=== PATIENT | male | born 1960 | race Caucasian/White ===

== ENCOUNTER 2024-07-25 03:51 | Emergency (ER) | payer OTHER, SELFPAY ==
[2024-07-25] VITALS (8 sets, daily range): BP systolic 106–125; BP diastolic 80–95; BMI 28.5
[2024-07-25 04:33] LABS: % Basophils 0.6 % (0-2); % Eosinophils 2.3 % (0-6); % Immature Granulocytes 0.6 % (0-0.5); % Lymphocytes 21.4 % (20.5-51.1); % Monocytes 8.5 % (1.7-9.3); % Neutrophils 66.6 % (42.2-75.2); Absolute Basophils 0.1 10^3/uL (0-0.2); Absolute Eosinophils 0.3 10^3/uL (0-0.7); Absolute Immature Granulocytes 0.1 10^3/uL (0-0.05); Absolute Lymphocytes 2.5 10^3/uL (1.2-3.4); Absolute Neutrophils 7.8 10^3/uL (1.4-6.5); Hemoglobin 16.7 g/dL (13.0-18.0); Mean Corp Hgb Conc. 34.1 g/dL (33.0-37.0); Mean Corpuscular Hgb 28.9 pg (27.0-31.0); Mean Corpuscular Volume 84.8 fL (80.0-94.0); Mean Platelet Volume 9.4 fL (7.4-10.4); Nucleated Red Blood Cells % 0 % (-); Platelet Count 330 10^3/uL (130-400); Red Blood Cell Count 5.78 10^6/uL (4.70-6.10); Red Cell Dist. Width 13.5 % (11.5-14.5); White Blood Cell Count 11.7 10^3/uL (4.8-10.8)
[2024-07-25 04:55] LABS: ALT (SGPT) 21 U/L (0-50); AST (SGOT) 17 U/L (17-59); Albumin 4.4 g/dl (3.5-5.0); Alkaline Phosphatase 94 U/L (38-126); Blood Urea Nitrogen 28 mg/dl (9-20); Calcium 9.7 mg/dl (8.4-10.2); Carbon Dioxide 22 mmol/L (22-30); Chloride 98 mmol/L (98-107); Glucose 244 mg/dl (70-99); Potassium 4.3 mmol/L (3.5-5.1); Sodium 133 mmol/L (135-145); Total Bilirubin 0.3 mg/dl (0.2-1.3); Total Protein 7.2 g/dl (6.3-8.2); eGFR > 60.00
--- NOTE | 2024-07-25 07:49 | ED.GENMED ---
History of Present Illness
General
Chief Complaint: Breathing Problem
Source: patient and spouse
Exam Limitations: none
Time Seen by Provider: 07/25/24 07:48
Nursing documentation reviewed up to this point in time: agreed with
History of Present Illness
History of Present Illness:
Patient is a 63-year-old male who presents to the ER for evaluation. Patient reports he has had a lump to his left neck for about 2 years. He has been diagnosed with a left parotid mass along with left knee lateral vocal fold paralysis dysphagia
and GERD
this has been evaluated by his family doctor. It has not grown. He however started with a hoarse voice in May and was seen by his family doctor and had 2 rounds of antibiotics which did not improve his symptoms. He was therefore seen by ENT
Dr. Hollis Yeh. He is scheduled for CAT scan this Wednesday several days from now however reports because of this swelling to his left lateral neck he is having difficulty breathing at night. He admits to feeling very anxious about symptoms And
reports he has been anxious since seeing his ENT.
he is able to eat and swallows and secretions. He reports he believes feels about 5 pounds over the past 2 weeks. He denies any fever chills the cast. The CAT scans he is scheduled for include CT neck with IV contrast and CT chest with IV
contrast.
Patient reports he is a smoker but quit 3 weeks ago.
Past History
Past History
ED Past Medical History: HTN, Hypercholesterolemia and NIDDM
Social History
Tobacco: Smoker
Personal:
Living: with family
Employment: Employed ([employer])
Family History
Family History: Negative Diabetes, Hypertension or CAD
Review of Systems
Review of Systems
Allergies reviewed?: Yes
All Other Systems: ROS reviewed and negative except as documented in HPI and ROS
Constitutional: Reports no symptoms; Denies fever
EENT: Reports other (Lump to left lateral neck)
Respiratory: Reports trouble breathing (Patient feels that he is having trouble breathing from the lump to the left lateral)
Cardiac: Reports no symptoms
ABD/GI: Reports no symptoms
Musculoskeletal: Reports no symptoms
Skin: Reports no symptoms
Neurological: Reports no symptoms
Psychiatric: Reports no symptoms
Phy Exam
General Physical Exam
General Presentation: no apparent distress
General age: appears stated age
General Skin: warm and dry
General Habitus: normal
General Mental: alert
General Hydration: appears well hydrated
ENT Exam
ENT Exam: EOMI, neck supple and other (No drooling tongue secretions well palpable mass to left lateral neck just below mandible)
Cardiovascular Exam
Cardiovascular Exam: regular rate/rhythm, no murmur and normal peripheral pulses
Pulmonary Exam
Pulmonary Exam: lungs clear and no respiratory distress
Neurological Exam
Neurological Exam: alert and oriented x3
Musculoskeletal Exam
Musculoskeletal Exam: full ROM
Skin Exam
Skin Exam: normal color and warm/dry
Psychiatric Exam
Psychiatric Exam: normal mood/affect
Scores
Heart Failure Risk
Heart Failure Risk Score: Not Applicable
Course
Orders/Labs/Results
Orders:
Orders
07/25/24
CR Soft Tissue Neck Urgent
07/25/24 04:10
CR Chest - 2 Views Urgent
Comment:
Reason For Exam: DIFFICULTY BREATHING, SOFT TISSUE SWELLING LT NECK
07/25/24 04:18
CMP [Comprehensive Metabolic Panel] Urgent
Complete Blood Count/With Diff Urgent
07/25/24 07:59
CT Neck With Iv Contrast Urgent
Comment:
Reason For Exam: lump to left lateral neck/hoarse voice
07/25/24 08:00
CT Chest With Iv Contrast Urgent
Comment:
Reason For Exam: sob
0.9% Sodium Chloride 1000 ml [Nss] 1,000 ml IV BOLUS
07/25/24 08:52
Lorazepam [Ativan] 0.5 mg IV NOW STA
Abnormal Lab Results
07/25/24
04:18
WBC 11.7 H 10^3/uL
(4.8-10.8)
Abs Immat Gran (auto) 0.1 H 10^3/uL
(0-0.05)
Absolute Neuts (auto) 7.8 H 10^3/uL
(1.4-6.5)
Absolute Monos (auto) 1.0 H 10^3/uL
(0.1-0.6)
Immature Gran % 0.6 H %
(0-0.5)
Sodium 133 L mmol/L
(135-145)
BUN 28 H mg/dl
(9-20)
Glucose 244 H mg/dl
(70-99)
07/25/24 04:18
07/25/24 04:18
Vital Signs
Initial and Last Documented VS:
Initial Vital Signs
Temp Pulse Resp BP Pulse Ox
97.7 F 92 22 106/80 95
07/25/24 04:06 07/25/24 04:06 07/25/24 04:06 07/25/24 04:06 07/25/24 04:06
Last Documented Vital Signs
Temp Pulse Resp BP Pulse Ox
98.1 F 80 20 125/95 91
07/25/24 09:37 07/25/24 11:48 07/25/24 11:48 07/25/24 11:48 07/25/24 12:15
MDM/Problems Addressed
Differential Diagnosis Includes:
Not limited to mass/malignancy
MDM/Problems Addressed:
Patient is a 63-year-old male who has known left neck mass however has had shortness of breath which is what brought him to the ER. He admits that he was very anxious while sleeping last night and since being worried about malignancy he was unable
to sleep. He does feel that this mass/swelling of the left lateral neck is interfering with his breathing. He was scheduled to have a CAT scan this Wednesday which was ordered by ENT. Patient presents with obvious mass to left lateral neck show
tolerating secretions well. He is not hypoxic and his lungs are clear. He is a smoker and quit 3 weeks ago.
CAT scan shows a 3.6 cm left parotid mass which may be benign or malignant there is mediastinal and left supraclavicular adenopathy worrisome for malignancy. There is a nodular area of soft tissue prominence on the lateral aspect of the
hypopharynx. Chest x-ray shows mediastinal and bilateral hilar and left supraclavicular lymphadenopathy.
Patient has initially seen an ENT Dr Yeh however is requesting a new ENT.
Patient is in no acute distress though he has an obvious mass he is in no respiratory distress lungs are clear he has time secretions well he is not short of breath. He is admittedly anxious but feels comfortable going home and there is no
admission warranted at this time. He will indeed need outpatient close prompt follow-up.
I reviewed case with ENT Dr. Cleveland who will be able to see patient in his office this week to further evaluate his parotid mass and evaluate/biopsy
Case also reviewed with destination specialist Dr. Lawrence who will ensure follow-up this week as well for further evaluation of CT findings
I reviewed all instructions with and patient discussed the importance of close follow-up.
*Radiology
Radiology exam reviewed: radiology read reviewed
*Pulse Oximetry
Patient hypoxic: no
*Critical Care Note
Total Time (30-74mins, 75-104mins- exclusive of procedures): Not Applicable
ED Attending Note
-
Portions of this chart may have been created with voice recognition software.� Occasional wrong word or��sound alike� substitutions may have occurred due to the inherent limitations of voice recognition software.
Discharge Plan
Departure
Patient Disposition: Home (Routine Discharge)
Date of Disposition: 07/25/24
Time of Disposition: 12:23
Patient with high blood pressure during this ER visit?: Yes
Condition: Fair
Covid-19: Not Applicable
Discharge Problem:
Parotid mass
Instructions: BLOOD PRESSURE
Prescriptions:
No Action
atorvastatin 40 MG tablet
40 mg PO DAILY
metformin 500 MG tablet
500 mg PO BID
aspirin 325 MG tablet
325 mg PO DAILY
quinapril [Accupril] 20 MG tablet
20 mg PO DAILY
Fish Oil 1,000 MG capsule
1 cap PO DAILY
cholecalciferol (vitamin D3) 2,000 UNIT tablet
2,000 unit PO DAILY
Vitamins B Complex 1 EACH tablet
1 ea PO DAILY
Mens 50+ Daily Formula(gingko) 1 EACH tablet
1 ea PO DAILY
Referrals:
John Lawrence MD [Active] -
Ankur Cleveland MD [Active] -
Brennen Villalobos MD [Family Provider] -
Activity Restrictions/Additional Instructions:
As discussed you need prompt follow-up for further evaluation of your left parotid mass and swollen lymph nodes in your chest region.
Please call ENT early on morning.
Pulmonology office should reach out to you to schedule an appointment. if you do not hear please call the office today to schedule an appointment as soon as possible. If office is closed today please call morning
As discussed it is important to have prompt follow-up with both ENT and pulmonology for further evaluation of CT findings today.
Return if any worsening of symptoms including shortness of breath difficulty breathing swallowing or any further concerns.
Interventions
Interventions:
*Risk Screen - Suicide Last Done: 07/25/24 04:06
*General Assessment Last Done: 07/25/24 07:51
*Neglect/Abuse Screening Last Done: 07/25/24 04:06
ED- Fall Risk Assessment Last Done: 07/25/24 07:51
*ED COVID-19 Vaccine History Last Done: 07/25/24 07:51
*Nursing Disposition Last Done: 07/25/24 12:29
ED- Cardiac Assessment Last Done: 07/25/24 07:51
ED- Pulmonary Assessment Last Done: 07/25/24 07:51
Discharge Date and Time
Discharge Date/Time: 07/25/24 12:53
Print Language: [id number]
--- NOTE | 2024-07-25 07:51 | EDRN ---
Milana Kerns ACID WASH OPERATOR currently at the pts bedside
--- NOTE | 2024-07-25 07:59 | EDRN ---
the pt is resting in stretcher in the lowest position, side rails up x1, HOB elevated, no s/s of distress, the pt states to this RN, 'I am just nervous, i just recently quit smoking, my throat is hoarse and i feel like one of my vocal cords is being
paralyzed, i feel at times like i can't breathe and i feel short of breath', this RN assured the pt that his VS were WNL, this RN also assured the pt that his Sp02 was 96%, this RN was able to calm the pt down with deep breathing exercises, the pts
is at the pts bedside for support, awaiting for orders from provider, will continue to monitor the pt closely
[2024-07-25] MEDS: NSS 1000 IV (08:19)
[2024-07-25] MEDS: ATIVAN 0.5 MG IV (09:00)
--- NOTE | 2024-07-25 10:30 | EDRN ---
the pt is resting in stretcher in the lowest position, side rails up x1, HOB elevated, no s/s of distress, the pt appears anxious and the pt and the pts have come behind the nurses station twice to ask this RN, 'What is going on? when will we
know the results of the CT scan? We shouldn't have to wait this long, i am anxious, that should count for something!', this RN assured the pt that the provider Milana Kerns NP would be in to speak with him regarding his CT results once the
radiologist reads the CT scan, the pt was asked to go back into his room, the pt is laying in stretcher, the pt does not want to be placed back on [facility], BP cuff, Sp02 monitor, no s/s of distress, no c/o SOB, no c/o chest pain, will
continue to monitor the pt closely
--- NOTE | 2024-07-25 11:45 | EDRN ---
the pt came out of the room and approached this RN at the nurses station and stated that he wanted to speak to a provider regarding his results, this RN notified the pt that Milana Kerns NP was just recently at the pts bedside speaking to him
regarding his results and the pt stated that he wanted to hear the results again, this RN notified the pt that this RN would notify the provider and this RN asked the pt to go back into his room, this RN notified Milana Kerns NP and is currently
at the pts bedside speaking with the pt, the pt is resting in stretcher in the lowest position, side rails up x1, HOB elevated, no s/s of distress, VS WNL, will continue to monitor the pt closely
== END 2024-07-25 12:53 | disposition home or self-care (01) ==
LOC: EMR 03:51
PROVIDERS: Emergency Medicine; EMERGENCY PHYSICIAN Emergency Medicine; FAMILY PHYSICIAN Family Medicine
DX: R22.1 Localized swelling, mass and lump, neck (principal); I10 Essential (primary) hypertension; E78.00 Pure hypercholesterolemia, unspecified; E11.9 Type 2 diabetes mellitus without complications; F17.200 Nicotine dependence, unspecified, uncomplicated
CPT/HCPCS: 96374; 96361; 99284; 70360; 70491; 71046; 71260; 80053; 85025; Q9967

== ENCOUNTER 2024-07-31 09:15 | Day surgery (SDC) | payer OTHER, SELFPAY ==
[2024-07-31] VITALS (12 sets, daily range): BP systolic 100–130; BP diastolic 65–83; BMI 28.3
[2024-07-31 10:55] LABS: Glucose - Point of Care 236 mg/dl (70-99)
[2024-07-31 14:28] LABS: Glucose - Point of Care 234 mg/dl (70-99)
== END 2024-07-31 15:49 | disposition home or self-care (01) ==
LOC: SDS 09:15
PROVIDERS: ATTENDING PHYSICIAN Internal Medicine Critical Care Medicine
DX: R93.89 Abnormal findings on diagnostic imaging of other specified body structures (principal); R59.0 Localized enlarged lymph nodes; R49.0 Dysphonia; R06.02 Shortness of breath; J39.8 Other specified diseases of upper respiratory tract; Z87.891 Personal history of nicotine dependence
CPT/HCPCS: 31653; 88172; 88173; 88305; 71045; 82962; 88177

== ENCOUNTER → 2024-09-04 07:35 | Outpatient (REF) | payer OTHER, SELFPAY ==
[2024-09-04 07:56] VITALS: BP 126/85; BP_SYST 117
== END ==
LOC: RADI 07:35
PROVIDERS: ATTENDING PHYSICIAN Internal Medicine Critical Care Medicine; FAMILY PHYSICIAN Family Medicine
DX: C77.0 Secondary and unspecified malignant neoplasm of lymph nodes of head, face and neck (principal)
CPT/HCPCS: 88305; 38505; 76942; 88333; 88334; 88342

== ENCOUNTER 2024-09-27 09:40 | Inpatient (IN) | payer OTHER, SELFPAY ==
[2024-09-27] VITALS (15 sets, daily range): BP systolic 99–131; BP diastolic 64–91; PULSE 2; BMI 25.5; BMI 25.3
[2024-09-27 06:24] LABS: % Basophils 0.7 % (0-2); % Eosinophils 1.9 % (0-6); % Immature Granulocytes 0.6 % (0-0.5); % Lymphocytes 17.9 % (20.5-51.1); % Monocytes 6.7 % (1.7-9.3); % Neutrophils 72.2 % (42.2-75.2); Absolute Basophils 0.1 10^3/uL (0-0.2); Absolute Eosinophils 0.3 10^3/uL (0-0.7); Absolute Immature Granulocytes 0.1 10^3/uL (0-0.05); Absolute Lymphocytes 2.7 10^3/uL (1.2-3.4); Absolute Neutrophils 10.8 10^3/uL (1.4-6.5); Hematocrit 46.6 % (39.0-52.0); Mean Corp Hgb Conc. 34.3 g/dL (33.0-37.0); Mean Corpuscular Hgb 28.7 pg (27.0-31.0); Mean Corpuscular Volume 83.7 fL (80.0-94.0); Mean Platelet Volume 8.9 fL (7.4-10.4); Nucleated Red Blood Cells % 0 % (-); Platelet Count 413 10^3/uL (130-400); Red Blood Cell Count 5.57 10^6/uL (4.70-6.10); Red Cell Dist. Width 13.2 % (11.5-14.5)
--- NOTE | 2024-09-27 06:33 | ED.GENMED ---
History of Present Illness
General
Chief Complaint: Breathing Problem
Source: patient and spouse
Exam Limitations: none
Time Seen by Provider: 09/27/24 06:31
Nursing documentation reviewed up to this point in time: agreed with
History of Present Illness
History of Present Illness:
The patient is a pleasant 64-year-old man with a past medical history of a recently diagnosed parotid gland mass and chest lymphadenopathy, as well as emphysema and diabetes who comes in with complaints of severe shortness of breath. Patient
reports that the symptoms started about 2 to 3 days ago and are associated with cough. He denies fever. His reports that he seemed to be worse this morning, prompting her to bring him to the ED today. Patient denies a specific history of
congestive heart failure. Patient denies specific chest pain. describes gurgling that she hears in his chest. Patient reports he recently quit smoking 5 months ago.
Past History
Past History
ED Past Medical History: COPD, HTN, Hypercholesterolemia and NIDDM
ED Past Surgical History: Orthopedic
Social History
Tobacco: Smoker
Alcohol: Other
Drug: None
Personal:
Living: with family
Employment: Employed ([employer])
Family History
Family History: Negative Diabetes, Hypertension or CAD
Review of Systems
Review of Systems
Allergies reviewed?: Yes
All Other Systems: ROS reviewed and negative except as documented in HPI and ROS
Constitutional: Reports no symptoms
EENT: Reports other (Nasal congestion)
Respiratory: Reports cough and trouble breathing
Cardiac: Reports no symptoms
ABD/GI: Reports no symptoms
: Reports no symptoms
Musculoskeletal: Reports no symptoms
Skin: Reports no symptoms
Neurological: Reports no symptoms
Endocrine: Reports no symptoms
Hematologic/Lymphatic: Reports no symptoms
Psychiatric: Reports no symptoms
Phy Exam
Physical Exam
Physical Exam:
Physical Exam
General: Patient is visibly tachypneic but speaking in full sentences. Audible gurgling sound
Neck: supple.
Heart: s1/s2 regular rate and rhythm, no murmur. equal radial pulses.
Lungs: Tachypneic. Rhonchi, turbulent airflow
Abdomen: Soft
Neuro: alert and oriented. no focal neurological deficits
Skin: no rash
Psychiatric: well kept. interactive and cooperative
Extremities: no edema. no calf tenderness. negative homans. good distal pulses
Scores
Heart Failure Risk
Heart Failure Risk Score: Not Applicable
Course
Orders/Labs/Results
Orders:
Orders
09/27/24 Breakfast
1800 calorie (15 carb) Diabetic
At Your Request: Full Participation
09/27/24 06:16
Electrocardiogram (*1) Urgent
Reason for Study: Shortness of Breath
Portable Chest Xray [CR Chest Portable - 1 View] Urgent
Comment:
Reason For Exam: trouble breathing
Reason Study Needs to be Portable: Patient Unstable
09/27/24 06:17
EKG- Treatment ONCE
09/27/24 06:18
Complete Blood Count/With Diff Urgent
Comprehensive Metabolic Panel Urgent
NT-proBNP Urgent
Troponin I Urgent
09/27/24 06:31
Albuterol Sulfate [Ventolin Nebules] 15 mg INH R NOW STA
09/27/24 06:32
Dexamethasone Sod Phosphate [Decadron] 10 mg IV NOW STA
09/27/24 06:39
COVID-19 Antigen Urgent
Source: Nasal Swab
Influenza A+B Rapid Molecular Urgent
GIFTY Source: Nasal Swab
Specimen Description:
09/27/24 07:47
Azithromycin 500 mg/250 ml [Zithromax Infusion] 500 mg in 250 ml IV NOW
CefTRIAXone [Rocephin] 1,000 mg IV NOW STA
09/27/24 07:48
Bipap [RESP] Urgent
Patient to use own unit?: No
Inspiratory Pressure (cm H2O): 10
Expiratory Pressure (cm H2O): 5
09/27/24 08:13
Sterile Water [Sterile Water For Injection] 10 ml .ROUTE .STK-MED ONE
09/27/24 08:[address] Non Medication Order As Directed
Physician Order: wean off bipap before resuming diet
Above order entered?: Yes
09/27/24 08:56
0.9% Sodium Chloride 500 ml [Nss] 500 ml IV BOLUS
09/27/24 09:02
CT Chest PE Study Urgent
Comment:
Reason For Exam: acute hypoxia resp distress required bipap Cancer
09/27/24 09:16
Dextrose 50%-Water [Dextrose 50% Syringe] 12.5 grams IV [id number] PRN
Glucagon [GlucaGen] 1 mg IM PRN PRN
Bedside Glucose Monitoring As Directed
Frequency: AC&HS
Additional Instructions:: Change to q6h if pt on TPN, tube feeding or not eating
09/27/24 09:19
Admit/Transfer Patient As Directed
Co-Sign Provider:
Level of Care: Inpatient admission
Assign to:: Telemetry
Physician / Group: Julito Hunter
Diagnosis: Acute Hypoxic Resp Failure COPD exacerbation
Reason for Telemetry: Arrhythmia
Date to Stop Telemetry: 09/30/24
Time to Stop Telemetry: 11:00
Reason for Hospitalization: Acute Hypoxic Resp Failure COPD exacerbation
Expected length of stay greater than two midnights?: Yes
ELOS- Estimated Length of Stay in days: 2
I certify the patient meets the requirements for IP care: Yes
PRN Pain Medication Management As Directed
May give lesser potent ordered pain med per pt: Yes
preference::
Protocol:: Medication orders for pain may be administered in a
manner that supports deferring to patient preference
when the pt is:
- Requesting an ordered lesser potent pain medication.
Least to most potent pain medications are defined
as: acetaminophen < NSAID < tramadol < opioids
(morphine, oxycodone, hydromorphone).
- Requesting a lesser dose of the same medication IF
ORDERED.
- Requesting a less intrusive route of administration
if both routes are prescribed by the provider (PO <
IV).
09/27/24 09:25
Code Status As Directed
Resuscitation Status: Full Code
09/27/24 10:03
Venous Blood Gas Routine
%Oxygen/Room Air: 92
09/27/24 11:30
Insulin Aspart Corrective Low [Novolog Flexpen-Low Resistance] See Protocol SC AC
09/28/24 06:00
Glycohemoglobin (HgbA1c) IN AM
09/30/24 11:00
DC Protocol for Telemetry ONCE
Abnormal Lab Results
09/27/24
06:18
WBC 15.0 H 10^3/uL
(4.8-10.8)
Plt Count 413 H 10^3/uL
(130-400)
Abs Immat Gran (auto) 0.1 H 10^3/uL
(0-0.05)
Absolute Neuts (auto) 10.8 H 10^3/uL
(1.4-6.5)
Absolute Monos (auto) 1.0 H 10^3/uL
(0.1-0.6)
Immature Gran % 0.6 H %
(0-0.5)
Lymphocytes % 17.9 L %
(20.5-51.1)
Sodium 134 L mmol/L
(135-145)
BUN 24 H mg/dl
(9-20)
Glucose 213 H mg/dl
(70-99)
Calcium 11.0 H mg/dl
(8.4-10.2)
09/27/24 06:18
09/27/24 06:18
Vital Signs
Initial and Last Documented VS:
Initial Vital Signs
Temp Pulse Resp Pulse Ox
98.4 F 102 30 90
09/27/24 06:12 09/27/24 06:12 09/27/24 06:12 09/27/24 06:12
Last Documented Vital Signs
Temp Pulse Resp BP Pulse Ox
98.4 F 106 20 99/66 96
09/27/24 06:12 09/27/24 10:09 09/27/24 10:09 09/27/24 10:09 09/27/24 10:09
MDM/Problems Addressed
Differential Diagnosis Includes:
Acute on chronic COPD, pneumonia, acute CHF, acute coronary syndrome, pericardial effusion, pleural effusion, PE
MDM/Problems Addressed:
Patient presents with acute shortness of breath
Chronic conditions affecting care:
Given patient has a history of chronic COPD, he could have an acute exacerbation
Acute Exacerbation and/or Progression of Chronic Illness: COPD
*Radiology
Radiology exam reviewed: preliminary read by ED provider (Chest x-ray reviewed by me. Possible mild CHF. No obvious infiltrate)
*Pulse Oximetry
Patient hypoxic: yes
*EKG
Interpreted by ED Provider?: Yes
Interpretation: abnormal
Comparison EKG: no comparison EKG present
Rate: normal
Rhythm: sinus
[place]: left axis deviation
Interval: normal interval
QRS Pattern: normal QRS
Ischemia: non-specific ST changes
*General Operations Agent Interpretation
Rate: normal
Interpretation: normal
Rhythm: sinus
*Critical Care Note
Total Time (30-74mins, 75-104mins- exclusive of procedures): 45 minutes of critical ca
comment:
45 minutes of critical care given to the patient including frequent reassessments of his respiratory effort, reviewing his lab work, chest x-ray, counseling the patient and his
Data Reviewed
Review of Other/Old Records Reveals: Progress Notes (Office H&P reviewed from Dr. Lawrence from last pulmonology visit)
Source: patient and spouse
ED Attending Note
-
Portions of this chart may have been created with voice recognition software.� Occasional wrong word or��sound alike� substitutions may have occurred due to the inherent limitations of voice recognition software.
Discharge Plan
Departure
Patient Disposition: Admit
Date of Disposition: 09/27/24
Time of Disposition: 07:50
Admit to: Telemetry
Presentation/result/management discussed w/ accepting MD/DO: Hospitalist
Patient with high blood pressure during this ER visit?: No
Condition: Fair
Covid-19: Negative COVID-19
Discharge Problem:
Acute hypoxic respiratory failure, Acute bronchitis
Interventions
Interventions:
*Risk Screen - Suicide Last Done: 09/27/24 06:28
*General Assessment Last Done: 09/27/24 06:21
*Neglect/Abuse Screening Last Done: 09/27/24 06:53
*ED- Fall Risk Assessment Last Done: 09/27/24 06:21
*ED COVID-19 Vaccine History Last Done: 09/27/24 06:21
ED- Cardiac Assessment Last Done: 09/27/24 08:00
ED- Pulmonary Assessment Last Done: 09/27/24 08:00
[2024-09-27] MEDS: VENTOLIN NEBULES 15 MG INH (06:36)
[2024-09-27] MEDS: DECADRON 10 MG IV (06:36)
[2024-09-27 06:47] LABS: ALT (SGPT) 21 U/L (0-50); Albumin 4.4 g/dl (3.5-5.0); Blood Urea Nitrogen 24 mg/dl (9-20); Carbon Dioxide 24 mmol/L (22-30); Chloride 98 mmol/L (98-107); Estimated Creatinine Clearance 115 ml/min; Glucose 213 mg/dl (70-99); Sodium 134 mmol/L (135-145); Total Protein 7.4 g/dl (6.3-8.2); eGFR > 60.00
[2024-09-27 06:52] LABS: NT-proBNP 67.5 pg/ml; Troponin I < 0.012 ng/ml
[2024-09-27 07:01] LABS: AST (SGOT) 27 U/L (17-59); Alkaline Phosphatase 111 U/L (38-126); Potassium 4.5 mmol/L (3.5-5.1)
[2024-09-27 07:21] LABS: COVID-19 Antigen Negative (Negative)
--- NOTE | 2024-09-27 07:52 | HPS.HSE ---
Family Physician
-
Family Physician: Brennen Villalobos
Chief Complaint
-
shortness of breath
History of Present Illness
64 male former smoker COPD hypertension hyperlipidemia [id number] diabetes recent diagnosis metastatic squamous cell carcinoma with associate mediastinal lymphadenopathy (follows Oncology Dr Camila Bean and pulm Dr Lawrence outpt)
p/w progressive dyspnea coughing for the past weeks, acutely worsening in last 24 hours prompting ED evaluation. Never required oxygen before, patient noted hypoxic in respiratory distress, improved with oxygen supplementation 4L, Bipap, steroids
and empiric abx. Mildly sinus tachy but VSS afebrile. Labs notable for mild leukocytosis possibly stress reactive, mild hyperglycemia, and mild hypercalcemia. CXR noted no acute disease. Lungs clear to auscultation.
Medical History
Past Medical History
Past Medical History: Reports Other (as above)
Past Surgical History: Reports Other (as above)
Social History
Tobacco: Former Smoker
Alcohol: None
Drug: None
Personal:
Living: With Family
Employment: Employed
Family History
Family History: Not pertinent (reviewed)
Allergies / Home Medications
Allergies reflects when Allergies were last updated in [facility].
Home Medications with original date entered in [facility]
Allergy/Medication List:
Allergies
Allergy/AdvReac Type Severity Reaction Status Date / Time
levofloxacin [From Levaquin] Allergy Unknown Verified 09/27/24 06:16
Home Medications
cholecalciferol (vitamin D3) 50 mcg (2,000 unit) tablet 2,000 unit PO DAILY 11/06/13
metformin 500 mg tablet 1,000 mg PO BID 11/06/13
aspirin 81 mg tablet,delayed release 81 mg PO DAILY 07/31/24
dapagliflozin propanediol 10 mg tablet 10 mg PO DAILY 07/31/24
glimepiride 4 mg tablet 4 mg PO DAILY 07/31/24
lisinopril 20 mg tablet 20 mg PO DAILY 07/31/24
pioglitazone 30 mg tablet 30 mg PO DAILY 07/31/24
alprazolam 0.25 mg tablet (Xanax) 0.25 mg PO DAILYPRN PRN anxiety 09/27/24
atorvastatin 20 mg tablet (Lipitor) 20 mg PO QPM 09/27/24
benzonatate 100 mg capsule 200 mg PO TIDPRN PRN cough 09/27/24
escitalopram oxalate 10 mg tablet 10 mg PO DAILY 09/27/24
omega-3 fatty acids-fish oil 684 mg-1,200 mg capsule,delayed release 1 cap PO DAILY 09/27/24
therapeutic multivitamin 1 tab PO DAILY 09/27/24
vitamin B complex 1 tab PO DAILY 09/27/24
Review of Systems
-
A 12 point ROS was completed and negative except as noted: Yes
Constitutional: Reports Other (as below)
Physical Exam
Vital Signs
Vital Signs
Temp Pulse Resp BP Pulse Ox
98.4 F 94 15 121/91 95
09/27/24 06:12 09/27/24 06:45 09/27/24 06:45 09/27/24 06:18 09/27/24 06:45
Physical Exam
General: Other (as below)
Laboratory Results
-
09/27/24 06:18
09/27/24 06:18
Laboratory Results
Total Bilirubin 1.0 mg/dl (0.2-1.3) 09/27/24 06:18
AST 27 U/L (17-59) 09/27/24 06:18
ALT 21 U/L (0-50) 09/27/24 06:18
Alkaline Phosphatase 111 U/L (38-126) 09/27/24 06:18
Troponin I < 0.012 ng/ml 09/27/24 06:18
Impression/Plan
-
ROS
General: Denies fever chills night sweats unexpected weight loss
Neuro: Denies seizure shaking loss of consciousness dizziness vertigo
Psych: denies depression hallucinations confusion manic episodes
Endocrine: Denies polyuria polydipsia polyphagia heat/cold intolerance
HEENT: Denies blindness visual disturbances epistaxis
Pulmonary: reports progressive couging sob
Cardiovascular: denies chest pain palpitations leg swelling
Hematology: denies signs symptoms of anemia easy bruising/bleeding
Gastrointestinal: denies nausea vomiting diarrhea constipation hematemesis hematochezia melena
Genito-Urinary: denies retention incontinence dysuria
Musculoskeletal: denies joint pain weakness
Dermatology: denies rash laceration bruising
Physical Exam
General: No pallor, cyanosis, or jaundice.
HEENT: Throat clear. PERRLA Normocephalic atraumatic
NECK: Supple. No JVD Carotid Bruits
RESPIRATORY: Lungs clear to auscultation. No crackles wheezes stridor. Respiratory status appears stable at this time on BIPAP and 4L oxygen supplementation. Able to speak full sentences.
CVS: S1, S2 sinus tachy. No murmur, rub or gallop.
ABDOMEN: Soft, non-tender. No distension. BS+/normal.
EXTREMITIES: No peripheral cyanosis or edema.
BLOCK CUBER: AOx3. Conversant coherent
IMPRESSION:
64 male former smoker COPD hypertension hyperlipidemia [id number] diabetes recent diagnosis metastatic squamous cell carcinoma with associate mediastinal lymphadenopathy (follows Oncology Dr Camila Bean and pulm Dr Lawrence outpt)
p/w progressive dyspnea coughing for the past weeks, acutely worsening in last 24 hours prompting ED evaluation. Never required oxygen before, patient noted hypoxic in respiratory distress, improved with oxygen supplementation 4L, Bipap, steroids
and empiric abx. Mildly sinus tachy but VSS afebrile. Labs notable for mild leukocytosis possibly stress reactive, mild hyperglycemia, and mild hypercalcemia. CXR noted no acute disease. Lungs clear to auscultation.
PLAN:
#Acute Hypoxic Respiratory Failure possibly COPD exacerbation
#Recent Dx Metastatic SQC w/ mediastinal Lymphadenopathy due to start treatment
Tele admit
never required oxygen before
Cont O2 supplementation as necessary goal sat 92
Wean off BIPAP
Follow up VBG
check CT Chest r/o PE
cont empiric ceftriaxone and azithromycin for now, suspicion pna low
received IV decadron 10 mg once in ED, no wheezing at this time, will cont with Prednisone 40 mg daily for now, anticipate short taper
Duoneb PRN
Pulm Oncology Eval requested
#Mild Hypercalcemia
possible dehydration vs malignancy related
once IVF bolus
monitor
#HTN
cont home Lisinopril with holding parameters
#DM
cont home metformin pioglitazone farxiga (or equivalent) hold if NPO/not eating
check A1c
low dose sliding scale
Carb Controlled Diet
dvt ppx Lovenox
Gi ppx protonix
Full Code
Discussed with patient and patient's
I spent a total of 80 minutes with the patient or on the floor. More than 50% of this time involved counseling and coordination of care.
[2024-09-27] MEDS: ZITHROMAX INFUSION 250 IV (08:27)
[2024-09-27] MEDS: ROCEPHIN 1000 MG IV (08:27)
[2024-09-27 10:15] LABS: Venous Blood Gas B.E. 2.2 mmol/L (-4 to +4); Venous Blood Gas HCO3 25.5 mmol/L (22-27); Venous Blood Gas O2 Sat % 99.5 %; Venous Blood Gas pCO2 35 mmHg (35-48); Venous Blood Gas pH 7.47 (7.32-7.43); Venous Blood Gas pO2 135 mmHg (30-50)
--- NOTE | 2024-09-27 11:05 | CM ---
Met patient and his in ER room. Patient's known to this software writer as she works at [facility] pharmacy, and volunteers at . Patient is independent in home and community. He has a car he shows at car shows.
They live in split level with 5 steps to enter all living areas and bathroom and bedroom.
He does not use any DME.
NO history of VNA or SNF.
PCP Chandler Villalobos
PHarmacy [facility]
HE is admitted with Hypoxia. HE does not have oxygen at home.
Plan: home no needs.
[2024-09-27] MEDS: NSS (PRESERVATIVE FREE) 10 ML IV (11:08)
[2024-09-27] MEDS: PROTONIX IV 40 MG IV (11:08)
[2024-09-27] MEDS: NSS 500 IV (11:08)
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
[2024-09-27 13:27] LABS: Glucose - Point of Care 239 mg/dl (70-99)
[2024-09-27] MEDS: NOVOLOG FLEXPEN-LOW RESISTANCE 2 UNITS SC (13:51)
--- NOTE | 2024-09-27 14:15 | EDRN ---
Patient taken to 404-1 on stretcher on O2 4LNC.
[2024-09-27] MEDS: DECADRON 4 MG IV ×2 (15:14→23:05)
[2024-09-27 17:15] LABS: Glucose - Point of Care 281 mg/dl (70-99)
[2024-09-27] MEDS: LOVENOX 40 MG SC (17:38)
[2024-09-27] MEDS: LIPITOR 20 MG PO (17:38)
[2024-09-27] MEDS: NOVOLOG FLEXPEN-LOW RESISTANCE 3 UNITS SC (17:39)
--- NOTE | 2024-09-27 17:52 | PTCARENOTE ---
Arrived to unit and ambulated to bed from stretcher. o2 sat 83% on 4L. No complaints at this time. Oriented to room. Call naik within reach.
[2024-09-27] MEDS: XANAX 0.25 MG PO (20:49)
[2024-09-27] MEDS: GLUCOPHAGE 1000 MG PO (20:49)
[2024-09-27 21:30] LABS: Glucose - Point of Care 248 mg/dl (70-99)
[2024-09-28] VITALS (7 sets, daily range): BP systolic 103–135; BP diastolic 63–86; PULSE 90; O2SAT 98; BMI 25.3
--- NOTE | 2024-09-28 07:16 | W.PN.HOSP.TC ---
Today's Communication/Plan
-
Duoneb R QID
cont steroids
glycemic control
IVF
wean O2 as tolerated
discontinue abx
Assessment / Plan
Assessment / Plan
Physical Exam
General: No pallor, cyanosis, or jaundice.
HEENT: Throat clear. PERRLA Normocephalic atraumatic
NECK: Supple. No JVD Carotid Bruits
RESPIRATORY: Rhonchi. Non-labored respiration on 4L
CVS: S1, S2 sinus tachy. No murmur, rub or gallop.
ABDOMEN: Soft, non-tender. No distension. BS+/normal.
EXTREMITIES: No peripheral cyanosis or edema.
CYTOLOGY TECHNOLOGIST: AOx3. Conversant coherent
IMPRESSION:
64 male former smoker COPD hypertension hyperlipidemia [id number] diabetes recent diagnosis metastatic squamous cell carcinoma with associate mediastinal lymphadenopathy (follows Oncology Dr Camila Bean and pulm Dr Lawrence outpt)
p/w progressive dyspnea coughing for the past weeks, acutely worsening in last 24 hours prompting ED evaluation. Never required oxygen before, patient noted hypoxic in respiratory distress, improved with oxygen supplementation 4L, Bipap, steroids
and empiric abx. Mildly sinus tachy but VSS afebrile. Labs notable for mild leukocytosis possibly stress reactive, mild hyperglycemia, and mild hypercalcemia. CXR noted no acute disease. Lungs clear to auscultation.
PLAN:
#Acute Hypoxic Respiratory Failure possibly COPD exacerbation
#Recent Dx Metastatic SQC w/ mediastinal Lymphadenopathy due to start treatment
Tele admit
never required oxygen before
Cont O2 supplementation as necessary goal sat 92
Weaned off BIPAP
Wean O2 as tolerated
VBG appreciated
CT Chest appreciated no PE
neg procalcitonin, empiric abx ceftriaxone azithromycin discontinued
Duoneb R QID and PRN
Pulm Eval appreciated cont IV steroids
PET scan noted possible Vocal Cord Lesion, left sided vocal cord paralysis, ENT eval requested
#Mild Hypercalcemia
possible dehydration vs malignancy related
IVF
Vit D lvl wnl
hold home Vit D supplementation
check PTH, PTH-related peptide
#HTN
cont home Lisinopril with holding parameters
#DM
cont home metformin pioglitazone farxiga (or equivalent) hold if NPO/not eating
A1c appreciated 9.0
low dose sliding scale
Carb Controlled Diet
PT eval appreciated
dvt ppx Lovenox
Gi ppx protonix
Full Code
Discussed with patient and patient's
I spent a total of 50 minutes with the patient or on the floor. More than 50% of this time involved counseling and coordination of care.
Anticipated Discharge: 24 - 48 hours
Subjective/Interval History
-
Date of Service: September 28, 2024
No acute distress, remains oxygen dependent, stable respiratory status on 4L. Overall reports feeling well. Denies new acute issues at this time. Tolerating diet.
Objective Data
-
Labs:
Laboratory Results
09/28/24
06:37
WBC Pending
Hgb Pending
Hct Pending
Plt Count Pending
Sodium Pending
Potassium Pending
Chloride Pending
Carbon Dioxide Pending
BUN Pending
Creatinine Pending
Glucose Pending
Calcium Pending
Vital Signs:
Vital Signs
Temp Pulse Resp BP Pulse Ox
98.6 F 84 20 135/86 91
09/28/24 03:58 09/28/24 03:58 09/28/24 03:58 09/28/24 03:58 09/28/24 03:58
I&O
09/27/24 09/28/24 09/29/24
06:59 06:59 06:59
Intake Total 480 / 480
Output Total 1675 / 1675
Balance -1195 / -1195
[2024-09-28 07:18] LABS: Hematocrit 45.2 % (39.0-52.0); Hemoglobin 15.1 g/dL (13.0-18.0); Mean Corp Hgb Conc. 33.4 g/dL (33.0-37.0); Mean Corpuscular Hgb 28.3 pg (27.0-31.0); Mean Corpuscular Volume 84.8 fL (80.0-94.0); Mean Platelet Volume 9.5 fL (7.4-10.4); Platelet Count 430 10^3/uL (130-400); Red Blood Cell Count 5.33 10^6/uL (4.70-6.10); Red Cell Dist. Width 13.2 % (11.5-14.5); White Blood Cell Count 20.2 10^3/uL (4.8-10.8)
[2024-09-28 07:45] LABS: Glucose - Point of Care 198 mg/dl (70-99)
[2024-09-28 08:05] LABS: Blood Urea Nitrogen 23 mg/dl (9-20); Calcium 11.3 mg/dl (8.4-10.2); Carbon Dioxide 26 mmol/L (22-30); Chloride 94 mmol/L (98-107); Estimated Creatinine Clearance 101 ml/min; Glucose 213 mg/dl (70-99); Magnesium 1.7 mg/dl (1.6-2.3); Phosphorus 4.1 mg/dl (2.5-4.5); Potassium 4.7 mmol/L (3.5-5.1); Sodium 133 mmol/L (135-145); eGFR > 60.00
[2024-09-28] MEDS: ZITHROMAX 500 MG PO (08:09)
[2024-09-28] MEDS: ACTOS 30 MG PO (08:09)
[2024-09-28] MEDS: FARXIGA 10 MG PO (08:09)
[2024-09-28] MEDS: VITAMIN D3 (cholecalciferol) 50 MCG PO (08:10)
[2024-09-28] MEDS: GLUCOPHAGE 1000 MG PO ×2 (08:10→22:10)
[2024-09-28] MEDS: NSS (PRESERVATIVE FREE) 10 ML IV (08:11)
[2024-09-28] MEDS: ASPIR LOW (ENTERIC COATED) 81 MG PO (08:11)
[2024-09-28] MEDS: PROTONIX IV 40 MG IV (08:11)
[2024-09-28] MEDS: AMARYL 4 MG PO (08:11)
[2024-09-28] MEDS: THERAGRAN 1 TABLET PO (08:11)
[2024-09-28] MEDS: LEXAPRO 10 MG PO (08:12)
[2024-09-28] MEDS: DECADRON 4 MG IV ×2 (08:16→17:58)
[2024-09-28] MEDS: STERILE WATER FOR INJECTION 10 ML IV (08:16)
[2024-09-28] MEDS: ROCEPHIN 1000 MG IV (08:16)
[2024-09-28] MEDS: NOVOLOG FLEXPEN-LOW RESISTANCE 1 UNITS SC (08:17)
[2024-09-28] MEDS: ROBITUSSIN DM 5 ML PO ×2 (08:42→23:36)
[2024-09-28] MEDS: ZESTRIL 20 MG PO (08:42)
[2024-09-28] MEDS: DUONEB 3 ML INH ×4 (09:25→19:23)
[2024-09-28] MEDS: NSS 1000 IV (12:05)
[2024-09-28] MEDS: MAGNESIUM SULFATE 50 IV (12:05)
[2024-09-28 12:15] LABS: Glucose - Point of Care 281 mg/dl (70-99)
[2024-09-28 12:20] LABS: Procalcitonin < 0.05 ng/ml (0.0-0.25)
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
[2024-09-28] MEDS: NOVOLOG FLEXPEN-LOW RESISTANCE 3 UNITS SC (13:19)
[2024-09-28 13:50] LABS: Vitamin D, 25-OH*** 48.1 ng/mL (30-80)
--- NOTE | 2024-09-28 15:56 | CM ---
Spoke with pt in room . He said oxygen is new.
Will need home oxygen test.
Oxygen 4 liters with Pox 91%.
IV sterids maintained.
Offered Vn he declined need.
PLAN Home no anticipated need Watch for oxygen
[2024-09-28 17:26] LABS: Glucose - Point of Care 228 mg/dl (70-99)
[2024-09-28] MEDS: LIPITOR 20 MG PO (17:56)
[2024-09-28] MEDS: LOVENOX 40 MG SC (17:56)
[2024-09-28] MEDS: NOVOLOG FLEXPEN-LOW RESISTANCE 2 UNITS SC (17:57)
[2024-09-28 21:53] LABS: Glucose - Point of Care 261 mg/dl (70-99)
[2024-09-28] MEDS: XANAX 0.5 MG PO (22:10)
[2024-09-29] VITALS (8 sets, daily range): BP systolic 105–128; BP diastolic 65–81; PULSE 90; O2SAT 92
[2024-09-29] MEDS: NSS 1000 IV ×2 (01:51→17:18)
[2024-09-29] MEDS: DECADRON 4 MG IV ×2 (01:51→08:41)
[2024-09-29] MEDS: DUONEB 3 ML INH ×3 (07:20→15:24)
--- NOTE | 2024-09-29 07:24 | W.PN.HOSP.TC ---
Today's Communication/Plan
-
Wean O2 as tolerated
cough medications prn
out of bed to chair
encourage ambulation
steroids as per Pulm
Glimepiride increased to 5 mg daily
Assessment / Plan
Assessment / Plan
Physical Exam
General: No pallor, cyanosis, or jaundice.
HEENT: Throat clear. PERRLA Normocephalic atraumatic
NECK: Supple. No JVD Carotid Bruits
RESPIRATORY: Rhonchi. Non-labored respiration on 2L
CVS: S1, S2 sinus tachy. No murmur, rub or gallop.
ABDOMEN: Soft, non-tender. No distension. BS+/normal.
EXTREMITIES: No peripheral cyanosis or edema.
SODA FOUNTAIN MANAGER: AOx3. Conversant coherent
IMPRESSION:
64 male former smoker COPD hypertension hyperlipidemia [id number] diabetes recent diagnosis metastatic squamous cell carcinoma with associate mediastinal lymphadenopathy (follows Oncology Dr Camila Bean and pulm Dr Lawrence outpt)
p/w progressive dyspnea coughing for the past weeks, acutely worsening in last 24 hours prompting ED evaluation. Never required oxygen before, patient noted hypoxic in respiratory distress, improved with oxygen supplementation 4L, Bipap, steroids
and empiric abx. Mildly sinus tachy but VSS afebrile. Labs notable for mild leukocytosis possibly stress reactive, mild hyperglycemia, and mild hypercalcemia. CXR noted no acute disease. Lungs clear to auscultation.
PLAN:
#Acute Hypoxic Respiratory Failure possibly COPD exacerbation
#Recent Dx Metastatic SQC w/ mediastinal Lymphadenopathy due to start treatment
Tele admit
never required oxygen before
Cont O2 supplementation as necessary goal sat 92
Weaned off BIPAP
Home O2 assessment 09/29/24 appreciated no need
Wean O2 as tolerated
VBG appreciated
CT Chest appreciated no PE
neg procalcitonin, empiric abx ceftriaxone azithromycin discontinued
Duoneb R QID and PRN discontinued, Ventolin Inhaler prn
Pulm Eval appreciated cont steroids transitioned to PO
PET scan noted possible Vocal Cord Lesion, left sided vocal cord paralysis, ENT eval appreciated
#Mild Hypercalcemia
possible dehydration vs malignancy related
IVF
Vit D lvl wnl
hold home Vit D supplementation
check PTH, PTH-related peptide
#HTN
cont home Lisinopril with holding parameters
#DM
#Steroid induced hyperglycemia
cont home metformin pioglitazone glimeperide farxiga (or equivalent) hold if NPO/not eating
A1c appreciated 9.0
low dose sliding scale
Carb Controlled Diet
Glimepiride increased to 5 mg
Moderate protein calorie malnutrition
PT eval appreciated
dvt ppx Lovenox
Gi ppx protonix
Full Code
Discussed with patient and patient's
I spent a total of 45 minutes with the patient or on the floor. More than 50% of this time involved counseling and coordination of care.
Anticipated Discharge: Within 24 hours
Subjective/Interval History
-
Date of Service: September 29, 2024
seen and examined at bedside in no acute distress sitting up comfortably chair. reports feeling well, night time coughing persists.
Objective Data
-
Labs:
Laboratory Results
09/29/24
06:00
WBC Pending
Hgb Pending
Hct Pending
Plt Count Pending
Sodium Pending
Potassium Pending
Chloride Pending
Carbon Dioxide Pending
BUN Pending
Creatinine Pending
Glucose Pending
Calcium Pending
Vital Signs:
Vital Signs
Temp Pulse Resp BP Pulse Ox
97.6 F 88 18 128/65 96
09/29/24 03:45 09/29/24 07:23 09/29/24 07:23 09/29/24 03:45 09/29/24 07:23
I&O
09/28/24 09/29/24 09/30/24
06:59 06:59 06:59
Intake Total 480 / 480
Output Total 1675 / 1675 1775 / 1775
Balance -1195 / -1195 -1775 / -1775
[2024-09-29 07:26] LABS: Glucose - Point of Care 190 mg/dl (70-99)
[2024-09-29 07:57] LABS: Hematocrit 42.6 % (39.0-52.0); Hemoglobin 14.6 g/dL (13.0-18.0); Mean Corp Hgb Conc. 34.3 g/dL (33.0-37.0); Mean Corpuscular Hgb 28.9 pg (27.0-31.0); Mean Corpuscular Volume 84.2 fL (80.0-94.0); Mean Platelet Volume 9.7 fL (7.4-10.4); Platelet Count 436 10^3/uL (130-400); Red Blood Cell Count 5.06 10^6/uL (4.70-6.10)
[2024-09-29 08:20] LABS: Blood Urea Nitrogen 32 mg/dl (9-20); Calcium 11.1 mg/dl (8.4-10.2); Carbon Dioxide 23 mmol/L (22-30); Chloride 99 mmol/L (98-107); Estimated Creatinine Clearance 90 ml/min; Glucose 220 mg/dl (70-99); Magnesium 1.8 mg/dl (1.6-2.3); Phosphorus 3.7 mg/dl (2.5-4.5); Potassium 4.9 mmol/L (3.5-5.1); Sodium 133 mmol/L (135-145); eGFR > 60.00
[2024-09-29] MEDS: THERAGRAN 1 TABLET PO (08:39)
[2024-09-29] MEDS: FARXIGA 10 MG PO (08:39)
[2024-09-29] MEDS: ACTOS 30 MG PO (08:39)
[2024-09-29] MEDS: AMARYL 4 MG PO (08:40)
[2024-09-29] MEDS: ZESTRIL 20 MG PO (08:40)
[2024-09-29] MEDS: ASPIR LOW (ENTERIC COATED) 81 MG PO (08:40)
[2024-09-29] MEDS: LEXAPRO 10 MG PO (08:40)
[2024-09-29] MEDS: NSS (PRESERVATIVE FREE) 10 ML IV (08:41)
[2024-09-29] MEDS: PROTONIX IV 40 MG IV (08:41)
[2024-09-29] MEDS: GLUCOPHAGE 1000 MG PO ×2 (08:56→21:57)
[2024-09-29] MEDS: NOVOLOG FLEXPEN-LOW RESISTANCE 1 UNITS SC ×2 (09:00→17:19)
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
[2024-09-29 11:51] LABS: Glucose - Point of Care 278 mg/dl (70-99)
[2024-09-29] MEDS: NOVOLOG FLEXPEN-LOW RESISTANCE 3 UNITS SC (12:18)
--- NOTE | 2024-09-29 12:26 | PN.CDI ---
CDI
- -
CDI:
Physician Documentation Request
Admit Date: 09/27/24 09:40
Dear Doctor Elsa,
Patient admitted for possible COPD exacerbation.
09/28 Vice President Of Finance Assessment: 'Pt's weight previous admission 210 lbs 07/25 reflective of a 24 lb, (11%) weight loss in 4 months significant...With weight loss of > 10% in 6 months and < 75% estimated needs > 1 month pt meets AND/ASPEN
criteria for moderate protein calorie malnutrition of chronic illness.'
Based on the above information and your assessment, which of the following most accurately represents the patient's nutritional status?
Moderate protein calorie malnutrition
Other
[place] Criteria ([facility] Hospitalist 2017)
2 or more criteria must be present for either
non severe or severe malnutrition
Note that the criteria differs related to the
presence of an acute or chronic illness
Acute Illness Chronic Illness
Energy Intake Non Severe: <75% for >7 days Non Severe: <75% for >1 month
Severe: <50% for >5 days Severe: <75% for >1 month
Weight Loss Non Severe: 1-2% over 1 week Non Severe: 5% over 1 month
5% over 1 month 7.5% over 3 months
7.5% over 3 months 10% over 6 months
1 year N/A 20% over 1 year
Severe: >2% over 1 week Severe: >5% over 1 month
>5% over 1 month >7.5% over 3 months
>7.5% over 3 months >10% over 6 months
1 year N/A >20% over 1 year
Body Fat Non Severe: Mild Decrease Non Severe: Mild Loss
Severe: Moderate Decrease Severe: Severe Loss
Muscle Mass Non Severe: Mild Decrease Non Severe: Mild Loss
Severe: Moderate Decrease Severe: Severe Loss
Fluid Accumulation Non Severe: Mild Accumulation Non Severe: Mild Accumulation
Severe: Moderate to severe Severe: Moderate to severe
accumulation accumulation
Reduced Iron Melter Strength Non Severe: N/A Non Severe: N/A
Severe: Measurably reduced Severe: Measurably reduced
Additional criteria that can be used to Determine if Mild or Moderate Malnutrition ([employer] Manual 2018)
Mild Moderate Severe
Albumin gm/dl <3.0 gm/dl <2.5 gm/dl <2.0 gm/dl
Pre Albumin mg/dl <15 gm/dl <10 mg/dl <5.0 mg/dl
BMI <18.5 <17 <16
Use of terms such as suspected, likely, concern for, or probable (associated with a specific diagnosis that is being evaluated, monitored, or treated as if it exists) are acceptable and can be coded in the inpatient setting, when documented at the
time of discharge.
Thank you,
Dee Dailey RN, BSN
CDI Specialist
Available via [employer] text
Please use your independent medical judgment in providing your response.
--- NOTE | 2024-09-29 14:51 | CON.MD ---
Consultation - Medical
-
Chief complaint: 64-year-old gentleman with metastatic squamous cell carcinoma, hoarseness, and questionable area noted during CT PET scan and vocal cord area/larynx
History of present illness: This is a 64-year-old gentleman who has been diagnosed with metastatic squamous cell carcinoma with an unknown primary. He has been followed by an ENT doctor by the name of Ruba and has been seen by my associate,
Villa Roblero, in our office recently for this problem. The patient has been hoarse for several months and had a CT PET scan which showed a possible lesion in the area of the right vocal cord as well as the piriform sinus. Other lesions were noted
as well. Dr. Roblero took a look at his larynx and hypopharynx in the office with a flexible laryngoscope. The patient was noted to have vocal cord paralysis but no evidence of tumor or mass. The patient also has a left parotid mass which was
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
Past medical history:
Allergies: Levofloxacin
Home medications: Alprazolam 0.25 mg p.o. daily, aspirin 81 mg p.o. daily, atorvastatin 20 mg p.o. every afternoon, benzonatate 200 mg p.o. 3 times daily as needed, cholecalciferol 2000 units p.o. daily, dapagliflozin 10 mg p.o. daily, escitalopram
10 mg p.o. daily, glimepiride 4 mg p.o. daily, lisinopril 20 mg p.o. daily, metformin 1000 mg p.o. twice daily, omega-3 fatty acids 1 capsule p.o. daily, pioglitazone 30 mg p.o. daily, Theragen 1 tablet p.o. daily, vitamin B complex 1 tablet p.o.
daily
Medical problems: Metastatic squamous cell carcinoma, benign left parotid tumor, acute bronchitis, acute hypoxic respiratory failure, qev-pdvkoeb-libidvkpw diabetes mellitus, depression, hypercholesterolemia, anxiety, cough
Hospitalizations: The patient has been hospitalized for respiratory failure and metastatic squamous cell carcinoma
Past surgical history: Noncontributory
Social history: The patient is a former cigarette smoker.
Review of systems: Positive for shortness of breath, negative for chest pain, negative for respiratory distress, positive for dysphagia and hoarseness
Physical examination:
Head: Atraumatic and normocephalic
Eyes: Extraocular movements are intact and pupils are equal and reactive to light
nose: Normal to examination
Ears: Normal
Lungs: Wheezing noted
Cranial nerves II through XII are grossly intact
Salivary glands: Left parotid tumor soft and consistent with a Warthin's tumor, about 3.5 cm in diameter
Thyroid gland: Normal to examination
Hypopharynx/larynx: The patient underwent recent examination by Dr. Roblero with a flexible laryngoscope in the office and was noted to have vocal cord paralysis without evidence of tumor. This was done about a month ago and since his CT scan PET scan
which showed a lesion. The patient did not want to have the procedure repeated today. Impression/:
Impression/plan: This 64-year-old gentleman has hoarseness and mild dysphagia. He has metastatic squamous cell carcinoma with an unknown primary. He has been seen by oncology already. He has vocal cord paralysis but no evidence of laryngeal
tumor. No other lesions were noted. He has a benign left parotid tumor. I will plan on seeing the patient back as needed.
--- NOTE | 2024-09-29 14:52 | PTOTSP ---
pt currently requires supervision to no assistance to complete simple ADLs, functional transfers, ambulation. pt continues to require 2L O2 with activity. pt adamant that he will not wear O2 at time of d/c. no acute OT needs identified at this time,
will sign off.
[2024-09-29 16:41] LABS: Glucose - Point of Care 184 mg/dl (70-99)
[2024-09-29] MEDS: AMARYL 1 MG PO (17:18)
[2024-09-29] MEDS: LIPITOR 20 MG PO (17:19)
[2024-09-29] MEDS: LOVENOX 40 MG SC (18:28)
[2024-09-29 21:33] LABS: Glucose - Point of Care 179 mg/dl (70-99)
[2024-09-30] MEDS: NSS 1000 IV (02:13)
[2024-09-30 03:19] VITALS: BP 118/60
[2024-09-30] MEDS: ProAIR HFA INHALER 2 PUFF INH ×3 (04:56→15:35)
[2024-09-30 06:38] LABS: Blood Urea Nitrogen 29 mg/dl (9-20); Calcium 10.8 mg/dl (8.4-10.2); Carbon Dioxide 24 mmol/L (22-30); Chloride 98 mmol/L (98-107); Estimated Creatinine Clearance 90 ml/min; Glucose 83 mg/dl (70-99); Magnesium 1.5 mg/dl (1.6-2.3); Phosphorus 2.8 mg/dl (2.5-4.5); Potassium 4.2 mmol/L (3.5-5.1); Sodium 134 mmol/L (135-145); eGFR > 60.00
[2024-09-30 06:39] LABS: Hematocrit 41.7 % (39.0-52.0); Hemoglobin 14.2 g/dL (13.0-18.0); Mean Corp Hgb Conc. 34.1 g/dL (33.0-37.0); Mean Corpuscular Volume 85.1 fL (80.0-94.0); Mean Platelet Volume 9.7 fL (7.4-10.4); Platelet Count 417 10^3/uL (130-400); Red Cell Dist. Width 13.2 % (11.5-14.5); White Blood Cell Count 17.7 10^3/uL (4.8-10.8)
--- NOTE | 2024-09-30 07:05 | W.PN.HOSP.TC ---
Today's Communication/Plan
-
discharge
Assessment / Plan
Assessment / Plan
Physical Exam
General: No pallor, cyanosis, or jaundice.
HEENT: Throat clear. PERRLA Normocephalic atraumatic
NECK: Supple. No JVD Carotid Bruits
RESPIRATORY: Stable respiratory status on room air
CVS: S1, S2 sinus tachy. No murmur, rub or gallop.
ABDOMEN: Soft, non-tender. No distension. BS+/normal.
EXTREMITIES: No peripheral cyanosis or edema.
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 Conversant coherent
IMPRESSION:
64 male former smoker COPD hypertension hyperlipidemia lzb-exommiv-efawrezci diabetes recent diagnosis metastatic squamous cell carcinoma with associate mediastinal lymphadenopathy (follows Oncology Dr Camila Bean and pulm Dr Lawrence outpt)
p/w progressive dyspnea coughing for the past weeks, acutely worsening in last 24 hours prompting ED evaluation. Never required oxygen before, patient noted hypoxic in respiratory distress, improved with oxygen supplementation 4L, Bipap, steroids
and empiric abx. Mildly sinus tachy but VSS afebrile. Labs notable for mild leukocytosis possibly stress reactive, mild hyperglycemia, and mild hypercalcemia. CXR noted no acute disease. Lungs clear to auscultation.
PLAN:
#Acute Hypoxic Respiratory Failure possibly COPD exacerbation
#Recent Dx Metastatic SQC w/ mediastinal Lymphadenopathy due to start treatment
Tele admit
Weaned off BIPAP
Home O2 assessment 09/29/24 appreciated no need
Weaned off oxygen supplementation stable respiratory status room air.
VBG appreciated
CT Chest appreciated no PE
neg procalcitonin, empiric abx ceftriaxone azithromycin discontinued
Duoneb R QID and PRN discontinued, Ventolin Inhaler prn
Pulm Eval appreciated cont steroids transitioned to PO Prednisone
PET scan noted possible Vocal Cord Lesion, left sided vocal cord paralysis, ENT eval appreciated
#Mild Hypercalcemia
possible dehydration vs malignancy related
Vit D lvl wnl
hold home Vit D supplementation
PTH suppressed expected with hypercalcemia
PTH-related peptide result pending
Hypercalcemia since improved, IVF completed, low dose Lasix 20 mg daily started
#HTN
cont home Lisinopril with holding parameters
#DM
#Steroid induced hyperglycemia
cont home metformin pioglitazone glimeperide farxiga (or equivalent) hold if NPO/not eating
A1c appreciated 9.0
low dose sliding scale
Carb Controlled Diet
Glimepiride increased to 5 mg
Patient endorses he's obtained a fingerstick monitor to monitor his sugars at home.
outpt endocrine follow up recommended
Hypomagnesemia
-Repleted
Moderate protein calorie malnutrition
PT eval appreciated
dvt ppx Lovenox
Gi ppx protonix
Full Code
Medically stable for discharge home with outpatient follow up recommendations.
Discussed with patient and patient's Claudette
Total Time Preparing Discharge ___40____ minutes including examination of the patient, summary of the hospital stay, instructions for continuing care to all relevant caregivers; and preparation of discharge records, prescriptions, and referral
forms if necessary.
Anticipated Discharge: Today
Subjective/Interval History
-
Date of Service: September 30, 2024
Weaned off oxygen supplementation. stable respiratory status on room air. Cough at night persists, intermittent sob improved with inhaler prn. Patient overall reports feeling well, eager to go home. Denies new acute issues at this time.
Objective Data
-
Labs:
Laboratory Results
09/30/24
05:19
WBC 17.7 H
Hgb 14.2
Hct 41.7
Plt Count 417 H
Sodium 134 L
Potassium 4.2
Chloride 98
Carbon Dioxide 24
BUN 29 H
Creatinine 0.9
Glucose 83
Calcium 10.8 H
Vital Signs:
Vital Signs
Temp Pulse Resp BP Pulse Ox
98.0 F 84 20 118/60 94
09/30/24 03:19 09/30/24 04:58 09/30/24 04:58 09/30/24 03:19 09/30/24 04:58
I&O
09/29/24 09/30/24 10/01/24
06:59 06:59 07:59
Intake Total 1380 / 1380
Output Total 1775 / 1775 3200 / 3200
Balance -1775 / -1775 -1820 / -1820
[2024-09-30 07:25] VITALS: BP 136/81
[2024-09-30 07:34] LABS: Glucose - Point of Care 96 mg/dl (70-99)
[2024-09-30] MEDS: NSS (PRESERVATIVE FREE) 10 ML IV (08:19)
[2024-09-30] MEDS: PROTONIX IV 40 MG IV (08:19)
[2024-09-30] MEDS: NOVOLOG FLEXPEN-LOW RESISTANCE SC (08:19)
[2024-09-30] MEDS: LEXAPRO 10 MG PO (08:20)
[2024-09-30] MEDS: ASPIR LOW (ENTERIC COATED) 81 MG PO (08:20)
[2024-09-30] MEDS: DELTASONE 50 MG PO (08:20)
[2024-09-30] MEDS: ZESTRIL 20 MG PO (08:20)
[2024-09-30] MEDS: ACTOS 30 MG PO (08:20)
[2024-09-30] MEDS: GLUCOPHAGE 1000 MG PO (08:20)
[2024-09-30] MEDS: FARXIGA 10 MG PO (08:20)
[2024-09-30] MEDS: THERAGRAN 1 TABLET PO (08:21)
[2024-09-30] MEDS: AMARYL 1 MG PO (08:21)
[2024-09-30] MEDS: AMARYL 4 MG PO (08:21)
[2024-09-30] MEDS: LASIX 20 MG PO (09:41)
[2024-09-30] MEDS: MAGNESIUM SULFATE 100 IV (09:42)
[2024-09-30] MEDS: NSS IV (09:59)
[2024-09-30 10:51] LABS: Intact PTH 7.9 pg/ml (13.6-85.8)
[2024-09-30 11:25] VITALS: BP 130/71
[2024-09-30 12:49] LABS: Glucose - Point of Care 262 mg/dl (70-99)
[2024-09-30] MEDS: NOVOLOG FLEXPEN-LOW RESISTANCE 3 UNITS SC (13:01)
[2024-09-30 15:00] VITALS: BP 103/68
--- NOTE | 2024-09-30 15:01 | W.DCSUMMARY ---
Discharge Summary
Discharge Data
Date of Admission: 09/27/24
Date of Discharge: 09/30/24
-
Pending Results: Yes
Additional Pending Results:
Parathyroid-related peptide
Discharge Plan
-
Patient Disposition: Home (Routine Discharge)
Discharge Diagnosis/Procedures: Acute Hypoxic Respiratory Failure due to COPD exacerbation possibly related to Malignancy
Mild Hypercalcemia also possibly malignancy related
Hypertension
Diabetes
Steroid Induced Hyperglycemia
Hypomagnesemia
Moderate protein calorie malnutrition
Condition: Fair
Diet: Diabetic, Carb Controlled
Activity: As tolerated
Driving Restrictions: As prior to admission
Bathing Restrictions: None
Blood Work: Please repeat CBC BMP and Magnesium level with primary care provider in 1 week of discharge.
Activity Restrictions/Additional Instructions:
Please keep your appointments with Oncology and associate specialties, follow up with primary care provider in 1 week of discharge, and follow up with Warehouse Specialist and Research Biologist in 2-4 weeks of discharge.
Ventolin Inhaler has been prescribed as needed for shortness of breath/wheezing.
Robitussin DM has been prescribed as needed for cough.
Gabapentin has also been prescribed for persistent cough at night. Ok to discontinue if no benefit is noted.
Lasix has been prescribed for hypercalcemia.
Home Glimepiride dose has been increased to 5 mg daily for Diabetes and likely steroid induced hyperglycemia.
A prednisone taper has been prescribed for COPD exacerbation:
50 mg daily x3 days, then 40 mg daily x3 days,
then 30 mg daily x3 days, then 20 mg daily x3 days,
then 10 mg daily x3 days, then stop
Protonix has been prescribed for GI prophylaxis while on steroids. Ok to discontinue when off steroids.
Vitamin D supplement has been discontinued due to Hypercalcemia. Your Vit D level was checked and noted within normal limits at 48.1.
Please take medications as prescribed/recommended and follow up with primary care provider and/or other healthcare provider involved in your care for refills and/or further adjustment to your medication regimen as necessary.
Please monitor your sugars at home with fingerstick monitors before meals, three times a day, and at bedtime. Keep a log of your sugars at home to review with primary care provider and/or Warehouse Specialist in follow up for further
evaluation/treatment diabetes.
Instructions: Diabetes and diet, COPD exacerbation - Discharge instructions
Referrals:
John Lawrence MD [Active] - in two to four weeks
Tracy Merchant MD [Consulting Staff] - in two to four weeks
Brennen Villalobos MD [Family Provider] - in one week
Prescriptions:
New
glimepiride 1 mg Tablet
1 mg PO DAILY Qty: 30 0RF
Rx Instructions:
take with 4 mg tablet for total 5 mg daily.
furosemide 20 mg Tablet
20 mg PO DAILY Qty: 30 0RF
gabapentin 100 mg Capsule
100 mg PO HS Qty: 14 0RF
albuterol sulfate 90 mcg/actuation Hfa Aerosol Inhaler
2 puff inhalation R Q4HPRN PRN (Reason: sob/wheezing) Qty: 8.5 0RF
pantoprazole [Protonix] 40 mg tablet,delayed release (DR/EC)
40 mg PO DAILY 15 Days Qty: 15 0RF
Rx Instructions:
For GI prophylaxis while on steroids. Discontinue when off steroids (prednisone)
dextromethorphan-guaifenesin 10-100 mg/5 mL Syrup
5 ml PO Q4HPRN PRN (Reason: cough) Qty: 500 0RF
prednisone 10 mg Tablet
See Rx Instructions .ROUTE .COMPLEX Qty: 45 0RF
Rx Instructions:
Take By Mouth:
50 mg daily x3 days, 40 mg daily x3 days,
30 mg daily x3 days, 20 mg daily x3 days,
10 mg daily x3 days
Continued
metformin 500 MG tablet
1,000 mg PO BID
aspirin 81 mg Tablet,Delayed Release (Dr/Ec)
81 mg PO DAILY
lisinopril 20 mg Tablet
20 mg PO DAILY
pioglitazone 30 mg Tablet
30 mg PO DAILY
dapagliflozin propanediol 10 mg Tablet
10 mg PO DAILY
benzonatate 100 mg Capsule
200 mg PO TIDPRN PRN (Reason: cough)
alprazolam [Xanax] 0.25 mg Tablet
0.25 mg PO DAILYPRN PRN (Reason: anxiety)
escitalopram oxalate 10 mg Tablet
10 mg PO DAILY
atorvastatin [Lipitor] 20 mg Tablet
20 mg PO QPM
therapeutic multivitamin Tablet
1 tab PO DAILY
vitamin B complex Tablet
1 tab PO DAILY
omega-3 fatty acids-fish oil 684-1,200 mg Capsule,Delayed Release(Dr/Ec)
1 cap PO DAILY
glimepiride 4 mg Tablet
4 mg PO DAILY Qty: 0 0RF
Rx Instructions:
take with 1 mg tab for total 5 mg daily
Discontinued
cholecalciferol (vitamin D3) 2,000 UNIT tablet
2,000 unit PO DAILY
Discharge Orders:
Discharge Patient (As Directed); Ordered 09/30/24
Ordered By: Julito Hunter
Discharge Date and Time
Print Language: KHMER
== END 2024-09-30 15:56 | disposition home or self-care (01) | DRG 190 ==
LOC: 4 EAST ACU 09:40
PROVIDERS: ADMITTING PHYSICIAN Internal Medicine; CONSULT PHYSICIAN Internal Medicine; CONSULT PHYSICIAN Otolaryngology; EMERGENCY PHYSICIAN Emergency Medicine; FAMILY PHYSICIAN Family Medicine
DX: J44.1 Chronic obstructive pulmonary disease with (acute) exacerbation (principal); J96.01 Acute respiratory failure with hypoxia; E44.0 Moderate protein-calorie malnutrition; E83.42 Hypomagnesemia; E11.65 Type 2 diabetes mellitus with hyperglycemia; T38.0X5A Adverse effect of glucocorticoids and synthetic analogues, initial encounter; I10 Essential (primary) hypertension; E83.52 Hypercalcemia; F17.200 Nicotine dependence, unspecified, uncomplicated; R59.0 Localized enlarged lymph nodes; J38.00 Paralysis of vocal cords and larynx, unspecified; Z79.84 Long term (current) use of oral hypoglycemic drugs; Z79.899 Other long term (current) drug therapy
CPT/HCPCS: 71045; 71275; 80048; 80053; 82306; 82805; 82962; 83036; 83519; 83735; 83880; 83970; 84100; 84145; 84484; 85025; 85027; 87502; 87811; 93005; 93306; 94060; 94640; 96361; 96365; 96375; 97116; 97162; 97165; 99291; Q9967

== ENCOUNTER → 2024-10-03 16:40 | Outpatient (REF) | payer OTHER, SELFPAY | LOC: MRI 3T 16:40 | PROVIDERS: ATTENDING PHYSICIAN Radiology Radiation Oncology; FAMILY PHYSICIAN Family Medicine | DX: C34.02 Malignant neoplasm of left main bronchus (principal) | CPT/HCPCS: 70553; A9575 ==

== ENCOUNTER 2024-10-08 06:42 | Inpatient (IN) | payer OTHER, SELFPAY ==
[2024-10-08] VITALS (11 sets, daily range): BP systolic 108–141; BP diastolic 70–99; BMI 23.9; BMI 24.1
[2024-10-08 02:07] LABS: Hematocrit 49.7 % (39.0-52.0); Hemoglobin 17.2 g/dL (13.0-18.0); Mean Corp Hgb Conc. 34.6 g/dL (33.0-37.0); Mean Corpuscular Hgb 28.8 pg (27.0-31.0); Mean Corpuscular Volume 83.2 fL (80.0-94.0); Mean Platelet Volume 9.6 fL (7.4-10.4); Platelet Count 426 10^3/uL (130-400); Red Blood Cell Count 5.97 10^6/uL (4.70-6.10); Red Cell Dist. Width 13.1 % (11.5-14.5); White Blood Cell Count 23.9 10^3/uL (4.8-10.8)
[2024-10-08 02:26] LABS: ALT (SGPT) 22 U/L (0-50); AST (SGOT) 20 U/L (17-59); Alkaline Phosphatase 120 U/L (38-126); Blood Urea Nitrogen 40 mg/dl (9-20); Calcium 12.4 mg/dl (8.4-10.2); Carbon Dioxide 24 mmol/L (22-30); Chloride 97 mmol/L (98-107); Estimated Creatinine Clearance 81 ml/min; Glucose 160 mg/dl (70-99); Potassium 4.3 mmol/L (3.5-5.1); Sodium 135 mmol/L (135-145); Total Bilirubin 0.5 mg/dl (0.2-1.3); Total Protein 6.9 g/dl (6.3-8.2); eGFR > 60.00
[2024-10-08] MEDS: DUONEB 3 ML INH ×5 (02:32→19:18)
[2024-10-08] MEDS: DECADRON 10 MG IV (02:34)
--- NOTE | 2024-10-08 02:48 | ED.GENMED ---
History of Present Illness
General
Chief Complaint: Breathing Problem
Source: patient, spouse, ambulance crew and previous hospital records (Recent hospitalization September 27 to September 30 for similar complaint.)
Exam Limitations: none
Time Seen by Provider: 10/08/24 02:13
Nursing documentation reviewed up to this point in time: agreed with
History of Present Illness
History of Present Illness:
This is a 64-year-old gentleman who resides at home with his . He has history of COPD, former smoker, hypertension, hyperlipidemia, vjl-sotlbbr-bizzkclhd diabetes and recently diagnosed with metastatic squamous cell carcinoma with associated
mediastinal lymphadenopathy. He is scheduled to start radiation therapy to his chest tomorrow and is scheduled to start chemotherapy the following day, Wednesday.
Recently hospitalized September 27 to September 30 for acute hypoxic respiratory failure thought to be COPD related. Treated with nebulizer treatments, steroids, brief course of antibiotics. Initially required BiPAP, transition to supplemental nasal cannula
oxygen but then oxygen discontinued prior to discharge. He was discharged on the with a lengthy tapering course of prednisone. He has remained quite active but does admit to frequent cough, shortness of breath that has gotten worse over the
past 2 to 3 days and awoke tonight with moderate shortness of breath prompting his to call 911. Home pulse ox reportedly 87%.
He has not had a fever, he denies chest pain, appetite has been good.
No leg pain or swelling.
Past History
Past History
ED Past Medical History: Cancer, COPD, HTN, Hypercholesterolemia and NIDDM
ED Past Surgical History: Orthopedic
Social History
Tobacco: Former smoker
Alcohol: Other
Drug: None
Personal:
Living: with family
Employment: Employed ([employer])
Family History
Family History: Negative Diabetes, Hypertension or CAD
Phy Exam
Physical Exam
Physical Exam:
GENERAL: 64-year-old somewhat robust gentleman appears his stated age, awake and alert, mildly agitated, mostly at his , disgruntled that he is back in the hospital. Mild/moderate resting tachypnea. Pulse ox 95% on nonrebreather mask. He is
able to speak in full sentences.
EYE: pupils equal and reactive. anicteric
NECK: Supple, nontender, no meningismus, no significant adenopathy.
ENT: posterior pharynx is clear, oral mucosa is minimally dry. TM clear b/l, nares patent.
CARDIAC: Regular rate and rhythm. no murmur.
LUNGS: Mild resting tachypnea, mildly decreased breath sounds throughout with scattered end expiratory wheezing. No rales nor rhonchi.
ABDOMEN: Soft, nondistended, without focal tenderness, no r/g, no cvat. normoactive BS.
NEUROLOGICAL: Alert and oriented x3, no focal neuro deficits.
SKIN: Warm and dry, normal color, skin intact. No rash.
MUSCULOSKELETAL: No C/C/E. peripheral pulses are full and equal b/l. No palpable tenderness.
PSYCH: Normal and appropriate interaction.
Scores
Heart Failure Risk
Heart Failure Risk Score: Not Applicable
Course
Orders/Labs/Results
Orders:
Orders
10/08/24 01:58
EKG [Electrocardiogram (*1)] Urgent
Reason for Study: Shortness of Breath
10/08/24 01:59
EKG- Treatment ONCE
10/08/24 02:01
CMP [Comprehensive Metabolic Panel] Urgent
Complete Blood Count/No Diff Urgent
10/08/24 02:10
Portable Chest Xray [CR Chest Portable - 1 View] Stat
Comment:
Reason For Exam: SOB
Reason Study Needs to be Portable: Patient Unstable
10/08/24 02:20
Dexamethasone Sod Phosphate [Decadron] 10 mg IV NOW STA
Ipratropium/Albuterol Sulfate [Duoneb] 3 ml INH R NOW STA
10/08/24 Breakfast
1800 calorie (15 carb) Diabetic
At Your Request: Full Participation
10/08/24 06:25
Admit/Transfer Patient As Directed
Co-Sign Provider:
Level of Care: Inpatient admission
Assign to:: Medical/Surgical
Physician / Group: hospitalist
Diagnosis: COPD exacerbation
Reason for Hospitalization: hypoxia
Expected length of stay greater than two midnights?: Yes
ELOS- Estimated Length of Stay in days: 2
I certify the patient meets the requirements for IP care: Yes
PRN Pain Medication Management As Directed
May give lesser potent ordered pain med per pt: Yes
preference::
Protocol:: Medication orders for pain may be administered in a
manner that supports deferring to patient preference
when the pt is:
- Requesting an ordered lesser potent pain medication.
Least to most potent pain medications are defined
as: acetaminophen < NSAID < tramadol < opioids
(morphine, oxycodone, hydromorphone).
- Requesting a lesser dose of the same medication IF
ORDERED.
- Requesting a less intrusive route of administration
if both routes are prescribed by the provider (PO <
IV).
10/08/24 06:27
Code Status As Directed
Resuscitation Status: Full Code
10/08/24 07:00
Flush (0.9% Sodium Chloride) [Flush (Nss)] See Dose Instructions IV PER PROTOCOL
10/08/24 07:02
COVID-19 Antigen Stat
Source: Nasal Swab
Influenza A+B Rapid Molecular Stat
GIFTY Source: Nasal Swab
Specimen Description:
Abnormal Lab Results
10/08/24
02:01
WBC 23.9 H 10^3/uL
(4.8-10.8)
Plt Count 426 H 10^3/uL
(130-400)
Chloride 97 L mmol/L
(98-107)
BUN 40 H mg/dl
(9-20)
Glucose 160 H mg/dl
(70-99)
Calcium 12.4 H mg/dl
(8.4-10.2)
10/08/24 02:01
10/08/24 02:01
Vital Signs
Initial and Last Documented VS:
Initial Vital Signs
Temp Pulse Resp BP Pulse Ox
98.7 F 106 32 108/80 91
10/08/24 01:37 10/08/24 01:37 10/08/24 01:37 10/08/24 01:37 10/08/24 01:37
Last Documented Vital Signs
Temp Pulse Resp BP Pulse Ox
97.5 F 86 20 141/99 95
10/08/24 07:04 10/08/24 06:58 10/08/24 06:58 10/08/24 06:58 10/08/24 06:58
MDM/Problems Addressed
Differential Diagnosis Includes:
Concern for exacerbation of COPD, progression of lung cancer, pneumothorax, pneumonia is also a possibility. Less likely CHF. Less likely CHF. No prior history of CHF.
Labs are pending. Will check portable chest x-ray. Will trial DuoNeb nebulizer and given IV dose of Decadron.
Chronic conditions affecting care: DM, HTN, COPD and Cancer
*Radiology
Radiology exam reviewed: preliminary read by ED provider (Chest x-ray shows hyperinflation. No infiltrate.)
*Pulse Oximetry
Patient hypoxic: yes
*Death Claim Clerk Interpretation
Rate: normal
Interpretation: normal
Rhythm: sinus
*Critical Care Note
Total Time (30-74mins, 75-104mins- exclusive of procedures): Not Applicable
Update Note
Update Note:
04:50
Patient feeling markedly improved after nebulizer treatment, IV Decadron and has been transition from nonrebreather mask to down nasal cannula oxygen at 6 L.
Chest x-ray shows hyperinflation otherwise no evidence of infiltrate nor CHF.
Labs remarkable for elevated white blood cell count likely related to oral steroids. Glucose similarly mildly elevated at 160.
Continues to require significant supplemental oxygen thus will admit to hospitalist service, continue IV steroids.
pt admits that he is afraid to go home d/t significant SOB this am.
currently comfortable.
ED Attending Note
-
Portions of this chart may have been created with voice recognition software.� Occasional wrong word or��sound alike� substitutions may have occurred due to the inherent limitations of voice recognition software.
Discharge Plan
Departure
Patient Disposition: Admit
Date of Disposition: 10/08/24
Time of Disposition: 04:50
Admit to: Med/Surg
Admit to doctor: aMtt
Presentation/result/management discussed w/ accepting MD/DO: Hospitalist
Condition: Fair
Discharge Problem:
Acute hypoxic respiratory failure, Acute exacerbation of chronic obstructive pulmonary disease
Interventions
Interventions:
*Risk Screen - Suicide Last Done: 10/08/24 01:47
*General Assessment Last Done: 10/08/24 01:47
*Neglect/Abuse Screening Last Done: 10/08/24 01:47
*ED- Fall Risk Assessment Last Done: 10/08/24 01:47
*ED COVID-19 Vaccine History Last Done: 10/08/24 01:47
ED- Cardiac Assessment Last Done: 10/08/24 03:04
ED- Pulmonary Assessment Last Done: 10/08/24 01:57
--- NOTE | 2024-10-08 05:47 | HPS.HSE ---
Family Physician
-
Family Physician: Brennen Villalobos
Chief Complaint
-
Shortness of breath
History of Present Illness
This is a 64-year-old history of COPD, recent diagnosis of metastatic squamous cell carcinoma with associated mediastinal lymphadenopathy, presenting with shortness of breath.
Recent hospital presentation for progressive dyspnea and coughing actively worsening and admitted for hypoxic respiratory distress about 10 days ago was requiring supplemental oxygen up to 4 L, BiPAP steroids and empiric antibiotics. He was
ultimately weaned and discharged off of oxygen to complete a prolonged steroid taper.
Presenting again to the emergency department with approximately 2 days of worsening cough and shortness of breath. According to spouse patient started having more productive cough 1 year ago. Reports cough is productive of cummings-colored sputum.
Today she was trying to sleep. She notices that was having more trouble breathing and he was gasping. He denied having any chest pain. He denies any lightheadedness or dizziness. He checked his pulse ox and it was 87%. They were told to come to
the emergency department when the pulse ox drops below 90. He denied any fevers over the last few days. He reports compliance with a steroid taper and is currently on 30 mg p.o. daily. He denies any ankle swelling. He is pending fitting for
radiation treatment on Wednesday. He is also is pending oncology evaluation for chemotherapy on Wednesday.
He improved very accurately with nebs and IV Decadron in the emergency department. He was weaned to nasal cannula from [facility].
His temp was 98.2, blood pressure 127/89, with a pulse of 81. Currently oxygen saturation is 94% on 6 L. Chest x-ray shows no acute infiltrate. No pneumothorax. ECG shows normal sinus rhythm at a rate of 92. Labs notable for leukocytosis to 24
hemoglobin of 17 but otherwise unremarkable. Electrolytes were normal and BUN slightly elevated at 40 with normal creatinine. Calcium is elevated at 12.4.
Medical History
Past Medical History
Past Medical History: Reports Other (as above)
Past Surgical History: Reports Other (as above)
Social History
Tobacco: Former Smoker
Alcohol: None
Drug: None
Personal:
Living: With Family
Employment: Employed
Family History
Family History: Not pertinent (reviewed)
Allergies / Home Medications
Allergies reflects when Allergies were last updated in [facility].
Home Medications with original date entered in [facility]
Allergy/Medication List:
Allergies
Allergy/AdvReac Type Severity Reaction Status Date / Time
levofloxacin [From Levaquin] Allergy Unknown Verified 10/08/24 01:40
Home Medications
metformin 500 mg tablet 1,000 mg PO BID Diabetes 11/06/13
aspirin 81 mg tablet,delayed release 81 mg PO DAILY Blood Clot Prevention/Tx 07/31/24
dapagliflozin propanediol 10 mg tablet 10 mg PO DAILY Diabetes 07/31/24
lisinopril 20 mg tablet 20 mg PO DAILY Blood Pressure 07/31/24
pioglitazone 30 mg tablet 30 mg PO DAILY Diabetes 07/31/24
alprazolam 0.25 mg tablet (Xanax) 0.25 mg PO DAILYPRN PRN anxiety 09/27/24
atorvastatin 20 mg tablet (Lipitor) 20 mg PO QPM High Cholesterol 09/27/24
benzonatate 100 mg capsule 200 mg PO TIDPRN PRN cough 09/27/24
escitalopram oxalate 10 mg tablet 10 mg PO DAILY Depression 09/27/24
omega-3 fatty acids-fish oil 684 mg-1,200 mg capsule,delayed release 1 cap PO DAILY Supplement 09/27/24
therapeutic multivitamin 1 tab PO DAILY Supplement 09/27/24
vitamin B complex 1 tab PO DAILY Supplement 09/27/24
albuterol sulfate 90 mcg/actuation aerosol inhaler 2 puff inhalation R Q4HPRN PRN sob/wheezing #8.5 grams 09/30/24
dextromethorphan-guaifenesin 10 mg-100 mg/5 mL oral syrup 5 ml PO Q4HPRN PRN cough #500 mL 09/30/24
furosemide 20 mg tablet 20 mg PO DAILY #30 tabs 09/30/24
gabapentin 100 mg capsule 100 mg PO HS #14 caps 09/30/24
glimepiride 1 mg tablet 1 mg PO DAILY #30 tabs 09/30/24
glimepiride 4 mg tablet 4 mg PO DAILY Diabetes #0 tabs 09/30/24
pantoprazole 40 mg tablet,delayed release (Protonix) 40 mg PO DAILY 15 days #15 tabs 09/30/24
prednisone 10 mg tablet See Rx Instructions .Route .COMPLEX #45 tabs 09/30/24
Review of Systems
-
History Source: Patient and Family
Constitutional: Reports No Symptoms
EENT: Reports No Symptoms
Respiratory: Reports Cough and Trouble Breathing
Cardiac: Reports No Symptoms
Abdomen/GI: Reports No Symptoms
: Reports No Symptoms
Musculoskeletal: Reports No Symptoms
Skin: Reports No Symptoms
Neurological: Reports No Symptoms
Endocrine: Reports No Symptoms
Hematologic/Lymphatic: Reports No Symptoms
Psych: Reports No Symptoms
Physical Exam
Vital Signs
Vital Signs
Temp Pulse Resp BP Pulse Ox
98.7 F 81 18 127/89 95
10/08/24 01:37 10/08/24 05:00 10/08/24 05:00 10/08/24 05:00 10/08/24 05:00
Physical Exam
General: Well Developed, Respiratory Distress and Poor Appetite
HEENT: NormoCephalic, Anicteric, Moist mucous membranes and Atraumatic
Respiratory: Clear
Cardiac: S1/S2 and Regular Rhythm
Breast: Deferred by me
GI: Soft
Rectal: Deferred by Provider
Genito-urinary: Deferred by me
Musculoskeletal: No Clubbing, No Cyanosis and No Edema
Skin: Warm
Neuro: AO x 3 and Nonfocal/grossly intact
Hematologic/Lymphatic: No Lymphadenopathy
Psych: Calm
Laboratory Results
-
10/08/24 02:01
10/08/24 02:01
Laboratory Results
Total Bilirubin 0.5 mg/dl (0.2-1.3) 10/08/24 02:01
AST 20 U/L (17-59) 10/08/24 02:01
ALT 22 U/L (0-50) 10/08/24 02:01
Alkaline Phosphatase 120 U/L (38-126) 10/08/24 02:01
Data Reviewed
-
Diagnostic Radiology: Image Personally Visualized and interpreted and Report Reviewed by me
Medical Tests (Nuc Med, Echo, EKG etc): Image Personally Visualized and interpreted
Lab Data: Labs Reviewed by me
Old Records: Reviewed
Impression/Plan
-
IMPRESSION:
64-year-old with history of COPD and progressive dyspnea, recent diagnosis of metastatic squamous cell cancer with severe mediastinal lymphadenopathy who is currently pending XRT and chemo presents to the emergency department again for shortness of
breath. He was recently admitted 10 days ago for progressive dyspnea and shortness of breath. Was found to have COPD exacerbation at that time and likely to require home O2. Workup was negative for PE at that time. Patient was treated with
steroids, empiric antibiotics and nebs. Was discharged off oxygen. Patient reports ongoing cough and was found to be hypoxic to 87% on room air at home. Hypoxic to 88% here in the ED and is currently on 6 L. His lungs are clear to auscultation
anteriorly but cannot evaluate tightness at the bases given emphysema. He has no evidence of pulmonary edema. He has no consolidation. Prior CT PE was negative for PE. No wheezing on exam and occasional cough for me.
Prior findings:
09/28: FEV1 0.87L 24%, FVC 3.26L 68%, ratio 27. Post FEV1 0.8L 22%--severe obstruction
09/27: Echo-> Normal left ventricular size, wall thickness and systolic function. No regional
wall motion abnormalities are seen. LV ejection fraction is 55-60% by Angulo's
method of discs. Normal diastolic function.
3: Chest CT PE -> No CTA evidence for an acute pulmonary thromboembolism. Redemonstration of mediastinal, bilateral hilar, and left supraclavicular lymphadenopathy. Mediastinal lymphadenopathy appears increased compared to the chest CT from
07/25/2024 with new extrinsic compression and narrowing of the left main pulmonary artery.
PLAN:
1. Hypoxia - SOB with hypoxia. Possibly from emphysema and persistent COPD flare. No fluid, consolidation or PTX. Prior study negative for CT PE. Improved with nebs in ED. Recently finished empiric abx
- admit to med/surg for now
- increase steroids again to solumedrol 40mg q 12
- duonebs RTC and prn
- hold off on abx
- wean oxygen as tolerated
- likely will need home O2
- pulmonary consult
2. Hypercalcemia - Ca 12.4. BUN 40. Mild dehydration. However PTH-rP is high
- gentle hydration
- hold lasix, no evidence of chf
- likely will improve with XRT and chemo
- avoid vit d/calciuim supplementation
3. DM II
- continue metformin, glimepiride and pioglitazone
- continue farxega
- sliding scale insulin
DVT PPX - lovenox sq
Code status - full code
[2024-10-08 07:37] LABS: COVID-19 Antigen Negative (Negative)
--- NOTE | 2024-10-08 09:13 | CM ---
Patient seen at bedside in ED. Patient states that he livves with his in a split level home. Patient stated that he has no DME at home and no past needs for VN or SNF. Patient stated that he is independent at home, in ADL's and IADL's. Patient
PCP is Dr. Barboza and he uses the [facility] in [place] [facility] [facility]. Patient plan is for discharge home with no needs. CM will continue to follow for discharge planning needs.
Plan; home with no needs anticipated; watch for O2 needs
[2024-10-08] MEDS: AMARYL 1 MG PO (11:31)
[2024-10-08] MEDS: FARXIGA 10 MG PO (11:31)
[2024-10-08] MEDS: LEXAPRO 10 MG PO (11:34)
[2024-10-08] MEDS: GLUCOPHAGE 1000 MG PO ×2 (11:34→17:22)
[2024-10-08] MEDS: PROTONIX 40 MG PO (11:34)
[2024-10-08] MEDS: ZESTRIL 20 MG PO (11:35)
[2024-10-08] MEDS: SOLU-MEDROL PF 40 MG IV ×2 (11:35→21:41)
[2024-10-08] MEDS: NOVOLOG FLEXPEN-LOW RESISTANCE SC (11:35)
[2024-10-08] MEDS: ASPIR LOW (ENTERIC COATED) 81 MG PO (11:36)
[2024-10-08] MEDS: ACTOS 30 MG PO (12:01)
[2024-10-08 12:03] LABS: Glucose - Point of Care 324 mg/dl (70-99)
[2024-10-08] MEDS: AMARYL 4 MG PO (12:03)
[2024-10-08] MEDS: NOVOLOG FLEXPEN-LOW RESISTANCE 4 UNITS SC ×2 (12:49→17:22)
--- NOTE | 2024-10-08 13:24 | W.PN.UPDATE ---
Update Note
Progress Note Update
Seen and examined independent of pulmonary physician. Nonbillable note
Patient remains on oxygen. Requiring 6 L of oxygen. States feeling shortness of breath but has mildly improved. Denies any productive cough.
General: Well Developed, Respiratory Distress and Poor Appetite
HEENT: NormoCephalic, Anicteric, Moist mucous membranes and Atraumatic
Respiratory: Clear
Cardiac: S1/S2 and Regular Rhythm
Breast: Deferred by me
GI: Soft
Rectal: Deferred by Provider
Genito-urinary: Deferred by me
Musculoskeletal: No Clubbing, No Cyanosis and No Edema
Skin: Warm
Neuro: AO x 3 and Nonfocal/grossly intact
Hematologic/Lymphatic: No Lymphadenopathy
Psych: Calm
IMPRESSION:
64-year-old with history of COPD and progressive dyspnea, recent diagnosis of metastatic squamous cell cancer with severe mediastinal lymphadenopathy who is currently pending XRT and chemo presents to the emergency department again for shortness of
breath. He was recently admitted 10 days ago for progressive dyspnea and shortness of breath. Was found to have COPD exacerbation at that time and likely to require home O2. Workup was negative for PE at that time. Patient was treated with
steroids, empiric antibiotics and nebs. Was discharged off oxygen. Patient reports ongoing cough and was found to be hypoxic to 87% on room air at home. Hypoxic to 88% here in the ED and is currently on 6 L. His lungs are clear to auscultation
anteriorly but cannot evaluate tightness at the bases given emphysema. He has no evidence of pulmonary edema. He has no consolidation. Prior CT PE was negative for PE. No wheezing on exam and occasional cough for me.
PLAN:
Acute hypoxic respiratory failure
possibly from emphysema and persistent COPD flare. No fluid, consolidation or PTX. Prior study negative for CT PE. Improved with nebs in ED. Recently finished empiric abx
- increase steroids again to solumedrol 40mg q 12
- duonebs RTC and prn
- hold off on abx
- wean oxygen as tolerated
- likely will need home O2
- pulmonary consult
Hypercalcemia - Ca 12.4. BUN 40. Mild dehydration. However PTH-rP is high
-Start normal saline x 2 L
- hold lasix, no evidence of chf
- likely will improve with XRT and chemo
- avoid vit d/calciuim supplementation
DM II
- continue metformin, glimepiride and pioglitazone
- continue farxega
- sliding scale insulin
-Expect hyperglycemia with steroids
Hyperlipidemia
Continue statin
Mood disorder
Continue SSRIs
DVT PPX - lovenox sq
Code status - full code
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
[2024-10-08 13:57] LABS: Magnesium 1.6 mg/dl (1.6-2.3); Phosphorus 3.6 mg/dl (2.5-4.5)
[2024-10-08] MEDS: NSS 1000 IV (14:49)
[2024-10-08 16:48] LABS: Glucose - Point of Care 309 mg/dl (70-99)
[2024-10-08] MEDS: LIPITOR 20 MG PO (17:22)
[2024-10-08] MEDS: LOVENOX 40 MG SC (17:24)
[2024-10-08] MEDS: NEURONTIN 100 MG PO (21:42)
[2024-10-08] MEDS: MUCINEX 1200 MG PO (21:42)
[2024-10-08] MEDS: VIBRAMYCIN 260 MG IV (21:44)
[2024-10-08 21:52] LABS: Glucose - Point of Care 209 mg/dl (70-99)
[2024-10-09] MEDS: NSS 1000 IV ×2 (02:06→12:56)
[2024-10-09] MEDS: SODIUM CHLORIDE 3% FOR INHALATION 1 VIAL INH ×2 (07:24→11:32)
[2024-10-09] MEDS: DUONEB 3 ML INH ×2 (07:24→11:32)
[2024-10-09 07:29] VITALS: BP 117/72
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
[2024-10-09 08:55] LABS: Glucose - Point of Care 239 mg/dl (70-99)
[2024-10-09] MEDS: MUCINEX 1200 MG PO (09:46)
[2024-10-09] MEDS: FARXIGA 10 MG PO (09:46)
[2024-10-09] MEDS: VIBRAMYCIN 100 MG PO (09:46)
[2024-10-09] MEDS: PROTONIX 40 MG PO (09:47)
[2024-10-09] MEDS: SOLU-MEDROL PF 40 MG IV (09:48)
[2024-10-09] MEDS: ZESTRIL 20 MG PO (09:48)
[2024-10-09] MEDS: ASPIR LOW (ENTERIC COATED) 81 MG PO (09:48)
[2024-10-09] MEDS: LEXAPRO 10 MG PO (09:48)
[2024-10-09] MEDS: GLUCOPHAGE 1000 MG PO (09:48)
[2024-10-09] MEDS: NOVOLOG FLEXPEN-LOW RESISTANCE 2 UNITS SC (09:53)
[2024-10-09 10:22] LABS: Hematocrit 44.8 % (39.0-52.0); Hemoglobin 15.3 g/dL (13.0-18.0); Mean Corp Hgb Conc. 34.2 g/dL (33.0-37.0); Mean Corpuscular Hgb 28.8 pg (27.0-31.0); Mean Corpuscular Volume 84.2 fL (80.0-94.0); Mean Platelet Volume 9.8 fL (7.4-10.4); Platelet Count 377 10^3/uL (130-400); Red Blood Cell Count 5.32 10^6/uL (4.70-6.10); Red Cell Dist. Width 13.1 % (11.5-14.5); White Blood Cell Count 24.4 10^3/uL (4.8-10.8)
--- NOTE | 2024-10-09 10:29 | W.PN.HOSP.TC ---
Addendum entered and electronically signed by Omari Mata MD 10/09/24 14:31:
Time of discharge 39 minutes
Addendum entered and electronically signed by Omari Mata MD 10/09/24 13:18:
Hypomagnesemia
Replete
Addendum entered and electronically signed by Omari Mata MD 10/09/24 11:02:
Hilar/supraclavicular lymphadenopathy with recently diagnosed metastatic squamous carcinoma not yet started on treatment
History tobacco smoker with 82-qdsw-nkny history
Anxiety
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
Original Note:
Today's Communication/Plan
-
Monitor vitals
See plan
Continue IV steroid
Continue with oxygenation
patient is accepted by oncology at [facility] (Dr. Kerri Mittal)
transfer to [facility]
cw IVF
monitor calcium
Assessment / Plan
Assessment / Plan
General: Well Developed, Respiratory Distress and Poor Appetite
HEENT: NormoCephalic, Anicteric, Moist mucous membranes and Atraumatic
Respiratory: Clear
Cardiac: S1/S2 and Regular Rhythm
GI: Soft
Musculoskeletal: No Edema
Neuro: AO x 3 and Nonfocal/grossly intact
Hematologic/Lymphatic: No Lymphadenopathy
Psych: Calm
Acute hypoxic respiratory failure
Multifactorial secondary to recent malignancy with mediastinal nodes compressing airway. possibly from emphysema and persistent COPD flare. No fluid, consolidation or PTX. Prior study negative for CT PE. Improved with nebs in ED. Recently
finished empiric abx
Discussed with pulmonary, patient will likely need Radiation +/- stent; Dr. Ralph spoke with [place] [facility] and patient is accepted by oncology at [facility] (Dr. Kerri Mittal)
- increase steroids again to solumedrol 40mg q 12
- duonebs RTC and prn
- hold off on abx
- wean oxygen as tolerated
- likely will need home O2
- pulmonary following
cw doxy started by pulmonary
Hypercalcemia - Ca 12.4. BUN 40. Mild dehydration. However PTH-rP is high
-Continue with normal saline, labs pending this morning
- hold lasix, no evidence of chf
- likely will improve with XRT and chemo
- avoid vit d/calciuim supplementation
DM II
- continue metformin, glimepiride and pioglitazone
- continue farxega
- sliding scale insulin
-Expect hyperglycemia with steroids
Hyperlipidemia
Continue statin
Mood disorder
Continue SSRIs
DVT PPX - lovenox sq
Code status - full code
I spent a total of 52 minutes with the patient or on the floor. More than 50% of this time involved counseling and coordination of care.
Anticipated Discharge: Today
Subjective/Interval History
-
Date of Service: October 09, 2024
Denies pain
Objective Data
-
Labs:
Laboratory Results
10/09/24
09:30
WBC 24.4 H
Hgb 15.3
Hct 44.8
Plt Count 377
Sodium Pending
Potassium Pending
Chloride Pending
Carbon Dioxide Pending
BUN Pending
Creatinine Pending
Glucose Pending
Calcium Pending
Vital Signs:
Vital Signs
Temp Pulse Resp BP Pulse Ox
97.6 F 77 26 117/72 96
10/09/24 07:29 10/09/24 07:29 10/09/24 07:29 10/09/24 07:29 10/09/24 07:29
I&O
10/08/24 10/09/24 10/10/24
06:59 06:59 06:59
Intake Total 2170 / 2170
Output Total 1900 / 1900 800 / 800
Balance 270 / 270 -800 / -800
--- NOTE | 2024-10-09 10:35 | CM ---
CM was updated that patient is being transferred to [place] for higher level of care. CM is awaiting confirmation of bed.
[2024-10-09 10:41] LABS: Blood Urea Nitrogen 36 mg/dl (9-20); Calcium 11.4 mg/dl (8.4-10.2); Carbon Dioxide 25 mmol/L (22-30); Chloride 95 mmol/L (98-107); Estimated Creatinine Clearance 101 ml/min; Glucose 140 mg/dl (70-99); Magnesium 1.5 mg/dl (1.6-2.3); Phosphorus 3.2 mg/dl (2.5-4.5); Potassium 4.4 mmol/L (3.5-5.1); Sodium 131 mmol/L (135-145); eGFR > 60.00
[2024-10-09 11:01] LABS: % Basophils 0.1 % (0-2); % Eosinophils 0.1 % (0-6); % Immature Granulocytes 0.9 % (0-0.5); % Lymphocytes 8.5 % (20.5-51.1); % Monocytes 4.6 % (1.7-9.3); % Neutrophils 85.8 % (42.2-75.2); Absolute Immature Granulocytes 0.2 10^3/uL (0-0.05); Absolute Lymphocytes 2.1 10^3/uL (1.2-3.4); Absolute Monocytes 1.1 10^3/uL (0.1-0.6); Absolute Neutrophils 20.9 10^3/uL (1.4-6.5); Nucleated Red Blood Cells % 0 % (-)
--- NOTE | 2024-10-09 11:12 | W.DCSUMMARY ---
Discharge Summary
Discharge Data
Date of Admission: 10/08/24
Date of Discharge: 10/09/24
-
Pending Results: Yes
Hospital Course
Discharge Diagnosis:
Acute hypoxic respiratory failure multifactorial secondary to recent malignancy with mediastinal nodes compressing airway
COPD exacerbation/Emphysema
Hypercalcemia
Hilar/supraclavicular lymphadenopathy with recently diagnosed metastatic squamous carcinoma
Anxiety
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
Hospital Course:
64-year-old male with past medical history of hilar/supraclavicular lymphadenopathy with recently diagnosed metastatic squamous cell carcinoma, hyperlipidemia, hypertension, left parotid gland mass, diabetes mellitus, GERD, anxiety came to the ""hospital with shortness of breath and hypoxic respiratory failure. Patient required oxygenation along with IV steroids on this hospitalization. Patient was seen by pulmonary throughout hospitalization. Oncology was also involved. It was
determined that patient symptoms could likely be secondary to compression from mediastinal lymph nodes and patient would likely need radiation soon along with possible pulmonary stent placement. Patient was then accepted at [facility] under Dr. Kerri Mittal and was transferred to [facility] for further management.While patient was in the hospital he also had hypercalcemia which continue to improve over time with fluid resuscitation which was continued.
Discharge Plan
-
Patient Disposition: Acute Care Hospital
Discharge Orders:
Discharge Patient (As Directed); Ordered 10/09/24
Ordered By: Omari Mata
Discharge Date and Time
Discharge Date/Time: 10/09/24 14:23
Print Language: SLOVAK
--- NOTE | 2024-10-09 12:13 | CON.ONC ---
Impression
Impression
Locally advances NSCLC -squamous subtype
SOB
mild hypercalcemia of malignancy
Plan
Plan
Acute hypoxic respiratory failure multifactorial secondary to recent malignancy with mediastinal nodes compressing airway -transfer to [place] recommended for treatment and aggressive airway management discussed with pt and by Dr. Alvarenga.
Patient History
History of Present Illness
64yo M presented with SOB. He was hospitalized 09/27-09/30 for hypoxic respiratory failure thought to be multifactorial including new squmous cell ca, COPD exacerbation treated with steroids, empiric abx, and BIPAP. Hospital course c/b steroid induced
hyperglycemia and mild hypercalcemia of malignancy. He has been readmitted for further mangement of hypoxia and SOB. His initial evaluation is notable for WBC 23.9 primarily neutrophils, platelet count 426,000, Na 131, calcium 11.4
In brief, Mega presented in May 2024 with hoarseness treated with abx and steroids by ENT. His symptoms progressed to SOB for which CT showed 3.5cm left parotid mass with 1cm nodular area of soft tissue prominence and mediastinal, bilateral
hilar/left supraclavicular adenopathy. He underwent bronchoscopy 07/31/[address] sampling was non-diagnostic for malignancy. 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
the differential. He then underwent a image guided core needle biopsy of the left supraclavicular lymph node that was diagnostic for invasive squamous cell carcinoma. PET/CT showed hypermetabolic activity in left parotic gland, L supraclavicular LN,
and soft tissue mass within the superior mediastinum. His MRI brain showed not mets.
Clinically, he reports early satiety with 28lb unintentional weight loss. He reports mild sob at rest that becomes severe with ambulation to the bathroom.
Past-Medical/Surgical History
PMH HTN, HLD, DM2, left parotid mass, anxiety, depression, COPD
PSH knee
Social former smoker. denies ETOH or recreational drugs.
Family father lung cancer. sister with larynx/lung cancer. sister mesothelioma. brother prostate ca
Patient Medication
�Medication �Instructions �Recorded �Confirmed �Last Taken �Type
aspirin 81 mg tablet,delayed 81 mg PO DAILY Blood Clot 07/31/24 10/08/24 09/26/24 History
release Prevention/Tx
dapagliflozin propanediol 10 mg 10 mg PO DAILY Diabetes 07/31/24 10/08/24 09/26/24 History
tablet
pioglitazone 30 mg tablet 30 mg PO DAILY Diabetes 07/31/24 10/08/24 09/26/24 History
alprazolam 0.25 mg tablet (Xanax) 0.25 mg PO DAILYPRN PRN anxiety 09/27/24 10/08/24 Unknown History
atorvastatin 20 mg tablet (Lipitor) 20 mg PO QPM High Cholesterol 09/27/24 10/08/24 09/26/24 History
escitalopram oxalate 10 mg tablet 10 mg PO DAILY Depression 09/27/24 10/08/24 09/26/24 History
omega-3 fatty acids-fish oil 684 1 cap PO DAILY Supplement 09/27/24 10/08/24 09/26/24 History
mg-1,200 mg capsule,delayed release
therapeutic multivitamin 1 tab PO DAILY Supplement 09/27/24 10/08/24 09/26/24 History
vitamin B complex 1 tab PO DAILY Supplement 09/27/24 10/08/24 09/26/24 History
albuterol sulfate 90 mcg/actuation 2 puff inhalation R Q4HPRN PRN 09/30/24 10/08/24 Unknown Rx
aerosol inhaler sob/wheezing #8.5 grams
dextromethorphan-guaifenesin 10 5 ml PO Q4HPRN PRN cough #500 mL 09/30/24 10/08/24 Unknown Rx
mg-100 mg/5 mL oral syrup
furosemide 20 mg tablet 20 mg PO DAILY #30 tabs 09/30/24 10/08/24 Unknown Rx
gabapentin 100 mg capsule 100 mg PO HS #14 caps 09/30/24 10/08/24 Unknown Rx
benzonatate 200 mg capsule 200 mg PO TIDPRN PRN cough 10/08/24 10/08/24 Unknown History
glimepiride 1 mg tablet 1 mg PO DAILY 10/08/24 10/08/24 Unknown History
glimepiride 4 mg tablet 4 mg PO DAILY Diabetes 10/08/24 10/08/24 Unknown History
metformin 1,000 mg tablet 1,000 mg PO BID 10/08/24 10/08/24 Unknown History
prednisone 10 mg tablet 30 mg PO .TAPER 10/08/24 10/08/24 Unknown History
Active Medications
Generic Name Dose Route Start Last Admin
Trade Name Freq PRN Reason Stop Dose Admin
Acetaminophen 650 mg 10/08/24 10:46
Acetaminophen 325 Mg Tablet PO 11/05/24 10:45
Q4HPRN PRN
mild pain or temp >/= 100.4 F
Albuterol/Ipratropium 3 ml 10/08/24 08:05 10/09/24 11:32
Ipratropium 0.5/Albuterol 3 Mg (3 Ml Ampul) INH 3 ml
R QID ARIANNA Administration
Protocol
Albuterol/Ipratropium 3 ml 10/08/24 10:46
Ipratropium 0.5/Albuterol 3 Mg (3 Ml Ampul) INH
R Q3HPRN PRN
SOB
Protocol
Alprazolam 0.25 mg 10/08/24 10:46
Alprazolam 0.25 Mg Tablet PO 11/05/24 10:45
DAILYPRN PRN
anxiety
Aspirin 81 mg 10/08/24 10:46 10/09/24 09:48
Aspirin 81 Mg (Enteric Coated) Tablet PO 11/05/24 10:45 81 mg
DAILY ARIANNA Administration
Atorvastatin Calcium 20 mg 10/08/24 18:00 10/08/24 17:22
Atorvastatin (Lipitor) 20 Mg Tablet PO 11/05/24 17:59 20 mg
QPM ARIANNA Administration
Dapagliflozin 10 mg 10/08/24 10:46 10/09/24 09:46
Dapagliflozin (Farxiga) 10 Mg Tablet PO 11/05/24 10:45 10 mg
DAILY ARIANNA Administration
Dextrose 12.5 grams 10/08/24 22:00
Dextrose 50% (0.5 Grams/Ml) 50 Ml Syringe IV 11/05/24 21:59
[id number] PRN
hypoglycemia
Protocol
Doxycycline Hyclate 100 mg 10/09/24 08:00 10/09/24 09:46
Doxycycline 100 Mg Capsule PO 10/13/24 08:01 100 mg
Q12 ARIANNA Administration
Enoxaparin Sodium 40 mg 10/08/24 18:00 10/08/24 17:24
Enoxaparin Sodium 40 Mg/0.4 Ml Syringe SC 11/05/24 17:59 40 mg
QPM ARIANNA Administration
Escitalopram Oxalate 10 mg 10/08/24 10:46 10/09/24 09:48
Escitalopram 10 Mg Tablet PO 11/05/24 10:45 10 mg
DAILY ARIANNA Administration
Gabapentin 100 mg 10/08/24 22:00 10/08/24 21:42
Gabapentin 100 Mg Capsule PO 11/05/24 21:59 100 mg
HS ARIANNA Administration
Glimepiride 4 mg/ Glimepiride 5 mg 10/08/24 12:00 10/08/24 11:31
1 mg PO 11/05/24 11:59 1 mg
DAILY ARIANNA Administration
Glucagon 1 mg 10/08/24 22:00
Glucagon 1 Mg Vial IM 11/05/24 21:59
PRN PRN
hypoglycemia - no IV access
Protocol
Guaifenesin 1,200 mg 10/09/24 08:00 10/09/24 09:46
Guaifenesin 600 Mg Extended Release Tablet PO 10/13/24 20:01 1,200 mg
Q12 ARIANNA Administration
Guaifenesin/Dextromethorphan 5 ml 10/08/24 10:46
Guaifenesin/Dextromethorphan 200 Mg/10 Ml Cup PO 11/05/24 10:45
Q4HPRN PRN
cough
Sodium Chloride 1,000 mls @ 100 mls/hr 10/09/24 11:15
Nss IV
.Q10H ARIANNA
Insulin Aspart 0 units 10/08/24 10:46 10/09/24 09:53
Insulin Aspart Low Resistance 300 Units/3 Ml Pen.Injctr SC 11/05/24 10:45 2 units
AC ARIANNA Administration
Protocol
Lisinopril 20 mg 10/08/24 10:46 10/09/24 09:48
Lisinopril 20 Mg Tablet PO 11/05/24 10:45 20 mg
DAILY ARIANNA Administration
Metformin HCl 1,000 mg 10/08/24 10:46 10/09/24 09:48
Metformin 500 Mg Regular Release Tablet PO 11/05/24 10:45 1,000 mg
BID@0800,1700 ARIANNA Administration
Methylprednisolone Sodium Succinate 40 mg 10/08/24 10:46 10/09/24 09:48
Methylprednisolone Pf 40 Mg/Ml Vial IV 11/05/24 10:45 40 mg
BID ARIANNA Administration
Pantoprazole Sodium 40 mg 10/08/24 10:46 10/09/24 09:47
Pantoprazole 40 Mg Delayed Release Tablet PO 11/05/24 10:45 40 mg
DAILY ARIANNA Administration
Pioglitazone HCl 30 mg 10/08/24 10:46 10/08/24 12:01
Pioglitazone Hcl 30 Mg Tablet PO 11/05/24 10:45 30 mg
DAILY ARIANNA Administration
Sodium Chloride 0 flush 10/08/24 07:00
Sodium Chloride 0.9% (Flush) Syringe IV 11/05/24 06:59
PER PROTOCOL ARIANNA
Sodium Chloride 1 vial 10/08/24 21:15
Sodium Chloride 3% For Inhalation 4 Ml Vial INH
R Q4HPRN PRN
Difficulty expectorating
Sodium Chloride 1 vial 10/09/24 08:00 10/09/24 11:32
Sodium Chloride 3% For Inhalation 4 Ml Vial INH 10/11/24 20:01 1 vial
R TID ARIANNA Administration
Physical Exam
-
General: No Apparent Distress and Appears Chronically Ill
HEENT: Moist Mucous Membranes; Negative Jaundice
Cardiology: Normal Sinus Rhythm
Pulmonary: Clear
GI: Soft
Extremities: Pulses Present; Negative Edema
Neurology: Non Focal
Skin: Warm
Hematologic / Lymphatic: Lymphadenopathy (Left neck mass 3cm)
Psych: Calm
Labs
Lab Results
WBC 24.4 10^3/uL (4.8-10.8) H 10/09/24 09:30
RBC 5.32 10^6/uL (4.70-6.10) 10/09/24 09:30
Hgb 15.3 g/dL (13.0-18.0) 10/09/24 09:30
Hct 44.8 % (39.0-52.0) 10/09/24 09:30
MCV 84.2 fL (80.0-94.0) 10/09/24 09:30
MCH 28.8 pg (27.0-31.0) 10/09/24 09:30
MCHC 34.2 g/dL (33.0-37.0) 10/09/24 09:30
RDW 13.1 % (11.5-14.5) 10/09/24 09:30
Plt Count 377 10^3/uL (130-400) 10/09/24 09:30
MPV 9.8 fL (7.4-10.4) 10/09/24 09:30
Abs Immat Gran (auto) 0.2 10^3/uL (0-0.05) H 10/09/24 09:30
Absolute Neuts (auto) 20.9 10^3/uL (1.4-6.5) H 10/09/24 09:30
Absolute Lymphs (auto) 2.1 10^3/uL (1.2-3.4) 10/09/24 09:30
Absolute Monos (auto) 1.1 10^3/uL (0.1-0.6) H 10/09/24 09:30
Absolute Eos (auto) 0.0 10^3/uL (0-0.7) 10/09/24 09:30
Absolute Basos (auto) 0.0 10^3/uL (0-0.2) 10/09/24 09:30
Immature Gran % 0.9 % (0-0.5) H 10/09/24 09:30
Neutrophils % 85.8 % (42.2-75.2) H 10/09/24 09:30
Lymphocytes % 8.5 % (20.5-51.1) L 10/09/24 09:30
Monocytes % 4.6 % (1.7-9.3) 10/09/24 09:30
Eosinophils % 0.1 % (0-6) 10/09/24 09:30
Basophils % 0.1 % (0-2) 10/09/24 09:30
Creatinine 0.8 mg/dL (0.7-1.3) 10/09/24 09:30
Vital Signs
Vital Signs
Temp Pulse Resp BP Pulse Ox
97.6 F 84 16 117/72 96
10/09/24 07:29 10/09/24 11:42 10/09/24 11:42 10/09/24 07:29 10/09/24 07:29
--- NOTE | 2024-10-09 12:47 | W.PN.UPDATE ---
Update Note
Progress Note Update
Had extensive discussion with and patient at bedside. prefers transfer to [facility] due to local presence. Unfortunately, after discussing with oncology, unable to confirm availability of interventional pulmonary at [facility] if needed emergently.
I explained at length with and patient reasoning and recommendation for transfer to tertiary care center.
and patient both understand and are agreeable to transfer. In fact, according to patient had told her that he prefers transfer to [facility] during our conversation.
Also discussed with that once patient is confirmed to have positive response to treatment with less risk for airway compromise, she may pursue further therapy locally if available. She will need to discuss this with the oncology team at [facility].
All questions answered
Reviewed above at length with multiple providers
Plan for transfer to [facility] this afternoon
[2024-10-09 12:53] LABS: Glucose - Point of Care 287 mg/dl (70-99)
[2024-10-09] MEDS: ACTOS 30 MG PO (12:55)
[2024-10-09] MEDS: AMARYL 5 MG PO (12:55)
[2024-10-09] MEDS: NOVOLOG FLEXPEN-LOW RESISTANCE 3 UNITS SC (12:57)
[2024-10-09 13:32] VITALS: BMI 24.1
[2024-10-09 14:16] VITALS: BP 112/70
== END 2024-10-09 14:23 | disposition short-term general hospital (02) | DRG 180 ==
LOC: 1 ACUTE 06:42
PROVIDERS: Emergency Medicine; Hospitalist; ADMITTING PHYSICIAN Internal Medicine; ATTENDING PHYSICIAN Internal Medicine; CONSULT PHYSICIAN Internal Medicine Critical Care Medicine; CONSULT PHYSICIAN Internal Medicine Hematology & Oncology; EMERGENCY PHYSICIAN Emergency Medicine; FAMILY PHYSICIAN Family Medicine
DX: C34.90 Malignant neoplasm of unspecified part of unspecified bronchus or lung (principal); J96.01 Acute respiratory failure with hypoxia; J44.1 Chronic obstructive pulmonary disease with (acute) exacerbation; J43.9 Emphysema, unspecified; E83.52 Hypercalcemia; F41.9 Anxiety disorder, unspecified; R59.0 Localized enlarged lymph nodes; E11.65 Type 2 diabetes mellitus with hyperglycemia; E83.42 Hypomagnesemia; E86.0 Dehydration; E78.00 Pure hypercholesterolemia, unspecified; Z79.82 Long term (current) use of aspirin; Z79.84 Long term (current) use of oral hypoglycemic drugs; Z79.52 Long term (current) use of systemic steroids; Z87.891 Personal history of nicotine dependence
CPT/HCPCS: 71045; 80048; 80053; 82962; 83735; 84100; 85025; 85027; 87502; 87811; 93005; 94640; 96374; 99285; 99406

== ENCOUNTER → 2024-10-24 15:17 | Outpatient (REF) | payer OTHER, SELFPAY ==
[2024-10-24 15:36] LABS: % Basophils 0.5 % (0-2); % Eosinophils 1.9 % (0-6); % Immature Granulocytes 0.7 % (0-0.5); % Lymphocytes 10.8 % (20.5-51.1); % Monocytes 7.9 % (1.7-9.3); % Neutrophils 78.2 % (42.2-75.2); Absolute Basophils 0.1 10^3/uL (0-0.2); Absolute Eosinophils 0.3 10^3/uL (0-0.7); Absolute Immature Granulocytes 0.1 10^3/uL (0-0.05); Absolute Lymphocytes 1.4 10^3/uL (1.2-3.4); Absolute Neutrophils 10.4 10^3/uL (1.4-6.5); Hematocrit 40.1 % (39.0-52.0); Hemoglobin 13.7 g/dL (13.0-18.0); Mean Corp Hgb Conc. 34.2 g/dL (33.0-37.0); Mean Corpuscular Hgb 28.7 pg (27.0-31.0); Mean Corpuscular Volume 84.1 fL (80.0-94.0); Mean Platelet Volume 8.6 fL (7.4-10.4); Platelet Count 534 10^3/uL (130-400); Red Blood Cell Count 4.77 10^6/uL (4.70-6.10); Red Cell Dist. Width 12.5 % (11.5-14.5); White Blood Cell Count 13.2 10^3/uL (4.8-10.8)
[2024-10-24 16:23] LABS: ALT (SGPT) 38 U/L (0-50); AST (SGOT) 20 U/L (17-59); Albumin 3.4 g/dl (3.5-5.0); Alkaline Phosphatase 125 U/L (38-126); Blood Urea Nitrogen 20 mg/dl (9-20); Calcium 10.2 mg/dl (8.4-10.2); Carbon Dioxide 29 mmol/L (22-30); Chloride 94 mmol/L (98-107); Glucose 392 mg/dl (70-99); Sodium 131 mmol/L (135-145); Total Bilirubin 0.6 mg/dl (0.2-1.3); Total Protein 6.2 g/dl (6.3-8.2); eGFR > 60.00
== END ==
LOC: OIDL 15:17
PROVIDERS: ATTENDING PHYSICIAN Internal Medicine Hematology & Oncology
DX: C34.02 Malignant neoplasm of left main bronchus (principal)
CPT/HCPCS: 80053; 85025

== ENCOUNTER 2024-10-30 17:24 | Inpatient (IN) | payer OTHER, SELFPAY ==
[2024-10-30] VITALS (23 sets, daily range): BP systolic 85–134; BP diastolic 63–97; PULSE 83–85; BMI 24.4; BMI 25.6
--- NOTE | 2024-10-30 08:21 | ED.GENMED ---
History of Present Illness
General
Chief Complaint: Fainting Sensation
Source: patient and ambulance crew
Exam Limitations: none
Time Seen by Provider: 10/30/24 08:08
Nursing documentation reviewed up to this point in time: agreed with
History of Present Illness
History of Present Illness:
64-year-old male past medical history of lung cancer with metastatic spread, diabetes, hypertension hyperlipidemia presenting to the emergency department today after he had a presyncopal episode while he was at the hospital for radiation treatment.
Patient did have an episode of chest discomfort just prior to the presyncopal episode. Chest discomfort described as sharp worse with deep breaths. Patient had his first chemo 1 week ago as well. Has had ongoing nausea and some mild symptoms
since the chemo treatment.
Past History
Past History
ED Past Medical History: Cancer, COPD, HTN, Hypercholesterolemia and NIDDM
ED Past Surgical History: Orthopedic
Social History
Tobacco: Former smoker
Alcohol: Other
Drug: None
Personal:
Living: with family
Employment: Employed ([employer])
Family History
Family History: Negative Diabetes, Hypertension or CAD
Review of Systems
Review of Systems
Allergies reviewed?: Yes
All Other Systems: ROS reviewed and negative except as documented in HPI and ROS
Phy Exam
Physical Exam
Physical Exam:
GENERAL: Alert , in no apparent distress
EYE: pupils equal and reactive
NECK: Supple, no significant adenopathy.
ENT: o/p clr, mmm.
CARDIAC: Regular rate and rhythm .
LUNGS: Clear breath sounds bilaterally, no acute respiratory distress, no wheezes/rales/rhonchi
ABDOMEN: Soft, without focal tenderness, no r/g, no cvat
NEUROLOGICAL: Alert and oriented, no focal neuro deficits
SKIN: Warm and dry, skin intact.
MUSCULOSKELETAL: No edema, well perfused.
PSYCH: Normal and appropriate interaction.
Course
Orders/Labs/Results
Orders:
Orders
10/30/24 08:10
EKG [Electrocardiogram (*1)] Urgent
Reason for Study: Syncope
EKG- Treatment ONCE
10/30/24 08:20
CMP [Comprehensive Metabolic Panel] Urgent
Complete Blood Count/With Diff Urgent
Pro-BNP [NT-proBNP] Urgent
Troponin I Urgent
10/30/24 08:30
CT Chest PE Study Urgent
Comment:
Reason For Exam: CP/SOB, cancer on chemo/radiation
10/30/24 08:31
Ondansetron Injectable [Zofran] 4 mg IV NOW STA
10/30/24 08:52
0.9% Sodium Chloride 500 ml [Nss] 500 ml IV BOLUS
10/30/24 11:05
Bedside Glucose- Treatment ONCE
10/30/24 12:02
Insulin Regular, Human Pen [NovoLIN R Flexpen] 10 units SC NOW STA
10/30/24 12:04
Insulin Human Regular [Novolin R] 10 units SC NOW STA
10/30/24 12:50
Bedside Glucose- Treatment ONCE
10/30/24 14:10
Bedside Glucose- Treatment ONCE
Orthostatic VS- Treatment ONCE
10/30/24 15:29
0.9% Sodium Chloride 500 ml [Nss] 500 ml IV BOLUS
10/30/24 15:30
Urinalysis Reflex To Culture Urgent
Blood Culture Q30M
GIFTY Source: Blood/Venous
Specimen Description:
10/30/24 15:34
Electrocardiogram (*1) Urgent
Reason for Study: Chest Pain
EKG- Treatment ONCE
Troponin I Urgent
10/30/24 16:00
Blood Culture Q30M
GIFTY Source: Blood/Venous
Specimen Description:
Abnormal Lab Results
10/30/24 10/30/24 10/30/24
08:20 11:19 13:08
WBC 14.3 H 10^3/uL
(4.8-10.8)
Plt Count 569 H 10^3/uL
(130-400)
Abs Immat Gran (auto) 0.2 H 10^3/uL
(0-0.05)
Absolute Neuts (auto) 12.3 H 10^3/uL
(1.4-6.5)
Absolute Lymphs (auto) 0.8 L 10^3/uL
(1.2-3.4)
Absolute Monos (auto) 0.9 H 10^3/uL
(0.1-0.6)
Immature Gran % 1.1 H %
(0-0.5)
Neutrophils % 85.9 H %
(42.2-75.2)
Lymphocytes % 5.5 L %
(20.5-51.1)
Sodium 128 L mmol/L
(135-145)
Chloride 88 L mmol/L
(98-107)
BUN 22 H mg/dl
(9-20)
Glucose 457 H* mg/dl
(70-99)
Calcium 10.4 H mg/dl
(8.4-10.2)
AST 16 L U/L
(17-59)
Total Protein 5.8 L g/dl
(6.3-8.2)
Albumin 3.2 L g/dl
(3.5-5.0)
POC Glucose 382 H mg/dl 354 H mg/dl
(70-99) (70-99)
10/30/24
14:18
WBC
Plt Count
Abs Immat Gran (auto)
Absolute Neuts (auto)
Absolute Lymphs (auto)
Absolute Monos (auto)
Immature Gran %
Neutrophils %
Lymphocytes %
Sodium
Chloride
BUN
Glucose
Calcium
AST
Total Protein
Albumin
POC Glucose 295 H mg/dl
(70-99)
10/30/24 08:20
10/30/24 08:20
Vital Signs
Initial and Last Documented VS:
Initial Vital Signs
Temp Pulse Resp BP Pulse Ox
97.8 F 100 22 103/92 91
10/30/24 08:10 10/30/24 08:10 10/30/24 08:10 10/30/24 08:10 10/30/24 08:10
Last Documented Vital Signs
Temp Pulse Resp BP Pulse Ox
97.8 F 90 20 91/63 93
10/30/24 08:10 10/30/24 12:15 10/30/24 12:15 10/30/24 12:15 10/30/24 12:15
MDM/Problems Addressed
MDM/Problems Addressed:
64-year-old male presenting to the emergency department today with concerns of presyncopal episode while he was at the hospital for radiation treatment for metastatic lung cancer. On arrival mildly tachycardic pulse ox in the low 90s. Here patient
no distress in bed white count of 14.3 has been elevated in the past. Glucose elevated to 400s corrected sodium in normal range. No significant anion gap. Normal bicarb. Patient was given fluids glucose level improving additionally given dose of
insulin with further improvement at the 200s. CT scan of the chest was performed to rule out PE regard to patient's syncopal episode in setting of cancer treatment. No evidence of PE on this. There is an incidental finding of potential new
pulmonary nodule. Patient given a liter and a half of fluid here patient was stood up felt very lightheaded again while sitting up his blood pressure dropped into the 80s systolic. Considering this plan to admit for further monitoring and
treatment.
*Critical Care Note
Total Time (30-74mins, 75-104mins- exclusive of procedures): Not Applicable
ED Attending Note
-
Portions of this chart may have been created with voice recognition software.� Occasional wrong word or��sound alike� substitutions may have occurred due to the inherent limitations of voice recognition software.
Discharge Plan
Departure
Patient Disposition: Admit
Date of Disposition: 10/30/24
Time of Disposition: 15:54
Admit to: Med/Surg
Admit to doctor: Lilibeth
Presentation/result/management discussed w/ accepting MD/DO: Hospitalist
Patient with high blood pressure during this ER visit?: No
Condition: Good
Covid-19: Not Applicable
Discharge Problem:
Lightheadedness, Hyperglycemia
Prescriptions:
No Action
aspirin 81 mg Tablet,Delayed Release (Dr/Ec)
81 mg PO DAILY
pioglitazone 30 mg Tablet
30 mg PO DAILY
dapagliflozin propanediol 10 mg Tablet
10 mg PO DAILY
alprazolam [Xanax] 0.25 mg Tablet
0.25 mg PO DAILYPRN PRN (Reason: anxiety)
escitalopram oxalate 10 mg Tablet
10 mg PO DAILY
atorvastatin [Lipitor] 20 mg Tablet
20 mg PO QPM
therapeutic multivitamin Tablet
1 tab PO DAILY
vitamin B complex Tablet
1 tab PO DAILY
omega-3 fatty acids-fish oil 684-1,200 mg Capsule,Delayed Release(Dr/Ec)
1 cap PO DAILY
furosemide 20 mg Tablet
20 mg PO DAILY Qty: 30 0RF
gabapentin 100 mg Capsule
100 mg PO HS Qty: 14 0RF
albuterol sulfate 90 mcg/actuation Hfa Aerosol Inhaler
2 puff inhalation R Q4HPRN PRN (Reason: sob/wheezing) Qty: 8.5 0RF
dextromethorphan-guaifenesin 10-100 mg/5 mL Syrup
5 ml PO Q4HPRN PRN (Reason: cough) Qty: 500 0RF
glimepiride 4 mg tablet
4 mg PO DAILY
Rx Instructions:
take with 1 mg tab for total 5 mg daily
prednisone 10 mg Tablet
30 mg PO .TAPER
Patient Comments:
10/08/24: 30mg QD for 1 day, 20mg QD for 3 days, 10mg QD for 3 days
benzonatate 200 mg Capsule
200 mg PO TIDPRN PRN (Reason: cough)
glimepiride 1 mg Tablet
1 mg PO DAILY
Rx Instructions:
take with 4mg tab for total of 5mg
metformin 1,000 mg Tablet
1,000 mg PO BID
Referrals:
Brennen Villalobos MD [Family Provider] -
Interventions
Interventions:
*Risk Screen - Suicide Last Done: 10/30/24 08:10
*General Assessment Last Done: 10/30/24 08:10
*Neglect/Abuse Screening Last Done: 10/30/24 08:10
*ED COVID-19 Vaccine History Last Done: 10/30/24 08:10
ED- Cardiac Assessment Last Done: 10/30/24 08:21
ED- Neurological Assessment Last Done: 10/30/24 08:21
Discharge Date and Time
Print Language: WELSH
[2024-10-30 08:35] LABS: % Basophils 0.3 % (0-2); % Eosinophils 0.6 % (0-6); % Immature Granulocytes 1.1 % (0-0.5); % Lymphocytes 5.5 % (20.5-51.1); % Monocytes 6.6 % (1.7-9.3); % Neutrophils 85.9 % (42.2-75.2); Absolute Basophils 0.1 10^3/uL (0-0.2); Absolute Eosinophils 0.1 10^3/uL (0-0.7); Absolute Immature Granulocytes 0.2 10^3/uL (0-0.05); Absolute Lymphocytes 0.8 10^3/uL (1.2-3.4); Absolute Monocytes 0.9 10^3/uL (0.1-0.6); Absolute Neutrophils 12.3 10^3/uL (1.4-6.5); Hematocrit 39.5 % (39.0-52.0); Hemoglobin 13.6 g/dL (13.0-18.0); Mean Corp Hgb Conc. 34.4 g/dL (33.0-37.0); Mean Corpuscular Hgb 28.8 pg (27.0-31.0); Mean Corpuscular Volume 83.7 fL (80.0-94.0); Mean Platelet Volume 9.5 fL (7.4-10.4); Nucleated Red Blood Cells % 0.1 % (-); Platelet Count 569 10^3/uL (130-400); Red Blood Cell Count 4.72 10^6/uL (4.70-6.10); Red Cell Dist. Width 12.2 % (11.5-14.5); White Blood Cell Count 14.3 10^3/uL (4.8-10.8)
[2024-10-30] MEDS: ZOFRAN 4 MG IV (08:41)
[2024-10-30 08:48] LABS: ALT (SGPT) 20 U/L (0-50); AST (SGOT) 16 U/L (17-59); Albumin 3.2 g/dl (3.5-5.0); Alkaline Phosphatase 122 U/L (38-126); Blood Urea Nitrogen 22 mg/dl (9-20); Calcium 10.4 mg/dl (8.4-10.2); Carbon Dioxide 28 mmol/L (22-30); Chloride 88 mmol/L (98-107); Estimated Creatinine Clearance 87 ml/min; Glucose 457 mg/dl (70-99); Potassium 4.6 mmol/L (3.5-5.1); Sodium 128 mmol/L (135-145); Total Bilirubin 0.9 mg/dl (0.2-1.3); Total Protein 5.8 g/dl (6.3-8.2); eGFR > 60.00
[2024-10-30] MEDS: NSS 500 IV ×2 (08:55→16:14)
[2024-10-30 08:57] LABS: NT-proBNP 241 pg/ml; Troponin I < 0.012 ng/ml
[2024-10-30 11:21] LABS: Glucose - Point of Care 382 mg/dl (70-99)
[2024-10-30] MEDS: NOVOLIN R 10 UNITS SC (12:11)
[2024-10-30 13:11] LABS: Glucose - Point of Care 354 mg/dl (70-99)
[2024-10-30 14:20] LABS: Glucose - Point of Care 295 mg/dl (70-99)
--- NOTE | 2024-10-30 16:06 | HPS.HSE ---
Addendum entered and electronically signed by Nixon Wilkerson MD 10/31/24 15:38:
64-year-old male with a past medical history of metastatic squamous cell lung cancer status post endotracheal stent placement 2 weeks ago, COPD, and diabetes who presents with presyncope while waiting for his radiation treatment. He had his first
chemo treatment 1 week ago. He reports decreased oral intake. He had lightheadedness, dizziness, during this presyncope event. He was noted to have orthostatic hypotension. Labs were remarkable for sodium of 128, blood sugar of 457, and mild
leukocytosis. He is no longer on any diabetes medications, unclear why.
Treat with Lantus 20 units at bedtime, NovoLog 5 units AC 3 times daily, resistant sliding scale insulin, check hemoglobin A1c, consult diabetes nurse practitioner.
For his orthostatic hypotension, continue IV fluids. Check daily orthostatic vital signs, he may need midodrine if he does not improve.
For his metastatic squamous cell cancer with recent stent placement in his trachea 2 weeks ago, consult pulmonology. Continue bronchodilators. Will also consult oncology.
I have personally seen and examined the patient on 10/30/2024, and agree with the plan of care as documented by BRYNN Schneider.
Advance care planning discussed, patient is a DNR.
All other issues as outlined by the advanced care practitioner.
Updated at bedside.
Total time spent to see the patient on the floor, examine the patient, review data and lab results, discuss treatment plan with patient, nursing staff around 79 minutes.
Original Note:
Family Physician
-
Family Physician: Brennen Villalobos
Chief Complaint
-
near syncope
History of Present Illness
Patient is a 64-year-old male with past medical history significant for metastatic lung cancer, hypertension, hyperlipidemia, NIDDM and COPD who presented to [facility] ED for evaluation of a near syncopal episode following radiation today. Patient with
recent diagnosis of metastatic lung cancer being treated with [facility], receiving radiation daily (started last Wednesday and is scheduled for 35 sessions) and chemo weekly on for 5 sessions. Patient reports this morning when
he completed he radiation session and he went to get up he became dizzy, diaphoretic, had some chest pain and shortness of breath. Patient reports that he has had nausea, decreased appetite and weakness since his chemo last week. He denies any
fever, chills, vomiting, constipation, diarrhea or urinary symptoms.
Medical History
Past Medical History
Past Medical History: Reports Other
Additional Past Medical History:
metastatic lung cancer
hypertension
hyperlipidemia
NIDDM
COPD
Past Surgical History: Reports Other
Additional Past Surgical History:
left elbow tendon repair
pulmonary stent
Social History
Tobacco: Former Smoker
Alcohol: None
Drug: None
Personal:
Living: With Family
Employment: Employed
Family History
Family History: Not pertinent
Allergies / Home Medications
Allergies reflects when Allergies were last updated in [facility].
Home Medications with original date entered in [facility]
Allergy/Medication List:
Allergies
Allergy/AdvReac Type Severity Reaction Status Date / Time
levofloxacin [From Levaquin] Allergy Unknown Verified 10/30/24 08:19
Home Medications
atorvastatin 20 mg tablet (Lipitor) 20 mg PO DAILY High Cholesterol 09/27/24
escitalopram oxalate 10 mg tablet 15 mg PO DAILY Depression 09/27/24
omega-3 fatty acids-fish oil 684 mg-1,200 mg capsule,delayed release 1 cap PO DAILY Supplement 09/27/24
therapeutic multivitamin 1 tab PO DAILY Supplement 09/27/24
vitamin B complex 1 tab PO DAILY Supplement 09/27/24
furosemide 20 mg tablet 20 mg PO DAILY #30 tabs 09/30/24
benzonatate 200 mg capsule 200 mg PO TIDPRN PRN cough 10/08/24
Aredia 1 dose IV TH Cancer 10/30/24
gabapentin 100 mg capsule 100 mg PO DAILY Pain 10/30/24
lorazepam 0.5 mg tablet 0.5 mg PO DAILYPRN PRN before radiation 10/30/24
magnesium oxide 400 mg PO DAILY Electrolyte Repletion 10/30/24
mirtazapine 7.5 mg tablet 7.5 mg PO DAILY depression/insomnia 10/30/24
ondansetron 8 mg disintegrating tablet 8 mg PO Q8HPRN PRN nausea 10/30/24
oxycodone 5 mg tablet 5 mg PO HS Pain 10/30/24
prochlorperazine maleate 10 mg tablet 10 mg PO Q6HPRN PRN nausea 10/30/24
sodium di- and monophosphate-potassium phos monobasic 250 mg tablet (Phospha Neutral) 2 tab PO DAILY 10/30/24
Review of Systems
-
Constitutional: Reports Fatigue
EENT: Reports No Symptoms
Respiratory: Reports No Symptoms
Cardiac: Reports Chest Pain, Diaphoresis and Syncope (near syncope )
Abdomen/GI: Reports Nausea and Anorexia
: Reports No Symptoms
Musculoskeletal: Reports No Symptoms
Skin: Reports No Symptoms
Neurological: Reports Weakness
Endocrine: Reports No Symptoms
Hematologic/Lymphatic: Reports No Symptoms
Psych: Reports No Symptoms
Physical Exam
Vital Signs
Vital Signs
Temp Pulse Resp BP Pulse Ox
97.8 F 82 18 128/94 94
10/30/24 08:10 10/30/24 16:00 10/30/24 16:00 10/30/24 15:00 10/30/24 16:00
Physical Exam
General: Well Developed, Well Nourished, No Apparent Distress and Conversant
HEENT: NormoCephalic, Moist mucous membranes, Atraumatic, Dix Conjunctivae, Nose Appears Normal and Ears Appear Normal
Respiratory: Rhonchi
Cardiac: S1/S2 and Regular Rhythm; No Murmur or Rub
Breast: Deferred by me
GI: Soft, Non Tender, Non Distended and Normal Bowel Sounds; No Organomegaly
Rectal: Deferred by Provider
Genito-urinary: Deferred by me
Musculoskeletal: No Clubbing, No Cyanosis and No Edema
Skin: IV/Catheter Site
Neuro: Awake, Alert, AO x 3 and Nonfocal/grossly intact
Psych: Calm and Intact Judgment/Insight
Laboratory Results
-
10/30/24 08:20
10/30/24 08:20
Laboratory Results
Total Bilirubin 0.9 mg/dl (0.2-1.3) 10/30/24 08:20
AST 16 U/L (17-59) L 10/30/24 08:20
ALT 20 U/L (0-50) 10/30/24 08:20
Alkaline Phosphatase 122 U/L (38-126) 10/30/24 08:20
Troponin I < 0.012 ng/ml 10/30/24 08:20
Data Reviewed
-
CT Scan: Report Reviewed by me (Chest CT: 1. There is no CT evidence of pulmonary embolism 2. There is extensive mediastinal and hilar adenopathy similar to the prior study. There is compression of the left main pulmonary artery, unchanged from
prior study. 3. There is a new 7 mm pulmonary nodule in the right lower lobe. New met)
Medical Tests (Nuc Med, Echo, EKG etc): Report Reviewed by me (EKG: NORMAL SINUS RHYTHM POSSIBLE LEFT ATRIAL ENLARGEMENT LEFT ANTERIOR FASCICULAR BLOCK CANNOT RULE OUT INFERIOR INFARCT (CITED ON OR BEFORE 08-OCT-2024))
Lab Data: Labs Reviewed by me (WBC 14.3, Plt 569, Neut 85.9, Na 128, )
Impression/Plan
-
IMPRESSION/PLAN:
#near syncope like 2/2 positive orthostatic BP
EKG: NORMAL SINUS RHYTHM
POSSIBLE LEFT ATRIAL ENLARGEMENT
LEFT ANTERIOR FASCICULAR BLOCK
CANNOT RULE OUT INFERIOR INFARCT (CITED ON OR BEFORE 08-OCT-2024)
Chest CT/PE: 1. There is no CT evidence of pulmonary embolism
2. There is extensive mediastinal and hilar adenopathy similar to the prior study. There is compression of the left main pulmonary artery, unchanged from prior study.
3. There is a new 7 mm pulmonary nodule in the right lower lobe. New metastatic disease cannot be excluded
Orthostatic VS: Supine: BP 105/68 Sitting BP 85/66 Standing BP 100/67
HR 84 HR 83 HR 85
- Admit to telemetry
- Orthostatic VS daily
- IVF
- Consult pulmonary
#hyponatremia likely 2/2 hyperglycemia
Na+ 128
- IVF
- monitor BMP
#metastatic lung cancer
follows with [facility]
- Consult Oncology
- continue benzonatate
#hyperlipidemia
- continue atorvastatin
#NIDDM
was on oral hyperglycemic agents d/c when at [place]
- AccuCheck AC & HS
- SSI
- Consult Diabetic SPECIAL POLICE
#depression/anxiety
- continue escitalopram, lorazepam and mirtazapine
#hypertension
- hold furosemide in setting of hypotension
#COPD
Code status: DNR
DVT prophylaxis: Lovenox Sq
[2024-10-30 16:44] LABS: Troponin I 0.016 ng/ml
[2024-10-30 18:35] LABS: Glucose - Point of Care 290 mg/dl (70-99)
[2024-10-30] MEDS: NOVOLOG FLEXPEN 5 UNITS SC (19:35)
--- NOTE | 2024-10-30 20:15 | PTCARENOTE ---
Patient arrived from ED via stretcher. Patient walked into room with standby assist. Patient AAOx3, able to make needs known. IV flushed and patent.
[2024-10-30] MEDS: LOVENOX 40 MG SC (20:25)
[2024-10-30] MEDS: NSS 1000 IV (20:25)
[2024-10-30 20:42] LABS: Glucose - Point of Care 344 mg/dl (70-99)
[2024-10-30] MEDS: LANTUS 0.2 UNITS SC (21:42)
[2024-10-30] MEDS: ATIVAN 0.5 MG PO (21:46)
[2024-10-31] VITALS (7 sets, daily range): BP systolic 106–129; BP diastolic 64–83; PULSE 91–98; O2SAT 94; BMI 25.4
[2024-10-31] MEDS: NSS 1000 IV ×2 (05:38→18:27)
[2024-10-31 06:59] LABS: Hematocrit 35.9 % (39.0-52.0); Hemoglobin 12.1 g/dL (13.0-18.0); Mean Corp Hgb Conc. 33.7 g/dL (33.0-37.0); Mean Corpuscular Hgb 28.1 pg (27.0-31.0); Mean Corpuscular Volume 83.5 fL (80.0-94.0); Mean Platelet Volume 9.3 fL (7.4-10.4); Platelet Count 580 10^3/uL (130-400); Red Cell Dist. Width 12.4 % (11.5-14.5); White Blood Cell Count 10.5 10^3/uL (4.8-10.8)
[2024-10-31 07:17] LABS: Blood Urea Nitrogen 17 mg/dl (9-20); Calcium 10.3 mg/dl (8.4-10.2); Carbon Dioxide 29 mmol/L (22-30); Chloride 95 mmol/L (98-107); Estimated Creatinine Clearance 123 ml/min; Glucose 245 mg/dl (70-99); Potassium 4.6 mmol/L (3.5-5.1); Sodium 130 mmol/L (135-145); eGFR > 60.00
[2024-10-31] MEDS: MAG-TAB SR 84 MG PO (07:49)
[2024-10-31] MEDS: THERAGRAN 1 TABLET PO (07:49)
[2024-10-31] MEDS: LEXAPRO 15 MG PO (07:49)
[2024-10-31] MEDS: NEURONTIN 100 MG PO (07:49)
[2024-10-31] MEDS: NEUTRA-PHOS POWDER PACKET 500 MG PO (07:49)
[2024-10-31] MEDS: B COMPLEX w/VITAMIN C 1 CAPLET PO (07:50)
[2024-10-31] MEDS: LIPITOR 20 MG PO (07:50)
[2024-10-31 08:05] LABS: Glucose - Point of Care 257 mg/dl (70-99)
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
[2024-10-31] MEDS: NOVOLOG FLEXPEN-HIGH RESISTANCE 7 UNITS SC ×2 (08:34→18:28)
[2024-10-31] MEDS: NOVOLOG FLEXPEN 5 UNITS SC (08:34)
[2024-10-31] MEDS: MUCINEX 1200 MG PO ×2 (09:15→22:02)
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
--- NOTE | 2024-10-31 09:47 | W.PN.HOSP.TC ---
Today's Communication/Plan
-
see bold
Assessment / Plan
Assessment / Plan
64-year-old male with a past medical history of metastatic squamous cell lung cancer status post endotracheal stent placement 2 weeks ago, COPD, and diabetes who presents with near-syncope while waiting for his radiation treatment. He had his first
chemo treatment 1 week ago. He reports decreased oral intake. He had lightheadedness, dizziness, during this presyncope event. He was noted to have orthostatic hypotension. Labs were remarkable for sodium of 128, blood sugar of 457, and mild
leukocytosis. He is no longer on any diabetes medications, unclear why.
#Near-syncope
#Orthostatic hypotension
Due to poor oral intake
Improving on IV fluids
Orthostatic vital signs /8 negative
PT/OT
#Metastatic squamous cell carcinoma with bulky mediastinal and hilar lymphadenopathy with exertional tracheal compression status post Y tracheal stent
#Mild hypercalcemia of malignancy
Appreciate pulmonology input, patient needs to be on albuterol nebs and hypertonic saline nebs every 8 hours to maintain airway clearance and prevention of stent blockage
Patient has not been using his hypertonic saline neb at home�he has been counseled that he needs to use them
Added Mucinex 600 mg every 12 hours
Appreciate oncology input, continue radiation and chemo outpatient
#Uncontrolled type 2 diabetes
Unclear why his oral diabetic medications were stopped
Hemoglobin A1c 10.3
Insulin adjusted, would recommend insulin upon discharge, diabetes nurse practitioner consulted
#Hyponatremia
Suspect due to pulmonary process
Check TSH, a.m. cortisol
Fluid restrict, trend sodium
#Leukocytosis
No signs or symptoms of infection, patient is afebrile
Resolved without antibiotics
#COPD on imaging
Bronchodilators
#Thrombocytosis
DVT prophylaxis�subcu Lovenox
DNR
Total time spent to see the patient on the floor, examine the patient, review data and lab results, discuss treatment plan with patient, nursing staff around 51 minutes.
Physical Exam
General: Appears to not feel well, no acute distress
HEENT: Normocephalic, Atraumatic, EOMI, MMM
Respiratory: Coarse breath sounds
Cardiac: Normal S1/S2, Regular Rate and Rhythm
GI: Soft, Nontender, Nondistended, Normal Bowel Sounds
Extremities: No Clubbing, Cyanosis, or Edema
Neuro: Nonfocal/Grossly Intact
Psych: Calm, Cooperative
Anticipated Discharge: 24 - 48 hours
Subjective/Interval History
-
Date of Service: October 31, 2024
Patient reports feeling better. Lightheadedness and dizziness improved. He is nauseous, denies vomiting. No fever. No chest pain. Has dyspnea with activity, which seems to be chronic.
Objective Data
-
Labs:
Laboratory Results
10/31/24
06:19
WBC 10.5
Hgb 12.1 L
Hct 35.9 L
Plt Count 580 H
Sodium 130 L
Potassium 4.6
Chloride 95 L
Carbon Dioxide 29
BUN 17
Creatinine 0.6 L
Glucose 245 H
Calcium 10.3 H
Vital Signs:
Vital Signs
Temp Pulse Resp BP Pulse Ox
97.6 F 87 18 106/64 93
10/31/24 07:30 10/31/24 07:30 10/31/24 07:30 10/31/24 07:30 10/31/24 07:30
I&O
10/30/24 10/31/24 11/01/24
06:59 06:59 06:59
Intake Total 1380 / 1380
Balance 1380 / 1380
[2024-10-31] MEDS: SODIUM CHLORIDE 3% FOR INHALATION 1 VIAL INH ×3 (09:55→19:20)
[2024-10-31] MEDS: VENTOLIN NEBULES 2.5 MG INH ×3 (09:55→19:20)
[2024-10-31 10:32] LABS: Glycohemoglobin (HgbA1c) 9.7 % (4.0-5.6)
[2024-10-31] MEDS: SODIUM CHLORIDE 3% FOR INHALATION INH (11:33)
[2024-10-31] MEDS: VENTOLIN NEBULES INH (11:33)
[2024-10-31 11:56] LABS: Glucose - Point of Care 331 mg/dl (70-99)
[2024-10-31 12:25] LABS: Urine Albumin Negative (Neg - Trace); Urine Bilirubin Negative (Negative); Urine Character Clear (Clear); Urine Color Yellow; Urine Glucose 4+ (Negative); Urine Ketone Negative (Negative); Urine Leukocyte Negative (Negative); Urine Nitrite Negative (Negative); Urine Occult Blood Negative (Negative); Urine Specific Gravity 1.015 (<1.030); Urine Urobilinogen Negative (Neg - 1+)
[2024-10-31] MEDS: PROTONIX 40 MG PO (12:33)
[2024-10-31] MEDS: NOVOLOG FLEXPEN 8 UNITS SC ×2 (12:34→18:28)
[2024-10-31] MEDS: NOVOLOG FLEXPEN-HIGH RESISTANCE 10 UNITS SC (12:36)
[2024-10-31] MEDS: ZOFRAN 4 MG IV ×2 (12:45→18:48)
--- NOTE | 2024-10-31 14:05 | CM ---
Patient seen at bedside with his brother
IA completed
Lives with in a 2 story home, 5 steps to enter, flight to second floor bedroom, powder room on 1st floor
PLOF: Independent, states no device
DME: Nebulizer
Denies VN/Rehab
Reports that he goes to chemo tx weekly and radiation daily for his lung cancer
States he would drive himself to treatments, but would like alternative transportation if needed
Requested information on transportation - Information/application for [facility] given to patient.
Will fill out application and have his bring stake driver license in to fax to [facility] (T fax [phone])
PT to eval
PLAN: await PT rec, CM to continue to follow for needs
[2024-10-31 16:50] LABS: Glucose - Point of Care 282 mg/dl (70-99)
[2024-10-31] MEDS: LOVENOX 40 MG SC (18:28)
[2024-10-31 22:00] LABS: Glucose - Point of Care 243 mg/dl (70-99)
[2024-10-31] MEDS: REMERON 7.5 MG PO (22:02)
[2024-10-31] MEDS: LANTUS 0.26 UNITS SC (22:03)
[2024-10-31] MEDS: ATIVAN 0.5 MG PO (22:07)
[2024-10-31] MEDS: TYLENOL 650 MG PO (22:10)
[2024-11-01] VITALS (7 sets, daily range): BP systolic 96–125; BP diastolic 60–87; PULSE 98; O2SAT 94
[2024-11-01 04:22] LABS: Hematocrit 36.7 % (39.0-52.0); Hemoglobin 12.5 g/dL (13.0-18.0); Mean Corp Hgb Conc. 34.1 g/dL (33.0-37.0); Mean Corpuscular Hgb 28.3 pg (27.0-31.0); Mean Corpuscular Volume 83.2 fL (80.0-94.0); Mean Platelet Volume 9.2 fL (7.4-10.4); Platelet Count 615 10^3/uL (130-400); Red Blood Cell Count 4.41 10^6/uL (4.70-6.10); Red Cell Dist. Width 12.3 % (11.5-14.5); White Blood Cell Count 10.9 10^3/uL (4.8-10.8)
--- NOTE | 2024-11-01 04:40 | PTCARENOTE ---
Pt's tele monitor alarming HR 150's - 170's. Pt asymptomatic. SHIPPING SPECIALIST notified, new orders added. labs drawn. EKG shows Afib RVR. SHIPPING SPECIALIST ordered stat IV Lopressor. Before med administered pt flipped back into sinus rhythm with HR in the 90's. plan of
care ongoing
[2024-11-01 04:49] LABS: Blood Urea Nitrogen 13 mg/dl (9-20); Calcium 10.6 mg/dl (8.4-10.2); Carbon Dioxide 29 mmol/L (22-30); Chloride 98 mmol/L (98-107); Estimated Creatinine Clearance 123 ml/min; Glucose 159 mg/dl (70-99); Potassium 4.2 mmol/L (3.5-5.1); Sodium 134 mmol/L (135-145); eGFR > 60.00
[2024-11-01 04:50] LABS: Magnesium 1.5 mg/dl (1.6-2.3)
[2024-11-01] MEDS: NSS IV ×2 (04:58→18:51)
[2024-11-01] MEDS: NSS 1000 IV (04:59)
--- NOTE | 2024-11-01 05:09 | W.PN.UPDATE ---
Update Note
Progress Note Update
RN stated patient HR went into 170's, now staying between 110's-130's 125/83. states he feels chest beating other darling denies chest pain, shortness of breath, dizziness or lightheadedness. Denies any history of Afib or sinus tachycardia and is not
on any anticoagulants.
ordered stat labs, EKG. EKG noted. will order Metoprolol 2.5mg IVx1.
HR converted to NSR without any medications. Metoprolol held. mag 1.5, will order magnesium IV x1. pending trop, TSH, cortisol. last trop negative .
likely due to stimulants (neb tx last night) electrolyte imbalances.
[2024-11-01 05:17] LABS: Troponin I < 0.012 ng/ml
[2024-11-01 05:20] LABS: Cortisol, Random 21.1 ug/dl; TSH Reflex To Free T4 0.16 uIU/ml (0.47-4.68)
[2024-11-01 05:49] LABS: Free T4 1.56 ng/dl (0.78-2.19)
[2024-11-01] MEDS: MAGNESIUM SULFATE 102 GRAMS IV (05:56)
[2024-11-01] MEDS: VENTOLIN NEBULES 2.5 MG INH ×3 (07:27→20:02)
[2024-11-01] MEDS: SODIUM CHLORIDE 3% FOR INHALATION 1 VIAL INH ×3 (07:27→20:02)
[2024-11-01] MEDS: MUCINEX 1200 MG PO ×2 (07:53→21:36)
[2024-11-01] MEDS: NEURONTIN 100 MG PO (07:53)
[2024-11-01] MEDS: PROTONIX 40 MG PO (07:53)
[2024-11-01] MEDS: B COMPLEX w/VITAMIN C 1 CAPLET PO (07:53)
[2024-11-01] MEDS: THERAGRAN 1 TABLET PO (07:53)
[2024-11-01] MEDS: NEUTRA-PHOS POWDER PACKET 500 MG PO (07:54)
[2024-11-01] MEDS: LEXAPRO 15 MG PO (07:54)
[2024-11-01] MEDS: LIPITOR 20 MG PO (07:54)
[2024-11-01] MEDS: MAG-TAB SR 84 MG PO (07:54)
[2024-11-01 07:56] LABS: Glucose - Point of Care 242 mg/dl (70-99)
[2024-11-01] MEDS: ZOFRAN 4 MG IV ×2 (07:57→13:58)
[2024-11-01] MEDS: NOVOLOG FLEXPEN-HIGH RESISTANCE 4 UNITS SC ×2 (07:59→12:21)
[2024-11-01] MEDS: NOVOLOG FLEXPEN 8 UNITS SC (08:01)
--- NOTE | 2024-11-01 08:59 | W.PN.HOSP.TC ---
Today's Communication/Plan
-
see bold
Assessment / Plan
Assessment / Plan
64-year-old male with a past medical history of metastatic squamous cell lung cancer status post endotracheal stent placement 2 weeks ago, COPD, and diabetes who presents with near-syncope while waiting for his radiation treatment. He had his first
chemo treatment 1 week ago. He reports decreased oral intake. He had lightheadedness, dizziness, during this presyncope event. He was noted to have orthostatic hypotension. Labs were remarkable for sodium of 128, blood sugar of 457, and mild
leukocytosis. He is no longer on any diabetes medications, unclear why.
#Near-syncope
#Orthostatic hypotension
Due to poor oral intake
Improving on IV fluids, will stop after current bag
Orthostatic vital signs 10/31 negative
PT/OT - rec HH
#Metastatic squamous cell carcinoma with bulky mediastinal and hilar lymphadenopathy with exertional tracheal compression status post Y tracheal stent
#Mild hypercalcemia of malignancy
Appreciate pulmonology input, patient needs to be on albuterol nebs and hypertonic saline nebs every 8 hours to maintain airway clearance and prevention of stent blockage
Patient has not been using his hypertonic saline neb at home�he has been counseled that he needs to use them
Added Mucinex 600 mg every 12 hours
Appreciate oncology input, continue radiation and chemo outpatient
#Mild hemoptysis
Pulmonology recommends staying off of subcu Lovenox
Monitor
#Transient atrial fibrillation with RVR
Noted overnight after receiving albuterol neb
Patient spontaneously converted to normal sinus rhythm
09/27/24 Echo reviewed
Not an anticoagulation candidate due to hemoptysis and pulm artery encasement by tumor
#Subclinical hypothyroidism
TSH low at 0.16, free T4 normal at 1.56
Would monitor for now due to patient's intermittent rapid fib
Can repeat thyroid function test in 4-6 weeks
#Uncontrolled type 2 diabetes
Unclear why his oral diabetic medications were stopped
Hemoglobin A1c 10.3
Insulin adjusted, would recommend insulin upon discharge, diabetes nurse practitioner consulted
#Hyponatremia
Suspect due to pulmonary process
TSH low, cortisol normal
Fluid restrict, trend sodium
#Leukocytosis
No signs or symptoms of infection, patient is afebrile
Resolved without antibiotics
#COPD on imaging
Bronchodilators
#Thrombocytosis
DVT prophylaxis�SCDs
DNR
Called on 11/01 to give her an update, she did not answer
Total time spent to see the patient on the floor, examine the patient, review data and lab results, discuss treatment plan with patient, nursing staff around 52 minutes.
Physical Exam
General: Appears to not feel well, no acute distress
HEENT: Normocephalic, Atraumatic, EOMI, MMM
Respiratory: Coarse breath sounds
Cardiac: Normal S1/S2, Regular Rate and Rhythm
GI: Soft, Nontender, Nondistended, Normal Bowel Sounds
Extremities: No Clubbing, Cyanosis, or Edema
Neuro: Nonfocal/Grossly Intact
Psych: Calm, Cooperative
Anticipated Discharge: 24 - 48 hours
Subjective/Interval History
-
Date of Service: November 01, 2024
Patient reports lightheadedness and dizziness improved. He is having mild hemoptysis. Reports nausea in the morning, no vomiting. Cough improved. No fever.
Objective Data
-
Labs:
Laboratory Results
11/01/24
04:03
WBC 10.9 H
Hgb 12.5 L
Hct 36.7 L
Plt Count 615 H
Sodium 134 L
Potassium 4.2
Chloride 98
Carbon Dioxide 29
BUN 13
Creatinine 0.5 L
Glucose 159 H
Calcium 10.6 H
Vital Signs:
Vital Signs
Temp Pulse Resp BP Pulse Ox
98.0 F 94 18 102/70 95
11/01/24 07:24 11/01/24 07:30 11/01/24 07:30 11/01/24 07:24 11/01/24 07:30
I&O
10/31/24 11/01/24 11/02/24
06:59 06:59 06:59
Intake Total 1380 / 1380 1380 / 1380
Output Total 1100 / 1100
Balance 1380 / 1380 280 / 280
--- NOTE | 2024-11-01 10:54 | W.PN.PUL3 ---
Today's Communication / Plan
-
-D/c s.c Lovenox
-Continue Airway clearance with Albuterol and 3% NS
-Monitor H/H
-If worsening hemoptysis, will need transfer to [facility]
Assessment
-
Patient is a 64-year-old gentleman with recent diagnosis of metastatic squamous cell lung cancer, diabetes, hypertension and hyperlipidemia who presented to the emergency department after a presyncopal episode during radiation treatment. Patient is
s/p chemotherapy about a week ago. He had a CT chest performed in the emergency room as part of workup which showed a patent tracheal Y stent, ruled out for pulmonary embolism and a new 7 mm nodule in the right lower lobe. Pulmonary consultation
was requested for further input.
Patient has about [id number] smoking history and earlier this year was noted to have bulky hilar, mediastinal and supraclavicular lymphadenopathy. Patient subsequently had bronchoscopy with EBUS TBNA in July 2024 which was nondiagnostic. This
was followed by an IR guided left supraclavicular lymph node biopsy which showed metastatic squamous cell carcinoma, moderately differentiated. Patient subsequently had office visit in September with normal PFTs without evidence of obstruction.
Patient was noted to have extension compression of trachea from bulky lymphadenopathy along with encasement of left main pulmonary artery. Patient subsequently was seen at [facility] and had a Y stent placed in the trachea and was recently started on
chemotherapy and radiation therapy.
#1. Metastatic squamous cell carcinoma with bulky mediastinal and hilar lymphadenopathy with external tracheal compression. S/p Y stent in place.
-On review of imaging, Y stent seems to be in appropriate place, patent without airway compromise, no lung volume loss noted on imaging. Left pulmonary artery encased in tumor, unchanged
-Resumed albuterol every 8 hours along with hypertonic saline every 8 hours to maintain airway clearance and prevents stent blockage. Patient apparently has not been using it at home due to GI upset. Counseled him regarding need for continued
airway clearance to prevent clogging of stent.
-Continue Mucinex 600 mg every 12
-Patient is afebrile, normal WBC count and without any definitive infiltrate on imaging. Hold off antibiotics for now
-If patient develops any sign of airway compromise, he will need to be transferred to a tertiary center with interventional pulmonary support
-Continue radiation therapy and follow-up with oncology service as currently planned
-New 7 mm right lower lobe nodule could be metastatic however could be inflammatory also. Continue current treatment as patient's tumor stage stays unchanged
#1a. Trace hemoptysis. small volume, episodic.
-D/c s.c. Lovenox
-Called Dr. Puga at [facility](Interventional [facility] [employer]), considering hemoptysis is trace and CT is reassuring, will continue to monitor here at [place] [facility] for now
#2. History of emphysema on imaging. Patient overall has had a fairly normal pulmonary function test in July 2024. Symptom load is fairly minimal.
-Continue Albuterol TID
-No wheezing on exam, no indication for steroids
#3. Near syncope. Patient reports GI upset lately, and has not been eating drinking much. Even during my exam he seems to have somewhat dry mucous membranes.
-Encouraged p.o. intake
-IV fluid resuscitation
#4. Paroxysmal A Fib overnight. NS this AM
-In view of trace episodic hemoptysis, and the fact that his left pulmonary artery is ebcased by tumor, patient is not a good candidate for Anticoagulation at present. He is at risk of catastrophic bleeding from left Pulm Artery
Whenever medically stable, patient can be discharged with resumption of chemotherapy and radiation therapy as outpatient. He should resume follow-up with interventional pulmonary service at [facility] for post stent care. He will also resume
follow-up with Dr. Lawrence at [facility].
Total time spent on this consultation/encounter _48___ minutes which includes review of history, physical exam, medications, laboratory data, personal review of imaging, extensive review of outpatient records, discussion with care team and
respiratory therapy. Time also includes phone call with Dr. Gonzalez at [facility].
Data:
CT Chest 10/2024: 1. There is no CT evidence of pulmonary embolism
2. There is extensive mediastinal and hilar adenopathy similar to the prior study. There is compression of the left main pulmonary artery, unchanged from prior study. Tracheal stent (Y) in place.
3. There is a new 7 mm pulmonary nodule in the right lower lobe. New metastatic disease cannot be excluded
ECHO 09/2024: Normal left ventricular size, wall thickness and systolic function. No regional
wall motion abnormalities are seen. LV ejection fraction is 55-60% by Angulo's
method of discs. Normal diastolic function.
Thickened mitral valve leaflets. Mitral annular calcification. Mitral valve
opens normally. Trace mitral regurgitation.
Trileaflet aortic valve. Thickened aortic valve with normal leaflet excursion.
Dense calcification seen on the right coronary cusp. Aortic sclerosis without
stenosis. Trace aortic regurgitation is seen.
Structurally normal tricuspid valve. Tricuspid valve opens normally. Trace
tricuspid regurgitation. Estimated pulmonary artery pressure of 24 mmHg,
assuming a right atrial pressure of 3 mmHg
Spirometry 09/2024: FEV1 24% predicted, FVC 68% predicted. FEV1/FVC 27. Severe Obstructive airway disease
PET-CT 08/2024: There is a 3.0 cm hypermetabolic lesion within the left parotid gland which may represent a metastatic lymph node although primary parotid squamous cell carcinoma is possible.
There are 2 hypermetabolic left supraclavicular lymph nodes consistent with known metastatic lymph nodes.
There is a large, heterogeneous soft tissue lesion within the superior mediastinum extending to the left hilum, possibly a large malignant lymph node conglomerate or mass.
There is asymmetric mild hypermetabolic activity along the left glossotonsillar sulcus and right vocal fold although no discrete lesion is identified. Recommend direct visualization for further evaluation. There are findings suggestive of left vocal
cord paralysis.
PFT 08/24/2024: Normal PFT with no restrictive or obstructive lung defect, and normal gas exchange capacity.� Data: FEV1/FVC: 73/97%; FEV1: 3.55 L / 100%; FVC: 4.89 L / 103%; T%; VC: 109%; RV: 89%; DLco: 78%; DLco/VA: 84%.
Subjective Data
-
Date of Service:
Date of Service: November 01, 2024
Objective Data
Data Reviewed
Vital Signs / I&O / Oxygen:
Vital Signs
Temp Pulse Resp BP Pulse Ox
98.0 F 94 18 102/70 95
11/01/24 07:24 11/01/24 07:30 11/01/24 07:30 11/01/24 07:24 11/01/24 07:30
Intake and Output
10/31/24 11/01/24 11/02/24
06:59 06:59 06:59
Intake Total 1380 / 1380 1380 / 1380
Output Total 1100 / 1100
Balance 1380 / 1380 280 / 280
SaO2 95
Nasal Cannula flow liters per 2
minute
Labs/Micro/Reports
Lab Data
11/01/24 04:03
11/01/24 04:03
Microbiology
10/30/24 16:09 Blood/Venous Blood Culture - Preliminary
No Growth in 24 hours- Final report to follow
10/30/24 16:09 Blood/Venous Blood Culture - Preliminary
No Growth in 24 hours- Final report to follow
[2024-11-01 11:34] LABS: Glucose - Point of Care 212 mg/dl (70-99)
[2024-11-01] MEDS: NOVOLOG FLEXPEN 11 UNITS SC ×2 (12:22→18:45)
--- NOTE | 2024-11-01 13:28 | CM ---
Patient seen at bedside.
took [facility] Transport application, CM explained that I can fax to T once I have a copy of drivers license.
to bring in license
PT rec HH - options discussed - He would like to speak with his first
PLAN: home with home health - CM to follow up after he speaks with his today
--- NOTE | 2024-11-01 14:23 | PN.CDI ---
CDI
- -
CDI:
Physician Documentation Request
Admit Date: 10/30/24 17:24
Dear Doctor Do,
Please review the following and provide your response in the progress notes.
Clinical Indicators:
- 11/01 Update note 'mag 1.5, will order magnesium IV x1'
- 1 gram IV magnesium sulfate
Laboratory Tests
11/01/24
04:03
Magnesium 1.5 L
Please provide a diagnosis for the above lab values that were monitored and treatment rendered:
Hypomagnesemia
Clinically insignificant abnormal lab value
Other (please specify)
Use of terms such as suspected, likely, concern for, or probable (associated with a specific diagnosis that is being evaluated, monitored, or treated as if it exists) are acceptable and can be coded in the inpatient setting, when documented at the
time of discharge.
Thank you,
Georgia Sousa RN
CDI Specialist
Please use your independent medical judgment in providing your response.
--- NOTE | 2024-11-01 15:01 | PN.DE.MGMTRT ---
Insulin Management
- -
11/01/2024: Diabetes Management Consult
64-year-old male with PMH: Metastatic lung cancer, HTN, HLD, NIDDM and COPD who presented to [facility] ED for evaluation of a near syncopal episode following radiation Txt. Pt was taking oral diabetes agents including Metformin, Glimepiride and
Pioglitazone SAMPLER TESTER. A1C 9%, Cr 0.8, eGFR >60
Glucose on admission was 457 V, pt was started on basal bolus insulin with corrective at meals times.
10/31 premeal glucose range was 257 to 331, requiring 4-10 units of additional corrective insulin with meals.
His meal time insulin dose has been adjusted from 8 units to [address] Wilkerson.
FBG 159 V this AM, pt received Lantus 26 units @ , Dr. Wilkerson has increased his dose to 30 units for tonight, will reduce dose back to 26 units since FBG was in acceptable range.
Would caution stringent glucose levels in patients undergoing aggressive oncology txt given risk of hypoglycemia, especially in setting of poor oral intake.
Will closely monitor preprandial glucose levels and adjust AC dose if necessary.
Diabetes History
- -
Type of Diabetes: 2 requiring insulin
Pre-Admission Diabetes Regimen
11/01/24
04:03
Creatinine 0.5 L
Lab Results
Hemoglobin A1c 9.7 % (4.0-5.6) H 10/31/24 06:19
Insulin Pump Settings
IP Diabetes Regimen
10/31/24 10/31/24 11/01/24
16:49 21:57 04:03
Glucose 159 H
POC Glucose 282 H 243 H
11/01/24 11/01/24
07:54 11:32
Glucose
POC Glucose 242 H 212 H
Patient Education
[2024-11-01 16:57] LABS: Glucose - Point of Care 250 mg/dl (70-99)
[2024-11-01] MEDS: TYLENOL 650 MG PO (18:44)
[2024-11-01] MEDS: NOVOLOG FLEXPEN-HIGH RESISTANCE 7 UNITS SC (18:44)
[2024-11-01 21:21] LABS: Glucose - Point of Care 296 mg/dl (70-99)
[2024-11-01] MEDS: ATIVAN 0.5 MG PO (21:36)
[2024-11-01] MEDS: REMERON 7.5 MG PO (21:36)
[2024-11-01] MEDS: LANTUS 0.26 UNITS SC (21:36)
[2024-11-02] VITALS (7 sets, daily range): BP systolic 102–138; BP diastolic 52–76; PULSE 98–101; O2SAT 94; BMI 25.4
[2024-11-02 06:39] LABS: Hematocrit 31.7 % (39.0-52.0); Hemoglobin 10.9 g/dL (13.0-18.0); Mean Corp Hgb Conc. 34.4 g/dL (33.0-37.0); Mean Corpuscular Hgb 28.8 pg (27.0-31.0); Mean Corpuscular Volume 83.9 fL (80.0-94.0); Mean Platelet Volume 9.4 fL (7.4-10.4); Platelet Count 574 10^3/uL (130-400); Red Blood Cell Count 3.78 10^6/uL (4.70-6.10); Red Cell Dist. Width 12.5 % (11.5-14.5); White Blood Cell Count 10.3 10^3/uL (4.8-10.8)
[2024-11-02 06:57] LABS: Blood Urea Nitrogen 9 mg/dl (9-20); Calcium 10.4 mg/dl (8.4-10.2); Carbon Dioxide 27 mmol/L (22-30); Chloride 98 mmol/L (98-107); Estimated Creatinine Clearance 123 ml/min; Glucose 169 mg/dl (70-99); Potassium 4.7 mmol/L (3.5-5.1); Sodium 133 mmol/L (135-145); eGFR > 60.00
[2024-11-02] MEDS: SODIUM CHLORIDE 3% FOR INHALATION 1 VIAL INH (07:46)
[2024-11-02] MEDS: VENTOLIN NEBULES 2.5 MG INH ×3 (07:46→19:30)
[2024-11-02 08:15] LABS: Glucose - Point of Care 136 mg/dl (70-99)
--- NOTE | 2024-11-02 08:48 | W.PN.HOSP.TC ---
Today's Communication/Plan
-
see bold
Assessment / Plan
Assessment / Plan
64-year-old male with a past medical history of metastatic squamous cell lung cancer status post endotracheal stent placement 2 weeks ago, COPD, and diabetes who presents with near-syncope while waiting for his radiation treatment. He had his first
chemo treatment 1 week ago. He reports decreased oral intake. He had lightheadedness, dizziness, during this presyncope event. He was noted to have orthostatic hypotension. Labs were remarkable for sodium of 128, blood sugar of 457, and mild
leukocytosis. He is no longer on any diabetes medications, unclear why.
#Near-syncope
#Orthostatic hypotension
Due to poor oral intake
Improved s/p IVFs
Orthostatic vital signs 10/31 negative
PT/OT - rec HH
#Metastatic squamous cell carcinoma with bulky mediastinal and hilar lymphadenopathy with exertional tracheal compression status post Y tracheal stent
#Mild hypercalcemia of malignancy
Appreciate pulmonology input, patient needs to be on albuterol nebs and hypertonic saline nebs every 8 hours to maintain airway clearance and prevention of stent blockage
However, patient is not tolerating the hypertonic saline�states it makes his nausea worse
Hypertonic saline changed to Mucomyst. Continue Mucinex 600 mg every 12 hours
Appreciate oncology input, continue radiation and chemo outpatient
#Mild hemoptysis
#Acute blood loss anemia
Pulmonology recommends staying off of subcu Lovenox
Started on tranexamic acid nebulized twice a day for hemoptysis by pulm
Monitor Hgb
#Transient atrial fibrillation with RVR
Noted overnight after receiving albuterol neb
Patient spontaneously converted to normal sinus rhythm
09/27/24 Echo reviewed
Not an anticoagulation candidate due to hemoptysis and pulm artery encasement by tumor
#Subclinical hypothyroidism
TSH low at 0.16, free T4 normal at 1.56
Would monitor for now due to patient's intermittent rapid fib
Can repeat thyroid function test in 4-6 weeks
#Uncontrolled type 2 diabetes
Unclear why his oral diabetic medications were stopped
Hemoglobin A1c 10.3
Insulin adjusted, would recommend insulin upon discharge, diabetes nurse practitioner consulted
#Hypomagnesemia
Replete prn
#Hyponatremia
Suspect due to pulmonary process
TSH low, cortisol normal
Na improved, fluid restrict, trend sodium
#Leukocytosis
No signs or symptoms of infection, patient is afebrile
Resolved without antibiotics
#COPD on imaging
Bronchodilators
#Thrombocytosis
DVT prophylaxis�SCDs
DNR
Called on 11/01 to give her an update, she did not answer
Total time spent to see the patient on the floor, examine the patient, review data and lab results, discuss treatment plan with patient, nursing staff around 51 minutes.
Physical Exam
General: Appears to not feel well, no acute distress
HEENT: Normocephalic, Atraumatic, EOMI, MMM
Respiratory: Coarse breath sounds
Cardiac: Normal S1/S2, Regular Rate and Rhythm
GI: Soft, Nontender, Nondistended, Normal Bowel Sounds
Extremities: No Clubbing, Cyanosis, or Edema
Neuro: Nonfocal/Grossly Intact
Psych: Calm, Cooperative
Anticipated Discharge: Within 24 hours
Subjective/Interval History
-
Date of Service: November 02, 2024
Patient continues to have hemoptysis. Lightheadedness only mild with standing, then resolves. Continues to have labored breathing. He is nauseous, but tolerating his diet. No fever. No vomiting.
Objective Data
-
Labs:
Laboratory Results
11/02/24
06:00
WBC 10.3
Hgb 10.9 L
Hct 31.7 L
Plt Count 574 H
Sodium 133 L
Potassium 4.7
Chloride 98
Carbon Dioxide 27
BUN 9
Creatinine 0.5 L
Glucose 169 H
Calcium 10.4 H
Vital Signs:
Vital Signs
Temp Pulse Resp BP Pulse Ox
98.1 F 89 18 102/70 97
11/02/24 07:33 11/02/24 07:49 11/02/24 07:49 11/02/24 07:33 11/02/24 07:49
I&O
11/01/24 11/02/24 11/03/24
06:59 06:59 06:59
Intake Total 1380 / 1380 720 / 720
Output Total 1100 / 1100 700 / 700
Balance 280 / 280 20 / 20
--- NOTE | 2024-11-02 08:56 | PN.DE.MGMTRT ---
Insulin Management
- -
11/02/2024: Diabetes Management Follow up
64-year-old male with PMH: Metastatic lung cancer, HTN, HLD, NIDDM and COPD who presented to [facility] ED for evaluation of a near syncopal episode following radiation Txt. Pt was taking oral diabetes agents including Metformin, Glimepiride and
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 A1C 9%, Cr 0.8, eGFR >60
Glucose on admission was 457 V, pt was started on basal bolus insulin with corrective at meals times. Pt states he has a glucose monitor at home but does not consistently test his blood sugars. also states he is familiar with insulin pen use, though
he denies ever taking insulin.
Pt awake, alert, oriented, sitting up in chair, able to discuss diabetes care plan.
Glucose remains elevated, HS blood sugar was 296, pt received Lantus 26 units, FBG 169 V, 136 POC, Will cont same dose of Lantus 26 units @ HS.
11/01 premeal glucose range was 212 to 250, requiring 1-7 units of additional corrective insulin with meals.
Will increase AC NovoLog from 11 units to 14 units.
Will closely monitor glucose trend and make further insulin dose adjustment if necessary.
Consider less stringent glucose goal given reduced oral intake while undergoing aggressive oncology txt.
HOLD all oral diabetes medications at this time.
Will ask Diabetes Nurse Educator to see pt for insulin instructions.
Diabetes History
- -
Type of Diabetes: 2 requiring insulin
Pre-Admission Diabetes Regimen
11/02/24
06:00
Creatinine 0.5 L
Lab Results
Hemoglobin A1c 9.7 % (4.0-5.6) H 10/31/24 06:19
Insulin Pump Settings
IP Diabetes Regimen
11/01/24 11/01/24 11/01/24
11:32 16:55 21:20
Glucose
POC Glucose 212 H 250 H 296 H
11/02/24 11/02/24
06:00 08:13
Glucose 169 H
POC Glucose 136 H
Meal type: Lunch
Meal type: Breakfast
Amount consumed: 100%
Amount consumed: 95%
Patient Education
[2024-11-02 09:31] LABS: Magnesium 1.4 mg/dl (1.6-2.3)
[2024-11-02] MEDS: NOVOLOG FLEXPEN-HIGH RESISTANCE 1 UNITS SC ×2 (09:39→17:27)
[2024-11-02] MEDS: LEXAPRO 15 MG PO (09:40)
[2024-11-02] MEDS: B COMPLEX w/VITAMIN C 1 CAPLET PO (09:40)
[2024-11-02] MEDS: MUCINEX 1200 MG PO ×2 (09:41→21:32)
[2024-11-02] MEDS: NEURONTIN 100 MG PO (09:41)
[2024-11-02] MEDS: LIPITOR 20 MG PO (09:41)
[2024-11-02] MEDS: MAG-TAB SR 84 MG PO (09:41)
[2024-11-02] MEDS: NEUTRA-PHOS POWDER PACKET 500 MG PO (09:41)
[2024-11-02] MEDS: PROTONIX 40 MG PO (09:42)
[2024-11-02] MEDS: THERAGRAN 1 TABLET PO (09:42)
[2024-11-02] MEDS: NOVOLOG FLEXPEN 14 UNITS SC ×3 (09:48→17:27)
--- NOTE | 2024-11-02 10:24 | VNURNOTE ---
Chart reviewed. Home Health Liaison met with patient at bedside to discuss [facility] nurse/therapy, visits, schedule and homebound status. Patient has not spoken to yet about VN. He will see her tonight after she is done work. Reviewed homebound
criteria w/patient. He stated he would still like to return to work upon DC but not sure if/when he will be cleared to do so. [facility] for [facility]. No referral placed yet in [facility].
[2024-11-02] MEDS: NOVOLOG FLEXPEN SC (10:57)
[2024-11-02 11:28] LABS: Glucose - Point of Care 206 mg/dl (70-99)
[2024-11-02] MEDS: MUCOMYST 10% 2 ML INH ×2 (11:30→19:30)
[2024-11-02] MEDS: NOVOLOG FLEXPEN-HIGH RESISTANCE 4 UNITS SC (12:01)
--- NOTE | 2024-11-02 12:03 | W.PN.PUL3 ---
Today's Communication / Plan
-
-Discontinue hypertonic saline nebulized due to GI intolerance
-Trial of Mucomyst nebulized twice a day with albuterol
-Start tranexamic acid nebulized twice a day for hemoptysis
-Anticipate discharge in a.m. if stays stable
Assessment
-
Patient is a 64-year-old gentleman with recent diagnosis of metastatic squamous cell lung cancer, diabetes, hypertension and hyperlipidemia who presented to the emergency department after a presyncopal episode during radiation treatment. Patient is
s/p chemotherapy about a week ago. He had a CT chest performed in the emergency room as part of workup which showed a patent tracheal Y stent, ruled out for pulmonary embolism and a new 7 mm nodule in the right lower lobe. Pulmonary consultation
was requested for further input.
Patient has about [id number] smoking history and earlier this year was noted to have bulky hilar, mediastinal and supraclavicular lymphadenopathy. Patient subsequently had bronchoscopy with [facility] in July 2024 which was nondiagnostic. This
was followed by an IR guided left supraclavicular lymph node biopsy which showed metastatic squamous cell carcinoma, moderately differentiated. Patient subsequently had office visit in September with normal PFTs without evidence of obstruction.
Patient was noted to have extension compression of trachea from bulky lymphadenopathy along with encasement of left main pulmonary artery. Patient subsequently was seen at [facility] and had a Y stent placed in the trachea and was recently started on
chemotherapy and radiation therapy.
#1. Metastatic squamous cell carcinoma with bulky mediastinal and hilar lymphadenopathy with external tracheal compression. S/p Y stent in place.
-On review of imaging, Y stent seems to be in appropriate place, patent without airway compromise, no lung volume loss noted on imaging. Left pulmonary artery encased in tumor, unchanged
-Resumed albuterol every 8 hours along with hypertonic saline every 8 hours to maintain airway clearance and prevents stent blockage. Patient apparently has not been using it at home due to GI upset. Counseled him regarding need for continued
airway clearance to prevent clogging of stent. Patient reports significant GI upset with hypertonic saline, switch to Mucomyst along with albuterol.
-Continue Mucinex 600 mg every 12
-Patient is afebrile, normal WBC count and without any definitive infiltrate on imaging. Hold off antibiotics for now
-If patient develops any sign of airway compromise, he will need to be transferred to a tertiary center with interventional pulmonary support
-Continue radiation therapy and follow-up with oncology service as currently planned
-New 7 mm right lower lobe nodule could be metastatic however could be inflammatory also. Continue current treatment as patient's tumor stage stays unchanged
#1a. Trace hemoptysis. small volume, episodic.
-Off s.c. Lovenox
-on 11/01, I called Dr. 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
-Start nebulized Schaeffer's Alfredo acid twice daily
-Switch hypertonic saline to Mucomyst, lower frequency to twice daily in view of trace hemoptysis
#2. History of emphysema on imaging. Patient overall has had a fairly normal pulmonary function test in July 2024. Symptom load is fairly minimal.
-Continue Albuterol TID
-No wheezing on exam, no indication for steroids
#3. Near syncope. Patient reports GI upset lately, and has not been eating drinking much. Even during my exam he seems to have somewhat dry mucous membranes.
-Encouraged p.o. intake
-IV fluid resuscitation
#4. Paroxysmal A Fib overnight. NS this AM
-In view of trace episodic hemoptysis, and the fact that his left pulmonary artery is ebcased by tumor, patient is not a good candidate for Anticoagulation at present. He is at risk of catastrophic bleeding from left Pulmonary Artery
Whenever medically stable, patient can be discharged with resumption of chemotherapy and radiation therapy as outpatient. He should resume follow-up with interventional pulmonary service at [facility] for post stent care. He will also resume
follow-up with Dr. Lawrence at [facility].
Called patient's and updated about today's plan of care.
Total time spent on this consultation/encounter _45___ minutes which includes review of history, physical exam, medications, laboratory data, personal review of imaging, extensive review of outpatient records, discussion with care team and
respiratory therapy. Time also includes phone call with Dr. Gonzalez at [facility].
Data:
CT Chest 10/2024: 1. There is no CT evidence of pulmonary embolism
2. There is extensive mediastinal and hilar adenopathy similar to the prior study. There is compression of the left main pulmonary artery, unchanged from prior study. Tracheal stent (Y) in place.
3. There is a new 7 mm pulmonary nodule in the right lower lobe. New metastatic disease cannot be excluded
ECHO 09/2024: Normal left ventricular size, wall thickness and systolic function. No regional
wall motion abnormalities are seen. LV ejection fraction is 55-60% by Angulo's
method of discs. Normal diastolic function.
Thickened mitral valve leaflets. Mitral annular calcification. Mitral valve
opens normally. Trace mitral regurgitation.
Trileaflet aortic valve. Thickened aortic valve with normal leaflet excursion.
Dense calcification seen on the right coronary cusp. Aortic sclerosis without
stenosis. Trace aortic regurgitation is seen.
Structurally normal tricuspid valve. Tricuspid valve opens normally. Trace
tricuspid regurgitation. Estimated pulmonary artery pressure of 24 mmHg,
assuming a right atrial pressure of 3 mmHg
Spirometry 09/2024: FEV1 24% predicted, FVC 68% predicted. FEV1/FVC 27. Severe Obstructive airway disease
PET-CT 08/2024: There is a 3.0 cm hypermetabolic lesion within the left parotid gland which may represent a metastatic lymph node although primary parotid squamous cell carcinoma is possible.
There are 2 hypermetabolic left supraclavicular lymph nodes consistent with known metastatic lymph nodes.
There is a large, heterogeneous soft tissue lesion within the superior mediastinum extending to the left hilum, possibly a large malignant lymph node conglomerate or mass.
There is asymmetric mild hypermetabolic activity along the left glossotonsillar sulcus and right vocal fold although no discrete lesion is identified. Recommend direct visualization for further evaluation. There are findings suggestive of left vocal
cord paralysis.
PFT 08/24/2024: Normal PFT with no restrictive or obstructive lung defect, and normal gas exchange capacity.� Data: FEV1/FVC: 73/97%; FEV1: 3.55 L / 100%; FVC: 4.89 L / 103%; T%; VC: 109%; RV: 89%; DLco: 78%; DLco/VA: 84%.
Subjective Data
-
Date of Service:
Date of Service: November 02, 2024
Subjective:
Comfortably sitting in bed eating breakfast. Continues to report nausea with hypertonic saline and trace intermittent hemoptysis.
Review of Systems
Genitourinary: Other (All 14 systems reviewed and negative except as stated above in the history of present illness.)
Objective Data
Data Reviewed
Vital Signs / I&O / Oxygen:
Vital Signs
Temp Pulse Resp BP Pulse Ox
98.2 F 86 18 102/66 95
11/02/24 10:59 11/02/24 11:31 11/02/24 11:31 11/02/24 10:59 11/02/24 11:31
Intake and Output
11/01/24 11/02/24 11/03/24
06:59 06:59 06:59
Intake Total 1380 / 1380 720 / 720
Output Total 1100 / 1100 700 / 700
Balance 280 / 280 20 / 20
SaO2 95
Nasal Cannula flow liters per 2
minute
Physical Exam
General: Comfortable
HEENT: Normocephalic
Cardiovascular: S1-S2
Respiratory: Clear
GI: Soft and Non Distended
Neurology: Awake and Alert
Skin: Warm
Labs/Micro/Reports
Lab Data
11/02/24 06:00
11/02/24 06:00
Microbiology
10/30/24 16:09 Blood/Venous Blood Culture - Preliminary
No Growth in 48 hours- Final report to follow
10/30/24 16:09 Blood/Venous Blood Culture - Preliminary
No Growth in 48 hours- Final report to follow
--- NOTE | 2024-11-02 12:06 | W.PN.ONC2 ---
Today's Communication / Plan
-
.
Impression
Impression
stage III NSCLC, on chemo/RT, started early October
mild hypercalcemia of malignancy
Near syncope in rad onc
Plan
Plan
ondansetron increased from 4mg to 8mg prn, on mirtazapine HS, will add compazine for 2nd line prn
plan to hold chemo this week to allow for improved recovery, subsequent doses with 20% carbo reduction, will add IVF OP to ensure adequate hydration while receiving chemo
XENIA
Subjective/Objective
Subjective
no new complaints
Vital Signs:
Vital Signs
Temp Pulse Resp BP Pulse Ox
98.2 F 86 18 102/66 95
11/02/24 10:59 11/02/24 11:31 11/02/24 11:31 11/02/24 10:59 11/02/24 11:31
Lab Results:
Laboratory Data
WBC 10.3 10^3/uL (4.8-10.8) 11/02/24 06:00
Hgb 10.9 g/dL (13.0-18.0) L 11/02/24 06:00
Plt Count 574 10^3/uL (130-400) H 11/02/24 06:00
eGFR > 60.00 11/02/24 06:00
--- NOTE | 2024-11-02 13:21 | PTCARENOTE ---
11/02/2024 DIABETES EDUCATION
I met with Mr. Ignacio, attempted to discuss insulin administration. Patient states that he has been injecting insulin with the RN, knows how to do this. States he is wants to know how many carbs to eat, then states 'no one can tell me anything'.
I educated him that he is on long acting insulin that is injected once a day. I educated him that short acting insulin is to be taken 2-15 minutes before meals to keep mealtime glucose lower. He states 'this doesn't make sense because you don't
know how many carbs I'm going to eat'. I attempted to explain how mealtime insulin works, he states 'I'm not interested in learning'. I was able to tell him to store unopened insulin pens in the refrigerator and once he begins using a pen, he can
store at room temperature. He agreed to follow up visit tomorrow morning. Discussed with RN, provided pen needles he will use once home and asked that she also attempt to educate him when he is self administering insulin injections.
[2024-11-02 16:47] LABS: Glucose - Point of Care 137 mg/dl (70-99)
--- NOTE | 2024-11-02 16:51 | CM ---
CM attempted to see patient but he and his stated he was on a conference call and did not want to talk to CM.
Plan: home with VN pending family choice
[2024-11-02] MEDS: MAGNESIUM SULFATE 50 IV (17:25)
[2024-11-02] MEDS: CARAFATE 1 GRAM PO ×2 (17:25→21:32)
[2024-11-02 21:31] LABS: Glucose - Point of Care 181 mg/dl (70-99)
[2024-11-02] MEDS: REMERON 7.5 MG PO (21:33)
[2024-11-02] MEDS: LANTUS 0.26 UNITS SC (21:34)
[2024-11-02] MEDS: ATIVAN 0.5 MG PO (21:37)
[2024-11-03 03:46] VITALS: BP 110/60
[2024-11-03 06:21] LABS: Hematocrit 31.4 % (39.0-52.0); Hemoglobin 10.8 g/dL (13.0-18.0); Mean Corp Hgb Conc. 34.4 g/dL (33.0-37.0); Mean Corpuscular Hgb 28.7 pg (27.0-31.0); Mean Corpuscular Volume 83.5 fL (80.0-94.0); Platelet Count 571 10^3/uL (130-400); Red Blood Cell Count 3.76 10^6/uL (4.70-6.10); Red Cell Dist. Width 12.6 % (11.5-14.5); White Blood Cell Count 11.4 10^3/uL (4.8-10.8)
[2024-11-03 06:41] LABS: Blood Urea Nitrogen 9 mg/dl (9-20); Calcium 10.4 mg/dl (8.4-10.2); Carbon Dioxide 27 mmol/L (22-30); Chloride 98 mmol/L (98-107); Estimated Creatinine Clearance 123 ml/min; Glucose 107 mg/dl (70-99); Magnesium 1.6 mg/dl (1.6-2.3); Potassium 4.3 mmol/L (3.5-5.1); Sodium 132 mmol/L (135-145); eGFR > 60.00
[2024-11-03 07:45] VITALS: BP 118/63
[2024-11-03] MEDS: MUCOMYST 10% 2 ML INH (07:49)
[2024-11-03] MEDS: VENTOLIN NEBULES 2.5 MG INH (07:50)
[2024-11-03 08:00] LABS: Glucose - Point of Care 109 mg/dl (70-99)
[2024-11-03] MEDS: B COMPLEX w/VITAMIN C 1 CAPLET PO (08:03)
[2024-11-03] MEDS: MUCINEX 1200 MG PO (08:03)
[2024-11-03] MEDS: PROTONIX 40 MG PO (08:04)
[2024-11-03] MEDS: LEXAPRO 15 MG PO (08:04)
[2024-11-03] MEDS: NEURONTIN 100 MG PO (08:05)
[2024-11-03] MEDS: THERAGRAN 1 TABLET PO (08:05)
[2024-11-03] MEDS: NEUTRA-PHOS POWDER PACKET 500 MG PO (08:05)
[2024-11-03] MEDS: MAG-TAB SR 84 MG PO (08:06)
[2024-11-03] MEDS: NOVOLOG FLEXPEN-HIGH RESISTANCE 1 UNITS SC (08:11)
[2024-11-03] MEDS: NOVOLOG FLEXPEN 14 UNITS SC ×2 (08:11→13:04)
[2024-11-03] MEDS: CARAFATE 1 GRAM PO ×2 (08:17→12:54)
[2024-11-03] MEDS: LIPITOR 20 MG PO (08:17)
--- NOTE | 2024-11-03 08:39 | W.PN.HOSP.TC ---
Today's Communication/Plan
-
Cleared by pulmonology for discharge today
Assessment / Plan
Assessment / Plan
64-year-old male with a past medical history of metastatic squamous cell lung cancer status post endotracheal stent placement 2 weeks ago, COPD, and diabetes who presents with near-syncope while waiting for his radiation treatment. He had his first
chemo treatment 1 week ago. He reports decreased oral intake. He had lightheadedness, dizziness, during this presyncope event. He was noted to have orthostatic hypotension. Labs were remarkable for sodium of 128, blood sugar of 457, and mild
leukocytosis. He is no longer on any diabetes medications, unclear why.
#Near-syncope
#Orthostatic hypotension
Due to poor oral intake
Improved s/p IVFs
Orthostatic vital signs 8 negative
PT/OT - rec HH
#Metastatic squamous cell carcinoma with bulky mediastinal and hilar lymphadenopathy with exertional tracheal compression status post Y tracheal stent
#Mild hypercalcemia of malignancy
Appreciate pulmonology input, patient needs to be on albuterol nebs and hypertonic saline nebs at least BID to maintain airway clearance and prevention of stent blockage
Appreciate oncology input, continue radiation and chemo outpatient
Cleared by pulmonology for discharge today
#Mild hemoptysis
#Acute blood loss anemia
Pulmonology recommends staying off of subcu Lovenox
Status post tranexamic acid nebulized twice a day for hemoptysis by pulm
Hemoglobin stable today 10.8, was 10.9 yesterday. Hemoglobin upon admission 12.1
#Transient atrial fibrillation with RVR
Noted overnight after receiving albuterol neb
Patient spontaneously converted to normal sinus rhythm
09/27/24 Echo reviewed
Not an anticoagulation candidate due to hemoptysis and pulm artery encasement by tumor
#Uncontrolled type 2 diabetes
Unclear why his oral diabetic medications were stopped
Hemoglobin A1c 10.3
Insulin adjusted, would recommend insulin upon discharge, diabetes nurse practitioner consulted
#Hypomagnesemia
Repleted and resolved
#Hyponatremia
Suspect due to pulmonary process
TSH low, cortisol normal
Na improved, fluid restrict, trend sodium
#Leukocytosis
No signs or symptoms of infection, patient is afebrile
Resolved without antibiotics
#Moderate protein calorie malnutrition
Encourge oral intake
#COPD on imaging
Bronchodilators
#Thrombocytosis
DVT prophylaxis�SCDs
DNR
Physical Exam
General: No acute distress
HEENT: Normocephalic, Atraumatic, EOMI, MMM
Respiratory: Coarse breath sounds
Cardiac: Normal S1/S2, Regular Rate and Rhythm
GI: Soft, Nontender, Nondistended, Normal Bowel Sounds
Extremities: No Clubbing, Cyanosis, or Edema
Neuro: Nonfocal/Grossly Intact
Anticipated Discharge: Today
Subjective/Interval History
-
Date of Service: November 03, 2024
Patient reports his breathing is labored. He has baseline nausea. No vomiting. No shortness of breath. Low-grade fever Tmax 100.3 overnight.
Objective Data
-
Labs:
Laboratory Results
11/03/24
06:00
WBC 11.4 H
Hgb 10.8 L
Hct 31.4 L
Plt Count 571 H
Sodium 132 L
Potassium 4.3
Chloride 98
Carbon Dioxide 27
BUN 9
Creatinine 0.6 L
Glucose 107 H
Calcium 10.4 H
Vital Signs:
Vital Signs
Temp Pulse Resp BP Pulse Ox
98.1 F 86 18 118/63 96
11/03/24 07:45 11/03/24 07:53 11/03/24 07:53 11/03/24 07:45 11/03/24 07:53
I&O
11/02/24 11/03/24 11/04/24
06:59 06:59 06:59
Intake Total 720 / 720 900 / 900
Output Total 700 / 700 400 / 400
Balance 20 / 20 500 / 500
--- NOTE | 2024-11-03 08:58 | W.PN.PUL3 ---
Today's Communication / Plan
-
-Continue 3% Saline and Albuterol minimum BID, preferably tid
-Out patient follow up with Dr. Lawrence and Interventional Pulmonary, Dr. Puga at [facility].
-Stable for discharge from Pulmonary stand point
Assessment
-
Patient is a 64-year-old gentleman with recent diagnosis of metastatic squamous cell lung cancer, diabetes, hypertension and hyperlipidemia who presented to the emergency department after a presyncopal episode during radiation treatment. Patient is
s/p chemotherapy about a week ago. He had a CT chest performed in the emergency room as part of workup which showed a patent tracheal Y stent, ruled out for pulmonary embolism and a new 7 mm nodule in the right lower lobe. Pulmonary consultation
was requested for further input.
Patient has about [id number] smoking history and earlier this year was noted to have bulky hilar, mediastinal and supraclavicular lymphadenopathy. Patient subsequently had bronchoscopy with [facility] in July 2024 which was nondiagnostic. This
was followed by an IR guided left supraclavicular lymph node biopsy which showed metastatic squamous cell carcinoma, moderately differentiated. Patient subsequently had office visit in September with normal PFTs without evidence of obstruction.
Patient was noted to have extension compression of trachea from bulky lymphadenopathy along with encasement of left main pulmonary artery. Patient subsequently was seen at [facility] and had a Y stent placed in the trachea and was recently started on
chemotherapy and radiation therapy.
#1. Metastatic squamous cell carcinoma with bulky mediastinal and hilar lymphadenopathy with external tracheal compression. S/p Y stent in place.
-On review of imaging, Y stent seems to be in appropriate place, patent without airway compromise, no lung volume loss noted on imaging. Left pulmonary artery encased in tumor, unchanged
-Resumed albuterol every 8 hours along with hypertonic saline every 8 hours to maintain airway clearance and prevents stent blockage. Patient apparently has not been using it at home due to GI upset. Counseled him regarding need for continued
airway clearance to prevent clogging of stent. Tried Mucomyst, no difference in GI tolerance compared to 3% saline. Antinausea medications increased per oncology service. I counseled patient extensively regarding need for airway clearance, he is
agreeable to use hypertonic saline, I suggested a minimum of twice a day and preferably 3 times a day if he is able to tolerate.
-Continue Mucinex 600 mg every 12
-Patient is afebrile, normal WBC count and without any definitive infiltrate on imaging. Hold off antibiotics for now
-If patient develops any sign of airway compromise, he will need to be transferred to a tertiary center with interventional pulmonary support
-Continue radiation therapy and follow-up with oncology service as currently planned
-New 7 mm right lower lobe nodule could be metastatic however could be inflammatory also. Continue current treatment as patient's tumor stage stays unchanged
#1a. Trace hemoptysis. small volume, episodic.
-No further episode overnight, hemoglobin has been stable.
-Off s.c. Lovenox
-on 11/01, I called Dr. Puga at [facility](Interventional Roll Operator), considering hemoptysis is trace and CT is reassuring, will continue to monitor here at [place] for now
#2. History of emphysema on imaging. Patient overall has had a fairly normal pulmonary function test in July 2024. Symptom load is fairly minimal.
-Continue Albuterol with 3% Saline
-No wheezing on exam, no indication for steroids
#3. Near syncope. Patient reports GI upset lately, and has not been eating drinking much. Even during my exam he seems to have somewhat dry mucous membranes.
-Encouraged p.o. intake
-IV fluid resuscitation
#4. Paroxysmal A Fib overnight. NS this AM
-In view of trace episodic hemoptysis, and the fact that his left pulmonary artery is ebcased by tumor, patient is not a good candidate for Anticoagulation at present. He is at risk of catastrophic bleeding from left Pulmonary Artery
Whenever medically stable, patient can be discharged with resumption of chemotherapy and radiation therapy as outpatient. He should resume follow-up with interventional pulmonary service at [facility] for post stent care. He will also resume
follow-up with Dr. Lawrence at [facility].
Total time spent on this consultation/encounter _45___ minutes which includes review of history, physical exam, medications, laboratory data, personal review of imaging, extensive review of outpatient records, discussion with care team and
respiratory therapy. Time also includes phone call with Dr. Gonzalez at [facility].
Data:
CT Chest 10/2024: 1. There is no CT evidence of pulmonary embolism
2. There is extensive mediastinal and hilar adenopathy similar to the prior study. There is compression of the left main pulmonary artery, unchanged from prior study. Tracheal stent (Y) in place.
3. There is a new 7 mm pulmonary nodule in the right lower lobe. New metastatic disease cannot be excluded
ECHO 09/2024: Normal left ventricular size, wall thickness and systolic function. No regional
wall motion abnormalities are seen. LV ejection fraction is 55-60% by Angulo's
method of discs. Normal diastolic function.
Thickened mitral valve leaflets. Mitral annular calcification. Mitral valve
opens normally. Trace mitral regurgitation.
Trileaflet aortic valve. Thickened aortic valve with normal leaflet excursion.
Dense calcification seen on the right coronary cusp. Aortic sclerosis without
stenosis. Trace aortic regurgitation is seen.
Structurally normal tricuspid valve. Tricuspid valve opens normally. Trace
tricuspid regurgitation. Estimated pulmonary artery pressure of 24 mmHg,
assuming a right atrial pressure of 3 mmHg
Spirometry 09/2024: FEV1 24% predicted, FVC 68% predicted. FEV1/FVC 27. Severe Obstructive airway disease
PET-CT 08/2024: There is a 3.0 cm hypermetabolic lesion within the left parotid gland which may represent a metastatic lymph node although primary parotid squamous cell carcinoma is possible.
There are 2 hypermetabolic left supraclavicular lymph nodes consistent with known metastatic lymph nodes.
There is a large, heterogeneous soft tissue lesion within the superior mediastinum extending to the left hilum, possibly a large malignant lymph node conglomerate or mass.
There is asymmetric mild hypermetabolic activity along the left glossotonsillar sulcus and right vocal fold although no discrete lesion is identified. Recommend direct visualization for further evaluation. There are findings suggestive of left vocal
cord paralysis.
PFT 08/24/2024: Normal PFT with no restrictive or obstructive lung defect, and normal gas exchange capacity.� Data: FEV1/FVC: 73/97%; FEV1: 3.55 L / 100%; FVC: 4.89 L / 103%; T%; VC: 109%; RV: 89%; DLco: 78%; DLco/VA: 84%.
Subjective Data
-
Date of Service:
Date of Service: November 03, 2024
Subjective:
Patient comfortably sitting in bed, eating breakfast, reports feeling better. No hemoptysis overnight.
Review of Systems
Genitourinary: Other (All 14 systems reviewed and negative except as stated above in the history of present illness.)
Objective Data
Data Reviewed
Vital Signs / I&O / Oxygen:
Vital Signs
Temp Pulse Resp BP Pulse Ox
98.1 F 86 18 118/63 96
11/03/24 07:45 11/03/24 07:53 11/03/24 07:53 11/03/24 07:45 11/03/24 07:53
Intake and Output
11/02/24 11/03/24 11/04/24
06:59 06:59 06:59
Intake Total 720 / 720 900 / 900
Output Total 700 / 700 400 / 400
Balance 20 / 20 500 / 500
SaO2 96
Nasal Cannula flow liters per 2
minute
Physical Exam
General: Comfortable
HEENT: Normocephalic
Cardiovascular: S1-S2
Respiratory: Clear
GI: Soft and Non Distended
Neurology: Awake and Alert
Skin: Warm
Labs/Micro/Reports
Lab Data
11/03/24 06:00
11/03/24 06:00
Microbiology
10/30/24 16:09 Blood/Venous Blood Culture - Preliminary
No Growth in 72 hours- Final report to follow
10/30/24 16:09 Blood/Venous Blood Culture - Preliminary
No Growth in 72 hours- Final report to follow
--- NOTE | 2024-11-03 09:54 | VNURNOTE ---
Home Health Liaison spoke with patient's spouse Claudette to discuss [facility]N nurse/therapy, visits, schedule and homebound status. She was hesitant initially. She stated she works at a pharmacy but didn't understand 'all the medications he was given last
hospitalization.' She stated he is compliant with his glucometer at home. Explained to spouse that [facility] visits at home will be 2-3 x per week to assess and teach medical management. She confirmed that patient has a nebulizer at home. Reminded
spouse to complete transport paperwork (per SONIA Mabry request). Spouse stated she will take patient to radiation and she has spoken to [place] at [place]. Spouse aware that [facility] will contact them for start of care in 1-2 days after
discharge from . [facility] referral completed in [facility].
--- NOTE | 2024-11-03 10:14 | PN.DE.MGMTRT ---
Insulin Management
- -
11/03/2024: Diabetes Management Follow up
64-year-old male with PMH: Metastatic lung cancer, HTN, HLD, NIDDM and COPD who presented to [facility] ED for evaluation of a near syncopal episode following radiation Txt. Pt was taking oral diabetes agents including Metformin, Glimepiride and
Pioglitazone ART CONSULTANT. A1C 9%, Cr 0.8, eGFR >60
Glucose on admission was 457 V, pt was started on basal bolus insulin with corrective at meals times. Pt states he has a glucose monitor at home but does not consistently test his blood sugars. also states he is familiar with insulin pen use, though
he denies ever taking insulin.
Pt awake, alert, oriented, sitting up in chair, able to discuss diabetes care plan.
Glucose has improved, 11/02 premeal was 136 to 206, 181, Will cont AC NovoLog 14 units.
FBG 107 V, 109 POC. Will cont same dose of Lantus 26 units @ HS.
Will closely monitor glucose trend and make further insulin dose adjustment if necessary.
Consider less stringent glucose goal given reduced oral intake while undergoing aggressive oncology txt.
HOLD all oral diabetes medications at this time.
Will ask Diabetes Nurse Educator to see pt for insulin instructions.
Diabetes History
- -
Type of Diabetes: 2 requiring insulin
Pre-Admission Diabetes Regimen
11/03/24
06:00
Creatinine 0.6 L
Lab Results
Hemoglobin A1c 9.7 % (4.0-5.6) H 10/31/24 06:19
Insulin Pump Settings
IP Diabetes Regimen
11/02/24 11/02/24 11/02/24
11:26 16:45 21:30
Glucose
POC Glucose 206 H 137 H 181 H
11/03/24 11/03/24
06:00 07:59
Glucose 107 H
POC Glucose 109 H
Meal type: Lunch
Meal type: Breakfast
Amount consumed: 100%
Amount consumed: 100%
Patient Education
--- NOTE | 2024-11-03 10:58 | PN.DE ---
Diabetes Education
- -
11/03/2024 I visited Mr. Ignacio for diabetes management review, he stated that he knows how to inject insulin and he has been injecting his own insulin with RN supervision. I stated that his glucose numbers have much improved, and reinforced
proper insulin administration technique. He declined additional insulin education. I asked if he would like to review carbohydrate counting as he indicated yesterday and he declined. I left him with written material on proper food portions and
grams of carbohydrates per portion; educated him that if he wants to discuss insulin to carb ratio and carbohydrate counting to discuss this with his MD when discharged. He acknowledged understanding.
[2024-11-03 11:18] VITALS: BP 103/64
--- NOTE | 2024-11-03 12:04 | W.DCSUMMARY ---
Discharge Summary
Discharge Data
Date of Admission: 10/30/24
Date of Discharge: 11/03/24
-
Pending Results: No
Hospital Course
Discharge diagnosis:
Near syncope
Orthostatic hypotension
Metastatic squamous cell carcinoma with bulky mediastinal and hilar lymphadenopathy with exertional tracheal compression status post tracheal stent
Pulmonary nodule
Mild hemoptysis
Acute blood loss anemia
Transient atrial fibrillation with rapid ventricular response
Uncontrolled type 2 diabetes with a hemoglobin A1c of 10.3
Hypomagnesemia
Hyponatremia
Leukocytosis
Moderate protein calorie malnutrition
Chronic obstructive pulmonary disease on imaging
Thrombocytosis
Consults: Pulmonology, oncology
Chest CT:
1. There is no CT evidence of pulmonary embolism
2. There is extensive mediastinal and hilar adenopathy similar to the prior study. There is compression of the left main pulmonary artery, unchanged from prior study.
3. There is a new 7 mm pulmonary nodule in the right lower lobe. New metastatic disease cannot be excluded
Hospital course:
64-year-old male with a past medical history of metastatic squamous cell lung cancer status post tracheal stent placement 2 weeks ago, COPD, and diabetes was admitted for near syncope secondary to orthostatic hypotension while waiting for his
radiation treatment. Patient received IV fluids, his orthostatic hypotension resolved. Orthostatic vital signs were normal on 10/31/24.
Patient was seen in conjunction with pulmonology for his metastatic squamous cell carcinoma. He recently had a Y tracheal stent placed for his tracheal compression with exertion. Pulmonology recommends that he must continue his albuterol and
saline nebulizers at home at least twice a day to maintain patency of his stent. Patient reports understanding.
Patient's hospital course was complicated by mild hemoptysis and acute blood loss anemia. He was treated with tranexamic acid nebulizers. His hemoptysis improved.
Patient also had transient atrial fibrillation with rapid ventricular response. This occurred after receiving his albuterol. He spontaneously converted to normal sinus rhythm. Pulmonology says he is not an anticoagulation candidate secondary to
his hemoptysis and encasement of pulmonary artery by his tumor. His heart rate was controlled. Would not start beta-fabiano at this time secondary to his chronic shortness of breath from his lung cancer.
Patient was seen in conjunction with oncology. Oncology recommends continuation of outpatient chemo and radiation.
Patient had hyponatremia, suspect due to his lung cancer. TSH and cortisol were normal. His sodium improved with fluid restriction.
Patient had hypomagnesemia. This was repleted and resolved.
Patient has uncontrolled type 2 diabetes, his hemoglobin A1c is 10.3. His previous oral diabetes medications have been discontinued prior to admission, unclear for the reason why. He was started on insulin in the hospital. He will be discharged
on Lantus 26 units at bedtime, NovoLog 14 units AC 3 times daily.
Patient's multiple medical conditions have been optimized. He has been cleared by pulmonology for discharge. He needs to follow-up with his primary care doctor in 1 week, oncology as well as pulmonology as directed.
Disposition: Home with home care
Discharge planning: Required 41 minutes
Discharge Plan
-
Patient Disposition: Home with Home Care
Discharge Diagnosis/Procedures: Near syncope, orthostatic hypotension, metastatic squamous cell carcinoma, hemoptysis, transient atrial fibrillation with rapid ventricular response
Condition: Fair
Diet: Diabetic, Carb Controlled
Activity: As tolerated
Driving Restrictions: As prior to admission
Activity Restrictions/Additional Instructions:
Your thyroid hormones were abnormal. Recommend checking TSH with free T4 with your PCP in 4-6 weeks.
Please continue using your albuterol and hypertonic saline nebs at least twice a day to prevent clogging of your stent.
Follow-up with your primary care doctor in 1 week, pulmonology as directed, and oncology as directed.
Referrals:
John Lawrence MD [Active] - (11/28/24 at 414pm)
Brennen Villalobos MD [Family Provider] - in one week
Prescriptions:
New
albuterol sulfate 2.5 mg /3 mL (0.083 %) Solution For Nebulization
2.5 mg inhalation R BID Qty: 60 0RF
ondansetron 8 mg tablet,disintegrating
8 mg PO Q8H PRN (Reason: nausea and vomiting) Qty: 30 0RF
prochlorperazine maleate [Compazine] 10 mg tablet
10 mg PO Q6H PRN (Reason: nausea and vomiting) Qty: 30 0RF
insulin aspart U-100 [Novolog FlexPen U-100 Insulin] 100 unit/mL (3 mL) Insulin Pen
14 unit SC AC Qty: 5 0RF
insulin glargine [Lantus Solostar U-100 Insulin] 100 unit/mL (3 mL) Insulin Pen
26 unit SC HS Qty: 5 0RF
(DME) pen needle, diabetic 31 gauge x 1/3' needle
See Rx Instructions .Route Qty: 100 0RF
Rx Instructions:
As directed
sodium chloride [NebuSal] 3 % solution for nebulization
4 ml inhalation BID Qty: 240 0RF
Continued
escitalopram oxalate 10 mg Tablet
15 mg PO DAILY
atorvastatin [Lipitor] 20 mg Tablet
20 mg PO DAILY
therapeutic multivitamin Tablet
1 tab PO DAILY
vitamin B complex Tablet
1 tab PO DAILY
omega-3 fatty acids-fish oil 684-1,200 mg Capsule,Delayed Release(Dr/Ec)
1 cap PO DAILY
benzonatate 200 mg Capsule
200 mg PO TIDPRN PRN (Reason: cough)
Aredia
1 dose IV TH
Patient Comments:
10/30/24: to take for 5 weeks, had first dose last week
lorazepam 0.5 mg Tablet
0.5 mg PO DAILYPRN PRN (Reason: before radiation)
Phospha 250 Neutral 250 mg Tablet
2 tab PO DAILY
oxycodone 5 mg Tablet
5 mg PO HS
mirtazapine 7.5 mg Tablet
7.5 mg PO DAILY
magnesium oxide 400 mg magnesium Tablet
400 mg PO DAILY
gabapentin 100 mg capsule
100 mg PO DAILY
Discontinued
furosemide 20 mg Tablet
20 mg PO DAILY Qty: 30 0RF
prochlorperazine maleate 10 mg Tablet
10 mg PO Q6HPRN PRN (Reason: nausea)
ondansetron 8 mg Tablet,Disintegrating
8 mg PO Q8HPRN PRN (Reason: nausea)
Discharge Orders:
Discharge Patient (As Directed); Ordered 11/03/24
Ordered By: Nixon Wilkerson
Discharge Date and Time
Discharge Date/Time: 11/03/24 17:02
Print Language: SLOVAK
[2024-11-03 12:11] LABS: Glucose - Point of Care 236 mg/dl (70-99)
--- NOTE | 2024-11-03 12:47 | PN.CDI ---
CDI
- -
CDI:
Physician Documentation Request
Admit Date: 10/30/24 17:24
Dear Doctor Do,
Please review the following and provide your response in the progress notes.
Clinical Indicators:
- Face Painter note indicates moderate protein calorie malnutrition:
- Unintentional weight loss >10% in 6 months
- Nutrient intake </= 75% estimated energy needs, >/= 1 month
Based on the above information and your assessment, which of the following most accurately represents the patient's nutritional status?
Moderate protein calorie malnutrition
Other (please specify)
[place] Criteria ([facility] Hospitalist 2017)
2 or more criteria must be present for either
non severe or severe malnutrition
Note that the criteria differs related to the
presence of an acute or chronic illness
Acute Illness Chronic Illness
Energy Intake Non Severe: <75% for >7 days Non Severe: <75% for >1 month
Severe: <50% for >5 days Severe: <75% for >1 month
Weight Loss Non Severe: 1-2% over 1 week Non Severe: 5% over 1 month
5% over 1 month 7.5% over 3 months
7.5% over 3 months 10% over 6 months
1 year N/A 20% over 1 year
Severe: >2% over 1 week Severe: >5% over 1 month
>5% over 1 month >7.5% over 3 months
>7.5% over 3 months >10% over 6 months
1 year N/A >20% over 1 year
Body Fat Non Severe: Mild Decrease Non Severe: Mild Loss
Severe: Moderate Decrease Severe: Severe Loss
Muscle Mass Non Severe: Mild Decrease Non Severe: Mild Loss
Severe: Moderate Decrease Severe: Severe Loss
Fluid Accumulation Non Severe: Mild Accumulation Non Severe: Mild Accumulation
Severe: Moderate to severe Severe: Moderate to severe
accumulation accumulation
Reduced Cloth Cutting Machine Operator Strength Non Severe: N/A Non Severe: N/A
Severe: Measurably reduced Severe: Measurably reduced
Additional criteria that can be used to Determine if Mild or Moderate Malnutrition ([employer] Manual 2018)
Mild Moderate Severe
Albumin gm/dl <3.0 gm/dl <2.5 gm/dl <2.0 gm/dl
Pre Albumin mg/dl <15 gm/dl <10 mg/dl <5.0 mg/dl
BMI <18.5 <17 <16
Use of terms such as suspected, likely, concern for, or probable (associated with a specific diagnosis that is being evaluated, monitored, or treated as if it exists) are acceptable and can be coded in the inpatient setting, when documented at the
time of discharge.
Thank you,
Georgia Sousa RN
CDI Specialist
Please use your independent medical judgment in providing your response.
[2024-11-03] MEDS: NOVOLOG FLEXPEN-HIGH RESISTANCE 4 UNITS SC (13:04)
[2024-11-03 15:20] VITALS: BP 108/67
--- NOTE | 2024-11-03 16:22 | CM ---
Addendum entered by Negra Vazquez 11/03/24 16:24:
IMM explained to patient. in chart
Original Note:
Referral in [facility]port for [facility] accepted
PLAN: home with [facility]
to transport
== END 2024-11-03 17:02 | disposition home health service (06) | DRG 312 ==
LOC: 3 WEST ACU 17:24
PROVIDERS: Internal Medicine; Nurse Practitioner Family; Nurse Practitioner Gerontology; Physician Assistant; ADMITTING PHYSICIAN Family Medicine; EMERGENCY PHYSICIAN Emergency Medicine; FAMILY PHYSICIAN Family Medicine; OTHER PHYSICIAN Internal Medicine; OTHER PHYSICIAN Internal Medicine Hematology & Oncology
DX: I95.1 Orthostatic hypotension (principal); C34.90 Malignant neoplasm of unspecified part of unspecified bronchus or lung; E87.1 Hypo-osmolality and hyponatremia; C77.9 Secondary and unspecified malignant neoplasm of lymph node, unspecified; R04.2 Hemoptysis; D62 Acute posthemorrhagic anemia; E44.0 Moderate protein-calorie malnutrition; E11.65 Type 2 diabetes mellitus with hyperglycemia; I10 Essential (primary) hypertension; J43.9 Emphysema, unspecified; E78.00 Pure hypercholesterolemia, unspecified; F32.A Depression, unspecified; F41.9 Anxiety disorder, unspecified; E83.52 Hypercalcemia; D75.839 Thrombocytosis, unspecified; D72.829 Elevated white blood cell count, unspecified; I48.0 Paroxysmal atrial fibrillation; J39.8 Other specified diseases of upper respiratory tract; E03.8 Other specified hypothyroidism; E83.42 Hypomagnesemia; K30 Functional dyspepsia; Z66 Do not resuscitate; Z92.21 Personal history of antineoplastic chemotherapy; Z87.891 Personal history of nicotine dependence; Z92.3 Personal history of irradiation; Z79.82 Long term (current) use of aspirin; Z79.84 Long term (current) use of oral hypoglycemic drugs; Z79.52 Long term (current) use of systemic steroids; Z88.1 Allergy status to other antibiotic agents; Z80.0 Family history of malignant neoplasm of digestive organs; Z80.1 Family history of malignant neoplasm of trachea, bronchus and lung; Z82.49 Family history of ischemic heart disease and other diseases of the circulatory system; Z82.3 Family history of stroke; Z91.199 Patient's noncompliance with other medical treatment and regimen due to unspecified reason; Z68.25 Body mass index [BMI] 25.0-25.9, adult; Z80.42 Family history of malignant neoplasm of prostate
CPT/HCPCS: 71275; 80048; 80053; 81003; 82533; 82962; 83036; 83735; 83880; 84439; 84443; 84484; 85025; 85027; 87040; 93005; 94640; 96361; 96372; 96374; 97116; 97163; 97166; 97530; 97535; 99285; Q9967

== ENCOUNTER → 2024-11-07 08:48 | Outpatient (REF) | payer OTHER, SELFPAY ==
[2024-11-07 09:55] LABS: % Basophils 0.5 % (0-2); % Eosinophils 0.3 % (0-6); % Lymphocytes 5.1 % (20.5-51.1); % Monocytes 11.4 % (1.7-9.3); % Neutrophils 81.7 % (42.2-75.2); Absolute Basophils 0.1 10^3/uL (0-0.2); Absolute Immature Granulocytes 0.1 10^3/uL (0-0.05); Absolute Lymphocytes 0.6 10^3/uL (1.2-3.4); Absolute Monocytes 1.3 10^3/uL (0.1-0.6); Absolute Neutrophils 9.5 10^3/uL (1.4-6.5); Hemoglobin 10.8 g/dL (13.0-18.0); Mean Corp Hgb Conc. 33.8 g/dL (33.0-37.0); Mean Corpuscular Hgb 28.3 pg (27.0-31.0); Mean Platelet Volume 8.9 fL (7.4-10.4); Nucleated Red Blood Cells % 0 % (-); Platelet Count 540 10^3/uL (130-400); Red Blood Cell Count 3.81 10^6/uL (4.70-6.10); Red Cell Dist. Width 12.7 % (11.5-14.5); White Blood Cell Count 11.6 10^3/uL (4.8-10.8)
[2024-11-07 13:18] LABS: Blood Urea Nitrogen 16 mg/dl (9-20); Calcium 9.8 mg/dl (8.4-10.2); Carbon Dioxide 25 mmol/L (22-30); Chloride 95 mmol/L (98-107); Glucose 269 mg/dl (70-99); Potassium 4.6 mmol/L (3.5-5.1); Sodium 134 mmol/L (135-145); eGFR > 60.00
[2024-11-08 16:47] LABS: Iron 27 ug/dl (49-181)
[2024-11-08 16:56] LABS: Percent Saturation 13 % (20-50); Total Iron Binding Capacity 200 ug/dl (261-462)
== END ==
LOC: REG 08:48
PROVIDERS: ATTENDING PHYSICIAN Internal Medicine Hematology & Oncology; FAMILY PHYSICIAN Family Medicine
DX: C34.02 Malignant neoplasm of left main bronchus (principal); K11.8 Other diseases of salivary glands; R63.4 Abnormal weight loss
CPT/HCPCS: 36415; 80048; 82728; 83540; 83550; 85025

== ENCOUNTER → 2024-11-08 09:39 | Outpatient (REF) | payer OTHER, SELFPAY | LOC: RAD 09:39 | PROVIDERS: ATTENDING PHYSICIAN Nurse Practitioner Primary Care; FAMILY PHYSICIAN Family Medicine | DX: C34.02 Malignant neoplasm of left main bronchus (principal); K11.8 Other diseases of salivary glands; R63.4 Abnormal weight loss | CPT/HCPCS: 71046 ==

== ENCOUNTER → 2024-11-15 07:57 | Outpatient (REF) | payer OTHER, SELFPAY ==
[2024-11-15 08:36] LABS: % Basophils 0.2 % (0-2); % Eosinophils 0.9 % (0-6); % Immature Granulocytes 0.7 % (0-0.5); % Lymphocytes 2.1 % (20.5-51.1); % Monocytes 7.1 % (1.7-9.3); Absolute Eosinophils 0.1 10^3/uL (0-0.7); Absolute Immature Granulocytes 0.1 10^3/uL (0-0.05); Absolute Lymphocytes 0.2 10^3/uL (1.2-3.4); Absolute Monocytes 0.6 10^3/uL (0.1-0.6); Absolute Neutrophils 7.9 10^3/uL (1.4-6.5); Hematocrit 32.9 % (39.0-52.0); Hemoglobin 11.1 g/dL (13.0-18.0); Mean Corp Hgb Conc. 33.7 g/dL (33.0-37.0); Mean Corpuscular Volume 82.9 fL (80.0-94.0); Platelet Count 336 10^3/uL (130-400); Red Blood Cell Count 3.97 10^6/uL (4.70-6.10); Red Cell Dist. Width 12.9 % (11.5-14.5); White Blood Cell Count 8.9 10^3/uL (4.8-10.8)
[2024-11-15 10:54] LABS: ALT (SGPT) 31 U/L (0-50); AST (SGOT) 21 U/L (17-59); Alkaline Phosphatase 192 U/L (38-126); Blood Urea Nitrogen 16 mg/dl (9-20); Calcium 9.4 mg/dl (8.4-10.2); Carbon Dioxide 25 mmol/L (22-30); Chloride 91 mmol/L (98-107); Glucose 305 mg/dl (70-99); Potassium 4.6 mmol/L (3.5-5.1); Sodium 129 mmol/L (135-145); Total Bilirubin 0.8 mg/dl (0.2-1.3); Total Protein 5.7 g/dl (6.3-8.2); eGFR > 60.00
== END ==
LOC: OIDL 07:57
PROVIDERS: ATTENDING PHYSICIAN Internal Medicine Hematology & Oncology; FAMILY PHYSICIAN Family Medicine
DX: C34.02 Malignant neoplasm of left main bronchus (principal); K11.8 Other diseases of salivary glands; R63.4 Abnormal weight loss
CPT/HCPCS: 36415; 80053; 85025

== ENCOUNTER → 2024-11-22 07:39 | Outpatient (REF) | payer OTHER, SELFPAY ==
[2024-11-22 08:11] LABS: % Basophils 0.6 % (0-2); % Eosinophils 0.6 % (0-6); % Immature Granulocytes 0.8 % (0-0.5); % Lymphocytes 3.2 % (20.5-51.1); % Monocytes 9.1 % (1.7-9.3); % Neutrophils 85.7 % (42.2-75.2); Absolute Lymphocytes 0.2 10^3/uL (1.2-3.4); Absolute Monocytes 0.5 10^3/uL (0.1-0.6); Absolute Neutrophils 4.2 10^3/uL (1.4-6.5); Hematocrit 32.5 % (39.0-52.0); Hemoglobin 10.9 g/dL (13.0-18.0); Mean Corp Hgb Conc. 33.5 g/dL (33.0-37.0); Mean Corpuscular Hgb 28.1 pg (27.0-31.0); Mean Corpuscular Volume 83.8 fL (80.0-94.0); Mean Platelet Volume 9.5 fL (7.4-10.4); Platelet Count 375 10^3/uL (130-400); Red Blood Cell Count 3.88 10^6/uL (4.70-6.10); Red Cell Dist. Width 13.6 % (11.5-14.5)
[2024-11-22 09:09] LABS: ALT (SGPT) 19 U/L (0-50); AST (SGOT) 13 U/L (17-59); Albumin 3.1 g/dl (3.5-5.0); Alkaline Phosphatase 139 U/L (38-126); Blood Urea Nitrogen 9 mg/dl (9-20); Calcium 9.2 mg/dl (8.4-10.2); Carbon Dioxide 29 mmol/L (22-30); Chloride 91 mmol/L (98-107); Glucose 324 mg/dl (70-99); Potassium 4.3 mmol/L (3.5-5.1); Sodium 130 mmol/L (135-145); Total Bilirubin 0.6 mg/dl (0.2-1.3); Total Protein 5.7 g/dl (6.3-8.2); eGFR > 60.00
== END ==
LOC: OIDL 07:39
PROVIDERS: ATTENDING PHYSICIAN Internal Medicine Hematology & Oncology; FAMILY PHYSICIAN Family Medicine
DX: C34.02 Malignant neoplasm of left main bronchus (principal); K11.8 Other diseases of salivary glands; R63.4 Abnormal weight loss
CPT/HCPCS: 36415; 80053; 85025

== ENCOUNTER 2024-12-10 03:40 | Emergency (ER) | payer OTHER, SELFPAY ==
[2024-12-10] VITALS (7 sets, daily range): BP systolic 97–120; BP diastolic 66–84; BMI 22.8
[2024-12-10 04:27] LABS: % Basophils 0.3 % (0-2); % Eosinophils 0.2 % (0-6); % Lymphocytes 1.7 % (20.5-51.1); % Monocytes 14.7 % (1.7-9.3); % Neutrophils 81.1 % (42.2-75.2); Absolute Immature Granulocytes 0.2 10^3/uL (0-0.05); Absolute Lymphocytes 0.2 10^3/uL (1.2-3.4); Absolute Monocytes 1.4 10^3/uL (0.1-0.6); Absolute Neutrophils 7.5 10^3/uL (1.4-6.5); Hematocrit 29.9 % (39.0-52.0); Hemoglobin 10.1 g/dL (13.0-18.0); Mean Corp Hgb Conc. 33.8 g/dL (33.0-37.0); Mean Corpuscular Hgb 27.9 pg (27.0-31.0); Mean Corpuscular Volume 82.6 fL (80.0-94.0); Mean Platelet Volume 8.5 fL (7.4-10.4); Nucleated Red Blood Cells % 0 % (-); Platelet Count 490 10^3/uL (130-400); Red Blood Cell Count 3.62 10^6/uL (4.70-6.10); White Blood Cell Count 9.2 10^3/uL (4.8-10.8)
[2024-12-10 04:45] LABS: ALT (SGPT) 16 U/L (0-50); AST (SGOT) 13 U/L (17-59); Alkaline Phosphatase 118 U/L (38-126); Blood Urea Nitrogen 9 mg/dl (9-20); Carbon Dioxide 29 mmol/L (22-30); Chloride 97 mmol/L (98-107); Glucose 337 mg/dl (70-99); Potassium 4.2 mmol/L (3.5-5.1); Sodium 130 mmol/L (135-145); Total Bilirubin 0.4 mg/dl (0.2-1.3); Total Protein 5.7 g/dl (6.3-8.2); eGFR > 60.00
[2024-12-10 04:53] LABS: NT-proBNP 946 pg/ml
--- NOTE | 2024-12-10 06:25 | ED.GENMED ---
History of Present Illness
General
Chief Complaint: Male Genito-Urinary Symptoms
Source: patient and spouse
Time Seen by Provider: 12/10/24 06:08
History of Present Illness
History of Present Illness:
64-year-old male with past medical history of lung cancer metastatic to the head/neck area, insulin-dependent diabetes, hypertension, hyperlipidemia presenting to the emergency department for evaluation after he was unable to urinate since around 8
PM last night, lower abdominal pressure but without any other symptoms. At time of my exam patient reports that he has since been able to urinate and feels much better than when he initially presented to the ER. Patient did have a bladder scan
done here which showed greater than 350 mL of urine, following him urinating he had around 250 mL of urine. Patient denies any fevers, chills, rigors, back or flank pain, rectal pain, dysuria, urinary frequency/urgency, hematuria, weak stream or
difficulty starting urinary stream, nausea, vomiting. Patient denies any history of similar. notes that patient just finished his last radiation treatment and is scheduled to go a PET scan sometime this week. He is also completing a
chemotherapy cycle. He follows at [facility].
Past History
Past History
ED Past Medical History: Cancer, COPD, HTN, Hypercholesterolemia and NIDDM
ED Past Surgical History: Orthopedic
Social History
Tobacco: Former smoker
Alcohol: Occasional
Drug: None
Personal:
Living: with family
Employment: Employed ([employer])
Family History
Family History: Negative Diabetes, Hypertension or CAD
Review of Systems
Review of Systems
All Other Systems: ROS reviewed and negative except as documented in HPI and ROS
Phy Exam
Physical Exam
Physical Exam:
GENERAL: Alert , in no apparent distress
EYE: clear conjunctiva b/l
HEAD: NCAT
ENT: mmm.
CARDIAC: Regular rate and rhythm .
LUNGS: Clear breath sounds bilaterally, no acute respiratory distress, no wheezes/rales/rhonchi
ABDOMEN: Soft, without focal tenderness specifically no suprapubic tenderness or distention, no r/g, no cvat
NEUROLOGICAL: Alert and oriented
SKIN: Warm and dry, skin intact.
MUSCULOSKELETAL: well perfused. edema to b/l feet extending into the mid lower leg bilaterally
PSYCH: Normal and appropriate interaction.
Scores
Heart Failure Risk
Heart Failure Risk Score: Not Applicable
Heart Score for Chest Pain Patients
STEMI patient?: Not applicable
Withdrawal Assessment of Alcohol
Withdrawal Assessment Completed?: Not applicable
Course
Orders/Labs/Results
Orders:
Orders
12/10/24 04:08
Straight cath- Treatment ONCE
12/10/24 04:13
Complete Blood Count/With Diff Urgent
Comprehensive Metabolic Panel Urgent
NT-proBNP Urgent
12/10/24 06:19
Tamsulosin [Flomax] 0.4 mg PO NOW STA
12/10/24 06:29
Urinalysis Reflex To Culture Urgent
Date Specimen was Collected: 12/10/24
Time Specimen was Collected: 06:23
Abnormal Lab Results
12/10/24 12/10/24
04:13 06:29
RBC 3.62 L 10^6/uL
(4.70-6.10)
Hgb 10.1 L g/dL
(13.0-18.0)
Hct 29.9 L %
(39.0-52.0)
RDW 16.0 H %
(11.5-14.5)
Plt Count 490 H 10^3/uL
(130-400)
Abs Immat Gran (auto) 0.2 H 10^3/uL
(0-0.05)
Absolute Neuts (auto) 7.5 H 10^3/uL
(1.4-6.5)
Absolute Lymphs (auto) 0.2 L 10^3/uL
(1.2-3.4)
Absolute Monos (auto) 1.4 H 10^3/uL
(0.1-0.6)
Immature Gran % 2.0 H %
(0-0.5)
Neutrophils % 81.1 H %
(42.2-75.2)
Lymphocytes % 1.7 L %
(20.5-51.1)
Monocytes % 14.7 H %
(1.7-9.3)
Sodium 130 L mmol/L
(135-145)
Chloride 97 L mmol/L
(98-107)
Creatinine 0.5 L mg/dL
(0.7-1.3)
Glucose 337 H mg/dl
(70-99)
AST 13 L U/L
(17-59)
Total Protein 5.7 L g/dl
(6.3-8.2)
Albumin 3.0 L g/dl
(3.5-5.0)
Urine Glucose 4+ A
(Negative)
12/10/24 04:13
12/10/24 04:13
Vital Signs
Initial and Last Documented VS:
Initial Vital Signs
Temp Pulse Resp BP Pulse Ox
97.8 F 108 22 120/74 95
12/10/24 03:42 12/10/24 03:42 12/10/24 03:42 12/10/24 03:42 12/10/24 03:42
Last Documented Vital Signs
Temp Pulse Resp BP Pulse Ox
97.8 F 90 24 112/84 94
12/10/24 03:42 12/10/24 07:30 12/10/24 07:30 12/10/24 07:00 12/10/24 06:15
MDM/Problems Addressed
Differential Diagnosis Includes:
BPH, urinary tract infection, prostatitis, bladder outlet obstruction, renal dysfunction, worsening malignancy/metastasis, CHF, lymphedema, venous stasis
MDM/Problems Addressed:
64-year-old male presenting to the ER for evaluation of pain and fullness, inability to urinate since 8 PM last night. Bladder scan with almost 400 mL of urine, while awaiting evaluation patient was able to urinate on his own but still has around
250 mL of urine. I did offer a catheter placement for relief of his urinary retention and that he would need to follow-up with urology afterwards however patient is adamant he does not want a Rawls catheter placed. We agreed to start Flomax to try
and help with the urinary retention but did express to the patient that it is possible he could go back into urinary retention and develop pain and/or fever and may need to return to the emergency department for further evaluation, Rawls catheter
placement and possibly admission if indicated. Patient expressed understanding we did review side effects of Flomax. We also discussed patient's edema and that I was hesitant to start him on 2 separate medications at the same time that could both
affect his blood pressure as well as his sodium is already a little bit low. Patient has follow-ups already scheduled with his oncology team for this coming Wednesday, PET scan for this coming . I do think it is reasonable for patient to
continue the rest of this workup as an outpatient and patient and are both in agreement with this.
Chronic conditions affecting care: Cancer
*Pulse Oximetry
Patient hypoxic: no
*[employer] Interpretation
Rate: normal
Rhythm: sinus
*Critical Care Note
Total Time (30-74mins, 75-104mins- exclusive of procedures): Not Applicable
Patient Management
Escalation/DeEscalation of care consider admission/obs:
Patient's urine without any signs of infection. He continues to be able to urinate without any issues. Prescription for Flomax sent to patient's pharmacy. Aware of return precautions to the emergency department.
ED Attending Note
-
Portions of this chart may have been created with voice recognition software.� Occasional wrong word or��sound alike� substitutions may have occurred due to the inherent limitations of voice recognition software.
Discharge Plan
Departure
Patient Disposition: Home (Routine Discharge)
Date of Disposition: 12/10/24
Time of Disposition: 07:35
Patient with high blood pressure during this ER visit?: No
Discharge Problem:
Urinary retention
Instructions: Urinary Retention (DC)
Prescriptions:
New
tamsulosin [Flomax] 0.4 mg capsule
0.4 mg PO DAILY Qty: 30 0RF
No Action
escitalopram oxalate 10 mg Tablet
15 mg PO DAILY
atorvastatin [Lipitor] 20 mg Tablet
20 mg PO DAILY
therapeutic multivitamin Tablet
1 tab PO DAILY
vitamin B complex Tablet
1 tab PO DAILY
omega-3 fatty acids-fish oil 684-1,200 mg Capsule,Delayed Release(Dr/Ec)
1 cap PO DAILY
benzonatate 200 mg Capsule
200 mg PO TIDPRN PRN (Reason: cough)
Aredia
1 dose IV TH
Patient Comments:
10/30/24: to take for 5 weeks, had first dose last week
lorazepam 0.5 mg Tablet
0.5 mg PO DAILYPRN PRN (Reason: before radiation)
Phospha 250 Neutral 250 mg Tablet
2 tab PO DAILY
oxycodone 5 mg Tablet
5 mg PO HS
mirtazapine 7.5 mg Tablet
7.5 mg PO DAILY
magnesium oxide 400 mg magnesium Tablet
400 mg PO DAILY
gabapentin 100 mg capsule
100 mg PO DAILY
albuterol sulfate 2.5 mg /3 mL (0.083 %) Solution For Nebulization
2.5 mg inhalation R BID Qty: 60 0RF
ondansetron 8 mg tablet,disintegrating
8 mg PO Q8H PRN (Reason: nausea and vomiting) Qty: 30 0RF
prochlorperazine maleate [Compazine] 10 mg tablet
10 mg PO Q6H PRN (Reason: nausea and vomiting) Qty: 30 0RF
insulin aspart U-100 [Novolog FlexPen U-100 Insulin] 100 unit/mL (3 mL) Insulin Pen
14 unit SC AC Qty: 5 0RF
insulin glargine [Lantus Solostar U-100 Insulin] 100 unit/mL (3 mL) Insulin Pen
26 unit SC HS Qty: 5 0RF
(DME) pen needle, diabetic 31 gauge x 1/3' needle
See Rx Instructions .Route Qty: 100 0RF
Rx Instructions:
As directed
sodium chloride [NebuSal] 3 % solution for nebulization
4 ml inhalation BID Qty: 240 0RF
Referrals:
Brennen Villalobos MD [Family Provider] -
Jacob Carlin MD [Active] - (Urology)
Interventions
Interventions:
*Risk Screen - Suicide Last Done: 12/10/24 03:42
*Neglect/Abuse Screening Last Done: 12/10/24 03:42
ED-Male Genitourinary Assessment Last Done: 12/10/24 04:28
Discharge Date and Time
Print Language: MAORI
[2024-12-10] MEDS: FLOMAX 0.4 MG PO (06:27)
[2024-12-10 07:44] LABS: Urine Albumin Negative (Neg - Trace); Urine Bilirubin Negative (Negative); Urine Character Clear (Clear); Urine Color Yellow; Urine Glucose 4+ (Negative); Urine Ketone Negative (Negative); Urine Leukocyte Negative (Negative); Urine Nitrite Negative (Negative); Urine Occult Blood Negative (Negative); Urine Urobilinogen Negative (Neg - 1+)
== END 2024-12-10 09:00 | disposition home or self-care (01) ==
LOC: EMR 03:40
PROVIDERS: Emergency Medicine; Physician Assistant Medical; EMERGENCY PHYSICIAN Emergency Medicine; FAMILY PHYSICIAN Family Medicine
DX: R33.9 Retention of urine, unspecified (principal); R60.0 Localized edema; C34.90 Malignant neoplasm of unspecified part of unspecified bronchus or lung; C79.89 Secondary malignant neoplasm of other specified sites; C79.31 Secondary malignant neoplasm of brain; E11.9 Type 2 diabetes mellitus without complications; E78.00 Pure hypercholesterolemia, unspecified; I10 Essential (primary) hypertension; J44.9 Chronic obstructive pulmonary disease, unspecified; Z87.891 Personal history of nicotine dependence; Z92.3 Personal history of irradiation
CPT/HCPCS: 99283; 80053; 81003; 83880; 85025

== ENCOUNTER 2024-12-30 03:56 | Emergency (ER) | payer OTHER, SELFPAY ==
[2024-12-30 04:01] VITALS: BP 140/95
[2024-12-30] MEDS: LIDOCAINE URO-JET 2% 1 SYRINGE TOPICAL (04:29)
[2024-12-30 05:06] LABS: Urine Albumin Negative (Neg - Trace); Urine Bilirubin Negative (Negative); Urine Character Clear (Clear); Urine Color Yellow; Urine Glucose 4+ (Negative); Urine Ketone 2+ (Negative); Urine Leukocyte Negative (Negative); Urine Nitrite Negative (Negative); Urine Occult Blood 2+ (Negative); Urine Urobilinogen Negative (Neg - 1+)
[2024-12-30 05:19] LABS: Urine Bacteria Few (Negative); Urine Red Blood Cell 30-40 /HPF (0-2); Urine Squamous Cell 0-2 /LPF (Few); Urine White Cell 0-2 /HPF (0-5)
[2024-12-30 05:44] VITALS: BP 99/69
--- NOTE | 2024-12-30 06:17 | ED.GENMED ---
History of Present Illness
General
Chief Complaint: Male Genito-Urinary Symptoms
Source: patient and family
Time Seen by Provider: 12/30/24 04:16
History of Present Illness
History of Present Illness:
Note:
CHIEF COMPLAINT(S)
Inability to urinate.
HISTORY OF PRESENT ILLNESS
The patient is a 54-year-old male who presented with the inability to urinate. He reports that he has never experienced this problem before and has no known history of prostate cancer. states the patient recently completed radiation therapy
for lung cancer on the , has an upcoming PET scan on the , and immunotherapy scheduled on the . Additionally, he quit smoking. Upon arrival, a Rawls catheter was placed, and approximately 900 milliliters of urine were drained. He has
been feeling better since the catheter placement. The patient is currently taking Flomax for urinary symptoms.
CHRONIC MEDICAL CONDITIONS SIGNIFICANTLY AFFECTING CARE
History of lung cancer, currently undergoing treatment.
PAST MEDICAL HISTORY
History of lung cancer.
SOCIAL HISTORY
Previously smoked, but has quit.
MEDICATIONS
Flomax.
REVIEW OF SYSTEMS
- Genitourinary: Inability to urinate, improvement post-catheter placement.
- Neurological: Cranial nerves are intact, no focal deficits.
- Respiratory: No respiratory stress, wet cough noted.
- Gastrointestinal: Abdomen is soft and non-tender.
PHYSICAL EXAM
- Abdomen: Soft and non-tender.
- Respiratory: No respiratory stress observed, wet cough present.
- Neurological: Cranial nerves intact, no focal deficits.
- Nursing notes reviewed and vital signs reviewed.
PROBLEM LIST
Acute:
- Acute urinary retention.
Chronic:
- Lung cancer.
PLAN
- Continue Flomax.
- Leave Rawls catheter in place for now; the patient should follow up with a urologist for potential catheter removal and evaluation of voiding ability.
- Consider coverage with antibiotics as a precaution.
- Check urinalysis.
- Provide a leg bag for catheter management.
- Referral to a urologist for further evaluation and management.
DIFFERENTIAL DIAGNOSIS
The Differential Diagnosis includes, in no particular order and is not limited to:
1. Benign prostatic hyperplasia.
2. Urinary tract infection.
3. Bladder outlet obstruction.
4. Neurogenic bladder.
5. Medication side effects.
6. Urethral stricture.
7. Bladder stones.
8. Bladder cancer.
9. Prostate cancer.
10. Acute kidney injury.
Disposition:
SUMMARY OF ENCOUNTER
The patient, a 54-year-old male, presented with an inability to urinate. Upon arrival, a Rawls catheter was placed, resulting in the drainage of approximately 900 milliliters of urine. His symptoms improved significantly after catheter placement.
PLAN
- Continue Flomax for urinary symptoms.
- Rawls catheter to remain in place; follow up with a urologist is planned for potential catheter removal and evaluation of voiding ability.
- Consider coverage with antibiotics as a precaution.
- Referral to urology for further evaluation.
PROCEDURES
- Rawls catheter placement was conducted, resulting in immediate symptom relief.
FOLLOW-UP INSTRUCTIONS
The patient is instructed to follow up with a urologist to assess catheter management and evaluate voiding capabilities.
MEDICATION RECONCILIATION
- Continue taking Flomax as currently prescribed.
- Consideration was given to starting antibiotics as a precaution.
SMOKING CESSATION COUNSELING
The patient, who has a history of smoking, was counseled on the benefits of smoking cessation and encouraged to maintain abstinence following his recent decision to quit.
MEDICAL DECISION MAKING
The encounter involved assessing both acute and chronic medical concerns, particularly focusing on the patients acute urinary retention and management of existing lung cancer. Given the patients prior history, as well as current treatments, the
differential diagnosis was considered, along with appropriate management options. Social determinants of health were noted as the patient previously smoked but has now quit, influencing his long-term respiratory health. Proper follow-up with
specialists was emphasized to manage his condition effectively.
Past History
Past History
ED Past Medical History: Cancer, COPD, HTN, Hypercholesterolemia and NIDDM
ED Past Surgical History: Orthopedic
Social History
Tobacco: Former smoker
Alcohol: Occasional
Drug: None
Personal:
Living: with family
Employment: Employed ([employer])
Family History
Family History: Negative Diabetes, Hypertension or CAD
Phy Exam
Physical Exam
Physical Exam:
.
Course
Orders/Labs/Results
Orders:
Orders
12/30/24 04:21
Lidocaine 2% [Lidocaine Uro-Jet 2%] 1 syringe .ROUTE .[facility]
12/30/24 04:24
Lidocaine 2% [Lidocaine Uro-Jet 2%] 1 syringe TOPICAL NOW STA
12/30/24 04:36
Rawls [Rawls Placement- Treatment] ONCE
Reason for insertion: Acute Retention
12/30/24 04:58
Urinalysis Reflex To Culture Urgent
Date Specimen was Collected: 12/30/24
Time Specimen was Collected: 04:56
Urine Microscopic Reflex Cult Urgent
12/30/24 06:00
Cefuroxime Axetil [Ceftin] 500 mg PO NOW STA
Abnormal Lab Results
12/30/24
04:58
Urine Ketones 2+ A
(Negative)
Ur Occult Blood Reflex 2+ A
(Negative)
Urine RBC 30-40 A /HPF
(0-2)
Urine Bacteria (Reflex) Few A
(Negative)
Urine Glucose 4+ A
(Negative)
Vital Signs
Initial and Last Documented VS:
Initial Vital Signs
Temp Pulse Resp BP Pulse Ox
98.9 F 114 26 140/95 92
12/30/24 04:01 12/30/24 04:01 12/30/24 04:01 12/30/24 04:01 12/30/24 04:01
Last Documented Vital Signs
Temp Pulse Resp BP Pulse Ox
98.9 F 98 20 99/69 92
12/30/24 04:01 12/30/24 05:44 12/30/24 05:44 12/30/24 05:44 12/30/24 05:44
*Pulse Oximetry
Patient hypoxic: yes (Mild)
*Critical Care Note
Total Time (30-74mins, 75-104mins- exclusive of procedures): Not Applicable
ED Attending Note
-
Portions of this chart may have been created with voice recognition software.� Occasional wrong word or��sound alike� substitutions may have occurred due to the inherent limitations of voice recognition software.
Discharge Plan
Departure
Patient Disposition: Home (Routine Discharge)
Date of Disposition: 12/30/24
Time of Disposition: 06:18
Patient with high blood pressure during this ER visit?: No
Discharge Problem:
Acute urinary retention
Instructions: Urinary Retention (DC)
Prescriptions:
New
cefuroxime axetil 500 mg tablet
500 mg PO BID Qty: 14 0RF
No Action
escitalopram oxalate 10 mg Tablet
15 mg PO DAILY
atorvastatin [Lipitor] 20 mg Tablet
20 mg PO DAILY
therapeutic multivitamin Tablet
1 tab PO DAILY
vitamin B complex Tablet
1 tab PO DAILY
omega-3 fatty acids-fish oil 684-1,200 mg Capsule,Delayed Release(Dr/Ec)
1 cap PO DAILY
benzonatate 200 mg Capsule
200 mg PO TIDPRN PRN (Reason: cough)
Aredia
1 dose IV TH
Patient Comments:
10/30/24: to take for 5 weeks, had first dose last week
lorazepam 0.5 mg Tablet
0.5 mg PO DAILYPRN PRN (Reason: before radiation)
Phospha 250 Neutral 250 mg Tablet
2 tab PO DAILY
oxycodone 5 mg Tablet
5 mg PO HS
mirtazapine 7.5 mg Tablet
7.5 mg PO DAILY
magnesium oxide 400 mg magnesium Tablet
400 mg PO DAILY
gabapentin 100 mg capsule
100 mg PO DAILY
albuterol sulfate 2.5 mg /3 mL (0.083 %) Solution For Nebulization
2.5 mg inhalation R BID Qty: 60 0RF
ondansetron 8 mg tablet,disintegrating
8 mg PO Q8H PRN (Reason: nausea and vomiting) Qty: 30 0RF
prochlorperazine maleate [Compazine] 10 mg tablet
10 mg PO Q6H PRN (Reason: nausea and vomiting) Qty: 30 0RF
insulin aspart U-100 [Novolog FlexPen U-100 Insulin] 100 unit/mL (3 mL) Insulin Pen
14 unit SC AC Qty: 5 0RF
insulin glargine [Lantus Solostar U-100 Insulin] 100 unit/mL (3 mL) Insulin Pen
26 unit SC HS Qty: 5 0RF
(DME) pen needle, diabetic 31 gauge x 1/3' needle
See Rx Instructions .Route Qty: 100 0RF
Rx Instructions:
As directed
sodium chloride [NebuSal] 3 % solution for nebulization
4 ml inhalation BID Qty: 240 0RF
tamsulosin [Flomax] 0.4 mg capsule
0.4 mg PO DAILY Qty: 30 0RF
Referrals:
Brennen Villalobos MD [Family Provider, Family Practice]
Jacob Carlin MD [Active, Urology]
Activity Restrictions/Additional Instructions:
Please see urology in the next 3 to 5 days for follow-up and reevaluation. Return immediately for fevers, vomiting, blood in urine or any other concerns.
Interventions
Interventions:
*Risk Screen - Suicide Last Done: 12/30/24 04:01
*General Assessment Last Done: 12/30/24 04:01
*Neglect/Abuse Screening Last Done: 12/30/24 04:01
*ED- Fall Risk Assessment Last Done: 12/30/24 04:01
*ED COVID-19 Vaccine History Last Done: 12/30/24 04:01
*Nursing Disposition Last Done: 12/30/24 06:30
ED-Male Genitourinary Assessment Last Done: 12/30/24 04:13
Discharge Date and Time
Discharge Date/Time: 12/30/24 06:30
Print Language: GIBRALTAR[place]
[2024-12-30] MEDS: CEFTIN 500 MG PO (06:21)
== END 2024-12-30 06:30 | disposition home or self-care (01) ==
LOC: EMR 03:56
PROVIDERS: EMERGENCY PHYSICIAN Emergency Medicine; FAMILY PHYSICIAN Family Medicine
DX: R33.9 Retention of urine, unspecified (principal); C34.90 Malignant neoplasm of unspecified part of unspecified bronchus or lung; E11.9 Type 2 diabetes mellitus without complications; E78.00 Pure hypercholesterolemia, unspecified; J44.9 Chronic obstructive pulmonary disease, unspecified; I10 Essential (primary) hypertension; Z87.891 Personal history of nicotine dependence; Z92.3 Personal history of irradiation
CPT/HCPCS: 51702; 99283; 81003; 81015

== ENCOUNTER 2025-01-05 16:53 | Inpatient (IN) | payer OTHER, SELFPAY ==
[2025-01-05] VITALS (14 sets, daily range): BP systolic 102–134; BP diastolic 63–84; BMI 22.4
--- NOTE | 2025-01-05 08:31 | ED.GENMED ---
History of Present Illness
<Ari Velázquez PA-C - Last Filed: 01/06/25 07:10>
General
Chief Complaint: Breathing Problem
Source: patient, records and spouse
Time Seen by Provider: 01/05/25 08:20
History of Present Illness
History of Present Illness:
Note:
CHIEF COMPLAINT(S)
Shortness of breath, fatigue, and coughing with liu sputum.
HISTORY OF PRESENT ILLNESS
The patient is a 64-year-old male with a recent history of metastatic lung cancer treatment, including chemotherapy completed on December 24 and radiation completed on December 15, presents with new-onset respiratory issues. He reports productive cough
with green-liu sputum, stating he feels tired and experiences shortness of breath when active. He denies experiencing shortness of breath at rest, fever, or chills. The patient has chronic lower extremity edema which is unchanged today. He is not
typically on supplemental oxygen at home but was noted to have low oxygen saturation levels of 74 to 80% upon arrival, now maintaining levels of 90% on 4 liters of supplemental oxygen. The patient has a history of COPD attributed to smoking, which
he quit four months ago. He is scheduled for a PET scan next week.
Oncologist - Dr. Bean
Lan Analyst - Dr. Lawrence
SOCIAL HISTORY
Former smoker, ceased smoking four months ago
REVIEW OF SYSTEMS
- Respiratory: Shortness of breath on exertion, cough with liu sputum, no history of asthma.
- General: Fatigue, no fever or chills reported.
- Cardiovascular: Persistent edema in the feet.
- Genitourinary: History of urinary issues, catheter in place, plans for physical therapy and voiding trial.
Past History
<Ari Velázquez PA-C - Last Filed: 01/06/25 07:10>
Past History
ED Past Medical History: Cancer, COPD, HTN, Hypercholesterolemia and NIDDM
ED Past Surgical History: Orthopedic
Social History
Tobacco: Former smoker
Alcohol: Occasional
Drug: None
Personal:
Living: with family
Employment: Employed ([employer])
Family History
Family History: Negative Diabetes, Hypertension or CAD
Review of Systems
<Ari Velázquez PA-C - Last Filed: 01/06/25 07:10>
Review of Systems
All Other Systems: ROS reviewed and negative except as documented in HPI and ROS
Phy Exam
<Ari Velázquez PA-C - Last Filed: 01/06/25 07:10>
Physical Exam
Physical Exam:
GENERAL: Alert , in no apparent distress, thin, ashen appearing
HEAD: Normocephalic atraumatic
EYE: Clear conjunctiva
NECK: Supple, no JVD
ENT: o/p clr, mmm.
CARDIAC: Tachycardic rate and rhythm, no murmur
LUNGS: Diminished to the left mid lung through the base, intermittently pursed lip breathing but able to speak full sentences, no wheezing or rhonchi
ABDOMEN: Soft, without focal tenderness, no r/g, no cvat
NEUROLOGICAL: Alert and oriented
SKIN: Warm and dry, skin intact.
MUSCULOSKELETAL: Nonpitting bilateral ankle edema, well perfused.
PSYCH: Normal and appropriate interaction.
Scores
<Ari Velázquez PA-C - Last Filed: 01/06/25 07:10>
Heart Failure Risk
Heart Failure Risk Score: Not Applicable
Heart Score for Chest Pain Patients
STEMI patient?: Not applicable
Withdrawal Assessment of Alcohol
Withdrawal Assessment Completed?: Not applicable
Course
<Ari Velázquez PA-C - Last Filed: 01/06/25 07:10>
Orders/Labs/Results
Orders:
Orders
01/05/25 Breakfast
1200 Calorie (10 carb) Diabetic
At Your Request: Full Participation
Does patient need a safe tray?: No
Diabetic Diet: Cholesterol Lowering
Flush Continuous pump feedings with water (mL/hr): 25
Cholesterol Lowering
At Your Request: Full Participation
Cholesterol Lowering: Sodium, 2 Gram
01/05/25 08:15
Electrocardiogram (*1) Urgent
Reason for Study: Shortness of Breath
01/05/25 08:16
EKG- Treatment ONCE
01/05/25 08:30
CT Chest PE Study Urgent
Comment:
Reason For Exam: lung cancner, worsening SOB, pulse ox 78%RA
01/05/25 08:44
Complete Blood Count/With Diff Urgent
Comprehensive Metabolic Panel Urgent
NT-proBNP Urgent
PTT Urgent
Prothrombin Time Urgent
Troponin I Urgent
01/05/25 13:17
PRN Pain Medication Management As Directed
May give lesser potent ordered pain med per pt: Yes
preference::
Protocol:: Medication orders for pain may be administered in a
manner that supports deferring to patient preference
when the pt is:
- Requesting an ordered lesser potent pain medication.
Least to most potent pain medications are defined
as: acetaminophen < NSAID < tramadol < opioids
(morphine, oxycodone, hydromorphone).
- Requesting a lesser dose of the same medication IF
ORDERED.
- Requesting a less intrusive route of administration
if both routes are prescribed by the provider (PO <
IV).
01/05/25 13:18
Code Status As Directed
Resuscitation Status: Full Code
01/05/25 16:43
Admit/Transfer Patient As Directed
Co-Sign Provider:
Level of Care: Inpatient admission
Assign to:: Telemetry
Physician / Group: shyam
Diagnosis: acute hypoxic respiratory failure
Reason for Telemetry: Other
Other Reason for Telemetry: acute hypoxia
Date to Stop Telemetry: 01/07/25
Time to Stop Telemetry: 11:00
Reason for Hospitalization: acute hypoxia
Expected length of stay greater than two midnights?: Yes
ELOS- Estimated Length of Stay in days: 3
I certify the patient meets the requirements for IP care: Yes
PRN Pain Medication Management As Directed
May give lesser potent ordered pain med per pt: Yes
preference::
Protocol:: Medication orders for pain may be administered in a
manner that supports deferring to patient preference
when the pt is:
- Requesting an ordered lesser potent pain medication.
Least to most potent pain medications are defined
as: acetaminophen < NSAID < tramadol < opioids
(morphine, oxycodone, hydromorphone).
- Requesting a lesser dose of the same medication IF
ORDERED.
- Requesting a less intrusive route of administration
if both routes are prescribed by the provider (PO <
IV).
01/05/25 16:47
Echo Follow up Study W Dop Routine
Reason for Study: PFO
01/05/25 17:33
Acetaminophen [Tylenol] 650 mg PO Q4HPRN PRN
Dextrose 50%-Water [Dextrose 50% Syringe] 12.5 grams IV [id number] PRN
Glucagon [GlucaGen] 1 mg IM PRN PRN
Ipratropium/Albuterol Sulfate [Duoneb] 3 ml INH R Q4HPRN PRN
Oxycodone [Roxicodone] 5 mg PO DAILYPRN PRN Pain
01/05/25 17:33
HEMATOLOGY CONSULT Routine
Consulting Provider: Bobby Mccoy
Was physician already notified: Yes
Activity As Directed
Activity Level: As Tolerated
Bedside Glucose Monitoring As Directed
Frequency: AC&HS
Additional Instructions:: Change to q6h if pt on TPN, tube feeding or not eating
Intake/ Output As Directed
Frequency: Per unit guidelines
Pneumatic Compression Sleeves As Directed
Type: Knee high
Vital Signs As Directed
Frequency: Per unit guidelines
Weight As Directed
Frequency: Daily
O2 Therapy [RESP] Routine
Titrate/Wean O2 to maintain O2 sat greater than (%): 92
DX Deep Vein Thrombosis Video Routine
01/05/25 20:00
Guaifenesin [Mucinex] 1,200 mg PO Q12
Sodium Chloride 3% INH [Sodium Chloride 3% For Inhalation] 1 vial INH R BID
01/06/25 06:26
Basic Metabolic Panel IN AM
Complete Blood Count/No Diff IN AM
Glycohemoglobin (HgbA1c) IN AM
01/06/25 07:30
Insulin Aspart Corrective Mod [Novolog Flexpen-Moderate Resistance] See Protocol SC AC
01/06/25 08:00
Atorvastatin [Lipitor] 20 mg PO DAILY
Gabapentin [Neurontin] 100 mg PO DAILY
Mirtazapine [Remeron] 7.5 mg PO DAILY
Tamsulosin [Flomax] 0.4 mg PO DAILY
sod phos di, mono-K phos mono [Phospha 250 Neutral] 2 tablet PO DAILY
01/07/25 06:00
Basic Metabolic Panel IN AM
Complete Blood Count/No Diff IN AM
01/07/25 11:00
DC Protocol for Telemetry ONCE
DC Protocol for Telemetry ONCE
01/08/25 06:00
Basic Metabolic Panel IN AM
Complete Blood Count/No Diff IN AM
01/09/25 06:00
Basic Metabolic Panel IN AM
Complete Blood Count/No Diff IN AM
Abnormal Lab Results
01/05/25
08:44
RBC 3.89 L 10^6/uL
(4.70-6.10)
Hgb 10.8 L g/dL
(13.0-18.0)
Hct 32.5 L %
(39.0-52.0)
RDW 18.1 H %
(11.5-14.5)
Plt Count 605 H 10^3/uL
(130-400)
Abs Immat Gran (auto) 0.1 H 10^3/uL
(0-0.05)
Absolute Neuts (auto) 7.3 H 10^3/uL
(1.4-6.5)
Absolute Lymphs (auto) 0.1 L 10^3/uL
(1.2-3.4)
Absolute Monos (auto) 1.3 H 10^3/uL
(0.1-0.6)
Immature Gran % 0.8 H %
(0-0.5)
Neutrophils % 82.3 H %
(42.2-75.2)
Lymphocytes % 1.5 L %
(20.5-51.1)
Monocytes % 14.7 H %
(1.7-9.3)
PT 15.2 H Sec
(11.4-14.6)
Sodium 129 L mmol/L
(135-145)
Chloride 94 L mmol/L
(98-107)
Creatinine 0.5 L mg/dL
(0.7-1.3)
Glucose 315 H mg/dl
(70-99)
Total Protein 5.7 L g/dl
(6.3-8.2)
Albumin 2.9 L g/dl
(3.5-5.0)
01/05/25 08:44
01/05/25 08:44
Vital Signs
Initial and Last Documented VS:
Initial Vital Signs
Temp Pulse Resp BP Pulse Ox
98.9 F 111 18 128/81 84
01/05/25 08:12 01/05/25 08:12 01/05/25 08:12 01/05/25 08:12 01/05/25 08:12
Last Documented Vital Signs
Temp Pulse Resp BP Pulse Ox
99.6 F 90 18 110/72 95
01/06/25 03:37 01/06/25 03:47 01/06/25 03:47 01/06/25 03:37 01/06/25 03:47
<Mike Fontenot PA-C - Last Filed: 01/05/25 17:34>
Orders/Labs/Results
Orders:
Orders
01/05/25 Breakfast
1200 Calorie (10 carb) Diabetic
At Your Request: Full Participation
Does patient need a safe tray?: No
Diabetic Diet: Cholesterol Lowering
Flush Continuous pump feedings with water (mL/hr): 25
Cholesterol Lowering
At Your Request: Full Participation
Cholesterol Lowering: Sodium, 2 Gram
01/05/25 08:15
Electrocardiogram (*1) Urgent
Reason for Study: Shortness of Breath
01/05/25 08:16
EKG- Treatment ONCE
01/05/25 08:30
CT Chest PE Study Urgent
Comment:
Reason For Exam: lung cancner, worsening SOB, pulse ox 78%RA
01/05/25 08:44
Complete Blood Count/With Diff Urgent
Comprehensive Metabolic Panel Urgent
NT-proBNP Urgent
PTT Urgent
Prothrombin Time Urgent
Troponin I Urgent
01/05/25 13:17
PRN Pain Medication Management As Directed
May give lesser potent ordered pain med per pt: Yes
preference::
Protocol:: Medication orders for pain may be administered in a
manner that supports deferring to patient preference
when the pt is:
- Requesting an ordered lesser potent pain medication.
Least to most potent pain medications are defined
as: acetaminophen < NSAID < tramadol < opioids
(morphine, oxycodone, hydromorphone).
- Requesting a lesser dose of the same medication IF
ORDERED.
- Requesting a less intrusive route of administration
if both routes are prescribed by the provider (PO <
IV).
01/05/25 13:18
Code Status As Directed
Resuscitation Status: Full Code
01/05/25 16:43
Admit/Transfer Patient As Directed
Co-Sign Provider:
Level of Care: Inpatient admission
Assign to:: Telemetry
Physician / Group: shyam
Diagnosis: acute hypoxic respiratory failure
Reason for Telemetry: Other
Other Reason for Telemetry: acute hypoxia
Date to Stop Telemetry: 01/07/25
Time to Stop Telemetry: 11:00
Reason for Hospitalization: acute hypoxia
Expected length of stay greater than two midnights?: Yes
ELOS- Estimated Length of Stay in days: 3
I certify the patient meets the requirements for IP care: Yes
PRN Pain Medication Management As Directed
May give lesser potent ordered pain med per pt: Yes
preference::
Protocol:: Medication orders for pain may be administered in a
manner that supports deferring to patient preference
when the pt is:
- Requesting an ordered lesser potent pain medication.
Least to most potent pain medications are defined
as: acetaminophen < NSAID < tramadol < opioids
(morphine, oxycodone, hydromorphone).
- Requesting a lesser dose of the same medication IF
ORDERED.
- Requesting a less intrusive route of administration
if both routes are prescribed by the provider (PO <
IV).
01/05/25 16:47
Echo Follow up Study W Dop Routine
Reason for Study: PFO
01/05/25 17:33
Acetaminophen [Tylenol] 650 mg PO Q4HPRN PRN
Dextrose 50%-Water [Dextrose 50% Syringe] 12.5 grams IV Q14SWCS PRN
Glucagon [GlucaGen] 1 mg IM PRN PRN
Ipratropium/Albuterol Sulfate [Duoneb] 3 ml INH R Q4HPRN PRN
Oxycodone [Roxicodone] 5 mg PO DAILYPRN PRN Pain
01/05/25 17:33
HEMATOLOGY CONSULT Routine
Consulting Provider: Bobby Mccoy
Was physician already notified: Yes
Activity As Directed
Activity Level: As Tolerated
Bedside Glucose Monitoring As Directed
Frequency: AC&HS
Additional Instructions:: Change to q6h if pt on TPN, tube feeding or not eating
Intake/ Output As Directed
Frequency: Per unit guidelines
Pneumatic Compression Sleeves As Directed
Type: Knee high
Vital Signs As Directed
Frequency: Per unit guidelines
Weight As Directed
Frequency: Daily
O2 Therapy [RESP] Routine
Titrate/Wean O2 to maintain O2 sat greater than (%): 92
DX Deep Vein Thrombosis Video Routine
01/05/25 20:00
Guaifenesin [Mucinex] 1,200 mg PO Q12
Sodium Chloride 3% INH [Sodium Chloride 3% For Inhalation] 1 vial INH R BID
01/06/25 06:26
Basic Metabolic Panel IN AM
Complete Blood Count/No Diff IN AM
Glycohemoglobin (HgbA1c) IN AM
01/06/25 07:30
Insulin Aspart Corrective Mod [Novolog Flexpen-Moderate Resistance] See Protocol SC AC
01/06/25 08:00
Atorvastatin [Lipitor] 20 mg PO DAILY
Gabapentin [Neurontin] 100 mg PO DAILY
Mirtazapine [Remeron] 7.5 mg PO DAILY
Tamsulosin [Flomax] 0.4 mg PO DAILY
sod phos di, mono-K phos mono [Phospha 250 Neutral] 2 tablet PO DAILY
01/07/25 06:00
Basic Metabolic Panel IN AM
Complete Blood Count/No Diff IN AM
01/07/25 11:00
DC Protocol for Telemetry ONCE
DC Protocol for Telemetry ONCE
01/08/25 06:00
Basic Metabolic Panel IN AM
Complete Blood Count/No Diff IN AM
01/09/25 06:00
Basic Metabolic Panel IN AM
Complete Blood Count/No Diff IN AM
Abnormal Lab Results
01/05/25
08:44
RBC 3.89 L 10^6/uL
(4.70-6.10)
Hgb 10.8 L g/dL
(13.0-18.0)
Hct 32.5 L %
(39.0-52.0)
RDW 18.1 H %
(11.5-14.5)
Plt Count 605 H 10^3/uL
(130-400)
Abs Immat Gran (auto) 0.1 H 10^3/uL
(0-0.05)
Absolute Neuts (auto) 7.3 H 10^3/uL
(1.4-6.5)
Absolute Lymphs (auto) 0.1 L 10^3/uL
(1.2-3.4)
Absolute Monos (auto) 1.3 H 10^3/uL
(0.1-0.6)
Immature Gran % 0.8 H %
(0-0.5)
Neutrophils % 82.3 H %
(42.2-75.2)
Lymphocytes % 1.5 L %
(20.5-51.1)
Monocytes % 14.7 H %
(1.7-9.3)
PT 15.2 H Sec
(11.4-14.6)
Sodium 129 L mmol/L
(135-145)
Chloride 94 L mmol/L
(98-107)
Creatinine 0.5 L mg/dL
(0.7-1.3)
Glucose 315 H mg/dl
(70-99)
Total Protein 5.7 L g/dl
(6.3-8.2)
Albumin 2.9 L g/dl
(3.5-5.0)
01/05/25 08:44
01/05/25 08:44
Vital Signs
Initial and Last Documented VS:
Initial Vital Signs
Temp Pulse Resp BP Pulse Ox
98.9 F 111 18 128/81 84
01/05/25 08:12 01/05/25 08:12 01/05/25 08:12 01/05/25 08:12 01/05/25 08:12
Last Documented Vital Signs
Temp Pulse Resp BP Pulse Ox
99.6 F 90 18 110/72 95
01/06/25 03:37 01/06/25 03:47 01/06/25 03:47 01/06/25 03:37 01/06/25 03:47
<Ari Velázquez PA-C - Last Filed: 01/06/25 07:10>
MDM/Problems Addressed
Differential Diagnosis Includes:
The Differential Diagnosis includes, in no particular order and is not limited to:
1. Chronic Obstructive Pulmonary Disease exacerbation
2. Pneumonia
3. Pulmonary embolism
4. Heart failure
5. Pleural effusion
6. Lung cancer progression or recurrence
7. Interstitial lung disease
8. Aspiration pneumonia
9. Acute bronchitis
10. Pulmonary fibrosis
MDM/Problems Addressed:
64-year-old male presenting to the ER for evaluation of shortness of breath which became acutely worse this morning, noting patient's oxygen saturations were in the mid 70s. Patient states that his shortness of breath is much worse with
exertion. Currently on 4 L via nasal cannula with his oxygen around 90 to 91%. Patient appears to likely have a pleural effusion on the left based off of physical exam finding. notes that this was noted by his radiation oncologist on
imaging. Possible progression of this. Given his hypoxia and tachycardia combined with his cancer diagnosis will obtain a CTA to rule out PE. Plan for admission.
Chronic conditions affecting care: Cancer
<Ari Velázquez PA-C - Last Filed: 01/06/25 07:10>
*Radiology
Radiology exam reviewed: radiology read reviewed
*Pulse Oximetry
Patient hypoxic: yes
Comment: 84%
*EKG
Heart Rate: 111
Rate: tachycardiac
Rhythm: sinus
[place]: left axis deviation
*It Operations Specialist Interpretation
Rate: tachycardiac
Rhythm: sinus
*Critical Care Note
Total Time (30-74mins, 75-104mins- exclusive of procedures): 40
comment:
Critical care statement: A total of 40 minutes of critical care time was provided for this patient. This includes management of unstable vital signs, evaluation of the patient at bedside, reviewing the patient's pertinent medical records, discussion
with consultants, review of old EKGs and review of pertinent medical records. This time with separate from time utilized to perform the aforementioned documented procedures
Data Reviewed
Review of Other/Old Records Reveals: Labs, Records and Radiology Studies
Source: patient, records and spouse
<Ari Velázquez PA-C - Last Filed: 01/06/25 07:10>
Patient Management
Discussion with other providers: Hospitalist and Liberal Arts Teacher
Escalation/DeEscalation of care consider admission/obs:
Patient CT scan without any evidence for acute pulmonary embolism. There were findings of suspected progressive metastatic disease. Initially hospitalist team did accept the patient for evaluation and treatment however after speaking with
pulmonary here there was some concern for possible impending obstruction of the patient's stent that was placed at the [facility] and pulmonary was recommending patient be transferred to that facility for possible deep vein
of the tumor as they are unable to perform this procedure here. Call was placed to the [facility] and am currently awaiting a callback to determine the patient's treatment plan and disposition.
<Mike Fontenot PA-C - Last Filed: 01/05/25 17:34>
Update Note
Update Note:
Assumed care of patient pending callback from [facility] pulmonology. I did receive a call from them. Patient has been stable here on his nasal oxygen. They do not feel that emergent transfer is necessary to [place]. The
interventional marketing development manager wants to intervene this coming Wednesday. [place] prefers we admit to [facility] for the weekend. The accepting marketing development manager through [facility] is Dr. Bárbara Arias
ED Attending Note
<Ari Velázquez PA-C - Last Filed: 01/06/25 07:10>
-
Portions of this chart may have been created with voice recognition software.� Occasional wrong word or��sound alike� substitutions may have occurred due to the inherent limitations of voice recognition software.
Discharge Plan
Departure
Patient Disposition: Admit
Date of Disposition: 01/05/25
Time of Disposition: 12:44
Presentation/result/management discussed w/ accepting MD/DO: Hospitalist
Discharge Problem:
Hypoxia, Lung malignancy
Interventions
Interventions:
*Risk Screen - Suicide Last Done: 01/05/25 08:12
*General Assessment Last Done: 01/05/25 08:45
*Neglect/Abuse Screening Last Done: 01/05/25 08:12
*ED- Fall Risk Assessment Last Done: 01/05/25 08:45
*ED COVID-19 Vaccine History Last Done: 01/05/25 08:45
*Nursing Disposition Last Done: 01/05/25 17:29
ED- Cardiac Assessment Last Done: 01/05/25 09:04
ED- Pulmonary Assessment Last Done: 01/05/25 17:15
Discharge Date and Time
Discharge Date/Time: 01/05/25 17:30
[2025-01-05 09:12] LABS: % Basophils 0.5 % (0-2); % Eosinophils 0.2 % (0-6); % Immature Granulocytes 0.8 % (0-0.5); % Lymphocytes 1.5 % (20.5-51.1); % Monocytes 14.7 % (1.7-9.3); % Neutrophils 82.3 % (42.2-75.2); Absolute Immature Granulocytes 0.1 10^3/uL (0-0.05); Absolute Lymphocytes 0.1 10^3/uL (1.2-3.4); Absolute Monocytes 1.3 10^3/uL (0.1-0.6); Absolute Neutrophils 7.3 10^3/uL (1.4-6.5); Hematocrit 32.5 % (39.0-52.0); Hemoglobin 10.8 g/dL (13.0-18.0); Mean Corp Hgb Conc. 33.2 g/dL (33.0-37.0); Mean Corpuscular Hgb 27.8 pg (27.0-31.0); Mean Corpuscular Volume 83.5 fL (80.0-94.0); Mean Platelet Volume 9.1 fL (7.4-10.4); Nucleated Red Blood Cells % 0 % (-); Platelet Count 605 10^3/uL (130-400); Red Blood Cell Count 3.89 10^6/uL (4.70-6.10); Red Cell Dist. Width 18.1 % (11.5-14.5); White Blood Cell Count 8.8 10^3/uL (4.8-10.8)
[2025-01-05 09:26] LABS: NT-proBNP 1110 pg/ml; Troponin I < 0.012 ng/ml
[2025-01-05 09:27] LABS: ALT (SGPT) 44 U/L (0-50); AST (SGOT) 31 U/L (17-59); Albumin 2.9 g/dl (3.5-5.0); Alkaline Phosphatase 108 U/L (38-126); Blood Urea Nitrogen 9 mg/dl (9-20); Calcium 9.1 mg/dl (8.4-10.2); Carbon Dioxide 26 mmol/L (22-30); Chloride 94 mmol/L (98-107); Estimated Creatinine Clearance > 125 ml/min; Glucose 315 mg/dl (70-99); Potassium 4.1 mmol/L (3.5-5.1); Sodium 129 mmol/L (135-145); Total Bilirubin 0.6 mg/dl (0.2-1.3); Total Protein 5.7 g/dl (6.3-8.2); eGFR > 60.00
[2025-01-05 10:18] LABS: INR 1.16; PT 15.2 Sec (11.4-14.6)
[2025-01-05 10:19] LABS: APTT 31.1 Sec (23.4-35.0)
--- NOTE | 2025-01-05 12:46 | HPS.HSE ---
Family Physician
-
Family Physician: Brennen Villalobos
Chief Complaint
-
sob
cough
History of Present Illness
64-year-old male with a recent history of metastatic lung cancer treatment, including chemotherapy completed on December 24 and radiation completed on December 15,CAD, urinary retention with mcmahon, HTN, HLD, type 2 DM presents with new-onset worsening
sob since last night. patient was not able to sleep last night due to sob. today his oxygen was in 80's. he has chronic cough with productive greenish sputum. his LE edema is chornic. denied fever, chills. denied SUMNER, dizzy or syncope. denied
abdominal pain,n,v,d. denied dysuria or hematuria.
Upon arrival patient was requiring 4 L of oxygen. Admitting for further manage
Medical History
Past Medical History
Past Medical History: Reports Other
Additional Past Medical History:
Hilar lymphadenopathy
Left parotid gland mass
Centrilobular emphysema GERD
Squamous cell carcinoma
Hypertension
type 2 diabetes
Hyperlipidemia n
Past Surgical History: Reports Other
Additional Past Surgical History:
Cardiac stent placed
Social History
Tobacco: Former Smoker
Alcohol: None
Drug: None
Personal:
Living: With Family
Family History
Family History: Not pertinent
Allergies / Home Medications
Allergies reflects when Allergies were last updated in [facility].
Home Medications with original date entered in [facility]
Allergy/Medication List:
Allergies
Allergy/AdvReac Type Severity Reaction Status Date / Time
levofloxacin (From Levaquin) Allergy Unknown Verified 01/05/25 08:15
Home Medications
atorvastatin 20 mg tablet (Lipitor) 20 mg PO DAILY High Cholesterol 09/27/24
escitalopram oxalate 10 mg tablet 15 mg PO DAILY Depression 09/27/24
omega-3 fatty acids-fish oil 684 mg-1,200 mg capsule,delayed release 1 cap PO DAILY Supplement 09/27/24
therapeutic multivitamin 1 tab PO DAILY Supplement 09/27/24
vitamin B complex 1 tab PO DAILY Supplement 09/27/24
benzonatate 200 mg capsule 200 mg PO TIDPRN PRN cough 10/08/24
Aredia 1 dose IV TH Cancer 10/30/24
gabapentin 100 mg capsule 100 mg PO DAILY Pain 10/30/24
lorazepam 0.5 mg tablet 0.5 mg PO DAILYPRN PRN before radiation 10/30/24
magnesium oxide 400 mg PO DAILY Electrolyte Repletion 10/30/24
mirtazapine 7.5 mg tablet 7.5 mg PO DAILY depression/insomnia 10/30/24
oxycodone 5 mg tablet 5 mg PO HS Pain 10/30/24
sodium di- and monophosphate-potassium phos monobasic 250 mg tablet (Phospha Neutral) 2 tab PO DAILY 10/30/24
albuterol sulfate 2.5 mg/3 mL (0.083 %) solution for nebulization 2.5 mg (3 mL) inhalation R BID #60 ea 11/03/24
insulin aspart U-100 100 unit/mL (3 mL) subcutaneous pen (Novolog FlexPen U-100 Insulin aspart) 14 unit (0.14 mL) SC AC #5 ea 11/03/24
insulin glargine 100 unit/mL (3 mL) subcutaneous pen (Lantus Solostar U-100 Insulin) 26 unit (0.26 mL) SC HS #5 ea 11/03/24
ondansetron 8 mg disintegrating tablet 8 mg PO Q8H PRN nausea and vomiting #30 tabs 11/03/24
pen needle, diabetic 31 gauge x 1/3' #100 ea 11/03/24
prochlorperazine maleate 10 mg tablet (Compazine) 10 mg PO Q6H PRN nausea and vomiting #30 tabs 11/03/24
sodium chloride 3 % for nebulization (NebuSal) 4 ml inhalation BID #240 mL 11/03/24
tamsulosin 0.4 mg capsule (Flomax) 0.4 mg PO DAILY #30 caps 12/10/24
cefuroxime axetil 500 mg tablet 500 mg PO BID #14 tabs 12/30/24
Review of Systems
-
Constitutional: Reports No Symptoms
EENT: Reports No Symptoms
Respiratory: Reports Cough and Trouble Breathing
Cardiac: Reports No Symptoms
Abdomen/GI: Reports No Symptoms
: Reports No Symptoms
Musculoskeletal: Reports Edema (Lower extremities edema)
Skin: Reports No Symptoms
Neurological: Reports No Symptoms
Endocrine: Reports No Symptoms
Hematologic/Lymphatic: Reports No Symptoms
Psych: Reports No Symptoms
Physical Exam
Vital Signs
Vital Signs
Temp Pulse Resp BP Pulse Ox
98.9 F 102 25 128/81 93
01/05/25 08:12 01/05/25 08:45 01/05/25 08:45 01/05/25 08:12 01/05/25 09:02
Physical Exam
General: Well Developed, Well Nourished and No Apparent Distress
HEENT: NormoCephalic, Moist mucous membranes and Atraumatic
Respiratory: Rales, Rhonchi and Crackles
Cardiac: S1/S2 and Regular Rhythm; No Murmur or Rub
GI: Soft, Non Tender, Non Distended and Normal Bowel Sounds; No Organomegaly
Rectal: Deferred by Provider
Musculoskeletal: No Clubbing, No Cyanosis and Other (Bilateral lower extremities edema)
Skin: No Rash
Neuro: AO x 3 and Nonfocal/grossly intact
Psych: Calm
Laboratory Results
-
01/05/25 08:44
01/05/25 08:44
Laboratory Results
PT 15.2 Sec (11.4-14.6) H 01/05/25 08:44
INR 1.16 01/05/25 08:44
APTT 31.1 Sec (23.4-35.0) 01/05/25 08:44
Total Bilirubin 0.6 mg/dl (0.2-1.3) 01/05/25 08:44
AST 31 U/L (17-59) 01/05/25 08:44
ALT 44 U/L (0-50) 01/05/25 08:44
Alkaline Phosphatase 108 U/L (38-126) 01/05/25 08:44
Troponin I < 0.012 ng/ml 01/05/25 08:44
Data Reviewed
-
CT Scan: Report Reviewed by me
Lab Data: Labs Reviewed by me
Old Records: Requested
Impression/Plan
-
# Acute hypoxic respiratory failure likely progression of lung cancer
# History of metastatic lung cancer
#Concern for PFO
- CTA with. Suboptimal contrast opacification of the pulmonary arteries. No gross evidence for large central embolism.See above discussion regarding enlargement of the right ventricle compared to the left ventricle. Questionable unopacified blood
extending across the interatrial septum into the left atrium .Small moderate left pleural effusion, increased from prior CT examination.Findings a lymphangitic spread of carcinoma, left greater right. Bilateral pulmonary nodules compatible with
pulmonary metastatic nodules.Stent is present involving the trachea and the proximal mainstem bronchi, the stent appears patent. Not mentioned above, there is some nodular narrowing of the left mainstem bronchus just past the stent, which is likely
from neoplastic involvement
- Pulmonology, oncology consult
- Continue supplemental oxygen to keep sat greater than 92
- Wean as tolerated nebs as needed for short of breath and wheezing
-will obtain ECHO
-consider cardiology consult once the ECHo resulted
# Anemia likely from chronic disease
# Thrombocytosis
-Hemoglobin stable at 10.8
-No active bleeding
-Continue to monitor
# Chronic hyponatremia likely from metastatic disease
- Sodium 129
- Continue to monitor
# Paroxysmal atrial fibrillation
- EKG with sinus tachycardia
#Uncontrolled type 2 diabetes with hyperglycemia
-blood sugar in 300's
-Hemoglobin A1c 10.3
-sliding scale
#Moderate protein calorie malnutrition
Encourage oral intake
DVT prophylaxis�SCDs
full code
--- NOTE | 2025-01-05 13:23 | PHANOTE ---
Med history collection note
Spoke with spouse Claudette on 01/05 at 13:24 PM - at direction of patient
Spouse unable to discuss medication list at this time
Claudette will be in around ~3:15 PM and can discuss medications at that time
--- NOTE | 2025-01-05 16:45 | W.PN.UPDATE ---
Addendum entered and electronically signed by Alfred Villalobos MD 01/05/25 16:51:
Update: Hold off on cardiology consult until echocardiogram performed.
Original Note:
Update Note
Progress Note Update
This is an addendum to H&P written by Geraldine Wu on 01/05/2025. �Patient seen and examined independently with CARE ASSOCIATE.
64-year-old male past medical history of metastatic squamous cell lung cancer on chemotherapy completed on 12/24 and radiation completed on 12/15 with mediastinal and hilar lymphadenopathy with external tracheal compression status post tracheal stent,
COPD on imaging, former smoker, CAD s/p stent, chronic anemia, transient atrial fibrillation, type 2 diabetes, thrombocytosis presenting with productive cough, green-liu sputum and shortness of breath with exertion.
Currently requiring 4 L oxygen. �Tachycardic.
Labs show sodium of 129 which is stable. �Cardiac BNP 1000.
EKG shows sinus tachycardia.
CT chest showed small to moderate left pleural effusion increased from prior CT scan. �There is lymphangitic spread of carcinoma left greater than right. �There are bilateral pulmonary nodules compatible with pulmonary metastatic nodules. �Tracheal
stent appears patent although some nodular narrowing of the left mainstem bronchus past the stent likely from neoplastic involvement.
Also RV appears relatively enlarged, slightly greater transverse dimension and left ventricle and right atrium also enlarged. �Question whether there could be right to left flow extending from the right atrium to the left atrium through patent
[place] with elevated right heart pressures.
Presentation is consistent with acute hypoxemic respiratory failure secondary to lymphangitic spread of squamous cell lung carcinoma. �Does not seem that small to moderate left pleural effusion is sufficient size to be tapped.
There also appears to be right to left shunting through patent roy ovale which could perhaps explain some degree of hypoxemia.
Pulmonary consulted. �Oncology consulted. �Check echocardiogram and cardiology consulted.
Pulmonary recommended transfer to [facility] and patient was accepted by Dr. Bárbara Arias, general pulmonology. They will not accept patient until Wednesday for potential stent exchange on Wednesday.�
[2025-01-05] MEDS: TYLENOL 650 MG PO (19:16)
[2025-01-05] MEDS: MUCINEX 1200 MG PO (19:16)
[2025-01-05] MEDS: SODIUM CHLORIDE 3% FOR INHALATION 1 VIAL INH (19:40)
[2025-01-05] MEDS: DUONEB 3 ML INH (19:40)
[2025-01-05 21:51] LABS: Glucose - Point of Care 367 mg/dl (70-99)
[2025-01-05] MEDS: NOVOLOG FLEXPEN 7 UNITS SC (22:23)
[2025-01-05 22:59] LABS: % Basophils 0.3 % (0-2); % Eosinophils 0.4 % (0-6); % Immature Granulocytes 0.7 % (0-0.5); % Lymphocytes 1.2 % (20.5-51.1); % Monocytes 10.1 % (1.7-9.3); % Neutrophils 87.3 % (42.2-75.2); Absolute Immature Granulocytes 0.1 10^3/uL (0-0.05); Absolute Lymphocytes 0.1 10^3/uL (1.2-3.4); Hematocrit 30.1 % (39.0-52.0); Hemoglobin 10.5 g/dL (13.0-18.0); Mean Corp Hgb Conc. 34.9 g/dL (33.0-37.0); Mean Corpuscular Hgb 28.8 pg (27.0-31.0); Mean Corpuscular Volume 82.7 fL (80.0-94.0); Nucleated Red Blood Cells % 0 % (-); Platelet Count 551 10^3/uL (130-400); Red Blood Cell Count 3.64 10^6/uL (4.70-6.10); White Blood Cell Count 10.3 10^3/uL (4.8-10.8)
[2025-01-05 23:12] LABS: Blood Urea Nitrogen 8 mg/dl (9-20); Calcium 8.8 mg/dl (8.4-10.2); Carbon Dioxide 27 mmol/L (22-30); Chloride 96 mmol/L (98-107); Estimated Creatinine Clearance > 125 ml/min; Glucose 355 mg/dl (70-99); Potassium 3.8 mmol/L (3.5-5.1); Sodium 128 mmol/L (135-145); eGFR > 60.00
[2025-01-06] VITALS (10 sets, daily range): BP systolic 92–116; BP diastolic 57–78; BMI 22.7
[2025-01-06 00:38] LABS: Glucose - Point of Care 329 mg/dl (70-99)
[2025-01-06] MEDS: NOVOLOG FLEXPEN 10 UNITS SC (01:15)
[2025-01-06 03:32] LABS: Glucose - Point of Care 272 mg/dl (70-99)
[2025-01-06] MEDS: DUONEB 3 ML INH ×5 (03:43→23:46)
[2025-01-06 07:09] LABS: Hematocrit 30.1 % (39.0-52.0); Hemoglobin 9.9 g/dL (13.0-18.0); Mean Corp Hgb Conc. 32.9 g/dL (33.0-37.0); Mean Corpuscular Hgb 27.1 pg (27.0-31.0); Mean Corpuscular Volume 82.5 fL (80.0-94.0); Mean Platelet Volume 8.9 fL (7.4-10.4); Platelet Count 558 10^3/uL (130-400); Red Blood Cell Count 3.65 10^6/uL (4.70-6.10); Red Cell Dist. Width 17.4 % (11.5-14.5); White Blood Cell Count 12.7 10^3/uL (4.8-10.8)
[2025-01-06 07:12] LABS: Blood Urea Nitrogen 7 mg/dl (9-20); Carbon Dioxide 28 mmol/L (22-30); Chloride 95 mmol/L (98-107); Estimated Creatinine Clearance > 125 ml/min; Glucose 214 mg/dl (70-99); Potassium 4.1 mmol/L (3.5-5.1); Sodium 127 mmol/L (135-145); eGFR > 60.00
[2025-01-06] MEDS: SODIUM CHLORIDE 3% FOR INHALATION 1 VIAL INH ×3 (07:15→23:47)
--- NOTE | 2025-01-06 07:15 | PTCARENOTE ---
Received report from nightshift RN. community outreach advocate displaying HR 100's. Upon walking rounds, pt dyspneic at rest, labored breathing, 15 L midflow. Unable to talk without increased shortness of breathe. Frequent moist cough. Attempted to wean to
10 L, saturation decreased to 80's. Respiratory at bedside. MD made aware, new order provided. MD at bedside. IMU transfer order in, report provided to IMU RN. MD made aware of indwelling mcmahon catheter. General Assignment Reporter made aware of transfer order. IMU
RN made aware of [facility] transfer center # to notify [facility] of transfer, phone # [phone].
--- NOTE | 2025-01-06 07:15 | PTCARENOTE ---
report received. aaox3. nsr. 15lmidflow. pulse ox >92%. Rawls draining yellow urine. resp @ bedside. abg obtained. pt updated on plan of care. will monitor.
--- NOTE | 2025-01-06 07:25 | W.PN.UPDATE ---
Update Note
Progress Note Update
Contacted by nursing at 0717 that the pt is on 15L midflow and tachypneic with concerns that pt's level of care should be upgraded. On chart review orders placed for IMU and STAT ABG.
--- NOTE | 2025-01-06 07:33 | W.PN.HOSP.TC ---
Today's Communication/Plan
-
see plan
Assessment / Plan
Assessment / Plan
Gen: NAD, AAOx3, appears chronically ill.
Eyes: EOMI, PERRLA, no scleral icterus.
Neck: supple.
CV: tachy, reg rhythm, +S1/S2, no m/r/g.
Resp: rhonchi R base, faint rales L base
Abd: +BS, soft, NT, ND
Skin: No rashes.
Neuro: CN 2-12 intact, non-focal.
Psych: Normal mood and affect.
CTA chest: Suboptimal contrast opacification of the pulmonary arteries. No gross evidence for large central embolism. See above discussion regarding enlargement of the right ventricle compared to the left ventricle. Questionable unopacified blood
extending across the interatrial septum into the left atrium. Small moderate left pleural effusion, increased from prior CT examination. Findings a lymphangitic spread of carcinoma, left greater right. Bilateral pulmonary nodules compatible with
pulmonary metastatic nodules. Stent is present involving the trachea and the proximal mainstem bronchi, the stent appears patent. Not mentioned above, there is some nodular narrowing of the left mainstem bronchus just past the stent, which is likely
from neoplastic involvement.
Echo: Normal left ventricular size and function. EF 55-60%. Interatrial septal aneurysm with no evidence of shunting by color flow Doppler. Since echocardiogram 09/27/2024 there is no significant change. Could consider repeating echo with bubble
study to exclude PFO.
Acute hypoxic respiratory failure:
-likely due to progression of metastatic lung cancer
-currently on 15L midflow
-Echo without evidence of R to L shunting, may need echo with bubble study
-upgrade to IMU
-STAT ABG
-pulm and onc aware of upgrade in care and to prioritize seeing the pt. Asked ONC specifically regarding the pt's prognosis from a cancer standpoint.
Chronic hyponatremia:
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
-place of fluid restriction noting that if the patient's blood pressure drops he may require isotonic IV fluids
Paroxysmal atrial fibrillation:
-Sinus tachy on ECG on admission
-not on AC VALVER
DM2:
-uncontrolled with hyperglycemia
-a1c P but recent a1c 9.7%
-as the pt is malnourished he should not be on 1200Kcal/day, change to 2000kcal/day diabetic diet
-Also, SSI is not enough, start Lantus 10U daily (now) and 3U premeal Aspart. Titrate PRN.
Anemia likely from chronic disease: Hb stable
Moderate protein calorie malnutrition
Thrombocytosis
Chronic mcmahon (in place on admission)
FULL code
SCDs ONLY were ordered for DVT proph. This pt needs pharmacological DVT prophylaxis. Lovenox ordered to start this morning.
Total time spent on today's encounter was 50 minutes which included time spent in counseling the patient/family regarding diagnosis and treatment plan as listed above, goals of care, and symptom management. Case was discussed with nursing staff,
specialists, and care coordinators/case management. All labs and imaging personally reviewed by me. Remainder the time spent in detailed review of previous records, lab data, imaging, and other medical provider documentation.
Anticipated Discharge: > 48 hours
Subjective/Interval History
-
Date of Service: January 06, 2025
When asked if the pt feels SOB he says 'not yet? What number oxygen am I on?'
Objective Data
-
Labs:
Laboratory Results
01/05/25 01/06/25 01/06/25
22:48 06:26 07:22
WBC 10.3 12.7 H
Hgb 10.5 L 9.9 L
Hct 30.1 L 30.1 L
Plt Count 551 H 558 H
HCO3 Pending
Sodium 128 L 127 L
Potassium 3.8 4.1
Chloride 96 L 95 L
Carbon Dioxide 27 28
BUN 8 L 7 L
Creatinine 0.4 L 0.5 L
Glucose 355 H 214 H
Calcium 8.8 9.0
Vital Signs:
Vital Signs
Temp Pulse Resp BP Pulse Ox
99.6 F 99 18 110/72 96
01/06/25 03:37 01/06/25 07:17 01/06/25 07:17 01/06/25 03:37 01/06/25 07:17
I&O
01/05/25 01/06/25 01/07/25
06:59 06:59 06:59
Intake Total 720 / 720
Output Total 1375 / 1375
Balance -655 / -655
[2025-01-06 08:26] LABS: B.E. 4.6 mmol/L; HCO3 28.2 mmol/L (21-28); O2 Saturation % 99.1 % (94-98); PCO2 37 mmHg (35-48); PO2 110 mmHg (83-108); pH 7.49 (7.35-7.45)
[2025-01-06 08:28] LABS: O2 Therapy 15L
[2025-01-06] MEDS: REMERON 7.5 MG PO (08:52)
[2025-01-06] MEDS: LANTUS 0.1 UNITS SC (08:52)
[2025-01-06] MEDS: NEURONTIN 100 MG PO (08:52)
[2025-01-06] MEDS: FLOMAX 0.4 MG PO (08:52)
[2025-01-06] MEDS: MUCINEX 1200 MG PO ×2 (08:52→19:57)
[2025-01-06] MEDS: LIPITOR 20 MG PO (08:53)
[2025-01-06] MEDS: LOVENOX 40 MG SC (08:53)
[2025-01-06 09:01] LABS: Glucose - Point of Care 253 mg/dl (70-99)
[2025-01-06] MEDS: NOVOLOG FLEXPEN-MODERATE RESISTANCE 5 UNITS SC ×2 (09:07→11:43)
[2025-01-06 10:11] LABS: Glucose - Point of Care 238 mg/dl (70-99)
[2025-01-06 10:52] LABS: Glycohemoglobin (HgbA1c) 11.8 % (4.0-5.6)
--- NOTE | 2025-01-06 11:07 | PTCARENOTE ---
[facility] transfer hasty made aware that patient has been upgraded to imu and requires 15l midflow.
[2025-01-06] MEDS: NOVOLOG FLEXPEN 3 UNITS SC ×2 (11:44→16:20)
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
[2025-01-06 11:53] LABS: Glucose - Point of Care 276 mg/dl (70-99)
--- NOTE | 2025-01-06 15:46 | PHA.VAN.IN ---
Assessment
- Assessment
Renal Function: Appears similar to baseline
Maximum Temperature: 102.3
Minimum Temperature: 98.3
Concomitant Antimicrobials: Piperacillin-tazobactam
AUC Dosing Plan
- Empiric Dosing
Initial / Loading Dose: Vanc 2000mg - administration pending
Maintenance Regimen: Vanc 1000mg IV q8h
Estimated AUC (mcg*h/mL): 549.65
Estimated Peak (mcg*h/mL): 32.46
Estimated Trough (mcg/ml): 15.23
Estimated Half Life (H): 6.4
- Monitoring
No levels ordered at this time: Consider levels after 01/07 2200 dose
Pharmacokinetics Vancomycin I
- -
Patient Age: 64
Patient Sex: Male
Vancomycin Day #: 1
Indication: Pulmonary/Respiratory
Requesting Provider: Howard
Pertinent Antimicrobial Allergies:
Levofloxacin = unknown
Height / Weight:
Height 6 ft
Actual Weight 76 kg
IBW in k.6
Adjusted BW in kg: NA
Pertinent Past Medical History: Metastatic lung cancer
- Vital Signs / Lab Results
Temp Pulse Resp BP Pulse Ox
99.4 F 103 18 94/67 95
01/06/25 15:06 01/06/25 15:33 01/06/25 15:33 01/06/25 12:00 01/06/25 15:33
Lab Results - Hematology
01/05/25 01/05/25 01/06/25
08:44 22:48 06:26
WBC 8.8 10.3 12.7 H
Lab Results - Chemistry
01/05/25 01/05/25 01/06/25
08:44 22:48 06:26
BUN 9 8 L 7 L
Creatinine 0.5 L 0.4 L 0.5 L
Estimated Creat Clear > 125 > 125 > 125
Albumin 2.9 L
01/05/25
22:48
Lactic Acid 1.0
[2025-01-06] MEDS: VANCOCIN 540 MG IV (16:08)
[2025-01-06] MEDS: NOVOLOG FLEXPEN-MODERATE RESISTANCE 3 UNITS SC (16:20)
[2025-01-06] MEDS: ZOSYN 100 IV ×2 (16:22→21:45)
[2025-01-06 16:26] LABS: Glucose - Point of Care 242 mg/dl (70-99)
[2025-01-06] MEDS: TYLENOL 650 MG PO (18:50)
--- NOTE | 2025-01-06 21:17 | CON.ONC ---
Consultation
-
Date Consultation Requested: 01/05/25
Date Consultation Performed: 01/06/25
Requesting Provider: Geraldine Wu
Performing Provider: Camila Bean
Reason for Consultation: Lung cancer
Impression
Impression
Metastatic squamous cell lung CA, lung vs tonsillary primary
Disease progression in lung following concurrent carbo/Taxol with radiation
Acute hypoxic respiratory failure
Chronic hyponatremia
Atrial fibrillation
Diabetes
Plan
Plan
Pt appears more ill than at initial diagnosis.
Hospice would be appropriate given poor PS.
Also reasonable to continue aggressive care and treat al potentially reversible causes of respiratory insufficiency. With molecular feature of high TMB, he could potentially respond well to immunotherapy if able to tolerate. This is a big 'if'
given current PS.
No objection to pt going to [facility] for possible re-stenting.
For now we will continue fully aggressive care including empiric abx for pna.
Case discussed extensively today with Dr. Lawrence, Dr. Gomez, pt and .
Thank you for consult, will follow along with you.
Patient History
History of Present Illness
64-year-old man well-known to me from the outpatient setting for history of locally advanced lung cancer. At diagnosis, he required stent placement [facility] for impending distal airway obstruction. He was then treated with
concurrent chemotherapy and radiation, weekly carboplatin and Taxol, with radiation completed December 15 and chemo completed December 24. Had 4 cycles of the weekly carboplatin Taxol and all. He seemed to be doing okay with treatment but then experienced
onset of worsening shortness of breath 6:12 PM. Overnight 613, patient was not able to sleep due to shortness of breath. He has been consistently hypoxic but O2 sat was lower today. He had no fevers or chills. On arrival he was requiring 4 L of
oxygen. Chest CT was performed which shows increased nodularity concerning for disease progression, and nodular narrowing of the left mainstem bronchus just past the stent, likely from neoplastic involvement. Apparently, in the ED, arrangements
were made for transfer to [facility] for evaluation of stent and possible placement of a new stent. was aware of these plans but the plans were somehow not communicated to the primary. Patient complains of weakness and has
reservations about the transfer to [facility]. Denies fevers, chills. Reports green sputum production.
Past-Medical/Surgical History
Past Medical History
Left parotid gland mass
Centrilobular emphysema GERD
Squamous cell carcinoma, TMB 10 Mut/MB on NGS
Tonsillar lesion
Hypertension
Type 2 diabetes
Hyperlipidemia
Past Surgical History
Cardiac stent placed
Social History
Tobacco: Former Smoker
Alcohol: None
Drug: None
Personal:
Living: With Family
Family History
Family History: Not pertinent
Patient Medication
�Medication �Instructions �Recorded �Confirmed �Last Taken �Type
atorvastatin 20 mg tablet (Lipitor) 20 mg PO DAILY High Cholesterol 09/27/24 01/05/25 01/04/25 History
omega-3 fatty acids-fish oil 684 1 cap PO DAILY Supplement 09/27/24 01/05/25 09/26/24 History
mg-1,200 mg capsule,delayed release
therapeutic multivitamin 1 tab PO DAILY Supplement 09/27/24 01/05/25 09/26/24 History
vitamin B complex 1 tab PO DAILY Supplement 09/27/24 01/05/25 09/26/24 History
benzonatate 200 mg capsule 200 mg PO TIDPRN PRN cough 10/08/24 01/05/25 Unknown History
gabapentin 100 mg capsule 100 mg PO DAILY Pain 10/30/24 01/05/25 Unknown History
lorazepam 0.5 mg tablet 0.5 mg PO DAILYPRN PRN before 10/30/24 01/05/25 Unknown History
radiation
mirtazapine 7.5 mg tablet 7.5 mg PO DAILY depression/insomnia 10/30/24 01/05/25 Unknown History
oxycodone 5 mg tablet 5 mg PO DAILY PRN Pain 10/30/24 01/05/25 Unknown History
sodium di- and 2 tab PO DAILY Supplement 10/30/24 01/05/25 Unknown History
monophosphate-potassium phos
monobasic 250 mg tablet (Phospha
Neutral)
ondansetron 8 mg disintegrating 8 mg PO Q8H PRN nausea and 11/03/24 01/05/25 Unknown Rx
tablet vomiting #30 tabs
prochlorperazine maleate 10 mg 10 mg PO Q6H PRN nausea and 11/03/24 01/05/25 Unknown Rx
tablet (Compazine) vomiting #30 tabs
albuterol sulfate 2.5 mg/3 mL 2.5 mg inhalation R BID 01/05/25 01/05/25 Unknown History
(0.083 %) solution for nebulization Lung/Breathing Issues
cefuroxime axetil 500 mg tablet 500 mg PO BID Infection 01/05/25 01/05/25 Unknown History
sodium chloride 3 % for 4 ml inhalation BID Lung/Breathing 01/05/25 01/05/25 Unknown History
nebulization (NebuSal) Issues
tamsulosin 0.4 mg capsule (Flomax) 0.4 mg PO DAILY BPH 01/05/25 01/05/25 Unknown History
Active Medications
Generic Name Dose Route Start Last Admin
Trade Name Freq PRN Reason Stop Dose Admin
Acetaminophen 650 mg 01/05/25 17:33 01/06/25 18:50
Acetaminophen 325 Mg Tablet PO 02/02/25 17:32 650 mg
Q4HPRN PRN Administration
mild pain/SUMNER/temp> 100.4F
Albuterol/Ipratropium 3 ml 01/05/25 17:33 01/06/25 07:15
Ipratropium 0.5/Albuterol 3 Mg (3 Ml Ampul) INH 3 ml
R Q4HPRN PRN Administration
shortness of breath
Protocol
Albuterol/Ipratropium 3 ml 01/06/25 16:00 01/06/25 18:00
Ipratropium 0.5/Albuterol 3 Mg (3 Ml Ampul) INH 3 ml
R QID ARIANNA Administration
Protocol
Atorvastatin Calcium 20 mg 01/06/25 08:00 01/06/25 08:53
Atorvastatin (Lipitor) 20 Mg Tablet PO 02/03/25 07:59 20 mg
DAILY ARIANNA Administration
Dextrose 12.5 grams 01/05/25 17:33
Dextrose 50% (0.5 Grams/Ml) 50 Ml Syringe IV 02/02/25 17:32
[id number] PRN
hypoglycemia
Protocol
Enoxaparin Sodium 40 mg 01/06/25 08:00 01/06/25 08:53
Enoxaparin Sodium 40 Mg/0.4 Ml Syringe SC 02/03/25 07:59 40 mg
DAILY ARIANNA Administration
Gabapentin 100 mg 01/06/25 08:00 01/06/25 08:52
Gabapentin 100 Mg Capsule PO 02/03/25 07:59 100 mg
DAILY ARIANNA Administration
Glucagon 1 mg 01/05/25 17:33
Glucagon 1 Mg Vial IM 02/02/25 17:32
PRN PRN
hypoglycemia
Protocol
Guaifenesin 1,200 mg 01/05/25 20:00 01/06/25 19:57
Guaifenesin 600 Mg Extended Release Tablet PO 02/02/25 19:59 1,200 mg
Q12 ARIANNA Administration
Piperacillin Sod/Tazobactam Sod 4.5 gram in 100 mls @ 200 mls/hr 01/06/25 16:00 01/06/25 16:22
Zosyn IV 100 mls
Q6H ARIANNA Administration
Insulin Glargine 12 units/ 0.12 mls @ 0 mls/hr 01/06/25 15:06
Device SC 02/03/25 07:59
DAILY ARIANNA
As Directed
Vancomycin HCl 1 gram in 200 mls @ 200 mls/hr 01/06/25 22:00
Vancocin IV
Q8H ARIANNA
Protocol
Insulin Aspart 0 units 01/06/25 07:30 01/06/25 16:20
Insulin Aspart Moderate Resistance 300 Units/3 Ml Pen.Injctr SC 02/03/25 07:29 3 units
AC ARIANNA Administration
Protocol
Insulin Aspart 3 units 01/06/25 11:30 01/06/25 16:20
Insulin Aspart (Novolog) 100 Units/Ml 3 Ml Flexpen SC 02/03/25 11:29 3 units
AC ARIANNA Administration
Mirtazapine 7.5 mg 01/06/25 08:00 01/06/25 08:52
Mirtazapine 7.5 Mg Regular Release Tablet PO 02/03/25 07:59 7.5 mg
DAILY ARIANNA Administration
Non-Form (Sod Phos 2 tablet 01/06/25 08:00
Di, [place]-K Phos [place] PO 02/03/25 07:59
[Phospha 250 DAILY ARIANNA
Neutral] 250 Mg Tabl
Oxycodone HCl 5 mg 01/05/25 17:33
Oxycodone 5 Mg Regular Release Tablet PO 01/19/25 17:32
DAILYPRN PRN
Pain
Sodium Chloride 1 vial 01/05/25 20:00 01/06/25 18:00
Sodium Chloride 3% For Inhalation 4 Ml Vial INH 1 vial
R BID ARIANNA Administration
Sodium Chloride 0 flush 01/05/25 18:00
Sodium Chloride 0.9% (Flush) Syringe IV 02/02/25 17:59
PER PROTOCOL ARIANNA
Sodium Chloride 1 vial 01/06/25 14:59
Sodium Chloride 3% For Inhalation 4 Ml Vial INH
R Q4HPRN PRN
Difficulty expectorating
Tamsulosin HCl 0.4 mg 01/06/25 08:00 01/06/25 08:52
Tamsulosin 0.4 Mg Capsule PO 02/03/25 07:59 0.4 mg
DAILY ARIANNA Administration
Review of Systems
-
History Source: Patient and Records
Constitutional: Reports No Appetite and Weakness
EENT: Reports No Symptoms
Respiratory: Reports Cough and Trouble Breathing
Cardiac: Reports No Symptoms
GI: Reports No Symptoms
: Reports No Symptoms
Musculoskeletal: Reports Muscle Weakness
Skin: Reports Sores (Decubitus ulcer on bottocks); Denies Rash
Neuro: Reports Weakness
Endocrine: Reports No Symptoms
Hematologic/Lymphatic: Reports No Symptoms
Psych: Reports Depressed and Anxious
Physical Exam
-
General: Appears Chronically Ill and Other (frail-appearing)
HEENT: Negative Jaundice or Moist Mucous Membranes
Cardiology: S1, S2 and Other (tachycardic)
Pulmonary: Other (diminished breath sounds)
GI: Soft and Normal Bowel Sounds
Musculoskeletal: No Clubbing, No Cyanosis and No Edema; Negative Normal Gait & Station
Extremities: No C/C/E
Neurology: Non Focal
Skin: Negative Rash or Jaundice
Hematologic / Lymphatic: No Lymphadenopathy and No Petechiae
Psych: Intact Judgement/Insight and Depressed
Labs
Lab Results
WBC 12.7 10^3/uL (4.8-10.8) H 01/06/25 06:26
RBC 3.65 10^6/uL (4.70-6.10) L 01/06/25 06:26
Hgb 9.9 g/dL (13.0-18.0) L 01/06/25 06:26
Hct 30.1 % (39.0-52.0) L 01/06/25 06:26
MCV 82.5 fL (80.0-94.0) 01/06/25 06:26
MCH 27.1 pg (27.0-31.0) 01/06/25 06:26
MCHC 32.9 g/dL (33.0-37.0) L 01/06/25 06:26
RDW 17.4 % (11.5-14.5) H 01/06/25 06:26
Plt Count 558 10^3/uL (130-400) H 01/06/25 06:26
MPV 8.9 fL (7.4-10.4) 01/06/25 06:26
Abs Immat Gran (auto) 0.1 10^3/uL (0-0.05) H 01/05/25 22:48
Absolute Neuts (auto) 9.0 10^3/uL (1.4-6.5) H 01/05/25 22:48
Absolute Lymphs (auto) 0.1 10^3/uL (1.2-3.4) L 01/05/25 22:48
Absolute Monos (auto) 1.0 10^3/uL (0.1-0.6) H 01/05/25 22:48
Absolute Eos (auto) 0.0 10^3/uL (0-0.7) 01/05/25 22:48
Absolute Basos (auto) 0.0 10^3/uL (0-0.2) 01/05/25 22:48
Immature Gran % 0.7 % (0-0.5) H 01/05/25 22:48
Neutrophils % 87.3 % (42.2-75.2) H 01/05/25 22:48
Lymphocytes % 1.2 % (20.5-51.1) L 01/05/25 22:48
Monocytes % 10.1 % (1.7-9.3) H 01/05/25 22:48
Eosinophils % 0.4 % (0-6) 01/05/25 22:48
Basophils % 0.3 % (0-2) 01/05/25 22:48
Creatinine 0.5 mg/dL (0.7-1.3) L 01/06/25 06:26
Vital Signs
Vital Signs
Temp Pulse Resp BP Pulse Ox
100.3 F 100 37 92/57 95
01/06/25 20:10 01/06/25 20:00 01/06/25 20:00 01/06/25 20:00 01/06/25 20:51
[2025-01-06 21:59] LABS: Glucose - Point of Care 299 mg/dl (70-99)
[2025-01-06] MEDS: VANCOCIN 200 IV (22:38)
[2025-01-06] MEDS: MELATONIN 10 MG PO (23:29)
[2025-01-06] MEDS: ATARAX 25 MG PO (23:29)
[2025-01-06] MEDS: ROXICODONE 5 MG PO (23:34)
[2025-01-07] VITALS (43 sets, daily range): BP systolic 66–130; BP diastolic 55–109; BMI 22.0
[2025-01-07] MEDS: ZOSYN 100 IV ×4 (04:36→21:22)
[2025-01-07 05:02] LABS: Hematocrit 31.6 % (39.0-52.0); Hemoglobin 10.4 g/dL (13.0-18.0); Mean Corp Hgb Conc. 32.9 g/dL (33.0-37.0); Mean Corpuscular Hgb 27.6 pg (27.0-31.0); Mean Corpuscular Volume 83.8 fL (80.0-94.0); Mean Platelet Volume 9.3 fL (7.4-10.4); Platelet Count 358 10^3/uL (130-400); Red Blood Cell Count 3.77 10^6/uL (4.70-6.10); Red Cell Dist. Width 17.7 % (11.5-14.5); White Blood Cell Count 14.8 10^3/uL (4.8-10.8)
[2025-01-07 05:18] LABS: Blood Urea Nitrogen 11 mg/dl (9-20); Calcium 9.6 mg/dl (8.4-10.2); Carbon Dioxide 29 mmol/L (22-30); Chloride 96 mmol/L (98-107); Estimated Creatinine Clearance > 125 ml/min; Glucose 268 mg/dl (70-99); Potassium 4.2 mmol/L (3.5-5.1); Sodium 130 mmol/L (135-145); eGFR > 60.00
[2025-01-07] MEDS: VANCOCIN 200 IV ×2 (05:51→13:33)
--- NOTE | 2025-01-07 07:02 | W.PN.UPDATE ---
Update Note
Progress Note Update
HR into 160s at 0700. appears to be atrial fibrillation. Similar issue back in October 2024 Amiodorone infusion added.
[2025-01-07] MEDS: CORDARONE 518 MG IV (07:21)
--- NOTE | 2025-01-07 07:30 | PTCARENOTE ---
Pt HR going into the 170's. bps 90's/60's. Pt having no complaints of chest tightness or feeling fast HR. EKG done Afib with RVR. SPO2 dropping to low 80's. Pt on 15L midflow NRB placed on pt spo2 now 88%. Night [employer]OR[employer] ATHLETIC TRAINER made aware. Amio gtt ordered.
Attending placing orders for Pt to be moved to ICU. Report given to FILTER PULP WASHER Wesley.
--- NOTE | 2025-01-07 07:31 | PTCARENOTE ---
At 0650 pt went into A fib with RVR, confirmed with EKG, O2 sat in 80s on 15L MF, BP 90s systolic. Pt awake and alert. Overnight DEVOPS Amada Del Rio updated, Dr. Gomez updated. Transfer to ICU orderd, j luis sarmiento, NIRAJ. Overnight RN Alexa Molina giving report
at this time to PET GROOMER,.
--- NOTE | 2025-01-07 07:46 | W.PN.HOSP.TC ---
Today's Communication/Plan
-
see plan
Assessment / Plan
Assessment / Plan
Gen: appears mild-moderately SOB, AAOx3, appears chronically ill.
Eyes: EOMI, PERRLA, no scleral icterus.
Neck: supple.
CV: tachy, reg rhythm, +S1/S2, no m/r/g.
Resp: B/L rhonchi (using accessory muscles of respiration)
Abd: +BS, soft, NT, ND
Skin: No rashes.
Neuro: remains CN 2-12 intact, non-focal.
Psych: Normal mood and affect.
CTA chest: Suboptimal contrast opacification of the pulmonary arteries. No gross evidence for large central embolism. See above discussion regarding enlargement of the right ventricle compared to the left ventricle. Questionable unopacified blood
extending across the interatrial septum into the left atrium. Small moderate left pleural effusion, increased from prior CT examination. Findings a lymphangitic spread of carcinoma, left greater right. Bilateral pulmonary nodules compatible with
pulmonary metastatic nodules. Stent is present involving the trachea and the proximal mainstem bronchi, the stent appears patent. Not mentioned above, there is some nodular narrowing of the left mainstem bronchus just past the stent, which is likely
from neoplastic involvement.
Echo: Normal left ventricular size and function. EF 55-60%. Interatrial septal aneurysm with no evidence of shunting by color flow Doppler. Since echocardiogram 09/27/2024 there is no significant change. Could consider repeating echo with bubble
study to exclude PFO.
Acute hypoxic respiratory failure:
-likely due to progression of metastatic NSCLC
-was on 15L midflow, now on high flow 55L/100% FiO2 (currently using accessory muscles)
-Echo without evidence of R to L shunting, may need echo with bubble study
-transfer to ICU
-pulm/onc following
-cont empiric Zosyn/Vanco (fever, leukocytosis, likely tumor fever with leukemoid rxn but possible sepsis due to post-obstructive PNA)
Hypotension:
-2L NS bolus ordered
-Levophed ordered if BP drops
Chronic hyponatremia:
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
-currently stable
Paroxysmal atrial fibrillation:
-Sinus tachy on ECG on admission
-this AM pt went into afib with RVR, Amio gtt started
-not on AC CONFIGURATION ENGINEER. MRI brain from 10/03/24 noted and without intracranial metastases. Ideally we would want a repeat MRI of the brain before starting therapeutic anticoagulation.
DM2:
-uncontrolled with hyperglycemia
-a1c 11.8%
-increase Lantus to 20U and premeal aspart to 6U
Other problems:
Essential hypertension: SBP currently 100
Anxiety
GERD: start PPI
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
Anemia likely from chronic disease: Hb stable
Moderate protein calorie malnutrition
Thrombocytosis
Chronic mcmahon (in place on admission)
Pt's updated at bedside.
RN updated
Update message sent to critical care, Dr. Lawrence.
FULL/Lovenox
Total critical care time spent = 45 min
Anticipated Discharge: > 48 hours
Subjective/Interval History
-
Date of Service: January 07, 2025
Patient reports shortness of breath. Denies chest pain.
Objective Data
-
Labs:
Laboratory Results
01/07/25
04:49
WBC 14.8 H
Hgb 10.4 L
Hct 31.6 L
Plt Count 358 D
Sodium 130 L
Potassium 4.2
Chloride 96 L
Carbon Dioxide 29
BUN 11
Creatinine 0.5 L
Glucose 268 H
Calcium 9.6
Vital Signs:
Vital Signs
Temp Pulse Resp BP Pulse Ox
99.9 F 162 39 100/77 93
01/07/25 07:24 01/07/25 07:30 01/07/25 07:30 01/07/25 07:30 01/07/25 07:30
I&O
01/06/25 01/07/25 01/08/25
06:59 06:59 06:59
Intake Total 720 / 720 940 / 940
Output Total 1375 / 1375 950 / 950
Balance -655 / -655 -10 / -10
[2025-01-07] MEDS: DUONEB 3 ML INH ×2 (07:47→11:19)
[2025-01-07] MEDS: NSS 1000 IV ×2 (07:50→08:35)
[2025-01-07] MEDS: SODIUM CHLORIDE 3% FOR INHALATION 1 VIAL INH ×3 (07:52→20:07)
[2025-01-07 08:01] LABS: Glucose - Point of Care 318 mg/dl (70-99)
[2025-01-07] MEDS: LEVOPHED 250 IV (08:25)
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
[2025-01-07] MEDS: LIPITOR 20 MG PO (08:32)
[2025-01-07] MEDS: REMERON 7.5 MG PO (08:32)
[2025-01-07] MEDS: PROTONIX 40 MG PO (08:32)
[2025-01-07] MEDS: FLOMAX 0.4 MG PO (08:32)
[2025-01-07] MEDS: MUCINEX 1200 MG PO ×2 (08:32→21:22)
[2025-01-07] MEDS: NEURONTIN 100 MG PO (08:32)
[2025-01-07] MEDS: LOVENOX 40 MG SC (08:32)
[2025-01-07] MEDS: NOVOLOG FLEXPEN 6 UNITS SC ×3 (08:33→17:32)
[2025-01-07] MEDS: NOVOLOG FLEXPEN-MODERATE RESISTANCE 7 UNITS SC (08:33)
[2025-01-07] MEDS: LANTUS 0.2 UNITS SC (08:34)
[2025-01-07] MEDS: CORDARONE 106 MG IV (08:47)
[2025-01-07] MEDS: NOVOLOG FLEXPEN SC (08:52)
--- NOTE | 2025-01-07 08:57 | PHA.VAN.FU ---
Vancomycin Assessment / Plan
- Assessment
Renal Function: Stable
WBC's are: Trending Up
In the past 24 hrs, patient has been: Febrile (Tmax = 103)
Concomitant Antimicrobials: Piperacillin-tazobactam
- Dosing Plan
Continue: Vanc 1000mg IV q8h
- Monitoring Plan
Peak Level: 01/08 at 0100
Trough Level: 01/08 at 0530
- Follow Up
Pharmacy will continue to follow.
Vancomycin Follow UP
- -
Patient Age: 64
Patient Sex: Male
Vancomycin Day #: 2
Indication: Pulmonary/Respiratory
Requesting Provider: Howard
Pertinent Antimicrobial Allergies:
Levofloxacin = unknown
Height / Weight:
Height 6 ft
Actual Weight 73.4 kg
IBW in k.6
Adjusted BW in kg: NA
Pertinent Past Medical History: Metastatic lung cancer
- Vital Signs / Lab Results
Temp Pulse Resp BP Pulse Ox
99.9 F 175 35 100/77 96
01/07/25 07:24 01/07/25 07:48 01/07/25 07:48 01/07/25 07:30 01/07/25 07:49
Lab Results - Hematology
01/05/25 01/05/25 01/06/25
08:44 22:48 06:26
WBC 8.8 10.3 12.7 H
01/07/25
04:49
WBC 14.8 H
Lab Results - Chemistry
01/05/25 01/05/25 01/06/25
08:44 22:48 06:26
BUN 9 8 L 7 L
Creatinine 0.5 L 0.4 L 0.5 L
Estimated Creat Clear > 125 > 125 > 125
Albumin 2.9 L
01/07/25
04:49
BUN 11
Creatinine 0.5 L
Estimated Creat Clear > 125
Albumin
01/05/25
22:48
Lactic Acid 1.0
Microbiology Results
01/06/25 15:43 Legionella Urinary Antigen - Final
Urine Negative for Legionella pneumophila Serogroup 1 antigen.
A negative result does not rule out the possiblity of
Legionella infection due to other serogroups or species of
Legionella. Clinical correlation is recommended.
Streptococcus pneumoniae Antigen (M - Final
Negative for Streptococcus pneumoniae antigen.
A negative result does not exclude infection with
Streptococcus pneumoniae. Clinical correlation is
recommended.
01/06/25 15:43 Nasal Screen MRSA (PCR) - Final
Nose MRSA not detected - performed by PCR methodology.
[2025-01-07 09:53] LABS: INR 1.45; PT 17.9 Sec (11.4-14.6)
[2025-01-07 09:54] LABS: APTT 40.5 Sec (23.4-35.0)
--- NOTE | 2025-01-07 09:58 | PTCARENOTE ---
pt transferred from [facility] pt aaox3. states no pain. resp rate 30's pt states not feeling sob but seams to have labored breathing. placed on high flow o2. o2 sat 97%. breath sounds course rhonchi. pt has harsh moist productive cough bring up cummings
thick. amio gtt and ivf bolus running at transfer. dr Gomez up to see pt. second nss bolus amio bolus and levo gtt ordered. mcmahon in place. sacral foam dressing in place. pt waife at bedside reviewed plan of care and need to stabilized pt
before he could be transferred to [place]. she is very adamant that he go to [facility] to have another stent placed. spoke to [facility] transfer center. updated on pt condition.
--- NOTE | 2025-01-07 11:19 | CM ---
Met with patient and at bedside
Pharmacy verified: [facility] [id number]
Patient lives with : multilevel home; 5 steps to enter; 14 steps to 2nd floor bedroom and bath (tub w/shower); railing on stairs; powder room 1st floor
PLOF: assists with ADLs; ambulates without a device; no longer working
DME: glucometer, nebulizer
NO SNF or Home Health utilization history
Plan: Per patient's , patient is going to be transferred to [facility] when bed is available; registered nurse hh case manager will continue to monitor and provide support as needed
--- NOTE | 2025-01-07 11:26 | CON.CAR ---
Consultation
Consultation Request
Date/Time Consultation Requested: 01/07/2025 0845
Date/Time Consultation Performed: 01/07/2025 0900
Requesting Provider: Dr Gomez
Performing Provider: Dr Luna
Reason for Consultation: AF
Medical History
-
Chief Complaint: SOB
History of Present Illness:
Patient is a pleasant 64-year-old male with a past medical history of for tobacco use, metastatic non-small cell lung cancer, hypertension, hypercholesterolemia, anxiety, GERD, parotid mass, diabetes mellitus type 2, COPD, paroxysmal atrial
fibrillation not on anticoagulation who [facility] hospital due to shortness of breath and cough. Patient then transferred to the intensive care unit due to worsening shortness of breath and cough and AF RVR. Patient had been
started on amiodarone by primary service initially as drip only however bolused late this morning. In discussion with patient and his , patient reports mild shortness of breath and cough which again has remained unchanged. Patient denies any
chest pain, palpitations, lightheadedness, dizziness, or weakness. Patient had prior episode in October 2024 for which she was started on amiodarone with spontaneous return to sinus rhythm. Patient's prior echocardiogram showed EF 55-60%.
Past Medical History
Past Medical History: Other (See HPI)
Past Surgical History: Other (Possible prior stent placement (unclear if cardiac or airway),)
Social History
Tobacco: Former Smoker
Alcohol: None
Drug: None
Personal:
Living: With Family
Family History
Family History: Reviewed & Not Pertinent
Allergies / Home Medications
Allergy/AdvReac Type Severity Reaction Status Date / Time
levofloxacin (From Levaquin) Allergy Unknown Verified 01/05/25 08:15
�Medication �Instructions �Recorded �Confirmed �Type
atorvastatin 20 mg tablet (Lipitor) 20 mg PO DAILY High Cholesterol 09/27/24 01/05/25 History
omega-3 fatty acids-fish oil 684 1 cap PO DAILY Supplement 09/27/24 01/05/25 History
mg-1,200 mg capsule,delayed release
therapeutic multivitamin 1 tab PO DAILY Supplement 09/27/24 01/05/25 History
vitamin B complex 1 tab PO DAILY Supplement 09/27/24 01/05/25 History
benzonatate 200 mg capsule 200 mg PO TIDPRN PRN cough 10/08/24 01/05/25 History
gabapentin 100 mg capsule 100 mg PO DAILY Pain 10/30/24 01/05/25 History
lorazepam 0.5 mg tablet 0.5 mg PO DAILYPRN PRN before 10/30/24 01/05/25 History
radiation
mirtazapine 7.5 mg tablet 7.5 mg PO DAILY depression/insomnia 10/30/24 01/05/25 History
oxycodone 5 mg tablet 5 mg PO DAILY PRN Pain 10/30/24 01/05/25 History
sodium di- and 2 tab PO DAILY Supplement 10/30/24 01/05/25 History
monophosphate-potassium phos
monobasic 250 mg tablet (Phospha
Neutral)
ondansetron 8 mg disintegrating 8 mg PO Q8H PRN nausea and 11/03/24 01/05/25 Rx
tablet vomiting #30 tabs
prochlorperazine maleate 10 mg 10 mg PO Q6H PRN nausea and 11/03/24 01/05/25 Rx
tablet (Compazine) vomiting #30 tabs
albuterol sulfate 2.5 mg/3 mL 2.5 mg inhalation R BID 01/05/25 01/05/25 History
(0.083 %) solution for nebulization Lung/Breathing Issues
cefuroxime axetil 500 mg tablet 500 mg PO BID Infection 01/05/25 01/05/25 History
sodium chloride 3 % for 4 ml inhalation BID Lung/Breathing 01/05/25 01/05/25 History
nebulization (NebuSal) Issues
tamsulosin 0.4 mg capsule (Flomax) 0.4 mg PO DAILY BPH 01/05/25 01/05/25 History
Review of Systems
-
History Source: Patient and Family
Constitutional: No Symptoms
EENT: No Symptoms
Respiratory: Cough and Trouble Breathing
Cardiac: No Symptoms
Abdomen/GI: No Symptoms
: No Symptoms
Musculoskeletal: No Symptoms
Skin: No Symptoms
Neurological: No Symptoms
Endocrine: No Symptoms
Hematologic/Lymphatic: No Symptoms
Physical Exam
Vital Signs
Temp Pulse Resp BP Pulse Ox
99.9 F 156 28 122/109 97
01/07/25 07:24 01/07/25 11:23 01/07/25 11:23 01/07/25 09:30 01/07/25 11:23
Lab Results
01/07/25 04:49
01/07/25 04:49
Troponin I < 0.012 ng/ml 01/05/25 08:44
Uad-O-Cinlmbsmnev Pept 1110 pg/ml 01/05/25 08:44
Physical exam:
GENERAL: Conversational dyspnea, high flow nasal cannula, cachectic
EYE: sclera anicteric
NECK: Supple, no JVD, no carotid bruit appreciated
ENT: normal nose, moist mucosal membranes
CARDIAC: Irregularly irregular, tachycardic, +S1/S2, no murmur, rubs, or gallops
CHEST/PULMONARY: Normal effort, bilateral rhonchi
ABDOMEN: Soft, without focal tenderness or distention
NEUROLOGICAL: Alert and oriented x3
SKIN: Warm and dry, no rash; no edema
PSYCH: Normal and appropriate interaction.
Impression / Plan
-
Impression:
AF RVR, minimally symptomatic
� [id number]: 3�4 (hypertension, age, diabetes; unclear if prior cardiac history with stenting). Not on anticoagulation
� Started on amiodarone drip for rate control
� Prior hospitalization with brief AF without reported cardiology follow-up
Stage IV non-small cell lung cancer with metastatic disease
Acute on chronic hypoxic respiratory failure
Anemia, chronic
Leukocytosis
Diabetes mellitus type 2
Hypertension currently hypotensive requiring vasopressor support
Echo 01/05/2025: EF 55 to 60%, intra-atrial septum without evidence of shunt, no significant valvular disease
Plan:
- Patient atrial fibrillation with rapid ventricular rate and symptomatic. Initiation of this likely multifactorial onset of acute on chronic respiratory failure and underlying medical conditions. Agree with primary service with rate control using
amiodarone. If patient hemodynamically unstable, could consider cardioversion however my concern is in a patient with elevated [id number] scoring, it is unclear if patient's been having AF outside the hospital given his minimal or lack of
symptoms. Therefore it is unclear if there is a presence of clot or thrombus. Discussed with hospitalist, Dr. Gomez, patient may require brain MRI in the setting of his metastatic disease to ensure patient safe candidate for oral anticoagulation.
Until such time, continue with rate control and treating underlying causes for the management of his atrial fibrillation. Can consider addition of low-dose beta-fabiano with normal EF to help improve his heart rate control which would therefore
improve his BP control alternatively, could also use diltiazem. As discussed with patient and his , patient is at risk for stroke given his [id number] scoring as well as metastatic cancer which can also be prothrombotic. Will therefore
encourage imaging to ensure safety for use of anticoagulation and his atrial fibrillation.
-Patient is critically ill with metastatic cancer and acute on chronic respiratory failure now complicated by AF RVR
� Discussed with family, nursing, hospitalist
Critical care time 35 minutes
Data Reviewed
-
EKG: Tracing Personally Visualized and interpreted
Radiology: Report Reviewed by me
Medical Tests (Nuc Med, Echo etc): Report Reviewed by me
Labs: Labs Reviewed by me
Old Records: Reviewed
[2025-01-07 11:57] LABS: Glucose - Point of Care 241 mg/dl (70-99)
[2025-01-07] MEDS: LANOXIN 500 MCG IV (11:59)
[2025-01-07] MEDS: VENTOLIN NEBULES INH (12:01)
[2025-01-07] MEDS: NOVOLOG FLEXPEN-MODERATE RESISTANCE 3 UNITS SC (12:03)
--- NOTE | 2025-01-07 12:41 | W.PN.UPDATE ---
Update Note
Progress Note Update
Discussion held with multiple family members, as well as the pt himself. We discussed his critical ill state, with worsening bilateral pneumonia in setting of his metastatic NSCLC, and weakness and now A-fib with RVR. We discussed code status, and
he has agreed to not be intubated if his breathing worsened. He said that he would still want CPR if his heart were to stop. I answered all of his questions, and the was present as well during this conversation.
[2025-01-07] MEDS: VENTOLIN NEBULES 1.25 MG INH ×2 (15:23→20:07)
[2025-01-07] MEDS: ATROVENT NEBULES 0.5 MG INH ×2 (15:23→20:07)
[2025-01-07] MEDS: TYLENOL 650 MG PO (15:40)
[2025-01-07 17:32] LABS: Glucose - Point of Care 354 mg/dl (70-99)
[2025-01-07] MEDS: NOVOLOG FLEXPEN-MODERATE RESISTANCE 9 UNITS SC (17:32)
[2025-01-07] MEDS: LANOXIN 250 MCG IV (17:35)
[2025-01-07] MEDS: NOVOLIN R 8 UNITS IV (19:09)
[2025-01-07] MEDS: TENORMIN 25 MG PO (19:09)
[2025-01-07] MEDS: NOVOLIN R INSULIN INFUSION 100 IV (19:10)
--- NOTE | 2025-01-07 19:50 | PTCARENOTE ---
cannot verify vitals captured prior to 1900.
[2025-01-07] MEDS: COMPAZINE 5 MG IV (19:59)
--- NOTE | 2025-01-07 20:00 | PTCARENOTE ---
Received pt resting in bed, AAOx3. DORSEY but weak. No complaints of pain. C/O mild nausea - BRYNN Del Rio notified - compazine ordered and given. AFib on tele, HR initially 140-150. Dayshift gave dose of PO atenolol and HR now 110s. EKG completed to
confirm rhythm - remains on afib. Amio gtt continues per orders. On levophed to maintain MAP>65. +1 LE edema. Weak DP pulses. SCDs maintained. Afebrile. On high flow NC 50L/80%. Spo2 95-97%. Lungs diminished, coarse and with rhonchi throughout. Exp
wheezing noted anteriorly. Productive cough with thick, white/cummings sputum. 2000cal diabetic diet - reportedly decent appetite today. LBM 2 days ago per pt. Hypoactive bowel sounds. Rawls draining yellow urine. Insulin gtt started at change of shift
for glycemic protocol - checks ongoing per protocol. Call naik in reach
[2025-01-07 20:23] LABS: Glucose - Point of Care 291 mg/dl (70-99)
[2025-01-07 21:15] LABS: Glucose - Point of Care 238 mg/dl (70-99)
[2025-01-07 22:14] LABS: Glucose - Point of Care 222 mg/dl (70-99)
--- NOTE | 2025-01-07 22:23 | W.PN.ONC2 ---
Today's Communication / Plan
-
Continue supportive care.
Discussed with pt and 01/06 that prognosis is poor given disease progression on chemo/RT and current pneumonia.
Concerning that O2 requirement is worse today, with new R lung opacification, despite abx.
Will continue to follow and revisit goals of care.
Impression
Impression
Metastatic squamous cell lung CA, lung vs tonsillary primary
Disease progression in lung following concurrent carbo/Taxol with radiation
Acute hypoxic respiratory failure
Chronic hyponatremia
Atrial fibrillation
Diabetes
Plan
Plan
Pt appears more ill than at initial diagnosis.
Hospice would be appropriate given poor PS.
Also reasonable to continue aggressive care and treat al potentially reversible causes of respiratory insufficiency. With molecular feature of high TMB, he could potentially respond well to immunotherapy if able to tolerate. This is a big 'if'
given current PS.
For now we will continue fully aggressive care including empiric abx for pna.
Pt and confirm wish for DNR.
Subjective/Objective
Chief Complaint
Heme/Onc followup of lung cancer with hypoxic respiratory failure
Subjective
Looking and feeling a bit better today but O2 requirement increased and lung imaging worse. Family now less keen on transfer to [facility].
Vital Signs:
Vital Signs
Temp Pulse Resp BP Pulse Ox
98.7 F 116 34 106/72 98
01/07/25 20:45 01/07/25 21:30 01/07/25 21:30 01/07/25 21:30 01/07/25 21:00
Lab Results:
Laboratory Data
WBC 14.8 10^3/uL (4.8-10.8) H 01/07/25 04:49
Hgb 10.4 g/dL (13.0-18.0) L 01/07/25 04:49
Plt Count 358 10^3/uL (130-400) D 01/07/25 04:49
PT 17.9 Sec (11.4-14.6) H 01/07/25 09:37
INR 1.45 01/07/25 09:37
APTT 40.5 Sec (23.4-35.0) H 01/07/25 09:37
eGFR > 60.00 01/07/25 04:49
Physical Exam
Awake, alert, non-toxic
Chronically and acutely ill-appearing
[2025-01-07 23:31] LABS: Glucose - Point of Care 182 mg/dl (70-99)
[2025-01-08] VITALS (44 sets, daily range): BP systolic 80–125; BP diastolic 55–85; BMI 23.0
[2025-01-08] MEDS: LANOXIN 250 MCG IV (00:14)
--- NOTE | 2025-01-08 00:29 | PTCARENOTE ---
BG dropped to 91 - insulin on hold per protocol. Pt asymptomatic. Repeat in 1 hour. Pt. c/o not being able to sleep. He normally takes ativan PO at home- RAG GRADER notified. PO ativan ordered. Pt. bathed with CHG, mcmahon and mouth care provided.
[2025-01-08] MEDS: ATIVAN 0.5 MG PO ×2 (00:51→21:30)
--- NOTE | 2025-01-08 01:18 | PTCARENOTE ---
Shortly after scheduled 0000 dose of digoxin given, HR back up to 150. HR was previously more controlled 90s-110s. BLEACH LIQUOR MAKER notified. No new orders. Continues on amio gtt at 0.5mg/min. Pt asymptomatic.
[2025-01-08 01:27] LABS: Glucose - Point of Care 73 mg/dl (70-99)
[2025-01-08 02:13] LABS: Glucose - Point of Care 88 mg/dl (70-99)
--- NOTE | 2025-01-08 02:44 | PTCARENOTE ---
HR continues to be elevated at 150. BP 90-100/70s (MAP >65). Off levophed. CONTROLLER REPAIRER AND TESTER aware. Orders to increase amiodarone gtt back up to 1mg/min.
[2025-01-08 03:26] LABS: Glucose - Point of Care 75 mg/dl (70-99)
[2025-01-08] MEDS: CORDARONE 518 MG IV (04:28)
[2025-01-08] MEDS: ZOSYN 100 IV ×4 (04:33→21:31)
[2025-01-08 04:37] LABS: Glucose - Point of Care 80 mg/dl (70-99)
--- NOTE | 2025-01-08 04:46 | PTCARENOTE ---
Converted to NSR. HR now 90s-100s. BP stable off pressors. AM labs drawn. Insulin gtt continues to be off per protocol - BGs < 100 past few hours. Monitoring
[2025-01-08 04:53] LABS: Hematocrit 31.5 % (39.0-52.0); Hemoglobin 10.8 g/dL (13.0-18.0); Mean Corp Hgb Conc. 34.3 g/dL (33.0-37.0); Mean Corpuscular Hgb 28.1 pg (27.0-31.0); Mean Corpuscular Volume 81.8 fL (80.0-94.0); Mean Platelet Volume 9.1 fL (7.4-10.4); Platelet Count 588 10^3/uL (130-400); Red Blood Cell Count 3.85 10^6/uL (4.70-6.10); Red Cell Dist. Width 17.2 % (11.5-14.5); White Blood Cell Count 16.8 10^3/uL (4.8-10.8)
[2025-01-08 05:10] LABS: Blood Urea Nitrogen 11 mg/dl (9-20); Calcium 9.7 mg/dl (8.4-10.2); Carbon Dioxide 28 mmol/L (22-30); Chloride 98 mmol/L (98-107); Estimated Creatinine Clearance > 125 ml/min; Glucose 68 mg/dl (70-99); Magnesium 1.2 mg/dl (1.6-2.3); Potassium 4.1 mmol/L (3.5-5.1); Sodium 130 mmol/L (135-145); eGFR > 60.00
[2025-01-08] MEDS: MAGNESIUM SULFATE 100 IV (05:54)
[2025-01-08 06:18] LABS: Glucose - Point of Care 98 mg/dl (70-99)
[2025-01-08] MEDS: LOVENOX 40 MG SC (07:31)
[2025-01-08] MEDS: LIPITOR 20 MG PO (07:31)
[2025-01-08] MEDS: NEURONTIN 100 MG PO (07:31)
[2025-01-08] MEDS: PROTONIX 40 MG PO (07:31)
[2025-01-08] MEDS: MUCINEX 1200 MG PO ×2 (07:31→20:34)
[2025-01-08] MEDS: FLOMAX 0.4 MG PO (07:31)
[2025-01-08] MEDS: REMERON 7.5 MG PO (07:31)
[2025-01-08] MEDS: SODIUM CHLORIDE 3% FOR INHALATION 1 VIAL INH ×4 (07:37→20:17)
[2025-01-08] MEDS: ATROVENT NEBULES 0.5 MG INH ×4 (07:37→20:17)
[2025-01-08] MEDS: VENTOLIN NEBULES 1.25 MG INH ×4 (07:37→20:17)
--- NOTE | 2025-01-08 07:55 | PN.DE.MGMTRT ---
Insulin Management
- -
01/08/2025 Diabetes Management Consult
Patient admitted 01/05 with difficulty breathing. PMH Long CA - chemo, COPD, HTN, HCL, diabetes. Prior to admission no diabetes medications listed. A1C 11.8%, cr today .4, eGFR > 60.
Patient is awake alert and oriented able to answer questions. States he just found out yesterday he had diabetes. He is abrupt with answers.
Was on glycemic protocol, infusion has been off 12+ hours. Will stop glycemic protocol.
Start 500 mg metformin BID with moderate corrective insulin. Accucheks ACHS.
Will Follow
Discussed with nurse.
Diabetes History
- -
Type of Diabetes: 2
Pre-Admission Diabetes Regimen
01/08/25
04:17
Creatinine 0.4 L
Lab Results
Hemoglobin A1c 11.8 % (4.0-5.6) H 01/06/25 06:26
Insulin Pump Settings
IP Diabetes Regimen
01/07/25 01/07/25 01/07/25
07:50 11:55 17:31
Glucose
POC Glucose 318 H 241 H 354 H
01/07/25 01/07/25 01/07/25
20:11 21:05 22:02
Glucose
POC Glucose 291 H 238 H 222 H
01/07/25 01/08/25 01/08/25
23:20 01:16 02:02
Glucose
POC Glucose 182 H 73 88
01/08/25 01/08/25 01/08/25
03:14 04:17 04:26
Glucose 68 L
POC Glucose 75 80
01/08/25
06:07
Glucose
POC Glucose 98
Meal type: Lunch
Amount consumed: 75%
Patient Education
[2025-01-08] MEDS: NOVOLOG FLEXPEN 4 UNITS SC ×2 (08:21→12:38)
[2025-01-08 08:25] LABS: Glucose - Point of Care 108 mg/dl (70-99)
--- NOTE | 2025-01-08 08:26 | PTCARENOTE ---
Received pt awake and alert.speech is appropriate.+DORSEY.Denies pain.SR with occasional PVC noted.Amiodarone gtt infusing.High flow 50l 80% intact.POX 95-97%+tachypnea and MCRAE noted.Scattered coarse rhonchi noted.Frequent moist cough.Expectorating
large amount thick cummings secretions.Appetite excellent.No BM.Rawsl draining laurel urine.Skin integrity as documented.Plan of care discussed with pt.
[2025-01-08 08:27] LABS: Glucose - Point of Care 91 mg/dl (70-99)
--- NOTE | 2025-01-08 09:21 | W.PN.ONC ---
Today's Communication / Plan
-
Ongoing goals of care discussion
Continue antibiotics per marzipan maker and ID
Continue supportive measures per marzipan maker
Impression
Impression
Metastatic squamous cell lung CA, lung vs tonsillary primary
Disease progression in lung following concurrent carbo/Taxol with radiation
Acute hypoxic respiratory failure
Chronic hyponatremia
Atrial fibrillation
Diabetes
Plan
Plan
#Metastatic squamous cell carcinoma of the lung
Disease has appeared to have progressed following concurrent chemoradiation
Now presenting for acute hypoxic respiratory failure in setting of suspected pneumonia
CT chest this admission demonstrated lymphangitic spread of carcinoma left greater than right with bilateral pulmonary nodules compatible with pulmonary metastasis. Possible neoplastic involvement of stent involving trachea and and mainstem bronchi
Pt appears more ill than at initial diagnosis.
Hospice would be appropriate given poor PS. ECOG score 4 as patient is currently bedbound.
If performance status improves, reasonable to continue aggressive care and treat potentially reversible causes of respiratory insufficiency. With molecular feature of high TMB, he could potentially respond well to immunotherapy if able to tolerate.
Per marzipan maker patient changed CODE STATUS to DO NOT INTUBATE, but agreeable to CPR
Continue ongoing goals of care discussion
#Bilateral pneumonia
Teacher Dancing consulted and following
For now continue aggressive care with empiric antibiotics for pneumonia
Ongoing goals of care discussion
Subjective/Objective
Subjective/Objective
Vital Signs:
Vital Signs
Temp Pulse Resp BP Pulse Ox
98.8 F 88 18 104/64 97
01/08/25 07:23 01/08/25 07:40 01/08/25 07:40 01/08/25 06:00 01/08/25 07:51
Lab Results:
Laboratory Data
WBC 16.8 10^3/uL (4.8-10.8) H 01/08/25 04:17
Hgb 10.8 g/dL (13.0-18.0) L 01/08/25 04:17
Plt Count 588 10^3/uL (130-400) H D 01/08/25 04:17
PT 17.9 Sec (11.4-14.6) H 01/07/25 09:37
INR 1.45 01/07/25 09:37
APTT 40.5 Sec (23.4-35.0) H 01/07/25 09:37
eGFR > 60.00 01/08/25 04:17
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
[2025-01-08 10:06] LABS: Glucose - Point of Care 143 mg/dl (70-99)
[2025-01-08] MEDS: PACERONE 200 MG PO ×3 (10:29→21:31)
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
[2025-01-08 12:18] LABS: Glucose - Point of Care 156 mg/dl (70-99)
--- NOTE | 2025-01-08 12:45 | PTCARENOTE ---
Pt assessed.No change in assessment noted.Pt's at bedside.Plan of care discussed.
--- NOTE | 2025-01-08 14:00 | PTCARENOTE ---
Pt assisted oob to chair with 2 person mod-max assist.
--- NOTE | 2025-01-08 14:29 | CM ---
IV/AB, Wean FiO2, IV Amiodarone D/CD now PO. Discharge POC: TBD. Goals of Care discussed. No therapy orders.
--- NOTE | 2025-01-08 14:31 | W.PN.HOSP.TC ---
Today's Communication/Plan
-
Assessment / Plan
Assessment / Plan
Gen: appears mild-moderately SOB, AAOx3, appears chronically ill.
Eyes: EOMI, PERRLA, no scleral icterus.
Neck: supple.
CV: reg rhythm, heart rate 85, +S1/S2, no m/r/g.
Resp: B/L rhonchi, productive cough, high flow nasal cannula
Abd: +BS, soft, NT, ND
Skin: No rashes.
Neuro: remains CN 2-12 intact, non-focal.
Psych: Normal mood and affect.
CTA chest: Suboptimal contrast opacification of the pulmonary arteries. No gross evidence for large central embolism. See above discussion regarding enlargement of the right ventricle compared to the left ventricle. Questionable unopacified blood
extending across the interatrial septum into the left atrium. Small moderate left pleural effusion, increased from prior CT examination. Findings a lymphangitic spread of carcinoma, left greater right. Bilateral pulmonary nodules compatible with
pulmonary metastatic nodules. Stent is present involving the trachea and the proximal mainstem bronchi, the stent appears patent. Not mentioned above, there is some nodular narrowing of the left mainstem bronchus just past the stent, which is likely
from neoplastic involvement.
Echo: Normal left ventricular size and function. EF 55-60%. Interatrial septal aneurysm with no evidence of shunting by color flow Doppler. Since echocardiogram 09/27/2024 there is no significant change. Could consider repeating echo with bubble
study to exclude PFO.
Acute hypoxic respiratory failure:
-likely due to progression of metastatic NSCLC
- Treating as possible sepsis secondary to postobstructive pneumonia in the setting of lung cancer
-was on 15L midflow, now on high flow 55L/100% FiO2
- Continue aggressive pulmonary toileting
-Echo without evidence of R to L shunting, may need echo with bubble study
- Continue management in the ICU, appreciate pulmonology guidance
-cont empiric Zosyn, vancomycin discontinued as MRSA swab was negative
Hypotension:
-2L NS bolus given
-Levophed on hold
Chronic hyponatremia:
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
-currently stable
Paroxysmal atrial fibrillation:
- Developed A-fib with RVR, started on amiodarone drip
- Started on oral amiodarone 200 mg p.o. 3 times daily today 01/08, plan to titrate off IV drip
- Heart rate currently controlled
- Appreciate cardiology guidance
-not on AC UNION CONTRACT REPRESENTATIVE. MRI brain from 10/03/24 noted and without intracranial metastases. Ideally we would want a repeat MRI of the brain before starting therapeutic anticoagulation.
DM2:
-uncontrolled with hyperglycemia
-a1c 11.8%
- Metformin 500 mg twice daily, moderate resistance sliding scale insulin
- Currently well-controlled, monitor, appreciate diabetes CNC ROUTER OPERATOR guidance
Other problems:
Essential hypertension: SBP currently 100
Anxiety
GERD: start PPI
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
Anemia likely from chronic disease: Hb stable
Moderate protein calorie malnutrition
Thrombocytosis
Chronic mcmahon (in place on admission)
Pt's updated at bedside.
FULL/Lovenox
Total critical care time spent = 45 min
Anticipated Discharge: > 48 hours
Subjective/Interval History
-
Date of Service: January 08, 2025
Patient was seen and examined at bedside this morning. On high flow nasal cannula. Does not want transfer to [place] for debulking surgery at this point as was previously discussed as an option. He would like to stay here for treatment of his acute
pneumonia prior to considering any more aggressive options. Currently off vasopressors, remains on amiodarone drip.
Objective Data
-
Labs:
Laboratory Results
01/08/25
04:17
WBC 16.8 H
Hgb 10.8 L
Hct 31.5 L
Plt Count 588 H D
Sodium 130 L
Potassium 4.1
Chloride 98
Carbon Dioxide 28
BUN 11
Creatinine 0.4 L
Glucose 68 L
Calcium 9.7
Vital Signs:
Vital Signs
Temp Pulse Resp BP Pulse Ox
100.4 F H 84 36 95/61 96
01/08/25 11:30 01/08/25 11:30 01/08/25 11:30 01/08/25 11:30 01/08/25 11:30
I&O
01/07/25 01/08/25 01/09/25
06:59 06:59 06:59
Intake Total 940 / 940 1006.3 / 1159.6 559.8 / 559.8
Output Total 950 / 950 650 / 650
Balance -10 / -10 356.3 / 509.6 559.8 / 559.8
Review of Systems
-
History Source: Patient
Respiratory: Reports Cough and Trouble Breathing
Physical Exam
-
General: Appears Chronically Ill
--- NOTE | 2025-01-08 16:36 | PTCARENOTE ---
Pt assessed.No change in assessment.Tolerated 1 hour oob to chair.Amiodarone gtt discontinued as ordered.
[2025-01-08 18:07] LABS: Glucose - Point of Care 135 mg/dl (70-99)
[2025-01-08] MEDS: GLUCOPHAGE 500 MG PO (18:21)
[2025-01-08] MEDS: NOVOLOG FLEXPEN-MODERATE RESISTANCE SC (18:21)
[2025-01-08 20:54] LABS: TSH Reflex To Free T4 0.31 uIU/ml (0.47-4.68)
--- NOTE | 2025-01-08 21:04 | PTCARENOTE ---
Assumed care of pt at 1900. Pt is A/O x4, pleasant and cooperative with care. No c/o pain. Received pt on HFNC 80%/50LPM. SpO2 91-94%, when pt removes O2 he will drop to around 82%. Pt tachypneic with MCRAE. SR 90s on monitor. Physical assessment as
documented in nursing shift assessment flowsheet. CHG cloth bath done, mcmahon care done, linens changed, pt brushed his own teeth. Pt has productive cough, showed him how to use the yankauer for suctioning himself. Call naik and personal items within
reach.
[2025-01-08 21:19] LABS: Glucose - Point of Care 198 mg/dl (70-99)
[2025-01-08 21:25] LABS: Free T4 1.58 ng/dl (0.78-2.19)
[2025-01-08] MEDS: NOVOLOG FLEXPEN 2 UNITS SC (21:33)
[2025-01-09] VITALS (27 sets, daily range): BP systolic 87–122; BP diastolic 55–84; PULSE 79–85; O2SAT 95–96; BMI 22.5
--- NOTE | 2025-01-09 00:49 | PTCARENOTE ---
Assessment unchanged. Pt on HFNC 60% 40LPM now with SpO2 93-94%. SR 80s on monitor. Pt has been resting with eyes closed.
[2025-01-09] MEDS: ZOSYN 100 IV (03:51)
[2025-01-09] MEDS: VENTOLIN NEBULES 1.25 MG INH ×5 (03:53→19:53)
[2025-01-09 03:56] LABS: Hematocrit 27.9 % (39.0-52.0); Hemoglobin 9.5 g/dL (13.0-18.0); Mean Corp Hgb Conc. 34.1 g/dL (33.0-37.0); Mean Corpuscular Hgb 28.2 pg (27.0-31.0); Mean Corpuscular Volume 82.8 fL (80.0-94.0); Mean Platelet Volume 9.2 fL (7.4-10.4); Platelet Count 546 10^3/uL (130-400); Red Blood Cell Count 3.37 10^6/uL (4.70-6.10); Red Cell Dist. Width 17.4 % (11.5-14.5); White Blood Cell Count 13.2 10^3/uL (4.8-10.8)
--- NOTE | 2025-01-09 04:02 | PTCARENOTE ---
Assessment unchanged. Pt c/o having a lot of mucous that he was unable to expectorate. Attempted to suction with 14Fr suction catheter but this did not bring up much sputum and pt did not tolerate it well. Discussed with patient that he might
benefit from nasotracheal suctioning, which he agreed might help. TT sent to respiratory, order obtained for NT suctioning from ICU LENO SEWER Cory Bean. RT at bedside and NT suctioned pt x2 (one pass through each nare), suctioned a large amount of
mucous, then administered breathing tx, pt now on 70% 40LPM of HFNC. SpO2 94%, SR 80s on monitor.
[2025-01-09 04:20] LABS: Blood Urea Nitrogen 10 mg/dl (9-20); Calcium 9.5 mg/dl (8.4-10.2); Carbon Dioxide 28 mmol/L (22-30); Chloride 97 mmol/L (98-107); Estimated Creatinine Clearance > 125 ml/min; Glucose 166 mg/dl (70-99); Magnesium 1.4 mg/dl (1.6-2.3); Phosphorus 2.9 mg/dl (2.5-4.5); Potassium 3.8 mmol/L (3.5-5.1); Sodium 129 mmol/L (135-145); eGFR > 60.00
[2025-01-09] MEDS: MAGNESIUM SULFATE 100 IV (05:33)
[2025-01-09] MEDS: ATROVENT NEBULES 0.5 MG INH ×4 (07:20→19:53)
[2025-01-09] MEDS: SODIUM CHLORIDE 3% FOR INHALATION 1 VIAL INH ×4 (07:20→19:53)
[2025-01-09] MEDS: GLUCOPHAGE 500 MG PO ×2 (07:47→17:32)
[2025-01-09] MEDS: MUCINEX PO ×2 (07:47→07:55)
[2025-01-09] MEDS: PROTONIX 40 MG PO (07:47)
[2025-01-09] MEDS: REMERON 7.5 MG PO (07:47)
[2025-01-09] MEDS: LIPITOR PO ×2 (07:48→07:55)
[2025-01-09] MEDS: LOVENOX 40 MG SC (07:48)
[2025-01-09] MEDS: FLOMAX PO ×2 (07:48→07:56)
[2025-01-09] MEDS: NEURONTIN PO ×2 (07:48→07:55)
[2025-01-09] MEDS: NOVOLOG FLEXPEN-MODERATE RESISTANCE 1 UNITS SC (07:48)
[2025-01-09] MEDS: PACERONE 200 MG PO ×3 (07:49→21:40)
[2025-01-09 07:50] LABS: Glucose - Point of Care 183 mg/dl (70-99)
[2025-01-09] MEDS: TYLENOL 650 MG PO (07:51)
--- NOTE | 2025-01-09 08:29 | PN.DE.MGMTRT ---
Insulin Management
- -
01/09/2025 Diabetes Management Consult Follow up
Patient admitted 01/05 with difficulty breathing. PMH Lung CA - chemo, COPD, HTN, HCL, diabetes. Prior to admission no diabetes medications listed. A1C 11.8%, cr today .4, eGFR > 60.
Patient is awake alert and oriented able to answer questions. is at bedside. She states he had diabetes for years. He took metformin in the past but the diabetes meds were stopped since the focus was cancer.
Glycemic protocol stopped 01/08. Glucose up to 198.
500 mg metformin BID with moderate corrective insulin started 01/08. Accucheks ACHS.
01/09 Fasting glucose 183. Will add 100 mg Januvia daily to regimen.
states she thinks he has a glucose monitor but if not she will purchase one from [employer].
Will Follow
Discussed with nurse.
Diabetes History
- -
Type of Diabetes: 2
Pre-Admission Diabetes Regimen
01/09/25
03:32
Creatinine 0.5 L
Lab Results
Hemoglobin A1c 11.8 % (4.0-5.6) H 01/06/25 06:26
Insulin Pump Settings
IP Diabetes Regimen
01/08/25 01/08/25 01/08/25
09:55 12:07 17:56
Glucose
POC Glucose 143 H 156 H 135 H
01/08/25 01/09/25 01/09/25
21:03 03:32 07:39
Glucose 166 H
POC Glucose 198 H 183 H
Patient Education
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
--- NOTE | 2025-01-09 10:13 | W.PN.ONC2 ---
Today's Communication / Plan
-
continue GOC
medical management per out and out cigar maker hand and hospitalist
Impression
Impression
Metastatic squamous cell lung CA, lung vs tonsillary primary -Disease progression in lung following concurrent carbo/Taxol with radiation
a/w Acute hypoxic respiratory failure 2/2 PNA +/- POD lung cancer
Chronic hyponatremia
Atrial fibrillation
DM2
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
Plan
Plan
Hospice would be appropriate given poor PS. ECOG score 4 as patient is currently bedbound.
If performance status improves, reasonable to continue aggressive care and treat potentially reversible causes of respiratory insufficiency. With molecular feature of high TMB, he could potentially respond well to immunotherapy if able to tolerate.
ongoing goals of care discussion
Family at bedside during visit
Subjective/Objective
Subjective
Tmax 100.7F
SOB, HF
Vital Signs:
Vital Signs
Temp Pulse Resp BP Pulse Ox
98.3 F 87 40 112/65 91
01/09/25 08:00 01/09/25 08:00 01/09/25 08:00 01/09/25 08:00 01/09/25 08:00
Lab Results:
Laboratory Data
WBC 13.2 10^3/uL (4.8-10.8) H 01/09/25 03:32
Hgb 9.5 g/dL (13.0-18.0) L 01/09/25 03:32
Plt Count 546 10^3/uL (130-400) H 01/09/25 03:32
PT 17.9 Sec (11.4-14.6) H 01/07/25 09:37
INR 1.45 01/07/25 09:37
APTT 40.5 Sec (23.4-35.0) H 01/07/25 09:37
eGFR > 60.00 01/09/25 03:32
Physical Exam
chronically ill appearing
HEENT: Moist Mucous Membranes; No Jaundice
GI: Soft
Extremities: Pulses Present
Neuro: Non Focal
[2025-01-09] MEDS: ZOSYN IV (10:19)
[2025-01-09] MEDS: UNASYN IV ×3 (11:06→21:40)
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
[2025-01-09] MEDS: JANUVIA 100 MG PO (12:12)
--- NOTE | 2025-01-09 12:38 | PN.CDI ---
CDI
- -
CDI:
Physician Documentation Request
Admit Date: 01/05/25 16:53
Dear Doctor Heriberto,
Patient admitted on 01/05. Sepsis mentioned in 01/07 doggy daycare activities director note and in 01/08 hospitalist note but not prior.
Patient remained afebrile until approx. 01/05 at 19:19 with a temp of 102.3
01/05 documented heart rates ranged 86-116, respiratory rates 14-41
Early WBC results :
Laboratory Tests
01/05/25 01/05/25 01/06/25
08:44 22:48 06:26
WBC 8.8 10.3 12.7 H
Please clarify the following:
Sepsis was present on admission
Sepsis was not present on admission
Unable to determine
Use of terms such as suspected, likely, concern for, or probable (associated with a specific diagnosis that is being evaluated, monitored, or treated as if it exists) are acceptable and can be coded in the inpatient setting, when documented at the
time of discharge.
Thank you,
Ligia Gautam RN, BSN
CDI Specialist
tiger text
Please use your independent medical judgment in providing your response.
--- NOTE | 2025-01-09 12:46 | PN.CDI ---
CDI
- -
CDI:
Physician Documentation Request
Admit Date: 01/05/25 16:53
Dear Doctor Heriberto,
Documentation includes the diagnosis of moderate protein calorie malnutrition.
RD notes states 'BMI assessment: Normal (18.5-24.9 )....Current BW: (01/07) 161 lbs 13.109 oz BMI: 21.9 (normal). Weight history (10/08/24) 176. This is a 8.6% BW loss over 3 months (significant)'
To ensure the quality of the medical record, based on the above information and the recognized standards for malnutrition , could you please verify in your progress notes which of the following responses best reflects the patient's nutritional
status:
Moderate Malnutrition is/was present and is a clinical diagnosis (please provide additional support in the medical record)
No nutritional deficiency
Other (please specify)
Lamar Criteria ([facility] Hospitalist 2017)
2 or more criteria must be present for either
non severe or severe malnutrition
Note that the criteria differs related to the
presence of an acute or chronic illness
Acute Illness Chronic Illness
Energy Intake Non Severe: <75% for >7 days Non Severe: <75% for >1 month
Severe: <50% for >5 days Severe: <75% for >1 month
Weight Loss Non Severe: 1-2% over 1 week Non Severe: 5% over 1 month
5% over 1 month 7.5% over 3 months
7.5% over 3 months 10% over 6 months
1 year N/A 20% over 1 year
Severe: >2% over 1 week Severe: >5% over 1 month
>5% over 1 month >7.5% over 3 months
>7.5% over 3 months >10% over 6 months
1 year N/A >20% over 1 year
Body Fat Non Severe: Mild Decrease Non Severe: Mild Loss
Severe: Moderate Decrease Severe: Severe Loss
Muscle Mass Non Severe: Mild Decrease Non Severe: Mild Loss
Severe: Moderate Decrease Severe: Severe Loss
Fluid Accumulation Non Severe: Mild Accumulation Non Severe: Mild Accumulation
Severe: Moderate to severe Severe: Moderate to severe
accumulation accumulation
Reduced Phone Screener Strength Non Severe: N/A Non Severe: N/A
Severe: Measurably reduced Severe: Measurably reduced
Use of terms such as suspected, likely, concern for, or probable (associated with a specific diagnosis that is being evaluated, monitored, or treated as if it exists) are acceptable and can be coded in the inpatient setting, when documented at the
time of discharge.
Thank you,
Ligia Gautam RN, BSN
CDI Specialist
tiger text
Please use your independent medical judgment in providing your response.
--- NOTE | 2025-01-09 12:51 | PN.CDI ---
CDI
- -
CDI:
Physician Documentation Request
Admit Date: 01/05/25 16:53
Dear Doctor Heriberto,
01/07 clinical research specialist note states 'Circulatory shock...'
01/08 Cardiology note states 'septic shock'
Hospitalist progress notes state 'hypotension'
Patient spend some time of Levophed on 01/07
Please clarify which of the following is the most likely etiology of the above symptoms and treatment rendered:
Septic shock
Cardiogenic shock
Hypovolemic shock - indicate if due to surgery, trauma or other etiology
Multifactorial - please specify contribution types
Hypotension - please specify etiology if known
Other
Use of terms such as suspected, likely, concern for, or probable (associated with a specific diagnosis that is being evaluated, monitored, or treated as if it exists) are acceptable and can be coded in the inpatient setting, when documented at the
time of discharge.
Thank you,
Ligia Gautam RN, BSN
CDI Specialist
tiger text
Please use your independent medical judgment in providing your response.
--- NOTE | 2025-01-09 13:05 | PN.CDI ---
CDI
- -
CDI:
Physician Documentation Request
Admit Date: 01/05/25 16:53
Dear Doctor Heriberto,
Patient admitted on 01/05. Sepsis mentioned in 01/07 commercial installer and hospitalist notes.
Patient remained afebrile until approx. 01/05 at 19:19 with a temp of 102.3
01/05 documented heart rates ranged 86-116, respiratory rates 14-41
Early WBC results :
Laboratory Tests
01/05/25 01/05/25 01/06/25
08:44 22:48 06:26
WBC 8.8 10.3 12.7 H
Please clarify the following:
Sepsis was present on admission
Sepsis was not present on admission
Unable to determine
Use of terms such as suspected, likely, concern for, or probable (associated with a specific diagnosis that is being evaluated, monitored, or treated as if it exists) are acceptable and can be coded in the inpatient setting, when documented at the
time of discharge.
Thank you,
Ligia Gautam RN, BSN
CDI Specialist
tiger text
Please use your independent medical judgment in providing your response.
[2025-01-09] MEDS: NOVOLOG FLEXPEN-MODERATE RESISTANCE 5 UNITS SC (13:14)
[2025-01-09 13:24] LABS: Glucose - Point of Care 257 mg/dl (70-99)
--- NOTE | 2025-01-09 14:32 | CM ---
Addendum entered by Devon Obrien 01/09/25 14:53:
Xena Montanez RN from [facility] is field contact technician for insurance needs. [facility]. She is available 11:00AM to 7:00PM EST.
Original Note:
Discharge POC: Therapy recommendation for SNF. Medicare .Gov list provided to with explanation. She will review and choose preferences. She prefers patient go home with HH PT/OT. Questionable if patient will be able to tolerate home
setting without caregivers.
--- NOTE | 2025-01-09 15:56 | W.PN.HOSP.TC ---
Addendum entered and electronically signed by Glenn Louis DO 01/09/25 16:27:
Sepsis was present on admission
The type of shock was septic shock
Additional diagnosis during this admission is moderate protein calorie malnutrition; RD notes 'BMI assessment: Normal (18.5-24.9 )....Current BW: (01/07) 161 lbs 13.109 oz BMI: 21.9 (normal). Weight history (10/08/24) 176. This is a 8.6% BW loss over
3 months (significant)'
Original Note:
Today's Communication/Plan
-
Assessment / Plan
Assessment / Plan
Gen: appears mild-moderately SOB, AAOx3, appears chronically ill.
Eyes: EOMI, PERRLA, no scleral icterus.
Neck: supple.
CV: reg rhythm, heart rate 85, +S1/S2, no m/r/g.
Resp: B/L rhonchi, productive cough, high flow nasal cannula
Abd: +BS, soft, NT, ND
Skin: No rashes.
Neuro: remains CN 2-12 intact, non-focal.
Psych: Normal mood and affect.
CTA chest: Suboptimal contrast opacification of the pulmonary arteries. No gross evidence for large central embolism. See above discussion regarding enlargement of the right ventricle compared to the left ventricle. Questionable unopacified blood
extending across the interatrial septum into the left atrium. Small moderate left pleural effusion, increased from prior CT examination. Findings a lymphangitic spread of carcinoma, left greater right. Bilateral pulmonary nodules compatible with
pulmonary metastatic nodules. Stent is present involving the trachea and the proximal mainstem bronchi, the stent appears patent. Not mentioned above, there is some nodular narrowing of the left mainstem bronchus just past the stent, which is likely
from neoplastic involvement.
Echo: Normal left ventricular size and function. EF 55-60%. Interatrial septal aneurysm with no evidence of shunting by color flow Doppler. Since echocardiogram 09/27/2024 there is no significant change. Could consider repeating echo with bubble
study to exclude PFO.
Acute hypoxic respiratory failure:
- likely due to progression of metastatic NSCLC
- Treating as possible sepsis secondary to postobstructive pneumonia in the setting of lung cancer
- was on 15L midflow, now on high flow nasal cannula, respiratory status currently stable
- Continue aggressive pulmonary toileting and scheduled nebulizer treatments
- Echo without evidence of R to L shunting, may need echo with bubble study
- Continue management in the ICU, appreciate pulmonology guidance
- Antibiotic regimen switched to Unasyn
Hypotension:
-2L NS bolus given
- Vasopressors discontinued
Metastatic squamous cell carcinoma:
- Lung versus tonsillary primary
- Disease progression in lung after treatment with chemo and radiation
- Patient currently does not want to pursue transfer to [facility] for proposed debulking procedure, will follow-up when recovered from current infection/hospitalization
- Will need ongoing follow-up with primary oncologist in the outpatient setting
Chronic hyponatremia:
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
-currently stable
Paroxysmal atrial fibrillation:
- Developed A-fib with RVR, started on amiodarone drip which has now been discontinued
- Now in sinus rhythm
- Continuing on oral amiodarone 200 mg p.o. 3 times daily, no further digoxin
- Heart rate currently controlled
- Appreciate cardiology guidance
- not on AC BULLDOZER/LOADER/COMPACTOR/SCRAPER. MRI brain from 10/03/24 noted and without intracranial metastases. Ideally we would want a repeat MRI of the brain before starting therapeutic anticoagulation.
DM2:
- uncontrolled with hyperglycemia
- a1c 11.8%
- Metformin 500 mg twice daily, moderate resistance sliding scale insulin
- Currently well-controlled, monitor, appreciate diabetes WIRELESS TECHNICIAN guidance
Other problems:
Essential hypertension: SBP currently around 100 with MAP greater than 65
Anxiety
GERD: start PPI
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
Anemia likely from chronic disease: Hb stable
Moderate protein calorie malnutrition
Thrombocytosis
Chronic mcmahon (in place on admission)
Pt's updated at bedside.
Limited/Lovenox
Total critical care time spent = 45 min
Anticipated Discharge: > 48 hours
Subjective/Interval History
-
Date of Service: January 09, 2025
Patient was seen and examined at bedside this morning. He is eager to get out of bed. Remains on high flow oxygen via nasal cannula. He is off of amiodarone drip and phenylephrine drip.
Objective Data
-
Labs:
Laboratory Results
01/09/25
03:32
WBC 13.2 H
Hgb 9.5 L
Hct 27.9 L
Plt Count 546 H
Sodium 129 L
Potassium 3.8
Chloride 97 L
Carbon Dioxide 28
BUN 10
Creatinine 0.5 L
Glucose 166 H
Calcium 9.5
Vital Signs:
Vital Signs
Temp Pulse Resp BP Pulse Ox
98.1 F 82 26 98/63 94
01/09/25 11:27 01/09/25 15:17 01/09/25 15:17 01/09/25 14:23 01/09/25 15:18
I&O
01/08/25 01/09/25 01/10/25
06:59 06:59 06:59
Intake Total 1006.3 / 1159.6 1783.1 / 1783.1 400 / 400
Output Total 650 / 650 1465 / 1465 700 / 700
Balance 356.3 / 509.6 318.1 / 318.1 -300 / -300
Review of Systems
-
History Source: Patient
All other systems: Reviewed and negative
Constitutional: Reports Weakness
Respiratory: Reports Cough and Trouble Breathing
Physical Exam
-
General: Appears Chronically Ill
--- NOTE | 2025-01-09 18:00 | PTCARENOTE ---
Continues to have frequent productive cough. OOB in chair for 2hrs today. Refused dinner.
[2025-01-09 18:14] LABS: Glucose - Point of Care 194 mg/dl (70-99)
[2025-01-09] MEDS: NOVOLOG FLEXPEN-MODERATE RESISTANCE SC (19:12)
[2025-01-09] MEDS: ROXICODONE 5 MG PO (19:33)
--- NOTE | 2025-01-09 19:55 | PTCARENOTE ---
on assessment pt AAOx3, c/o pain PRN meds given see ASIYA, SR on the monitor, high flow 40L 70% pulse ox 92%, lungs very course with a productive cough, poor appetite, no BMs, chronic mcmahon, foam on sacrum, repositioned q2h, call naik in reach
[2025-01-10] VITALS (20 sets, daily range): BP systolic 91–125; BP diastolic 59–75; BMI 22.7
[2025-01-10] MEDS: VENTOLIN NEBULES 1.25 MG INH ×5 (00:13→19:28)
[2025-01-10 00:16] LABS: Glucose - Point of Care 145 mg/dl (70-99)
--- NOTE | 2025-01-10 04:54 | PTCARENOTE ---
pt refused morning lab, pt educated about importance but continued to refuse, floor FURNACE WORKER made aware
[2025-01-10] MEDS: UNASYN IV ×4 (05:01→21:26)
--- NOTE | 2025-01-10 05:02 | DOWNTIME ---
Addendum entered and electronically signed by Jose Zavala RN 01/10/25 14:22:
Correction: Downtime was 01/10/2025 from 0100 to 01/10/2025 at 0415
Original Note:
There was a [employer] Client Handicraft Or Hobby Shop Manager Downtime on 01/09/2025 from 0100 to 01/10/2025 at 0415. Downtime documentation of patient's care, including medication administrations, has been reconciled in the electronic record per guidelines. Refer to the
patient's paper chart under the miscellaneous tab to see printed paper medication records and downtime forms.
--- NOTE | 2025-01-10 06:11 | PTCARENOTE ---
diminished urine output noted overnight, floor ENTERPRISE RESOURCE PLANNER made aware
[2025-01-10] MEDS: SODIUM CHLORIDE 3% FOR INHALATION 1 VIAL INH ×4 (07:27→19:28)
[2025-01-10] MEDS: ATROVENT NEBULES 0.5 MG INH ×4 (07:27→19:28)
--- NOTE | 2025-01-10 07:53 | PN.DE.MGMTRT ---
Insulin Management
- -
01/10/2025 Diabetes Management Consult Follow up
Patient admitted 01/05 with difficulty breathing. PMH Lung CA - chemo, COPD, HTN, HCL, diabetes. Prior to admission no diabetes medications listed. A1C 11.8%, cr today .4, eGFR > 60.
Patient is awake alert and oriented able to answer questions. is at bedside. She states he had diabetes for years. He took metformin in the past but the diabetes meds were stopped since the focus was cancer.
Glycemic protocol stopped 01/08. Glucose up to 198.
500 mg metformin BID with moderate corrective insulin started 01/08. Accucheks ACHS.
01/09 Fasting glucose 183. Will add 100 mg Januvia daily to regimen.
01/10 Fasting glucose 172. Will make no change to metformin and Januvia.
states she thinks he has a glucose monitor but if not she will purchase one from [facility].
Will Follow
Discussed with nurse.
Due to patient comorbidities will target glucose 150 to 180.
Diabetes History
- -
Type of Diabetes: 2
Pre-Admission Diabetes Regimen
Lab Results
Hemoglobin A1c 11.8 % (4.0-5.6) H 01/06/25 06:26
Insulin Pump Settings
IP Diabetes Regimen
01/09/25 01/09/25 01/10/25
13:13 18:03 00:04
POC Glucose 257 H 194 H 145 H
Patient Education
[2025-01-10] MEDS: PROTONIX 40 MG PO (09:21)
[2025-01-10] MEDS: PACERONE 200 MG PO ×3 (09:21→20:38)
[2025-01-10] MEDS: JANUVIA 100 MG PO (09:21)
[2025-01-10] MEDS: LIPITOR PO (09:21)
[2025-01-10] MEDS: GLUCOPHAGE 500 MG PO ×2 (09:21→16:04)
[2025-01-10] MEDS: REMERON 7.5 MG PO (09:21)
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
[2025-01-10] MEDS: FLOMAX PO (09:22)
[2025-01-10] MEDS: NOVOLOG FLEXPEN-MODERATE RESISTANCE 1 UNITS SC ×3 (09:25→18:24)
[2025-01-10] MEDS: LOVENOX 40 MG SC (09:26)
[2025-01-10 09:36] LABS: Glucose - Point of Care 172 mg/dl (70-99)
--- NOTE | 2025-01-10 10:05 | PN.CDI ---
CDI
- -
CDI:
Physician Documentation Request
Admit Date: 01/05/25 16:53
Dear Doctor Devika,
The diagnosis of atrial flutter was included in the signed EKG 01/07
Please indicate in your progress notes if you are in agreement that the above diagnosis is valid for this patient:
____ - Atrial flutter is a valid diagnosis (Please include type typical, atypical , other please specify)
____ - Atrial flutter is not a valid diagnosis for this patient
____ - Other
Use of terms such as suspected, likely, concern for, or probable are acceptable for a diagnosis that is being evaluated, monitored or treated as if it exists and can be coded in the inpatient setting, when documented at the time of discharge.
Thank you,
Ligia Gautam RN, BSN
CDI Specialist
tiger text
Please use your independent medical judgment in providing your response.
--- NOTE | 2025-01-10 11:43 | PTCARENOTE ---
Received patient from ICU in bed. Patient on high flow oxygen 40% 40L SPO2 96%. Patient denies SOB. SR on monitor with HR 80's. VS stable,afebrile. Patient in room at bedside. Oriented patient to room.
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
[2025-01-10 13:38] LABS: Glucose - Point of Care 153 mg/dl (70-99)
--- NOTE | 2025-01-10 14:10 | W.PN.HOSP.TC ---
Today's Communication/Plan
-
Assessment / Plan
Assessment / Plan
Gen: appears mild-moderately SOB, AAOx3, appears chronically ill.
Eyes: EOMI, PERRLA, no scleral icterus.
Neck: supple.
CV: reg rhythm, heart rate 85, +S1/S2, no m/r/g.
Resp: B/L rhonchi, productive cough, high flow nasal cannula
Abd: +BS, soft, NT, ND
Skin: No rashes.
Neuro: remains CN 2-12 intact, non-focal.
Psych: Normal mood and affect.
CTA chest: Suboptimal contrast opacification of the pulmonary arteries. No gross evidence for large central embolism. See above discussion regarding enlargement of the right ventricle compared to the left ventricle. Questionable unopacified blood
extending across the interatrial septum into the left atrium. Small moderate left pleural effusion, increased from prior CT examination. Findings a lymphangitic spread of carcinoma, left greater right. Bilateral pulmonary nodules compatible with
pulmonary metastatic nodules. Stent is present involving the trachea and the proximal mainstem bronchi, the stent appears patent. Not mentioned above, there is some nodular narrowing of the left mainstem bronchus just past the stent, which is likely
from neoplastic involvement.
Echo: Normal left ventricular size and function. EF 55-60%. Interatrial septal aneurysm with no evidence of shunting by color flow Doppler. Since echocardiogram 09/27/2024 there is no significant change. Could consider repeating echo with bubble
study to exclude PFO.
Acute hypoxic respiratory failure:
- likely due to progression of metastatic NSCLC
- Treating as possible sepsis secondary to postobstructive pneumonia in the setting of lung cancer
- Clinically improving, remains on high flow nasal cannula although have been able to titrate down FiO2, will wean to mid flow as able
- Continue aggressive pulmonary toileting and scheduled nebulizer treatments
- Echo without evidence of R to L shunting, may need echo with bubble study
- Now downgraded to IMU, appreciate pulmonology guidance
- Switched to [facility] to complete a total 7-day course of antibiotics
Hypotension:
- stable, off vasopressors
Metastatic squamous cell carcinoma:
- Lung versus tonsillary primary
- Disease progression in lung after treatment with chemo and radiation
- Patient currently does not want to pursue transfer to [facility] for proposed debulking procedure, will follow-up when recovered from current infection/hospitalization
- Will need ongoing follow-up with primary oncologist in the outpatient setting
Chronic hyponatremia:
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
-currently stable
Paroxysmal atrial fibrillation:
- Developed A-fib with RVR, started on amiodarone drip which has now been discontinued
- Now in sinus rhythm with controlled rate
- Continuing on oral amiodarone 200 mg p.o. 3 times daily, no further digoxin, cardiology considering reducing amiodarone dose
- Appreciate cardiology guidance
- Not a candidate for systemic anticoagulation due to high cancer burden
DM2:
- uncontrolled with hyperglycemia
- a1c 11.8%
- Metformin 500 mg twice daily, sitagliptin 100 mg daily, moderate resistance sliding scale insulin
- Currently well-controlled, monitor, appreciate diabetes DYE MACHINE TENDER guidance
Other problems:
Essential hypertension: SBP currently around 100 with MAP greater than 65
Anxiety
GERD: start PPI
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
Anemia likely from chronic disease: Hb stable
Moderate protein calorie malnutrition
Thrombocytosis
Chronic mcmahon (in place on admission)
Pt's updated at bedside.
Limited/Lovenox
Total critical care time spent = 45 min
Anticipated Discharge: > 48 hours
Subjective/Interval History
-
Date of Service: January 10, 2025
Patient was seen and examined at bedside this morning. He appears to have improved clinically over the past 48 hours. He has been downgraded to the IMU. He remains on high flow nasal cannula although FiO2 has been titrated down to lowest
settings. He is currently normotensive off of vasopressors.
Objective Data
-
Vital Signs:
Vital Signs
Temp Pulse Resp BP Pulse Ox
98.4 F 87 29 107/69 89
01/10/25 11:11 01/10/25 14:00 01/10/25 14:00 01/10/25 14:00 01/10/25 14:00
I&O
01/09/25 01/10/25 01/11/25
06:59 06:59 06:59
Intake Total 1783.1 / 1783.1 780 / 780 50 / 50
Output Total 1465 / 1465 925 / 925
Balance 318.1 / 318.1 -145 / -145 50 / 50
Review of Systems
-
History Source: Patient
Respiratory: Reports Cough and Trouble Breathing
Physical Exam
-
General: Appears Chronically Ill
--- NOTE | 2025-01-10 14:28 | CM ---
Hi Flow O2 NC, wean as tolerated, IV/AB. Discharge POC: Therapy recommending SNF. [employer] list provided to . No preferences as yet.
[2025-01-10] MEDS: FLUSH (NSS) 1 FLUSH IV (16:04)
[2025-01-10 17:43] LABS: Glucose - Point of Care 179 mg/dl (70-99)
[2025-01-10] MEDS: ROXICODONE 5 MG PO (20:37)
[2025-01-10] MEDS: FLUSH (NSS) 4 FLUSH IV (21:27)
[2025-01-10 22:52] LABS: Glucose - Point of Care 162 mg/dl (70-99)
--- NOTE | 2025-01-10 23:04 | PTCARENOTE ---
Assumed care of Pt from RN. Pt AAOX3 able to make needs known. Pt spo2 95% on high flow 40/50. Pt does not appear in any distress a this time. Call naik with in reach. Pt has no complaints at this time.
[2025-01-11] VITALS (16 sets, daily range): BP systolic 97–131; BP diastolic 68–82; PULSE 88; O2SAT 94–97; BMI 22.6
[2025-01-11] MEDS: VENTOLIN NEBULES 1.25 MG INH ×3 (00:36→11:16)
--- NOTE | 2025-01-11 01:39 | PTCARENOTE ---
Pt spo2 down into the 80's on high flow 40/50. Respiratory at bed side giving treatment high flow now at 40/70 spo2 93%. Pt has no complaints at this time.
--- NOTE | 2025-01-11 01:51 | PTCARENOTE ---
assumed care of patient from previous RN. Patient aaox3. HFNC 40/70 sating at 95%. Patient resting in bed, does not appear in any distress. vital signs stable. call naik in reach.
[2025-01-11] MEDS: UNASYN IV ×4 (04:47→21:28)
[2025-01-11] MEDS: SODIUM CHLORIDE 3% FOR INHALATION 1 VIAL INH ×3 (07:07→19:38)
[2025-01-11] MEDS: ATROVENT NEBULES 0.5 MG INH ×2 (07:07→11:16)
[2025-01-11 07:11] LABS: Glucose - Point of Care 190 mg/dl (70-99)
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
[2025-01-11] MEDS: NOVOLOG FLEXPEN-MODERATE RESISTANCE 1 UNITS SC (08:33)
[2025-01-11] MEDS: LOVENOX 40 MG SC (08:33)
[2025-01-11] MEDS: GLUCOPHAGE 500 MG PO ×2 (08:34→17:18)
[2025-01-11] MEDS: JANUVIA 100 MG PO (08:34)
[2025-01-11] MEDS: PROTONIX 40 MG PO (08:34)
[2025-01-11] MEDS: REMERON 7.5 MG PO (08:34)
[2025-01-11] MEDS: FLOMAX 0.4 MG PO (08:35)
[2025-01-11] MEDS: LIPITOR 20 MG PO (08:35)
[2025-01-11] MEDS: PACERONE 200 MG PO ×2 (08:35→20:04)
--- NOTE | 2025-01-11 08:40 | PN.DE.MGMTRT ---
Insulin Management
- -
01/11/2025 Diabetes Management Consult Follow up
Patient admitted 01/05 with difficulty breathing. PMH Lung CA - chemo, COPD, HTN, HCL, diabetes. Prior to admission no diabetes medications listed. A1C 11.8%, cr today .5, eGFR > 60.
Patient is awake alert and oriented able to answer questions. is at bedside. She states he had diabetes for years. He took metformin in the past but the diabetes meds were stopped since the focus was cancer.
01/10 Fasting glucose 172, pre meal range 153 to 179.
01/11 Fasting glucose 190. Will continue metformin 500 mg BID and Januvia 100 mg daily.
states she thinks he has a glucose monitor but if not she will purchase one from [employer].
Will Follow
Discussed with nurse.
Due to patient comorbidities will target glucose 150 to 180.
Diabetes History
- -
Type of Diabetes: 2
Pre-Admission Diabetes Regimen
01/10/25
06:00
Creatinine Cancelled
Lab Results
Hemoglobin A1c 11.8 % (4.0-5.6) H 01/06/25 06:26
Insulin Pump Settings
IP Diabetes Regimen
01/10/25 01/10/25 01/10/25
06:00 09:25 13:21
Glucose Cancelled
POC Glucose 172 H 153 H
01/10/25 01/10/25 01/11/25
17:27 22:40 07:00
Glucose
POC Glucose 179 H 162 H 190 H
Meal type: Breakfast
Amount consumed: 90%
Patient Education
[2025-01-11] MEDS: FLUSH (NSS) 1 FLUSH IV (11:11)
[2025-01-11 12:08] LABS: Glucose - Point of Care 242 mg/dl (70-99)
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
[2025-01-11] MEDS: NOVOLOG FLEXPEN-MODERATE RESISTANCE 3 UNITS SC (13:12)
[2025-01-11] MEDS: SODIUM CHLORIDE 3% FOR INHALATION INH (13:28)
[2025-01-11] MEDS: DUONEB INH (13:28)
--- NOTE | 2025-01-11 16:49 | CM ---
Patient with Hx Metastatic squamous cell carcinoma with Dx Acute hypoxic respiratory failure likely progression of metastatic NSCLC. HFNC. Receiving IV Abx. PT/OT; requires assist of 2, recommend skilled rehab.
Notified by CONOR Fischer that had chosen 2 SNFs, so CM met with patient and Claudette. says she is considering [facility] in [facility], however she asked CM not to make the referrals at this time, as she wishes to tour the
facilities. Patient had his eyes closed at times and asked for the conversation to end for now, however attempted to continue the conversation. requested CM card - provided.
Plan follow up with patient/ for SNF preferences and make referrals.
[2025-01-11 16:59] LABS: Glucose - Point of Care 266 mg/dl (70-99)
[2025-01-11] MEDS: NOVOLOG FLEXPEN-MODERATE RESISTANCE 5 UNITS SC (17:17)
--- NOTE | 2025-01-11 17:22 | W.PN.HOSP.TC ---
Today's Communication/Plan
-
Assessment / Plan
Assessment / Plan
Gen: appears mild-moderately SOB, AAOx3, appears chronically ill.
Eyes: EOMI, PERRLA, no scleral icterus.
Neck: supple.
CV: reg rhythm, heart rate 85, +S1/S2, no m/r/g.
Resp: Coarse breath sounds bilaterally, productive cough, high flow nasal cannula
Abd: +BS, soft, NT, ND
Skin: No rashes.
Neuro: remains CN 2-12 intact, non-focal.
Psych: Normal mood and affect.
CTA chest: Suboptimal contrast opacification of the pulmonary arteries. No gross evidence for large central embolism. See above discussion regarding enlargement of the right ventricle compared to the left ventricle. Questionable unopacified blood
extending across the interatrial septum into the left atrium. Small moderate left pleural effusion, increased from prior CT examination. Findings a lymphangitic spread of carcinoma, left greater right. Bilateral pulmonary nodules compatible with
pulmonary metastatic nodules. Stent is present involving the trachea and the proximal mainstem bronchi, the stent appears patent. Not mentioned above, there is some nodular narrowing of the left mainstem bronchus just past the stent, which is likely
from neoplastic involvement.
Echo: Normal left ventricular size and function. EF 55-60%. Interatrial septal aneurysm with no evidence of shunting by color flow Doppler. Since echocardiogram 09/27/2024 there is no significant change. Could consider repeating echo with bubble
study to exclude PFO.
Acute hypoxic respiratory failure:
- likely due to progression of metastatic NSCLC
- Treating as possible sepsis secondary to postobstructive pneumonia in the setting of lung cancer
- Clinically improving, remains on high flow nasal cannula although have been able to titrate down FiO2, will wean to mid flow as able
- Continue aggressive pulmonary toileting and scheduled nebulizer treatments, is bringing up significant amounts of dark-colored sputum
- Echo without evidence of R to L shunting, may need echo with bubble study
- Switched to Unasyn to complete a 7-day course (last day 01/13)
Hypotension:
- stable, off vasopressors
Metastatic squamous cell carcinoma:
- Lung versus tonsillary primary
- Disease progression in lung after treatment with chemo and radiation
- Patient currently does not want to pursue transfer to [facility] for proposed debulking procedure, will follow-up when recovered from current infection/hospitalization
- Will need ongoing follow-up with primary oncologist in the outpatient setting
Chronic hyponatremia:
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
-currently stable
Paroxysmal atrial fibrillation:
- Developed A-fib with RVR, started on amiodarone drip which has now been discontinued
- Now in sinus rhythm with controlled rate
- Continuing on oral amiodarone but decrease dose to 200 mg p.o. 2 times daily
- Appreciate cardiology guidance
- Not a candidate for systemic anticoagulation due to high cancer burden
DM2:
- uncontrolled with hyperglycemia
- a1c 11.8%
- Metformin 500 mg twice daily, sitagliptin 100 mg daily, moderate resistance sliding scale insulin
- Currently well-controlled, monitor, appreciate diabetes PAEDIATRIC PHYSIOTHERAPIST guidance
Other problems:
Essential hypertension: SBP currently around 100 with MAP greater than 65
Anxiety
GERD: start PPI
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
Anemia likely from chronic disease: Hb stable
Moderate protein calorie malnutrition
Thrombocytosis
Chronic mcmahon (in place on admission)
Pt's updated at bedside.
Limited/Lovenox
Total critical care time spent = 45 min
Anticipated Discharge: 24 - 48 hours
Subjective/Interval History
-
Date of Service: January 11, 2025
Patient was seen and examined at bedside. Continues to have productive cough. Respiratory status is stable on high flow nasal cannula.
Objective Data
-
Vital Signs:
Vital Signs
Temp Pulse Resp BP Pulse Ox
98.4 F 86 27 106/73 93
01/11/25 11:09 01/11/25 14:00 01/11/25 14:00 01/11/25 14:00 01/11/25 15:55
I&O
01/10/25 01/11/25 01/12/25
06:59 06:59 06:59
Intake Total 780 / 780 650 / 650 360 / 360
Output Total 925 / 925 775 / 775 360 / 360
Balance -145 / -145 -125 / -125 0 / 0
Review of Systems
-
History Source: Patient
All other systems: Reviewed and negative
Respiratory: Reports Cough and Trouble Breathing
Physical Exam
-
General: Appears Chronically Ill
--- NOTE | 2025-01-11 18:00 | PTCARENOTE ---
Patient remains on high flow oxygen 40L 50%, SPO2 92-96%. Lungs coarse and diminished. Patient self suctioning. Less secretions today. Patient worked with PT/OT and sat OOB to chair today. Appetite poor but patient makes an effort to eat a
little at each meal. VS stable. Using call naik appropriately.
[2025-01-11] MEDS: DUONEB 3 ML INH (19:38)
[2025-01-11] MEDS: TYLENOL 650 MG PO (20:05)
[2025-01-11 21:06] LABS: Glucose - Point of Care 202 mg/dl (70-99)
[2025-01-11] MEDS: ATIVAN 0.5 MG PO (21:28)
[2025-01-12] VITALS (13 sets, daily range): BP systolic 94–118; BP diastolic 65–84; PULSE 87; BMI 22.9
[2025-01-12] MEDS: UNASYN IV ×4 (04:39→20:59)
[2025-01-12 05:01] LABS: Hematocrit 29.7 % (39.0-52.0); Hemoglobin 9.9 g/dL (13.0-18.0); Mean Corp Hgb Conc. 33.3 g/dL (33.0-37.0); Mean Corpuscular Hgb 27.8 pg (27.0-31.0); Mean Corpuscular Volume 83.4 fL (80.0-94.0); Mean Platelet Volume 9.3 fL (7.4-10.4); Platelet Count 590 10^3/uL (130-400); Red Blood Cell Count 3.56 10^6/uL (4.70-6.10); Red Cell Dist. Width 17.6 % (11.5-14.5); White Blood Cell Count 10.7 10^3/uL (4.8-10.8)
[2025-01-12 05:27] LABS: Blood Urea Nitrogen 10 mg/dl (9-20); Calcium 9.7 mg/dl (8.4-10.2); Carbon Dioxide 32 mmol/L (22-30); Chloride 99 mmol/L (98-107); Estimated Creatinine Clearance > 125 ml/min; Glucose 216 mg/dl (70-99); Magnesium 1.2 mg/dl (1.6-2.3); Potassium 4.1 mmol/L (3.5-5.1); Sodium 132 mmol/L (135-145); eGFR > 60.00
--- NOTE | 2025-01-12 06:07 | PTCARENOTE ---
Caring for pt overnight. aaox3 but forgetful & confused at times. NSR. Remains on HFNC 40L 55%. Other VSS. Tylenol for SUMNER. Ativan prn for anxiety. Q2T. Rawls in place. Ivabx. No other issues at this time. Will monitor and continue to wean o2.
[2025-01-12] MEDS: DUONEB 3 ML INH ×3 (07:25→19:57)
[2025-01-12] MEDS: SODIUM CHLORIDE 3% FOR INHALATION 1 VIAL INH ×3 (07:25→19:57)
[2025-01-12] MEDS: LIPITOR 20 MG PO (07:43)
[2025-01-12] MEDS: PROTONIX 40 MG PO (07:43)
[2025-01-12] MEDS: GLUCOPHAGE 500 MG PO ×2 (07:43→17:15)
[2025-01-12] MEDS: FLOMAX 0.4 MG PO (07:43)
[2025-01-12] MEDS: LOVENOX 40 MG SC (07:43)
[2025-01-12] MEDS: PACERONE 200 MG PO ×2 (07:43→20:21)
[2025-01-12] MEDS: REMERON 7.5 MG PO (07:43)
[2025-01-12] MEDS: JANUVIA 100 MG PO (07:43)
--- NOTE | 2025-01-12 07:49 | PN.DE.MGMTRT ---
Insulin Management
- -
01/12/2025 Diabetes Management Consult Follow up
Patient admitted 01/05 with difficulty breathing. PMH Lung CA - chemo, COPD, HTN, HCL, diabetes. Prior to admission no diabetes medications listed. A1C 11.8%, cr today .5, eGFR > 60.
Patient is awake alert and oriented able to answer questions. is at bedside. She states he had diabetes for years. He took metformin in the past but the diabetes meds were stopped since the focus was cancer.
01/11 Fasting glucose 190. Pre meal glucose up to 266.
01/12 Fasting glucose 216. Will start AM Lantus 14 units daily to assist with glucose control.
states she thinks he has a glucose monitor but if not she will purchase one from [employer].
Will Follow
Discussed with nurse.
Due to patient comorbidities will target glucose 150 to 180.
Diabetes History
- -
Type of Diabetes: 2
Pre-Admission Diabetes Regimen
01/12/25
04:35
Creatinine 0.5 L
Lab Results
Hemoglobin A1c 11.8 % (4.0-5.6) H 01/06/25 06:26
Insulin Pump Settings
IP Diabetes Regimen
01/11/25 01/11/25 01/11/25
11:57 16:48 20:55
Glucose
POC Glucose 242 H 266 H 202 H
01/12/25
04:35
Glucose 216 H
POC Glucose
Meal type: Lunch
Meal type: Breakfast
Amount consumed: 55%
Amount consumed: 30%
Patient Education
[2025-01-12] MEDS: NOVOLOG FLEXPEN-MODERATE RESISTANCE 3 UNITS SC (07:55)
[2025-01-12 07:59] LABS: Glucose - Point of Care 212 mg/dl (70-99)
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
[2025-01-12] MEDS: LANTUS 0.14 UNITS SC (10:07)
[2025-01-12] MEDS: MAGNESIUM SULFATE 50 IV (10:08)
--- NOTE | 2025-01-12 11:01 | PTCARENOTE ---
01/12/2025 DIABETES EDUCATION CONSULT
I met with patient and to review insulin injection technique, prescribed Lantus 14 units. Per spouse, she will be administering the injections and she declined self demonstration as she has previously injected Lantus for patient. Both
patient and spouse agreeable to myself providing demonstration. I demonstrated proper injection technique and reviewed storage information. They verbalized understanding.
[2025-01-12 13:16] LABS: Glucose - Point of Care 193 mg/dl (70-99)
[2025-01-12] MEDS: NOVOLOG FLEXPEN-MODERATE RESISTANCE 1 UNITS SC ×2 (13:30→17:15)
--- NOTE | 2025-01-12 13:49 | CM ---
Met with patient's ; she has toured [facility] in [place] and agreeable with sending Referral.
Suggested that she identify another site in the event that [facility] does not have a bed available. She will consider [facility] but has not toured the facility yet.
Referral sent via [employer]
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
--- NOTE | 2025-01-12 14:25 | W.PN.HOSP.TC ---
Today's Communication/Plan
-
Assessment / Plan
Assessment / Plan
Gen: appears mild-moderately SOB, AAOx3, appears chronically ill.
Eyes: EOMI, PERRLA, no scleral icterus.
Neck: supple.
CV: reg rhythm, heart rate 85, +S1/S2, no m/r/g.
Resp: Coarse breath sounds bilaterally, productive cough, high flow nasal cannula
Abd: +BS, soft, NT, ND
Skin: No rashes.
Neuro: remains CN 2-12 intact, non-focal.
Psych: Normal mood and affect.
CTA chest: Suboptimal contrast opacification of the pulmonary arteries. No gross evidence for large central embolism. See above discussion regarding enlargement of the right ventricle compared to the left ventricle. Questionable unopacified blood
extending across the interatrial septum into the left atrium. Small moderate left pleural effusion, increased from prior CT examination. Findings a lymphangitic spread of carcinoma, left greater right. Bilateral pulmonary nodules compatible with
pulmonary metastatic nodules. Stent is present involving the trachea and the proximal mainstem bronchi, the stent appears patent. Not mentioned above, there is some nodular narrowing of the left mainstem bronchus just past the stent, which is likely
from neoplastic involvement.
Echo: Normal left ventricular size and function. EF 55-60%. Interatrial septal aneurysm with no evidence of shunting by color flow Doppler. Since echocardiogram 09/27/2024 there is no significant change. Could consider repeating echo with bubble
study to exclude PFO.
Acute hypoxic respiratory failure:
- likely due to progression of metastatic NSCLC
- Treating as postobstructive pneumonia in the setting of lung cancer
- Clinically improving, remains on high flow nasal cannula, anticipate titrating to mid flow in the next 24 hours
- Continue aggressive pulmonary toileting and scheduled nebulizer treatments, is bringing up significant amounts of dark-colored sputum
- Echo without evidence of R to L shunting, may need echo with bubble study
- Continue antibiotics with Unasyn to complete a 7-day course (last day 01/13)
Hypotension:
- stable, off vasopressors
Metastatic squamous cell carcinoma:
- Lung versus tonsillary primary
- Disease progression in lung after treatment with chemo and radiation
- Patient currently does not want to pursue transfer to [facility] for proposed debulking procedure, will follow-up when recovered from current infection/hospitalization
- Will need ongoing follow-up with primary oncologist in the outpatient setting
Chronic hyponatremia:
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
-currently stable
Hypomagnesemia:
- Magnesium 1.2 on labs today, will replete and monitor
Paroxysmal atrial fibrillation:
- Developed A-fib with RVR, started on amiodarone drip which has now been discontinued
- Now in sinus rhythm with controlled rate
- Continuing on oral amiodarone but decrease dose to 200 mg p.o. 2 times daily
- Appreciate cardiology guidance, have now signed off
- Not a candidate for systemic anticoagulation due to high cancer burden
DM2:
- uncontrolled with hyperglycemia
- a1c 11.8%
- Metformin 500 mg twice daily, sitagliptin 100 mg daily, moderate resistance sliding scale insulin
- Currently well-controlled, monitor, appreciate diabetes UX INFORMATION ARCHITECT guidance
Other problems:
Essential hypertension: SBP currently around 110 with MAP greater than 65
Anxiety
GERD: start PPI
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
Anemia likely from chronic disease: Hb stable
Moderate protein calorie malnutrition
Thrombocytosis
Chronic mcmahon (in place on admission)
Pt's updated at bedside.
Limited/Lovenox
Total critical care time spent = 45 min
Anticipated Discharge: > 48 hours
Subjective/Interval History
-
Date of Service: January 12, 2025
Patient was seen and examined at bedside. Reports breathing more comfortably, still with productive cough. Remains on high flow oxygen.
Objective Data
-
Labs:
Laboratory Results
01/12/25
04:35
WBC 10.7
Hgb 9.9 L
Hct 29.7 L
Plt Count 590 H
Sodium 132 L
Potassium 4.1
Chloride 99
Carbon Dioxide 32 H
BUN 10
Creatinine 0.5 L
Glucose 216 H
Calcium 9.7
Vital Signs:
Vital Signs
Temp Pulse Resp BP Pulse Ox
98.2 F 87 16 104/68 92
01/12/25 11:20 01/12/25 13:45 01/12/25 13:45 01/12/25 10:00 01/12/25 13:46
I&O
01/11/25 01/12/25 01/13/25
06:59 06:59 06:59
Intake Total 650 / 650 360 / 360
Output Total 775 / 775 810 / 810 400 / 400
Balance -125 / -125 -450 / -450 -400 / -400
Review of Systems
-
History Source: Patient
All other systems: Reviewed and negative
Respiratory: Reports Cough and Trouble Breathing
Physical Exam
-
General: No Apparent Distress
[2025-01-12 17:22] LABS: Glucose - Point of Care 190 mg/dl (70-99)
--- NOTE | 2025-01-12 17:49 | PTCARENOTE ---
see nursing flowsheet. pt was oob to chair for short time today. high flow oxygen maintained and pt 02 sat above 92 on 50 liters/45%. pt has moist cough. nasir at bedside. per pt was to have mcmahon removed at urology office as outpatient. pt
noted to have no bm documented x 6 days. po intake is poor. hospitalist made aware. fluid restriction maintained.
--- NOTE | 2025-01-12 18:15 | PTCARENOTE ---
order obtained to d/c mcmahon and for senekot bid. pt does not want mcmahon removed until the morning. mcmahon left in place at pt request.
[2025-01-12] MEDS: SENOKOT 8.6 MG PO (20:21)
[2025-01-12] MEDS: ATIVAN 0.5 MG PO (20:54)
[2025-01-12 21:17] LABS: Glucose - Point of Care 200 mg/dl (70-99)
[2025-01-13] VITALS (13 sets, daily range): BP systolic 90–116; BP diastolic 64–76; BMI 22.4
--- NOTE | 2025-01-13 02:34 | PTCARENOTE ---
1999 pt is aaox3, but a little forgetful. pt remains on high flow at 90-95%. RR=20-40. NSR, VSS.
0030 [facility] d/c. pt DTV.
--- NOTE | 2025-01-13 03:48 | PTCARENOTE ---
0330 pt incontinent of large amount of urine. bladder tdfs=753 post void.
[2025-01-13] MEDS: UNASYN IV ×2 (04:22→10:41)
[2025-01-13 04:40] LABS: Hematocrit 27.7 % (39.0-52.0); Hemoglobin 9.3 g/dL (13.0-18.0); Mean Corp Hgb Conc. 33.6 g/dL (33.0-37.0); Mean Corpuscular Hgb 27.8 pg (27.0-31.0); Mean Corpuscular Volume 82.7 fL (80.0-94.0); Mean Platelet Volume 9.4 fL (7.4-10.4); Platelet Count 616 10^3/uL (130-400); Red Blood Cell Count 3.35 10^6/uL (4.70-6.10); Red Cell Dist. Width 17.5 % (11.5-14.5); White Blood Cell Count 14.3 10^3/uL (4.8-10.8)
[2025-01-13] MEDS: VENTOLIN NEBULES 1.25 MG INH (04:55)
[2025-01-13 05:00] LABS: Blood Urea Nitrogen 10 mg/dl (9-20); Calcium 9.5 mg/dl (8.4-10.2); Carbon Dioxide 31 mmol/L (22-30); Chloride 97 mmol/L (98-107); Estimated Creatinine Clearance > 125 ml/min; Glucose 186 mg/dl (70-99); Magnesium 1.2 mg/dl (1.6-2.3); Potassium 4.1 mmol/L (3.5-5.1); Sodium 132 mmol/L (135-145); eGFR > 60.00
[2025-01-13 07:27] LABS: Glucose - Point of Care 217 mg/dl (70-99)
[2025-01-13] MEDS: SODIUM CHLORIDE 3% FOR INHALATION 1 VIAL INH ×2 (07:30→19:53)
[2025-01-13] MEDS: DUONEB 3 ML INH ×3 (07:30→19:53)
[2025-01-13] MEDS: NOVOLOG FLEXPEN-MODERATE RESISTANCE 3 UNITS SC (08:48)
[2025-01-13] MEDS: LANTUS 0.14 UNITS SC (08:50)
[2025-01-13] MEDS: LOVENOX 40 MG SC (08:51)
[2025-01-13] MEDS: PACERONE 200 MG PO ×2 (08:53→19:57)
[2025-01-13] MEDS: REMERON 7.5 MG PO (08:53)
[2025-01-13] MEDS: TYLENOL 650 MG PO (08:54)
[2025-01-13] MEDS: GLUCOPHAGE 500 MG PO ×2 (08:55→16:22)
[2025-01-13] MEDS: JANUVIA 100 MG PO (08:55)
[2025-01-13] MEDS: LIPITOR 20 MG PO (08:55)
[2025-01-13] MEDS: PROTONIX 40 MG PO (08:55)
[2025-01-13] MEDS: FLOMAX 0.4 MG PO (09:15)
[2025-01-13] MEDS: SENOKOT PO ×2 (10:01→19:35)
--- NOTE | 2025-01-13 10:34 | PTCARENOTE ---
Patient AAOx3. Reports still with productive cough and MCRAE. Poor appetite, brought in his breakfast. Patient voiding since mcmahon removed overnight. Weaned from hiflow to 8L midflow and currently tolerating, sats 98%. VSS. Will closely monitor.
[2025-01-13 11:40] LABS: Glucose - Point of Care 177 mg/dl (70-99)
[2025-01-13] MEDS: NOVOLOG FLEXPEN-MODERATE RESISTANCE SC (12:45)
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
[2025-01-13] MEDS: NOVOLOG FLEXPEN-MODERATE RESISTANCE 1 UNITS SC ×2 (14:10→17:57)
[2025-01-13 14:24] LABS: Glucose - Point of Care 161 mg/dl (70-99)
--- NOTE | 2025-01-13 14:28 | W.PN.HOSP.TC ---
Today's Communication/Plan
-
Assessment / Plan
Assessment / Plan
Gen: appears mild-moderately SOB, AAOx3, appears chronically ill.
Eyes: EOMI, PERRLA, no scleral icterus.
Neck: supple.
CV: reg rhythm, heart rate 85, +S1/S2, no m/r/g.
Resp: Coarse breath sounds bilaterally, productive cough, high flow nasal cannula
Abd: +BS, soft, NT, ND
Skin: No rashes.
Neuro: remains CN 2-12 intact, non-focal.
Psych: Normal mood and affect.
CTA chest: Suboptimal contrast opacification of the pulmonary arteries. No gross evidence for large central embolism. See above discussion regarding enlargement of the right ventricle compared to the left ventricle. Questionable unopacified blood
extending across the interatrial septum into the left atrium. Small moderate left pleural effusion, increased from prior CT examination. Findings a lymphangitic spread of carcinoma, left greater right. Bilateral pulmonary nodules compatible with
pulmonary metastatic nodules. Stent is present involving the trachea and the proximal mainstem bronchi, the stent appears patent. Not mentioned above, there is some nodular narrowing of the left mainstem bronchus just past the stent, which is likely
from neoplastic involvement.
Echo: Normal left ventricular size and function. EF 55-60%. Interatrial septal aneurysm with no evidence of shunting by color flow Doppler. Since echocardiogram 09/27/2024 there is no significant change. Could consider repeating echo with bubble
study to exclude PFO.
Acute hypoxic respiratory failure:
- likely due to progression of metastatic NSCLC
- Treating as postobstructive pneumonia in the setting of lung cancer
- Clinically improving, remains on high flow nasal cannula, titrate to mid flow as able
- Continue aggressive pulmonary toileting and scheduled nebulizer treatments, is bringing up significant amounts of dark-colored sputum
-Completing antibiotic course with last dose of Unasyn today 01/13
Hypotension:
- stable, off vasopressors
Metastatic squamous cell carcinoma:
- Lung versus tonsillary primary
- Disease progression in lung after treatment with chemo and radiation
- Patient currently does not want to pursue transfer to [facility] for proposed debulking procedure, will follow-up when recovered from current infection/hospitalization
- Will need ongoing follow-up with primary oncologist in the outpatient setting
Chronic hyponatremia:
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
-currently stable
Hypomagnesemia:
- Magnesium 1.2 again on labs today, will replete and monitor
Paroxysmal atrial fibrillation:
- Developed A-fib with RVR, started on amiodarone drip which has now been discontinued
- Now in sinus rhythm with controlled rate
- Continuing on oral amiodarone but decreased dose to 200 mg p.o. 2 times daily
- Appreciate cardiology guidance, have now signed off
- Not a candidate for systemic anticoagulation due to high cancer burden
DM2:
- uncontrolled with hyperglycemia
- a1c 11.8%
- Metformin 500 mg twice daily, sitagliptin 100 mg daily, moderate resistance sliding scale insulin
- Currently well-controlled, monitor, appreciate diabetes DEVICE ENGINEER guidance
Other problems:
Essential hypertension: SBP currently around 110 with MAP greater than 65
Anxiety
GERD: start PPI
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
Anemia likely from chronic disease: Hb stable
Moderate protein calorie malnutrition
Thrombocytosis
Chronic mcmahon (in place on admission): Removed today 01/13 for voiding trial, continue Flomax
Pt's updated at bedside.
Limited/Lovenox
Total critical care time spent = 45 min
Anticipated Discharge: > 48 hours
Subjective/Interval History
-
Date of Service: January 13, 2025
Patient was seen and examined at bedside this morning. Receiving his last dose of antibiotics today. Continues to have productive cough. Remains on high flow nasal cannula. Overall continues to feel better. Mcmahon catheter removed for voiding
trial.
Objective Data
-
Labs:
Laboratory Results
01/13/25
04:04
WBC 14.3 H
Hgb 9.3 L
Hct 27.7 L
Plt Count 616 H
Sodium 132 L
Potassium 4.1
Chloride 97 L
Carbon Dioxide 31 H
BUN 10
Creatinine 0.5 L
Glucose 186 H
Calcium 9.5
Vital Signs:
Vital Signs
Temp Pulse Resp BP Pulse Ox
98 F 79 28 105/68 91
01/13/25 11:46 01/13/25 12:00 01/13/25 12:00 01/13/25 12:00 01/13/25 12:00
I&O
01/12/25 01/13/25 01/14/25
06:59 06:59 06:59
Intake Total 360 / 360 1090 / 1090 240 / 240
Output Total 810 / 810 1100 / 1100
Balance -450 / -450 -10 / -10 240 / 240
Review of Systems
-
History Source: Patient
All other systems: Reviewed and negative
Respiratory: Reports Cough and Trouble Breathing
Physical Exam
-
General: Appears Chronically Ill
[2025-01-13 15:56] LABS: Glucose - Point of Care 196 mg/dl (70-99)
[2025-01-13] MEDS: MAGNESIUM OXIDE 500 MG PO (16:22)
[2025-01-13 18:06] LABS: Glucose - Point of Care 157 mg/dl (70-99)
[2025-01-13] MEDS: ATIVAN 0.5 MG PO (19:57)
[2025-01-13 21:55] LABS: Glucose - Point of Care 145 mg/dl (70-99)
[2025-01-14] VITALS (12 sets, daily range): BP systolic 103–126; BP diastolic 66–87; BMI 22.2
[2025-01-14] MEDS: VENTOLIN NEBULES 1.25 MG INH (01:03)
--- NOTE | 2025-01-14 06:17 | PTCARENOTE ---
Pt's pox 89-91% on 10L midflow, Pt states 'I feel like I am having a hard time breathing.' Midflow increased to 12L midflow, Pt states 'I don't feel any better.' Pt repositioned in bed, RT notified. Pt placed on high flow 50L/80%, APARTMENT LEASING AGENT made aware. Pt
states 'I feel more comfortable.' Oral care provided and assisted Pt with suctioning thick cummings sputum.
[2025-01-14] MEDS: DUONEB 3 ML INH ×3 (07:38→19:49)
[2025-01-14] MEDS: SODIUM CHLORIDE 3% FOR INHALATION 1 VIAL INH ×3 (07:39→19:49)
[2025-01-14 08:24] LABS: Glucose - Point of Care 131 mg/dl (70-99)
[2025-01-14] MEDS: FLOMAX 0.4 MG PO (09:48)
[2025-01-14] MEDS: NOVOLOG FLEXPEN-MODERATE RESISTANCE SC ×3 (09:48→18:14)
[2025-01-14] MEDS: PROTONIX 40 MG PO (09:48)
[2025-01-14] MEDS: REMERON 7.5 MG PO (09:48)
[2025-01-14] MEDS: GLUCOPHAGE 500 MG PO ×2 (09:48→18:14)
[2025-01-14] MEDS: MAGNESIUM OXIDE 500 MG PO (09:49)
[2025-01-14] MEDS: JANUVIA 100 MG PO (09:49)
[2025-01-14] MEDS: LOVENOX 40 MG SC (09:49)
[2025-01-14] MEDS: LIPITOR PO (09:49)
[2025-01-14] MEDS: SENOKOT PO ×2 (09:49→20:48)
[2025-01-14] MEDS: PACERONE 200 MG PO ×2 (09:55→20:48)
[2025-01-14] MEDS: LANTUS 0.14 UNITS SC (09:55)
--- NOTE | 2025-01-14 12:32 | W.PN.HOSP.TC ---
Today's Communication/Plan
-
Assessment / Plan
Assessment / Plan
Gen: appears mild-moderately SOB, AAOx3, appears chronically ill.
Eyes: EOMI, PERRLA, no scleral icterus.
Neck: supple.
CV: reg rhythm, heart rate 85, +S1/S2, no m/r/g.
Resp: Coarse breath sounds bilaterally, productive cough, high flow nasal cannula
Abd: +BS, soft, NT, ND
Skin: No rashes.
Neuro: remains CN 2-12 intact, non-focal.
Psych: Normal mood and affect.
CTA chest: Suboptimal contrast opacification of the pulmonary arteries. No gross evidence for large central embolism. See above discussion regarding enlargement of the right ventricle compared to the left ventricle. Questionable unopacified blood
extending across the interatrial septum into the left atrium. Small moderate left pleural effusion, increased from prior CT examination. Findings a lymphangitic spread of carcinoma, left greater right. Bilateral pulmonary nodules compatible with
pulmonary metastatic nodules. Stent is present involving the trachea and the proximal mainstem bronchi, the stent appears patent. Not mentioned above, there is some nodular narrowing of the left mainstem bronchus just past the stent, which is likely
from neoplastic involvement.
Echo: Normal left ventricular size and function. EF 55-60%. Interatrial septal aneurysm with no evidence of shunting by color flow Doppler. Since echocardiogram 09/27/2024 there is no significant change. Could consider repeating echo with bubble
study to exclude PFO.
Acute hypoxic respiratory failure:
- likely due to progression of metastatic NSCLC
- Treating as postobstructive pneumonia in the setting of lung cancer
- Clinically improving, was on mid flow nasal cannula most of the day yesterday however had to be titrated back up to high flow this morning (01/14) due to congestion and hypoxia
- Continue aggressive pulmonary toileting and scheduled nebulizer treatments, continues to bring up significant amounts of sputum
- Completed antibiotic course with last dose of Unasyn 01/13
Hypotension:
- stable, off vasopressors
Metastatic squamous cell carcinoma:
- Lung versus tonsillary primary
- Disease progression in lung after treatment with chemo and radiation
- Patient currently does not want to pursue transfer to [facility] for proposed debulking procedure, will follow-up when recovered from current infection/hospitalization
- Will need ongoing follow-up with primary oncologist in the outpatient setting
Chronic hyponatremia:
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
-currently stable
Hypomagnesemia:
- Continue to monitor and replete as needed
Paroxysmal atrial fibrillation:
- Developed A-fib with RVR, started on amiodarone drip which has now been discontinued
- Now in sinus rhythm with controlled rate
- Continuing on oral amiodarone but decreased dose to 200 mg p.o. 2 times daily
- Appreciate cardiology guidance, have now signed off
- Not a candidate for systemic anticoagulation due to high cancer burden
DM2:
- uncontrolled with hyperglycemia
- a1c 11.8%
- Metformin 500 mg twice daily, sitagliptin 100 mg daily, moderate resistance sliding scale insulin
- Currently well-controlled, monitor, appreciate diabetes KELLY MACHINE OPERATOR guidance
Other problems:
Essential hypertension: SBP currently around 110 with MAP greater than 65
Anxiety
GERD: start PPI
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
Anemia likely from chronic disease: Hb stable
Moderate protein calorie malnutrition
Thrombocytosis
Chronic mcmahon (in place on admission): Removed 01/13 for voiding trial, now voiding spontaneously, continue Flomax
Limited/Lovenox
Total critical care time spent = 45 min
Anticipated Discharge: 24 - 48 hours
Subjective/Interval History
-
Date of Service: January 14, 2025
Patient was seen and examined at bedside this morning. Had been titrated down to mid flow nasal cannula yesterday but back on high flow this morning due to chest congestion with hypoxia.
Objective Data
-
Vital Signs:
Vital Signs
Temp Pulse Resp BP Pulse Ox
98.3 F 84 33 109/71 97
01/14/25 11:15 01/14/25 10:00 01/14/25 10:00 01/14/25 10:00 01/14/25 11:28
I&O
01/13/25 01/14/25 01/15/25
06:59 06:59 06:59
Intake Total 1090 / 1090 240 / 240
Output Total 1100 / 1100 625 / 625
Balance -10 / -10 -385 / -385
Review of Systems
-
History Source: Patient
All other systems: Reviewed and negative
Respiratory: Reports Cough and Trouble Breathing
Physical Exam
-
General: No Apparent Distress
[2025-01-14 13:39] LABS: Glucose - Point of Care 103 mg/dl (70-99)
--- NOTE | 2025-01-14 14:39 | PTCARENOTE ---
Patient had two large BM's on bedpan today. Patient had been on midflow oxygen but overnight had to go back to high flow. Currently patient pulse ox 94%-95%. Patient turned and repositioned Q2hr. VS stable.
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
[2025-01-14 17:03] LABS: Glucose - Point of Care 111 mg/dl (70-99)
--- NOTE | 2025-01-14 18:19 | PTCARENOTE ---
High flow settings 60L 50% patient's sp02 mid 90's. Patient self suctioning thick cummings secretions. VS stable. SR on monitor.
[2025-01-14 21:46] LABS: Glucose - Point of Care 119 mg/dl (70-99)
--- NOTE | 2025-01-14 23:22 | PTCARENOTE ---
Patient tolerating high flow at 60L 50%. Cough productive for thick yellow secretions, pt using oral suction to remove secretions from mouth. Pt oriented x 3 but train of thought is slow and thoughts do drift from topic of discussion. Pt suing
urinal independently for clear yellow urine.
[2025-01-14] MEDS: ROXICODONE 5 MG PO (23:24)
[2025-01-15] VITALS (16 sets, daily range): BP systolic 91–120; BP diastolic 59–79; PULSE 82; O2SAT 97; BMI 21.6
[2025-01-15] MEDS: ATIVAN 0.5 MG PO ×2 (00:25→20:59)
--- NOTE | 2025-01-15 00:49 | PTCARENOTE ---
Assumed care of pt from previous RN. Pt AAOx3 some what forgetful. Pt requesting to have something for pain in rib area, see mar for medical esthetician. Pt remains on high flow 50/60 spo2 88%. Respiratory to bed side Pt now on High flow 60/60 spo2 94%. Later
Pt requesting medication for anxiety, see mar for medical esthetician.
--- NOTE | 2025-01-15 04:07 | PTCARENOTE ---
Pt pleasant and compliant this AM with getting new IV and labs done. Pt wiped with bath wipes, Q2T. Pt has no complaints at this time.
[2025-01-15 04:20] LABS: % Basophils 0.5 % (0-2); % Eosinophils 1.6 % (0-6); % Immature Granulocytes 0.7 % (0-0.5); % Lymphocytes 1.5 % (20.5-51.1); % Monocytes 5.7 % (1.7-9.3); Absolute Basophils 0.1 10^3/uL (0-0.2); Absolute Eosinophils 0.3 10^3/uL (0-0.7); Absolute Immature Granulocytes 0.1 10^3/uL (0-0.05); Absolute Lymphocytes 0.2 10^3/uL (1.2-3.4); Absolute Monocytes 0.9 10^3/uL (0.1-0.6); Absolute Neutrophils 13.8 10^3/uL (1.4-6.5); Hematocrit 28.3 % (39.0-52.0); Hemoglobin 9.3 g/dL (13.0-18.0); Mean Corp Hgb Conc. 32.9 g/dL (33.0-37.0); Mean Corpuscular Hgb 27.4 pg (27.0-31.0); Mean Corpuscular Volume 83.5 fL (80.0-94.0); Mean Platelet Volume 9.3 fL (7.4-10.4); Nucleated Red Blood Cells % 0 % (-); Platelet Count 601 10^3/uL (130-400); Red Blood Cell Count 3.39 10^6/uL (4.70-6.10); Red Cell Dist. Width 17.6 % (11.5-14.5); White Blood Cell Count 15.4 10^3/uL (4.8-10.8)
[2025-01-15 04:40] LABS: Procalcitonin 0.12 ng/ml (0.0-0.25)
[2025-01-15 04:44] LABS: Blood Urea Nitrogen 11 mg/dl (9-20); Calcium 9.3 mg/dl (8.4-10.2); Carbon Dioxide 32 mmol/L (22-30); Chloride 99 mmol/L (98-107); Estimated Creatinine Clearance > 125 ml/min; Glucose 85 mg/dl (70-99); Magnesium 1.1 mg/dl (1.6-2.3); Phosphorus 3.4 mg/dl (2.5-4.5); Potassium 4.3 mmol/L (3.5-5.1); Sodium 135 mmol/L (135-145); eGFR > 60.00
--- NOTE | 2025-01-15 05:41 | PTCARENOTE ---
Pt morning labs showing Mg 1.1. Night BUS AIDE made aware, 1G IV Mg ordered.
[2025-01-15] MEDS: MAGNESIUM SULFATE 102 GRAMS IV (06:02)
--- NOTE | 2025-01-15 07:09 | PN.DE.MGMTRT ---
Insulin Management
- -
01/15/2025: Diabetes Management Follow up
Patient admitted 01/05 with difficulty breathing. PMH Lung CA - chemo, COPD, HTN, HCL, diabetes. Prior to admission no diabetes medications listed. A1C 11.8%, cr today .5, eGFR > 60. states he had diabetes for years. He took metformin in the
past but the diabetes meds were stopped since the focus was cancer. states she thinks he has a glucose monitor but if not she will purchase one from [employer].
Patient is awake alert and oriented, resting in bed, offers no complaints, able to discuss diabetes care. is at bedside.
Pt will be receiving dose of steroids today. There is also plans for goals of care discussion--> possible transition to Hospice.
Glucose stable and in range, 01/14 premeal 103 -131 yesterday. FBG 99 this AM.
Will make no changes to current regimen. Cont: Metformin 500mg BID, Januvia 100mg daily and Lantus 14 uits @ HS
Due to patient comorbidities will target glucose 150 to 180. Will cont to Follow. Discussed with nurse.
Diabetes History
- -
Type of Diabetes: 2
Pre-Admission Diabetes Regimen
01/15/25
04:05
Creatinine 0.5 L
Lab Results
Hemoglobin A1c 11.8 % (4.0-5.6) H 01/06/25 06:26
Insulin Pump Settings
IP Diabetes Regimen
01/14/25 01/14/25 01/14/25
08:10 13:26 16:49
Glucose
POC Glucose 131 H 103 H 111 H
01/14/25 01/15/25
21:34 04:05
Glucose 85
POC Glucose 119 H
Meal type: Lunch
Meal type: Breakfast
Amount consumed: 50%
Amount consumed: 60%
Patient Education
[2025-01-15] MEDS: DUONEB 3 ML INH ×3 (07:29→19:04)
[2025-01-15] MEDS: SODIUM CHLORIDE 3% FOR INHALATION 1 VIAL INH ×3 (07:29→19:04)
[2025-01-15 07:52] LABS: Glucose - Point of Care 99 mg/dl (70-99)
[2025-01-15] MEDS: NOVOLOG FLEXPEN-MODERATE RESISTANCE SC ×2 (08:17→12:32)
[2025-01-15] MEDS: FLOMAX 0.4 MG PO (08:17)
[2025-01-15] MEDS: LANTUS 0.14 UNITS SC (08:17)
[2025-01-15] MEDS: PROTONIX 40 MG PO (08:17)
[2025-01-15] MEDS: GLUCOPHAGE 500 MG PO ×2 (08:17→17:53)
[2025-01-15] MEDS: MAGNESIUM OXIDE 500 MG PO (08:18)
[2025-01-15] MEDS: REMERON 7.5 MG PO (08:18)
[2025-01-15] MEDS: PACERONE 200 MG PO ×2 (08:18→20:31)
[2025-01-15] MEDS: SENOKOT 8.6 MG PO ×2 (08:18→20:31)
[2025-01-15] MEDS: JANUVIA 100 MG PO (08:18)
[2025-01-15] MEDS: LOVENOX 40 MG SC (08:18)
[2025-01-15] MEDS: LIPITOR 20 MG PO (08:18)
--- NOTE | 2025-01-15 08:56 | W.PN.HOSP.TC ---
Addendum entered and electronically signed by León Bhandari DO 01/15/25 10:19:
Informed by nurse that patient and interested in learning more about hospice.
Consult to hospice placed.
Discussed with pulmonary service, Dr. Gómez, who also agrees with hospice.
Original Note:
Today's Communication/Plan
-
Continue current efforts
Await goals of care decision
Assessment / Plan
Assessment / Plan
Gen: appears mild-moderately SOB, AAOx3, appears chronically ill.
Eyes: EOMI, PERRLA, no scleral icterus.
Neck: supple.
CV: reg rhythm, heart rate 85, +S1/S2, no m/r/g.
Resp: Coarse breath sounds bilaterally, productive cough, high flow nasal cannula
Abd: +BS, soft, NT, ND
Skin: No rashes.
Neuro: remains CN 2-12 intact, non-focal.
Psych: Normal mood and affect.
Acute hypoxic respiratory failure: Still on high flow nasal cannula oxygen, 60 L, 60%. Pulse ox 95%.
- likely due to progression of metastatic NSCLC. Chest x-ray today 01/15 shows significant interval worsening of airspace disease within the right lung. Additional patchy areas of ground glass and alveolar consolidation within the left lung.
- Treating as postobstructive pneumonia in the setting of lung cancer
- Clinically improving, was on mid flow nasal cannula most of the day yesterday however had to be titrated back up to high flow this morning (01/14) due to congestion and hypoxia
- Continue aggressive pulmonary toileting and scheduled nebulizer treatments, continues to bring up significant amounts of sputum
- Completed antibiotic course with last dose of Unasyn 01/13
Hypotension:
- stable, off vasopressors
Metastatic squamous cell carcinoma:
- Lung versus tonsillary primary
- Disease progression in lung after treatment with chemo and radiation
- Patient currently does not want to pursue transfer to [facility] for proposed debulking procedure, will follow-up when recovered from current infection/hospitalization
- Will need ongoing follow-up with primary oncologist in the outpatient setting
Chronic hyponatremia:
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
-currently stable
Hypomagnesemia:
- Continue to monitor and replete as needed
Paroxysmal atrial fibrillation:
- Developed A-fib with RVR, started on amiodarone drip which has now been discontinued
- Now in sinus rhythm with controlled rate
- Continuing on oral amiodarone but decreased dose to 200 mg p.o. 2 times daily
- Appreciate cardiology guidance, have now signed off
- Not a candidate for systemic anticoagulation due to high cancer burden
DM2:
- uncontrolled with hyperglycemia
- a1c 11.8%
- Metformin 500 mg twice daily, sitagliptin 100 mg daily, moderate resistance sliding scale insulin
- Currently well-controlled, monitor, appreciate diabetes LOST AND FOUND CLERK guidance
Other problems:
Essential hypertension: SBP currently around 110 with MAP greater than 65
Anxiety
GERD: start PPI
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
Anemia likely from chronic disease: Hb stable
Moderate protein calorie malnutrition
Thrombocytosis
Chronic mcmahon (in place on admission): Removed 01/13 for voiding trial, now voiding spontaneously, continue Flomax
Limited DNR -no intubation.
Dispo -I had a long discussion with patient and his regarding goals of care. I expressed my concern that what we are doing here is approaching futility and I recommend hospice given his very poor prognosis. I explained that he is not a
candidate to go to rehab given requirement for high flow oxygen. Would have to go down to 5 L of oxygen or less to qualify.
At this point in time patient and are not ready to commit to hospice, they need more time to process.
Of note, oncology did also recommend hospice.
Anticipated Discharge: > 48 hours
Subjective/Interval History
-
Date of Service: January 15, 2025
Patient seen and examined. Complaining of mild shortness of breath.
Objective Data
-
Labs:
Laboratory Results
01/15/25
04:05
WBC 15.4 H
Hgb 9.3 L
Hct 28.3 L
Plt Count 601 H
Sodium 135
Potassium 4.3
Chloride 99
Carbon Dioxide 32 H
BUN 11
Creatinine 0.5 L
Glucose 85
Calcium 9.3
Vital Signs:
Vital Signs
Temp Pulse Resp BP Pulse Ox
99.1 F 84 33 102/66 95
01/15/25 07:35 01/15/25 08:18 01/15/25 07:36 01/15/25 08:18 01/15/25 07:36
I&O
01/14/25 01/15/25 01/16/25
06:59 06:59 06:59
Intake Total 240 / 240 1140 / 1140
Output Total 625 / 625 1730 / 1730 250 / 250
Balance -385 / -385 -590 / -590 -250 / -250
Review of Systems
-
History Source: Patient
All other systems: Reviewed and negative
[2025-01-15] MEDS: MAGNESIUM SULFATE 100 IV (09:12)
--- NOTE | 2025-01-15 10:10 | CM ---
Addendum entered by Aurora Flores 01/15/25 14:10:
Discussion with hospice/[facility]
Awaiting family decision, anticipate plan for GIP admission tomorrow
Original Note:
CM consult for hospice
Bedside meeting with pt and spouse/Claudette ( volunteer)- looking for info only at this time
Info provided including hospice philosophy and associated costs with SNF care and private duty caregivers at home
Referral to Hospice/[facility] for GIP assessment as pt remains on high flow O2
Pt notes ultimate goal is to return home but aware may not be realistic option
Awaiting outcome of hospice eval and pt decision
Disposition- anticipate GIP hospice
--- NOTE | 2025-01-15 10:26 | PTCARENOTE ---
Patient with no complaints. VSS, on hi flow 60L 60% and tolerating, sats 97%. Still with productive cough. Poor appetite. at bedside. Considering hospice, consult placed and questions answered at bedside. Comfort provided. Patient making needs
known. Will closely monitor.
[2025-01-15] MEDS: SOLU-MEDROL PF 40 MG IV (11:01)
[2025-01-15 12:20] LABS: Glucose - Point of Care 98 mg/dl (70-99)
--- NOTE | 2025-01-15 13:58 | W.PN.ONC ---
Today's Communication / Plan
-
Hospice has been consulted. I discussed the general approach with the patient and his . I reinforced the fact that we have a little else to offer at this point other than doing her best to keep him reasonably comfortable. They seem to be
accepting of this.
Impression
Impression
Metastatic squamous cell lung CA, lung vs tonsillary primary -Disease progression in lung following concurrent carbo/Taxol with radiation
a/w Acute hypoxic respiratory failure 2/2 PNA +/- POD lung cancer
Chronic hyponatremia
Atrial fibrillation
DM2
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
Plan
Plan
Hospice would be appropriate given poor PS. ECOG score 4 as patient is currently bedbound.
If performance status improves, reasonable to continue aggressive care and treat potentially reversible causes of respiratory insufficiency. With molecular feature of high TMB, he could potentially respond well to immunotherapy if able to tolerate.
ongoing goals of care discussion
Subjective/Objective
Subjective/Objective
He is feeling about the same. He remains on high flow oxygen. Exam shows him to be awake and conversant. The remainder of the exam is unchanged.
Vital Signs:
Vital Signs
Temp Pulse Resp BP Pulse Ox
98.5 F 84 30 98/65 92
01/15/25 11:45 01/15/25 13:50 01/15/25 13:50 01/15/25 12:00 01/15/25 13:50
Lab Results:
Laboratory Data
WBC 15.4 10^3/uL (4.8-10.8) H 01/15/25 04:05
Hgb 9.3 g/dL (13.0-18.0) L 01/15/25 04:05
Plt Count 601 10^3/uL (130-400) H 01/15/25 04:05
PT 17.9 Sec (11.4-14.6) H 01/07/25 09:37
INR 1.45 01/07/25 09:37
APTT 40.5 Sec (23.4-35.0) H 01/07/25 09:37
eGFR > 60.00 01/15/25 04:05
--- NOTE | 2025-01-15 13:59 | HOSPNOTE ---
Spoke with spouse and patient and discussed inpatient hospice. The plan is for patient to be admitted tomorrow 01/17. Patient and spouse are very tearful but are in agreement with hospice. The plan is for family to visit this evening and then
tomorrow begin hospice. The spouse is in agreement if the patient needs morphine for shortness of breath to be given. The patient is now a DNR. Attending and CM updated.
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
[2025-01-15] MEDS: NOVOLOG FLEXPEN-MODERATE RESISTANCE 1 UNITS SC (16:49)
[2025-01-15 16:59] LABS: Glucose - Point of Care 191 mg/dl (70-99)
[2025-01-15 21:55] LABS: Glucose - Point of Care 299 mg/dl (70-99)
[2025-01-16] VITALS: BP 123/79
[2025-01-16] MEDS: NSS (PRESERVATIVE FREE) 0.25 ML IV (00:49)
[2025-01-16] MEDS: ATIVAN 0.5 MG IV (00:49)
--- NOTE | 2025-01-16 00:57 | PTCARENOTE ---
Pt AAox3 forgetful at time. Pt making his concerns known to this RN. Pt saying he is scared of what is to come. Pt repeating ' it is scary'. Time spent with Pt listening and giving emotional support and validation. Pt requesting to hold RNs hand,
granted. Medication options offered to Pt. Pt requesting medication, see mar. Reassessment Pt appears to be resting comfortably. Respirations even unlabored spo2 92% on high flow 60/60.
[2025-01-16 02:00] VITALS: BP 96/65
[2025-01-16 04:00] VITALS: BP 115/74
--- NOTE | 2025-01-16 05:45 | PTCARENOTE ---
Pt appearing to be less anxious this AM. Pt open to morning care. Pt fully washed up, bed linens changed. Pt now appears to be resting comfortably, respiration 25 even and unlabored, spo2 95%.
[2025-01-16 06:00] VITALS: BP 114/74
[2025-01-16] MEDS: SODIUM CHLORIDE 3% FOR INHALATION 1 VIAL INH (07:53)
[2025-01-16] MEDS: DUONEB 3 ML INH (07:53)
[2025-01-16 07:58] LABS: Glucose - Point of Care 280 mg/dl (70-99)
[2025-01-16 08:00] VITALS: BP 97/73
--- NOTE | 2025-01-16 08:07 | W.DS.TRANS ---
DC Summary - Global Regulatory Affairs Manager
-
Discharge Instructions:
Discharge Diagnosis/Procedures Metastatic lung cancer
Diet As tolerated
Activity As tolerated
Driving Restrictions No driving
Bathing Restrictions None
Instructions:
Stand-Alone Forms:
Changes to Home Medications: Yes
Discharge Medications:
Home Medication Changes
Stop all medications
Pending Results: No
--- NOTE | 2025-01-16 08:11 | ADM.HSP ---
Admission - Hospice
History of Present Illness
64-year-old male admitted to [facility] January 05 for shortness of breath and cough and found to have postobstructive pneumonia, rapid atrial fibrillation and progression of lung cancer.
Despite all efforts he unfortunately progressed, requiring high flow oxygen treatment.
Goals of care was discussed with patient and family they opted for inpatient hospice given lack of improvement and overall poor prognosis.
Reason for Hospice Admission
Advanced metastatic lung cancer, progressive respiratory failure
Review of Systems
History Source: Patient
All other systems: Reviewed and Negative
Respiratory: Trouble Breathing
Physical Exam
Temp Pulse Resp BP Pulse Ox
98.2 F 77 21 114/74 94
01/16/25 04:05 01/16/25 07:56 01/16/25 07:56 01/16/25 06:00 01/16/25 07:56
General: Respiratory Distress and Cachectic
Respiratory: Decreased Breath Sounds
Cardiology: Regular Rhythm and S1/S2
GI: Soft, Nontender and Nondistended
Musculoskeletal: No Clubbing, No Cyanosis and No Edema
Skin: Warm and Dry
Neuro: Awake and Alert
Hematologic/Lymphatic: No Lymphadenopathy
Psych: Calm
Assessment/Medication Plan
Generic Name Dose Route Start Last Admin
Trade Name Freq PRN Reason Stop Dose Admin
Acetaminophen 650 mg 01/05/25 17:33 01/13/25 08:54
Acetaminophen 325 Mg Tablet PO 02/02/25 17:32 650 mg
Q4HPRN PRN Administration
mild pain/SUMNER/temp> 100.4F
Albuterol Sulfate 1.25 mg 01/07/25 11:52 01/14/25 01:03
Albuterol Nebs 1.25 Mg/3 Ml Ampul INH 1.25 mg
R Q4HPRN PRN Administration
SOB
Albuterol/Ipratropium 3 ml 01/11/25 14:00 01/16/25 07:53
Ipratropium 0.5/Albuterol 3 Mg (3 Ml Ampul) INH 3 ml
R TID ARIANNA Administration
Protocol
Amiodarone HCl 200 mg 01/11/25 20:00 01/15/25 20:31
Amiodarone 200 Mg Tablet PO 02/08/25 19:59 200 mg
BID ARIANNA Administration
Atorvastatin Calcium 20 mg 01/06/25 08:00 01/15/25 08:18
Atorvastatin (Lipitor) 20 Mg Tablet PO 02/03/25 07:59 20 mg
DAILY ARIANNA Administration
Dextrose 12.5 grams 01/07/25 18:22
Dextrose 50% (0.5 Grams/Ml) 50 Ml Syringe IV 02/04/25 18:21
[id number] PRN
Blood Glucose < 70
Enoxaparin Sodium 40 mg 01/06/25 08:00 01/15/25 08:18
Enoxaparin Sodium 40 Mg/0.4 Ml Syringe SC 02/03/25 07:59 40 mg
DAILY ARIANNA Administration
Insulin Glargine 14 units/ 0.14 mls @ 0 mls/hr 01/12/25 08:00 01/15/25 08:17
Device SC 02/09/25 07:59 0.14 mls
DAILY ARIANNA Administration
As Directed
Insulin Aspart 0 units 01/08/25 16:30 01/15/25 16:49
Insulin Aspart Moderate Resistance 300 Units/3 Ml Pen.Injctr SC 02/05/25 16:29 1 units
AC ARIANNA Administration
Protocol
Lorazepam 0.5 mg 01/08/25 11:24 01/15/25 20:59
Lorazepam 0.5 Mg Tablet PO 02/05/25 11:23 0.5 mg
HSPRN PRN Administration
AGITATION/ANXIETY
Magnesium Oxide 500 mg 01/13/25 15:00 01/15/25 08:18
Magnesium Oxide 500 Mg Tablet PO 01/16/25 14:59 500 mg
DAILY ARIANNA Administration
Metformin HCl 500 mg 01/08/25 17:00 01/15/25 17:53
Metformin 500 Mg Regular Release Tablet PO 02/05/25 16:59 500 mg
BID@0800,1700 ARIANNA Administration
Methylprednisolone Sodium Succinate 40 mg 01/15/25 10:15 01/15/25 11:01
Methylprednisolone Pf 40 Mg/Ml Vial IV 02/12/25 10:14 40 mg
DAILY ARIANNA Administration
Mirtazapine 7.5 mg 01/06/25 08:00 01/15/25 08:18
Mirtazapine 7.5 Mg Regular Release Tablet PO 02/03/25 07:59 7.5 mg
DAILY ARIANNA Administration
Oxycodone HCl 5 mg 01/05/25 17:33 01/14/25 23:24
Oxycodone 5 Mg Regular Release Tablet PO 01/19/25 17:32 5 mg
DAILYPRN PRN Administration
MODERATE Pain
Pantoprazole Sodium 40 mg 01/07/25 08:00 01/15/25 08:17
Pantoprazole 40 Mg Delayed Release Tablet PO 02/04/25 07:59 40 mg
DAILY ARIANNA Administration
Prochlorperazine Edisylate 5 mg 01/07/25 19:37 01/07/25 19:59
Prochlorperazine 10 Mg/2 Ml Vial IV 02/04/25 19:36 5 mg
Q6HPRN PRN Administration
nausea/vomiting
Sennosides 8.6 mg 01/12/25 20:00 01/15/25 20:31
Sennosides (Senokot) 8.6 Mg Tablet PO 02/09/25 19:59 8.6 mg
BID ARIANNA Administration
Sitagliptin Phosphate 100 mg 01/09/25 11:00 01/15/25 08:18
Sitagliptin (Januvia) 100 Mg Tablet PO 02/06/25 10:59 100 mg
DAILY ARIANNA Administration
Sodium Chloride 0 flush 01/05/25 18:00 01/11/25 11:11
Sodium Chloride 0.9% (Flush) Syringe IV 02/02/25 17:59 1 flush
PER PROTOCOL ARIANNA Administration
Sodium Chloride 1 vial 01/14/25 14:00 01/16/25 07:53
Sodium Chloride 3% For Inhalation 4 Ml Vial INH 1 vial
R TID ARIANNA Administration
Tamsulosin HCl 0.4 mg 01/06/25 08:00 01/15/25 08:17
Tamsulosin 0.4 Mg Capsule PO 02/03/25 07:59 0.4 mg
DAILY ARIANNA Administration
Acute hypoxic respiratory failure -currently on high flow nasal cannula oxygen, transition to low flow and wean to off while on hospice.
Advanced metastatic squamous cell lung cancer -prognosis very poor, poor performance status, oncology agrees with hospice.
Chronic SIADH
paroxysmal atrial fibrillation
DM2
Essential hypertension
DNR
Dispo -admit to inpatient hospice. Start IV morphine as needed, transition to drip as needed. Consult hospice.
Patient's and brother updated at the bedside.
Data Reviewed
Diagnostic Radiology: Report Reviewed by me
[2025-01-16] MEDS: JANUVIA PO (08:41)
[2025-01-16] MEDS: NOVOLOG FLEXPEN-MODERATE RESISTANCE SC (08:41)
[2025-01-16] MEDS: GLUCOPHAGE PO (08:41)
[2025-01-16] MEDS: FLOMAX PO (08:41)
[2025-01-16] MEDS: LOVENOX SC (08:42)
[2025-01-16] MEDS: LANTUS SC (08:42)
[2025-01-16] MEDS: LIPITOR PO (08:42)
[2025-01-16] MEDS: PACERONE PO (08:42)
[2025-01-16] MEDS: PROTONIX PO (08:42)
[2025-01-16] MEDS: MAGNESIUM OXIDE PO (08:42)
[2025-01-16] MEDS: SOLU-MEDROL PF IV (08:42)
--- NOTE | 2025-01-16 09:52 | PTCARENOTE ---
Patient comfortable. and brother at bedside. VSS. On hiflow NC. Patient going hospice. Patient and family speaking with gill box tender now. See assessment in hospice admission chart. Will closely monitor.
[2025-01-16 10:00] VITALS: BP 99/67
[2025-01-16] MEDS: REMERON 7.5 MG PO (10:37)
[2025-01-16] MEDS: SENOKOT PO (10:38)
--- NOTE | 2025-01-16 10:58 | PN.DE.MGMTRT ---
Insulin Management
- -
01/16/2025: Diabetes Management Follow up
Patient admitted 01/05 with difficulty breathing. PMH Lung CA - chemo, COPD, HTN, HCL, diabetes. Prior to admission no diabetes medications listed. A1C 11.8%, cr today .5, eGFR > 60.
Patient has transitioned to inpatient hospice.
Will sign off.
Nursing notified
Diabetes History
- -
Type of Diabetes: 2 requiring insulin
Pre-Admission Diabetes Regimen
Lab Results
Hemoglobin A1c 11.8 % (4.0-5.6) H 01/06/25 06:26
Insulin Pump Settings
IP Diabetes Regimen
01/15/25 01/15/25 01/15/25
12:08 16:42 21:43
POC Glucose 98 191 H 299 H
01/16/25
07:46
POC Glucose 280 H
Meal type: Dinner
Amount consumed: 0
Patient Education
--- NOTE | 2025-01-16 11:29 | CM ---
Patient with Hx Metastatic squamous cell carcinoma with Dx Acute hypoxic respiratory failure likely progression of metastatic lung cancer. HFNC. Receiving IV Ativan.
Message from [facility] that patient will be transitioned to Hospice today.
Per nurse Espinoza; family at bedside and speaking with hospice nurse.
Plan Hospice.
== END 2025-01-16 10:46 | disposition hospice, inpatient (51) | DRG 871 ==
LOC: IMU 16:53
PROVIDERS: Internal Medicine; Internal Medicine Cardiovascular Disease; Nurse Practitioner Gerontology; Physician Assistant Medical; Registered Nurse; ADMITTING PHYSICIAN Hospitalist; ATTENDING PHYSICIAN Hospitalist; CONSULT PHYSICIAN Internal Medicine Cardiovascular Disease; CONSULT PHYSICIAN Internal Medicine Critical Care Medicine; EMERGENCY PHYSICIAN Student in an Organized Health Care Education/Training Program; FAMILY PHYSICIAN Family Medicine; OTHER PHYSICIAN Internal Medicine Hematology & Oncology
PROC: 5A0955A Assistance with Respiratory Ventilation, Greater than 96 Consecutive Hours, High Flow/Velocity Cannula (ICD-10-PCS; 2025-01-09)
DX: A41.9 Sepsis, unspecified organism (principal); J18.9 Pneumonia, unspecified organism; J96.21 Acute and chronic respiratory failure with hypoxia; R65.21 Severe sepsis with septic shock; C34.90 Malignant neoplasm of unspecified part of unspecified bronchus or lung; Q21.12 Patent foramen ovale; C77.9 Secondary and unspecified malignant neoplasm of lymph node, unspecified; J90 Pleural effusion, not elsewhere classified; E44.0 Moderate protein-calorie malnutrition; E22.2 Syndrome of inappropriate secretion of antidiuretic hormone; Z51.5 Encounter for palliative care; J43.2 Centrilobular emphysema; E11.65 Type 2 diabetes mellitus with hyperglycemia; E78.00 Pure hypercholesterolemia, unspecified; D63.8 Anemia in other chronic diseases classified elsewhere; D75.839 Thrombocytosis, unspecified; I48.0 Paroxysmal atrial fibrillation; K21.9 Gastro-esophageal reflux disease without esophagitis; F41.9 Anxiety disorder, unspecified; I25.10 Atherosclerotic heart disease of native coronary artery without angina pectoris; I10 Essential (primary) hypertension; R33.9 Retention of urine, unspecified; R59.0 Localized enlarged lymph nodes; E83.42 Hypomagnesemia; I95.9 Hypotension, unspecified; Z92.21 Personal history of antineoplastic chemotherapy; Z99.81 Dependence on supplemental oxygen; Z87.891 Personal history of nicotine dependence; Z92.3 Personal history of irradiation; Z95.5 Presence of coronary angioplasty implant and graft; Z88.1 Allergy status to other antibiotic agents; Z68.21 Body mass index [BMI] 21.0-21.9, adult; Z80.0 Family history of malignant neoplasm of digestive organs; Z80.1 Family history of malignant neoplasm of trachea, bronchus and lung; Z82.3 Family history of stroke; Z82.49 Family history of ischemic heart disease and other diseases of the circulatory system; Z80.42 Family history of malignant neoplasm of prostate; Z74.01 Bed confinement status
CPT/HCPCS: 93308; 36600; 71045; 71275; 80048; 80053; 82805; 82962; 83036; 83605; 83735; 83880; 84100; 84145; 84439; 84443; 84484; 85025; 85027; 85610; 85730; 87040; 87070; 87205; 87449; 87641; 87899; 93005; 93321; 93325; 94640; 94669; 97163; 97167; 97530; 97535; 99291; J1160; Q9967

== ENCOUNTER 2025-01-16 10:47 | Inpatient (IN) | payer OTHER, SELFPAY ==
--- NOTE | 2025-01-16 10:57 | PTCARENOTE ---
Patient now hospice. Plan in place to administer meds then begin to wean O2. and brother at bedside. Patient comfortable.
--- NOTE | 2025-01-16 11:00 | CHAP ---
Fr. Hollis George of [facility] in [place] gave Mega an apostolic pardon, Holy Communion and the Sacrament of the Sick.
[2025-01-16] MEDS: ATIVAN 1 MG IV (11:04)
[2025-01-16] MEDS: NSS (PRESERVATIVE FREE) 0.5 ML IV (11:05)
[2025-01-16] MEDS: MORPHINE SULFATE 2 MG IV ×5 (11:06→23:23)
--- NOTE | 2025-01-16 11:21 | RESPNOTE ---
high flow oxygen stand-by at this time. placed on 15L midflow-96%.
--- NOTE | 2025-01-16 11:24 | HOSPNOTE ---
Patient was admitted inpatient hospice for severe shortness of breath requiring IV medications. Patient is very tearful and anxious. I will continue to support and see patient daily.
--- NOTE | 2025-01-16 11:35 | CM ---
Patient with Hx Metastatic squamous cell carcinoma with Dx Acute hypoxic respiratory failure likely progression of metastatic lung cancer. HFNC. Receiving IV Ativan prn, IV MS prn. Per nurse; A/O.
Message from [facility] that patient was transitioned to Hospice today.
Per nurse Alexis; family at bedside and speaking with hospice nurse.
Plan Hospice.
[2025-01-16 13:57] VITALS: BP 95/62
[2025-01-16 14:00] VITALS: BP 93/60
[2025-01-16] MEDS: ROBINUL 0.2 MG IV ×2 (14:54→18:56)
[2025-01-16 16:00] VITALS: BP 92/59
[2025-01-16 19:14] VITALS: BP 119/71
[2025-01-16] MEDS: TYLENOL 650 MG PO (20:39)
[2025-01-16] MEDS: TESSALON PERLES 100 MG PO (20:39)
[2025-01-16] MEDS: ATIVAN 1 MG SL (21:23)
[2025-01-16] MEDS: ZOFRAN 4 MG IV (23:21)
[2025-01-17] MEDS: ROBINUL 0.2 MG IV ×2 (05:02→12:44)
[2025-01-17] MEDS: MORPHINE SULFATE 2 MG IV ×6 (05:03→19:30)
[2025-01-17 06:47] VITALS: BP 92/64
[2025-01-17] MEDS: ATIVAN 1 MG SL (08:24)
--- NOTE | 2025-01-17 11:27 | HOSPNOTE ---
MILLER APPRENTICE VISITED WITH 64 YEAR OLD PATIENT TO CONDUCT INITIAL GUITAR TEACHER ASSESSMENT. PATIENT ADMITTED ONTO HOSPICE SERVICES AND GIP LEVEL OF CARE WITH THE PRIMARY DIAGNOSIS OF METASTATIC LUNG CANCER. NURSE REPORTED PATIENT RESTING COMFORTABLY,
MEDICATIONS ADMINISTERED, AND SPOUSE AT PATIENT'S BEDSIDE. GUITAR TEACHER GREETED PATIENT WHILE ENTERING HIS ROOM, HE WAS LAYING IN BED WATCHING TV. PATIENT REPORTED HE'S OKAY, DENIES PAIN, REPORTED HE DOESN'T NEED ANYTHING, AND WANTS TO REST. PATIENT REPORTED
SPOUSE IS IN THE RESTROOM. GUITAR TEACHER GREETED SPOUSE, SPOUSE REPORTED SHE HAD TO GET DRESSED AND BRUSH HER TEETH. SHE REPORTED PATIENT SHE GOT SOME MEDICATIONS AND THAT IS WHY HE SEEMS TIRED. GUITAR TEACHER ASKED PATIENT IF HE MIND IF GUITAR TEACHER SPOKE WITH SPOUSE, PATIENT
RESPONDED NO. GUITAR TEACHER ENCOURAGED PATIENT TO GET SOME REST. SPOUSE REPORTED SHE'S GOING TO WALK AROUND THE HOSPITAL ONCE PATIENT GOES TO SLEEP BECAUSE HE GETS UPSET IF SHE ISN'T HERE WHEN HE AWAKE. PATIENT REPORTED HE AND SPOUSE HAVE BEEN FOR 42
YEARS AND THEY MET IN A BAR. SPOUSE REPORTED SHE HAD HER BRIDAL SHOWER IN THE SAME BAR AND PATIENT HAD HIS SHOWER SOME PLACE ELSE BUT ENDED UP CRASHING HERS BECAUSE HE WANTED TO BE WITH HER. SPOUSE REPORTED PATIENT HAD 9 SIBLINGS AND 4 OF THEM ARE
STILL ALIVE FAMILIA, MICHAEL, CANDICE, AND JESUS. SPOUSE REPORTED THEY ARE AWARE OF PATIENT'S HOSPITALIZATION AND CANDICE HAS BEEN VISITING. SPOUSE REPORTED PATIENT HAS 2 CHILDREN HOLLIS (RESIDES IN [place]) AND MARIANNE (RESIDES IN [facility]) AND 2
GRANDCHILDREN. SPOUSE REPORTED THEIR FAMILY AND FRIENDS ARE CLOSE AND SUPPORTIVE. SPOUSE REPORTED HER FAMILY HAS UTILIZED HOSPICE WITH MANY FAMILY MEMBERS RECENTLY 2 YEARS AGO WITH HER [id number] AND THEY ARE GRATEFUL. SPOUSE REPORTED
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 PATIENT'S FAVORITE MUSCLE CAR IS THE 1970 [employer].
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 PATIENT DOG MS. ALBERTS MISSES PATIENT AND LAYS IN HIS RECLINER, SHE'S A RESCUE DOG THEY HAVE HAD FOR ABOUT 9 YEARS, HE LOVED DOGS. SPOUSE REPORTED THEY PAID FOR PLOTS IN
[facility] BUT PATIENT WANTS TO BE CREMATED AND HE WANTS HIS ASHES IN HIS FAVORITE MUSCLE CAR URN AND WANTS HIS ASHES UPSTAIRS IN HIS LIVINGROOM. PATIENT IS PRESYBETERIAN AND AFFILIATES WITH THE [facility], HE
WISHES TO BE CREMATED, THE FAMILY WILL UTILIZE [facility]. SPOUSE REPORTED SHE DOESN'T THINK THE FAMILY WILL HAVE A BUT A CELEBRATION OF LIFE INSTEAD. NO SIGNS OF DISTRESS OBSERVED DURING
THIS VISIT. SPOUSE BECAME EMOTIONAL THROUGHOUT THIS VISIT. PRAYER AND MUCH EMOTIONAL SUPPORT PROVIDED.
PATIENT MEETS [facility] FOR SN ASSESSMENTS, MANAGEMENT OF SHORTNESS OF BREATH REQUIRING IV MORPHINE DRIP THAT COULD NOT BE MANAGED AT HOME AND/OR IN AN OUTPATIENT SETTING. DISCHARGE PLANNING CONTINUES.
GUITAR TEACHER WILL CONDUCT VISITS ONCE A WEEK WHILE ON GIP LEVEL OF CARE TO PROVIDE SUPPORTIVE SERVICES AND TO MONITOR FOR ADDITIONAL SERVICES.
--- NOTE | 2025-01-17 11:47 | HOSPNOTE ---
Patient is awake, very anxious and requires IV ativan and morphine for shortness of breath. Spouse is bedside and much emotional support given. Patient is on 6L of oxygen and will be medicated appropriately and most likely will be on a morphine
drip. SCOP patch was also ordered. Patient continues to be inpatient appropriate for management of shortness of breath and agitation. Patient will be seen daily.
--- NOTE | 2025-01-17 12:06 | CM ---
CM following re: discharge planning.
Reviewed pt's chart.
Pt is on hospice care with hospice GIP.
CM is available for emotional support.
--- NOTE | 2025-01-17 12:20 | W.PN.HOSP.TC ---
Today's Communication/Plan
-
Continue hospice care
Wean oxygen
Assessment / Plan
Assessment / Plan
Gen-awake, alert, tachypneic, appearing chronically ill
HEENT-NC, AT, anicteric, clear oral mm
Neck-supple
CV-reg, no M, +S1/S2
Lungs-bilateral rhonchi
Abd-soft, NT, ND
Ext-no edema
Musculoskeletal-no cyanosis, clubbing
Skin-warm and dry
Neuro-grossly non-focal
Psych-calm, cooperative
Acute hypoxic respiratory failure -currently on 6 L nasal cannula oxygen, wean down. Discussed with hospice nurse.
Advanced metastatic squamous cell lung cancer -enrolled in inpatient hospice 01/16. Continue morphine and lorazepam for comfort. Scopolamine patch for secretions.
Chronic SIADH
paroxysmal atrial fibrillation
DM2
Essential hypertension
DNR
Updated patient's at the bedside.
Anticipated Discharge: 24 - 48 hours
Subjective/Interval History
-
Date of Service: January 17, 2025
Patient seen and examined. Mildly short of breath.
Objective Data
-
Vital Signs:
Vital Signs
Temp Pulse Resp BP Pulse Ox
98.3 F 88 24 92/64 85
01/17/25 06:47 01/17/25 06:47 01/16/25 18:15 01/17/25 06:47 01/17/25 10:26
I&O
01/16/25 01/17/25 01/18/25
06:59 06:59 06:59
Intake Total 960 / 960
Output Total 700 / 700
Balance 260 / 260
Review of Systems
-
History Source: Patient
All other systems: Reviewed and negative
[2025-01-17] MEDS: NSS (PRESERVATIVE FREE) 0.5 ML IV (12:42)
[2025-01-17] MEDS: ATIVAN 1 MG IV (12:43)
[2025-01-17] MEDS: TRANSDERM-SCOP 1 PATCH TRANSDERM (12:44)
--- NOTE | 2025-01-17 13:15 | HOSPNOTE ---
Mega was sleeping comfortably, minimally responsive. Spouse Claudette and visitor Juliet were present. Claudette shared background about Paul and about their life together. Paul has Judaism fidel and has received Sacrament of the Sick. Satin Finisher provided
emotional and spiritual support through presence, dialogue, and prayer. Will continue support through weekly visits.
[2025-01-17] MEDS: TESSALON PERLES 100 MG PO (19:30)
[2025-01-17 23:34] VITALS: BP 119/79
[2025-01-18 07:10] VITALS: BP 105/69
[2025-01-18] MEDS: ATIVAN 1 MG SL (09:40)
[2025-01-18] MEDS: TESSALON PERLES 100 MG PO (09:40)
--- NOTE | 2025-01-18 09:45 | HOSPNOTE ---
Patient is extremely anxious and refusing medications. Long talk with patient and spouse and he is now in agreement to take ativan but no more even though he is extremely short of breath and on 6L. SATS are 81%. Much education needed and support.
Patient will have a complete bed bath and linen change. Patient will be seen daily by hospice and will continue to educate. Patient is short of breath but continues to refuse the morphine. Will continue to educate. Patient remains inpatient hospice
appropriate for management of shortness of breath and agitation.
--- NOTE | 2025-01-18 10:04 | PTCARENOTE ---
pt in room with at bedside. very anxious but very hesitant to let RN or anyone give IV meds. SL ativan given after discussion with MD and hospice nurse. pill taken with apple sauce.
[2025-01-18] MEDS: ATIVAN 1 MG IV (13:21)
[2025-01-18] MEDS: MORPHINE SULFATE 2 MG IV ×5 (13:22→23:40)
[2025-01-18] MEDS: NSS (PRESERVATIVE FREE) 0.5 ML IV (13:22)
--- NOTE | 2025-01-18 14:27 | W.PN.HOSP.TC ---
Today's Communication/Plan
-
Continue hospice care
Wean down oxygen as able
Assessment / Plan
Assessment / Plan
Gen-drowsy but arousable, tachypneic, appearing chronically ill
HEENT-NC, AT, anicteric, clear oral mm
Neck-supple
CV-reg, no M, +S1/S2
Lungs-bilateral rhonchi
Abd-soft, NT, ND
Ext-no edema
Musculoskeletal-no cyanosis, clubbing
Skin-warm and dry
Neuro-grossly non-focal
Psych-calm, cooperative
Acute hypoxic respiratory failure -currently on 5 L nasal cannula oxygen, continue to wean down. Discussed with hospice nurse.
Advanced metastatic squamous cell lung cancer -enrolled in inpatient hospice 01/16. Continue morphine and lorazepam for comfort. Scopolamine patch for secretions.
Refused IV lorazepam this morning and oral lorazepam ordered. Appreciate hospice nurse educating patient and family.
Chronic SIADH
paroxysmal atrial fibrillation
DM2
Essential hypertension
DNR
Updated patient's at the bedside.
Anticipated Discharge: 24 - 48 hours
Subjective/Interval History
-
Date of Service: January 18, 2025
Patient seen and examined. Somewhat drowsy but able to answer questions. Denies shortness of breath.
Objective Data
-
Vital Signs:
Vital Signs
Temp Pulse Resp BP Pulse Ox
99.6 F 87 16 105/69 94
01/18/25 07:10 01/18/25 07:10 01/18/25 07:10 01/18/25 07:10 01/18/25 10:09
I&O
01/17/25 01/18/25 01/19/25
06:59 06:59 06:59
Intake Total 960 / 960 1200 / 1200
Output Total 700 / 700 1400 / 1400
Balance 260 / 260 -200 / -200
Review of Systems
-
History Source: Patient
All other systems: Reviewed and negative
[2025-01-18 23:11] VITALS: BP 112/68
[2025-01-19] MEDS: MORPHINE SULFATE 2 MG IV ×5 (00:57→17:39)
[2025-01-19 07:00] VITALS: BP 93/65
[2025-01-19] MEDS: ROBINUL 0.2 MG IV (07:39)
[2025-01-19] MEDS: ATIVAN 1 MG IV ×2 (09:27→12:22)
[2025-01-19] MEDS: NSS (PRESERVATIVE FREE) 0.5 ML IV ×2 (09:28→12:21)
[2025-01-19] MEDS: ZOFRAN 4 MG IV (09:29)
--- NOTE | 2025-01-19 12:28 | W.PN.HOSP.TC ---
Today's Communication/Plan
-
Stop oxygen
IV morphine with transition to drip
Continue Ativan as needed
Assessment / Plan
Assessment / Plan
Gen-drowsy but arousable, tachypneic, appearing chronically ill
HEENT-NC, AT, anicteric, clear oral mm
Neck-supple
CV-reg, no M, +S1/S2
Lungs-bilateral rhonchi
Abd-soft, NT, ND
Ext-no edema
Musculoskeletal-no cyanosis, clubbing
Skin-warm and dry
Neuro-grossly non-focal
Psych-calm, cooperative
Acute hypoxic respiratory failure -patient was on 5 L of oxygen this morning. I had a long discussion with patient's and explained that the goal is to get him off the oxygen as we are only prolonging his suffering. is agreeable and wants
to proceed with hospice care. I explained that she should inform family members to come in to say their goodbyes.
Will continue supportive care with morphine and Ativan as needed and transition to morphine drip. Comfort is paramount. Discussed with patient's nurse and hospice nurse. All parties are in agreement.
Advanced metastatic squamous cell lung cancer -enrolled in inpatient hospice 01/16. Continue morphine and lorazepam for comfort. Scopolamine patch for secretions.
Chronic SIADH
paroxysmal atrial fibrillation
DM2
Essential hypertension
DNR
Updated patient's at the bedside.
Anticipated Discharge: Within 24 hours
Subjective/Interval History
-
Date of Service: January 19, 2025
Patient seen and examined. Awakens when name is called but quickly falls back asleep.
Objective Data
-
Vital Signs:
Vital Signs
Temp Pulse Resp BP Pulse Ox
98.4 F 92 20 93/65 93
01/19/25 07:00 01/19/25 07:00 01/19/25 07:00 01/19/25 07:00 01/19/25 07:00
I&O
01/18/25 01/19/25 01/20/25
06:59 06:59 06:59
Intake Total 1200 / 1200 340 / 340
Output Total 1400 / 1400 1650 / 1650
Balance -200 / -200 -1310 / -1310
Review of Systems
-
Unable to obtain full review of systems at this time due to: Acuity
--- NOTE | 2025-01-19 12:45 | HOSPNOTE ---
Oxygen was removed and patient was given 3 doses of morphine and per protocol will begin a morphine drip. Spouse is tearful but understands this is needed and the patient will be comfortable and we use medications. The spouse is in agreement with
the use of all medications she does not want him to suffer. Family is coming today to visit. Patient continues to be inpatient hospice for management of anxiety and shortness of breath. Patient had a complete bath and linen changed and mouth care
performed. Patient will be seen daily. Emotional support given to spouse.
--- NOTE | 2025-01-19 13:06 | CM ---
CM following re: discharge planning.
Reviewed pt's chart.
Pt is on hospice care with hospice GIP.
CM is available for emotional support.
[2025-01-19] MEDS: MORPHINE 100 IV (13:50)
[2025-01-19 19:00] VITALS: BP 100/58
--- NOTE | 2025-01-20 00:35 | PTCARENOTE ---
Around 0015, patients bathroom naik was going off. Patients found in bathroom, having diarrhea and vomiting, saying she cant get up and feels like shes going to pass out. Another RN called outpatient rapid and came to get me. Upon going in
room, patient was standing up and about to fall over, 2 RN's lowered her to the ground safely. ED nurses assessed her, obtained vitals, and were able to help her up to stretcher.
I went to check on patient at this time and patient was not breathing. PIANO MACHINE OPERATOR was coming to see patients and she checked patient and pronounced him at this time.
Patients , Claudette, to go to ED to be checked out. She was informed of his passing and spent a few minutes with him before going to ED. Support offered. Reproduction Technician here and aware of the situation.
--- NOTE | 2025-01-20 01:42 | W.PN.DEATH ---
Pronouncement of
-
Called to see patient to pronounce.
No spontaneous heart tones or respirations noted.
Patient not responsive to verbal stimuli.
Patient is pronounced .
Time of : 12:17
Date of : 01/20/25
Cause of : respiratory failure due to advanced metastatic squamous cell lung cancer
Family Notified: Yes ( - Claudette)
--- NOTE | 2025-01-20 06:30 | PTCARENOTE ---
Peripheral IV and mcmahon removed. postmortem care preformed.
== END 2025-01-20 00:17 | disposition expired | DRG 951 ==
LOC: 2 NORTH 10:47
PROVIDERS: ADMITTING PHYSICIAN Hospitalist
DX: Z51.5 Encounter for palliative care (principal); J96.01 Acute respiratory failure with hypoxia; C34.90 Malignant neoplasm of unspecified part of unspecified bronchus or lung; E22.2 Syndrome of inappropriate secretion of antidiuretic hormone; I48.0 Paroxysmal atrial fibrillation; E11.8 Type 2 diabetes mellitus with unspecified complications; I10 Essential (primary) hypertension; Z66 Do not resuscitate